=== PATIENT | male | born 1955 | race Caucasian/White ===

== ENCOUNTER → 2017-10-08 12:03 | Outpatient (CLI) | payer OTHER, SELFPAY ==
[2017-10-08 13:38] LABS: Absolute Lymphocyte Count 1.85 X10^3/ul (0.83-4.51); Basophil# 0.04 X10^3/uL; Basophil% 0.7 % (0-1); Eosinophil# 0.15 X10^3/uL; Eosinophils% 2.6 % (0-5); Hematocrit 42.8 % (40-54); Hemoglobin 14.3 g/dl (13.0-16.5); Lymphocyte # 1.85 X10^3/ul (4.0); Lymphocyte % 31.8 % (19-41); Mean Corp Hgb Conc 33.4 g/gl (32-36); Mean Corpuscular Hgb 32.8 pg (27.0-32.0); Mean Corpuscular Volume 98.2 fL (80-94); Mean Platelet Vol. 10.2 fl (6.2-12.0); Monocyte# 0.68 X10^3/uL; Monocyte% 11.7 % (0-10); Neutrophil # 3.04 X10^3/uL (2.7-7.7); Neutrophil % 52.3 % (47-70); Platelet Count 212 K/mm3 (150-450); RBC Distribution Width CV 12.7 % (11.6-14.6); RBC Distribution Width SD 45.2 fl (35.1-43.9); Red Blood Count 4.36 M/mm3 (4.6-6.2); White Blood Count 5.8 K/mm3 (4.4-11.0)
[2017-10-08 13:48] LABS: ALB/GLOB Ratio 1.2 RATIO (0.9-2.4); AST(SGOT) 18 U/L (15-37); Alanine Aminotransfer ALT/SGPT 35 U/L (16-61); Albumin, Serum 3.9 g/dL (3.2-5.0); Alkaline Phosphatase 65 U/L (45-117); Anion Gap 6 (5-15); BUN 16 mg/dL (7-18); BUN/Creat Ratio 21.7 RATIO (10-20); Calcium,Total 8.7 mg/dL (8.5-10.1); Chloride 102 mmol/L (98-107); Creatinine, Serum 0.74 mg/dL (0.70-1.30); EST Glomerular Filtration Rate 114 mL/min (>60); Est Glom Filt Rate - Afr Amer 138 mL/min (>60); Globulin 3.2 g/dL (2.2-4.2); Glucose 119 mg/dL (74-106); POSITIVE COUNT NO; POSITIVE DIFFERENTIAL NO; POSITIVE MORPHOLOGY NO; Potassium 4.4 mmol/L (3.5-5.1); Protein, Total 7.1 g/dL (6.4-8.2); Sodium Level 137 mmol/L (136-145); Thyroid Stim Hormone (TSH) 2.76 uIU/mL (0.358-3.74)
== END ==
PROVIDERS: Family Provider Family Medicine Geriatric Medicine; PCP Family Medicine Geriatric Medicine; Visit Provider Family Medicine Geriatric Medicine
DX: I10 Essential (primary) hypertension (principal); M10.9 Gout, unspecified; F52.8 Other sexual dysfunction not due to a substance or known physiological condition
CPT/HCPCS: 36415; 80053; 84403; 84443; 84550; 85025

== ENCOUNTER → 2017-11-17 11:03 | Outpatient (CLI) | payer OTHER, SELFPAY ==
--- NOTE | 2017-11-17 11:10 | RAD_ITS ---
STUDY: X-RAY - RIGHT ANKLE REASON FOR EXAM: Male, 62 years old. Pain TECHNIQUE: Two view(s) of the ankle were obtained. COMPARISON: None. FINDINGS: Bones: There are no acute osseous abnormalities. There is minimal spurring off the distal fibula and tibia. There is a small spur off the inferior calcaneus. There is minimal spurring off the talus and tarsal bones. Joints: There is moderate narrowing of the ankle joint. There is mild narrowing of the tarsal joints. Soft tissues: There is mild diffuse soft tissue swelling. RAD/Ankle 2 Views IMPRESSION: There are moderate degenerative changes in the right ankle. There are mild degenerative changes in the tarsal joints. Electronically Signed: Hyun Abreu MD at 9:04 EDT Tel Direct: [phone], Service support ,
== END ==
PROVIDERS: Family Provider Family Medicine Geriatric Medicine; PCP Family Medicine Geriatric Medicine; Visit Provider Family Medicine Geriatric Medicine
DX: M25.571 Pain in right ankle and joints of right foot (principal)
CPT/HCPCS: 73600

== ENCOUNTER → 2018-04-05 14:27 | Outpatient (CLI) | payer OTHER, SELFPAY | PROVIDERS: Family Provider Family Medicine Geriatric Medicine; PCP Family Medicine Geriatric Medicine; Visit Provider Family Medicine Geriatric Medicine | DX: M48.061 Spinal stenosis, lumbar region without neurogenic claudication (principal); M25.551 Pain in right hip; M25.552 Pain in left hip; M25.561 Pain in right knee; M25.562 Pain in left knee | CPT/HCPCS: 72100; 73521; 73564 ==

== ENCOUNTER → 2018-10-18 16:59 | Outpatient (CLI) | payer OTHER, SELFPAY ==
--- NOTE | 2018-09-27 15:56 | CT_ITS ---
STUDY: CT ORBITS WITHOUT CONTRAST REASON FOR EXAM: Male, 63 years old. MRI screening examination for metallic object in the left orbit. RADIATION DOSAGE (If Supplied By Facility): CTDIvol = ( 29.38 ) mGy, DLP = ( 283.00 ) mGycm TECHNIQUE: The patient was scanned in a multi detector CT scanner. Transaxial imaging was performed without the administration of intravenous contrast material. Sagittal and coronal images were reconstructed. Individualized dose optimization techniques were used for this CT. COMPARISON: Comparison is made with prior study dated September 01, 2017. FINDINGS: Normal globes. Normal intraconal spaces. Normal optic nerve sheath complex. Normal bilateral extraocular muscles. Normal lacrimal glands. A metallic BB is seen in the left eyelid. Normal bilateral medial and inferior orbital azevedo. Normal bilateral maxillary bones. Normal bilateral frontozygomatic arches. Normal bilateral zygomatic temporal arches. Normal frontal sinus. Normal ethmoidal sinuses. Normal maxillary sinuses. Normal sphenoid sinuses. Metallic BB in the left eyelid. CT/Orb Sella Post Fossa Ear w/o IMPRESSION: Metallic BB in the left eyelid. Electronically Signed: Sav Chao MD at 8:12 EST , Service support ,
--- NOTE | 2018-10-18 17:07 | MRI_ITS ---
STUDY: MRI RIGHT ANKLE WITHOUT CONTRAST REASON FOR EXAM: Right ankle pain for a year, no specific injury, tibiotalar arthrosis. TECHNIQUE: Standardized fat and water weighted pulse sequences were obtained in all 3 orthogonal planes. COMPARISON: Radiographs 11/17/2017. FINDINGS: There is mild edema in the medial and lateral subcutis adipose space. There is a small volume of fluid in the proximal posterior tibialis tendon sheath and a very small partial tear of the proximal posterior tibialis tendon (T2 axial image 8). Normal flexor digitorum longus tendon. Normal flexor hallucis longus tendon. There is a small volume of fluid in the perimalleolar peroneal tendon sheath (inversion recovery sagittal images 6, 7), a longitudinal split of the perimalleolar peroneus brevis tendon (inversion recovery axial images 11-17), and mild tendinosis of the peroneus longus tendon (inversion recovery axial image 11). Normal tibialis anterior tendon. Normal extensor hallucis longus tendon. Normal extensor digitorum longus tendons. Normal Achilles tendon and teno-osseous insertion. There is a small posterior calcaneal enthesophyte. Normal plantar fascia. There is a small plantar calcaneal enthesophyte. Normal intrinsic muscles of the rearfoot. Normal distal tibiofibular syndesmotic ligamentous complex. There is a chronic tear of the anterior talofibular ligament (T2 axial image 16). Normal calcaneofibular and posterior talofibular ligaments. There are small cysts in the sinus tarsi (inversion recovery sagittal images 12, 13). Normal deltoid ligamentous complexes. There is cystic change of the medial malleolus and medial talus at the deltoid ligament attachments. Normal plantar calcaneonavicular (spring) ligament. There is advanced tibiotalar arthrosis with marginal anterior osteophytes, chondral loss and subchondral cystic change/bone edema of the distal tibia and talar dome (inversion recovery sagittal images 9-17). There is a small tibiotalar joint effusion (inversion recovery sagittal image 13) and a suspected intra-articular body at the anterior aspect of the tibiotalar joint (T1 sagittal image 17). There are small marginal posterior osteophytes and subchondral cystic change of the posterior aspect of the posterior subtalar articulation (inversion recovery sagittal images 12, 13) without substantial chondral thinning. Normal talonavicular articulation. Normal calcaneocuboid articulation. Normal navicular-cuneiform articulations. MRI/Lower Ext Joint Only (Routine) IMPRESSION: Advanced tibiotalar arthrosis with small joint effusion and suspected intra-articular body. Longitudinal split of the peroneus longus tendon, mild tendinosis of the peroneus brevis tendon and mild peroneal tenosynovitis. Very small partial tear of the posterior tibialis tendon and mild posterior tibialis tenosynovitis. Chronic tear of the anterior talofibular ligament. Electronically Signed: Juan Diego Alcaraz MD at 10:25 EST Tel , Service support ,
== END ==
PROVIDERS: Family Provider Family Medicine Geriatric Medicine; PCP Family Medicine Geriatric Medicine; Referring Provider Podiatrist; Visit Provider Podiatrist
DX: Z01.818 Encounter for other preprocedural examination (principal); M19.071 Primary osteoarthritis, right ankle and foot; M76.71 Peroneal tendinitis, right leg
CPT/HCPCS: 70480; 73721

== ENCOUNTER → 2018-11-23 | Outpatient (CLI) | payer OTHER, SELFPAY ==
[2017-12-23 10:38] VITALS: BMI 36.8
[2018-11-23 16:09] LABS: Absolute Lymphocyte Count 1.37 X10^3/ul (0.83-4.51); Absolute Neutrophil Count 3.6 X10^3/uL (2.0-7.7); Basophil# 0.07 X10^3/uL; Basophil% 1.1 % (0-1); Eosinophil# 0.31 X10^3/uL; Hematocrit 43.9 % (40-54); Hemoglobin 14.6 g/dl (13.0-16.5); Lymphocyte # 1.37 X10^3/ul (4.0); Lymphocyte % 22.3 % (19-41); Mean Corp Hgb Conc 33.3 g/gl (32-36); Mean Corpuscular Hgb 31.1 pg (27.0-32.0); Mean Corpuscular Volume 93.4 fL (80-94); Mean Platelet Vol. 10.8 fl (6.2-12.0); Monocyte# 0.82 X10^3/uL; Monocyte% 13.4 % (0-10); Neutrophil # 3.55 X10^3/uL (2.7-7.7); Neutrophil % 57.9 % (47-70); Platelet Count 225 K/mm3 (150-450); RBC Distribution Width SD 43.4 fl (35.1-43.9); White Blood Count 6.1 K/mm3 (4.4-11.0)
[2018-11-23 16:10] LABS: POSITIVE COUNT NO; POSITIVE DIFFERENTIAL NO; POSITIVE MORPHOLOGY NO
[2018-11-23 16:30] LABS: ALB/GLOB Ratio 1.3 RATIO (0.9-2.4); AST(SGOT) 29 U/L (15-37); Alanine Aminotransfer ALT/SGPT 38 U/L (16-61); Albumin, Serum 4.1 g/dL (3.2-5.0); Alkaline Phosphatase 78 U/L (45-117); Anion Gap 10 (5-15); BUN 14 mg/dL (7-18); BUN/Creat Ratio 12.6 RATIO (10-20); Chloride 104 mmol/L (98-107); Creatinine, Serum 1.11 mg/dL (0.70-1.30); EST Glomerular Filtration Rate 71 mL/min (>60); Est Glom Filt Rate - Afr Amer 86 mL/min (>60); Globulin 3.1 g/dL (2.2-4.2); Glucose 123 mg/dL (74-106); Potassium 4.4 mmol/L (3.5-5.1); Protein, Total 7.2 g/dL (6.4-8.2); Sodium Level 138 mmol/L (136-145); Thyroid Stim Hormone (TSH) 2.35 uIU/mL (0.358-3.74)
== END | disposition home or self-care (01) ==
PROVIDERS: Family Provider Family Medicine Geriatric Medicine; PCP Family Medicine Geriatric Medicine; Visit Provider Family Medicine Geriatric Medicine
DX: R53.83 Other fatigue (principal)
CPT/HCPCS: 36415; 80053; 84443; 85025

== ENCOUNTER → 2019-01-11 | Outpatient (CLI) | payer OTHER, SELFPAY ==
[2017-12-23 10:38] VITALS: BMI 36.8
[2019-01-11 17:25] LABS: Absolute Lymphocyte Count 1.48 X10^3/ul (0.83-4.51); Absolute Neutrophil Count 4.7 X10^3/uL (2.0-7.7); Basophil# 0.06 X10^3/uL; Basophil% 0.8 % (0-1); Eosinophil# 0.42 X10^3/uL; Eosinophils% 5.7 % (0-5); Hematocrit 43.6 % (40-54); Hemoglobin 14.5 g/dl (13.0-16.5); Lymphocyte # 1.48 X10^3/ul (4.0); Lymphocyte % 20.2 % (19-41); Mean Corp Hgb Conc 33.3 g/gl (32-36); Mean Corpuscular Hgb 30.1 pg (27.0-32.0); Mean Corpuscular Volume 90.6 fL (80-94); Mean Platelet Vol. 10.8 fl (6.2-12.0); Monocyte% 9.5 % (0-10); Neutrophil # 4.65 X10^3/uL (2.7-7.7); Neutrophil % 63.5 % (47-70); Platelet Count 210 K/mm3 (150-450); RBC Distribution Width CV 13.6 % (11.6-14.6); RBC Distribution Width SD 44.9 fl (35.1-43.9); Red Blood Count 4.81 M/mm3 (4.6-6.2); White Blood Count 7.3 K/mm3 (4.4-11.0)
[2019-01-11 17:33] LABS: POSITIVE COUNT NO; POSITIVE DIFFERENTIAL NO; POSITIVE MORPHOLOGY NO
[2019-01-11 18:02] LABS: ALB/GLOB Ratio 1.2 RATIO (0.9-2.4); AST(SGOT) 25 U/L (15-37); Alanine Aminotransfer ALT/SGPT 31 U/L (16-61); Albumin, Serum 3.9 g/dL (3.2-5.0); Alkaline Phosphatase 99 U/L (45-117); Anion Gap 8 (5-15); BUN 12 mg/dL (7-18); Calcium,Total 8.8 mg/dL (8.5-10.1); Chloride 105 mmol/L (98-107); EST Glomerular Filtration Rate 80 mL/min (>60); Est Glom Filt Rate - Afr Amer 97 mL/min (>60); Globulin 3.2 g/dL (2.2-4.2); Glucose 110 mg/dL (74-106); Potassium 3.8 mmol/L (3.5-5.1); Protein, Total 7.1 g/dL (6.4-8.2); Sodium Level 139 mmol/L (136-145); Thyroid Stim Hormone (TSH) 2.44 uIU/mL (0.358-3.74); Uric Acid 6.6 mg/dL (3.5-7.2)
[2019-01-11 20:38] LABS: Vitamin D,25 Hydroxy 23.4 ng/mL (29.95-100.01)
== END | disposition home or self-care (01) ==
LOC: POLAB3 13:45
PROVIDERS: Family Provider Family Medicine Geriatric Medicine; PCP Family Medicine Geriatric Medicine; Visit Provider Family Medicine Geriatric Medicine
DX: E55.9 Vitamin D deficiency, unspecified (principal); F52.8 Other sexual dysfunction not due to a substance or known physiological condition; I10 Essential (primary) hypertension; M10.9 Gout, unspecified
CPT/HCPCS: 36415; 80053; 82306; 84403; 84443; 84550; 85025

== ENCOUNTER → 2019-07-12 15:28 | Outpatient (CLI) | payer OTHER, SELFPAY ==
[2017-12-23 10:38] VITALS: BMI 36.8
[2019-07-12 18:08] LABS: Absolute Lymphocyte Count 1.74 X10^3/uL (0.83-4.51); Absolute Neutrophil Count 3.6 X10^3/uL (2.0-7.7); Basophil# 0.05 X10^3/uL; Basophil% 0.8 % (0-1); Eosinophil# 0.33 X10^3/uL; Eosinophils% 5.1 % (0-5); Hematocrit 42.6 % (40-54); Hemoglobin 14.4 g/dL (13.0-16.5); Lymphocyte # 1.74 X10^3/ul (4.0); Lymphocyte % 26.7 % (19-41); Mean Corp Hgb Conc 33.8 g/dL (32-36); Mean Corpuscular Hgb 31.8 pg (27.0-32.0); Mean Platelet Vol. 10.2 fl (6.2-12.0); Monocyte# 0.74 X10^3/uL; Monocyte% 11.4 % (0-10); NRBC Flagged by Analyzer 0 % (0-5); Neutrophil # 3.62 X10^3/uL (2.7-7.7); Neutrophil % 55.5 % (47-70); Platelet Count 226 K/mm3 (150-450); RBC Distribution Width SD 44.9 fl (35.1-43.9); Red Blood Count 4.53 M/mm3 (4.6-6.2); White Blood Count 6.5 K/mm3 (4.4-11.0)
[2019-07-12 18:16] LABS: Vitamin D,25 Hydroxy 18.4 ng/mL (29.95-100.01)
[2019-07-12 18:21] LABS: ALB/GLOB Ratio 1.2 RATIO (0.9-2.4); AST(SGOT) 21 U/L (15-37); Alanine Aminotransfer ALT/SGPT 31 U/L (16-61); Albumin, Serum 4.1 g/dL (3.2-5.0); Alkaline Phosphatase 118 U/L (45-117); Anion Gap 8 (5-15); BUN 11 mg/dL (7-18); BUN/Creat Ratio 12.9 RATIO (10-20); Calcium,Total 8.8 mg/dL (8.5-10.1); Chloride 103 mmol/L (98-107); Creatinine, Serum 0.85 mg/dL (0.70-1.30); EST Glomerular Filtration Rate 96 mL/min (>60); Est Glom Filt Rate - Afr Amer 116 mL/min (>60); Globulin 3.5 g/dL (2.2-4.2); Glucose 120 mg/dL (74-106); Protein, Total 7.6 g/dL (6.4-8.2); Sodium Level 136 mmol/L (136-145); Uric Acid 4.9 mg/dL (3.5-7.2)
== END ==
PROVIDERS: Family Provider Family Medicine Geriatric Medicine; PCP Family Medicine Geriatric Medicine; Visit Provider Family Medicine Geriatric Medicine
DX: E55.9 Vitamin D deficiency, unspecified (principal); F52.8 Other sexual dysfunction not due to a substance or known physiological condition; I10 Essential (primary) hypertension; M10.9 Gout, unspecified
CPT/HCPCS: 36415; 80053; 82306; 84403; 84443; 84550; 85025

== ENCOUNTER → 2019-08-01 14:45 | Outpatient (CLI) | payer OTHER, SELFPAY ==
--- NOTE | 2019-08-01 14:51 | CT_ITS ---
STUDY: CT BILATERAL ANKLE WITHOUT CONTRAST REASON FOR EXAM: Male, 63 years old. Osteoarthritis of the right ankle. RADIATION DOSAGE (If Supplied By Facility): CTDIvol = ( 12.28 ) mGy, DLP = ( 614.11 ) mGycm TECHNIQUE: Thin section transaxial imaging of the ankle was obtained, with sagittal and coronal reconstructed images. Individualized dose optimization techniques were used for this CT. COMPARISON: None. FINDINGS: Marked degree of joint space narrowing of the right tibiotalar joint with the subchondral cysts in the distal tibia as well as within the talus. Is also evidence of there are degenerative changes of the distal right tibial fibular joint. I also suspect an old avulsion fracture of the right lateral malleolus. Degenerative spurring of the right medial malleolus. Mild osteoarthritis of the left tibiotalar joint. Evidence of an old avulsion 9-year-old fracture of the left medial malleolus soft tissue swelling. There is a 1.9 cm cyst in the anterior lateral aspect of the right calcaneus. Small bilateral plantar spurs as well as a small spur at the insertion of the Achilles tendon. CT/Extremity Lower without Contra IMPRESSION: Degenerative changes of both ankle joints worse on the right side. Electronically Signed: Sav Chao, at 9:40 EST , Service support ,
== END ==
PROVIDERS: Family Provider Family Medicine Geriatric Medicine; PCP Family Medicine Geriatric Medicine; Referring Provider Podiatrist; Visit Provider Podiatrist
DX: M19.071 Primary osteoarthritis, right ankle and foot (principal)
CPT/HCPCS: 73700

== ENCOUNTER → 2021-01-16 14:38 | Outpatient (CLI) | payer MEDICARE, SELFPAY ==
[2017-12-23 10:38] VITALS: BMI 36.8
[2021-01-16 16:04] LABS: Absolute Lymphocyte Count 2.01 X10^3/uL (0.83-4.51); Absolute Neutrophil Count 3.3 X10^3/uL (2.0-7.7); Basophil# 0.04 X10^3/uL; Basophil% 0.6 % (0-1); Eosinophil# 0.25 X10^3/uL; Hematocrit 42.8 % (40-54); Lymphocyte # 2.01 X10^3/ul (0.83-4.51); Lymphocyte % 31.8 % (19-41); Mean Corp Hgb Conc 32.7 g/dL (32-36); Mean Corpuscular Hgb 30.6 pg (27.0-32.0); Mean Corpuscular Volume 93.4 fL (80-94); Mean Platelet Vol. 10.2 fl (6.2-12.0); Monocyte# 0.72 X10^3/uL; Monocyte% 11.4 % (0-10); NRBC Flagged by Analyzer 0 % (0-5); Neutrophil # 3.27 X10^3/uL (2.7-7.7); Neutrophil % 51.7 % (47-70); Platelet Count 237 K/mm3 (150-450); RBC Distribution Width CV 13.7 % (11.6-14.6); RBC Distribution Width SD 46.4 fl (35.1-43.9); Red Blood Count 4.58 M/mm3 (4.6-6.2); White Blood Count 6.3 K/mm3 (4.4-11.0)
[2021-01-16 16:44] LABS: ALB/GLOB Ratio 1.1 RATIO (0.9-2.4); AST(SGOT) 34 U/L (15-37); Alanine Aminotransfer ALT/SGPT 37 U/L (16-61); Alkaline Phosphatase 122 U/L (45-117); Anion Gap 8 (5-15); BUN 13 mg/dL (7-18); BUN/Creat Ratio 14.9 RATIO (10-20); Calcium,Total 8.7 mg/dL (8.5-10.1); Chloride 105 mmol/L (98-107); Creatinine, Serum 0.88 mg/dL (0.70-1.30); EST Glomerular Filtration Rate 93 mL/min (>60); Est Glom Filt Rate - Afr Amer 112 mL/min (>60); Globulin 3.5 g/dL (2.2-4.2); Glucose 120 mg/dL (74-106); PSA,Total - Annual Screen 4.57 ng/mL (0.00-4.00); Potassium 4.1 mmol/L (3.5-5.1); Protein, Total 7.5 g/dL (6.4-8.2); Sodium Level 139 mmol/L (136-145); Thyroid Stim Hormone (TSH) 1.79 uIU/mL (0.358-3.74)
== END ==
PROVIDERS: PCP Family Medicine Geriatric Medicine; Visit Provider Family Medicine Geriatric Medicine
DX: E55.9 Vitamin D deficiency, unspecified (principal); F52.8 Other sexual dysfunction not due to a substance or known physiological condition; I10 Essential (primary) hypertension; Z12.5 Encounter for screening for malignant neoplasm of prostate
CPT/HCPCS: 36415; 80053; 82306; 84153; 84403; 84443; 85025; G0103

== ENCOUNTER → 2021-07-17 09:59 | Outpatient (CLI) | payer MEDICARE, SELFPAY ==
[2021-07-17 16:26] LABS: Absolute Lymphocyte Count 2.27 X10^3/uL (0.83-4.51); Basophil# 0.06 X10^3/uL; Eosinophil# 0.31 X10^3/uL; Eosinophils% 4.9 % (0-5); Hematocrit 44.1 % (40-54); Hemoglobin 14.6 g/dL (13.0-16.5); Lymphocyte # 2.27 X10^3/ul (0.83-4.51); Lymphocyte % 36.1 % (19-41); Mean Corp Hgb Conc 33.1 g/dL (32-36); Mean Corpuscular Hgb 31.2 pg (27.0-32.0); Mean Corpuscular Volume 94.2 fL (80-94); Mean Platelet Vol. 9.5 fl (6.2-12.0); Monocyte# 0.66 X10^3/uL; Monocyte% 10.5 % (0-10); NRBC Flagged by Analyzer 0 % (0-5); Neutrophil # 2.97 X10^3/uL (2.7-7.7); Neutrophil % 47.2 % (47-70); Platelet Count 259 K/mm3 (150-450); RBC Distribution Width CV 13.1 % (11.6-14.6); RBC Distribution Width SD 44.7 fl (35.1-43.9); Red Blood Count 4.68 M/mm3 (4.6-6.2); White Blood Count 6.3 K/mm3 (4.4-11.0)
[2021-07-17 16:42] LABS: Vitamin D,25 Hydroxy 29.6 ng/mL
[2021-07-17 16:50] LABS: AST(SGOT) 23 U/L (15-37); Alanine Aminotransfer ALT/SGPT 39 U/L (16-61); Alkaline Phosphatase 94 U/L (45-117); Anion Gap 8 (5-15); BUN 12 mg/dL (7-18); BUN/Creat Ratio 12.9 RATIO (10-20); Calcium,Total 8.8 mg/dL (8.5-10.1); Chloride 102 mmol/L (98-107); Creatinine, Serum 0.93 mg/dL (0.70-1.30); EST Glomerular Filtration Rate 87 mL/min (>60); Est Glom Filt Rate - Afr Amer 105 mL/min (>60); Globulin 3.9 g/dL (2.2-4.2); Glucose 117 mg/dL (74-106); Potassium 4.3 mmol/L (3.5-5.1); Protein, Total 7.9 g/dL (6.4-8.2); Sodium Level 137 mmol/L (136-145); Thyroid Stim Hormone (TSH) 1.84 uIU/mL (0.358-3.74); Uric Acid 6.8 mg/dL (3.5-7.2)
== END ==
PROVIDERS: PCP Family Medicine Geriatric Medicine; Visit Provider Family Medicine Geriatric Medicine
DX: E11.65 Type 2 diabetes mellitus with hyperglycemia (principal); E55.9 Vitamin D deficiency, unspecified; F52.8 Other sexual dysfunction not due to a substance or known physiological condition; I10 Essential (primary) hypertension; M10.9 Gout, unspecified
CPT/HCPCS: 36415; 80053; 82306; 84403; 84443; 84550; 85025

== ENCOUNTER → 2022-01-22 | Outpatient (CLI) | payer MEDICARE, SELFPAY ==
[2022-01-22 17:17] LABS: Absolute Lymphocyte Count 2.06 X10^3/uL (0.83-4.51); Absolute Neutrophil Count 2.9 X10^3/uL (2.0-7.7); Basophil# 0.05 X10^3/uL; Basophil% 0.9 % (0-1); Eosinophil# 0.22 X10^3/uL; Eosinophils% 3.8 % (0-5); Hematocrit 43.4 % (40-54); Hemoglobin 14.3 g/dL (13.0-16.5); Lymphocyte # 2.06 X10^3/ul (0.83-4.51); Lymphocyte % 35.3 % (19-41); Mean Corp Hgb Conc 32.9 g/dL (32-36); Mean Corpuscular Hgb 31.4 pg (27.0-32.0); Mean Corpuscular Volume 95.4 fL (80-94); Mean Platelet Vol. 9.7 fl (6.2-12.0); Monocyte% 10.3 % (0-10); NRBC Flagged by Analyzer 0 % (0-5); Neutrophil # 2.88 X10^3/uL (2.7-7.7); Neutrophil % 49.4 % (47-70); Platelet Count 244 K/mm3 (150-450); RBC Distribution Width CV 13.4 % (11.6-14.6); RBC Distribution Width SD 47.4 fl (35.1-43.9); Red Blood Count 4.55 M/mm3 (4.6-6.2); White Blood Count 5.8 K/mm3 (4.4-11.0)
[2022-01-22 17:34] LABS: ALB/GLOB Ratio 1.2 RATIO (0.9-2.4); AST(SGOT) 32 U/L (15-37); Alanine Aminotransfer ALT/SGPT 49 U/L (16-61); Albumin, Serum 4.2 g/dL (3.2-5.0); Alkaline Phosphatase 79 U/L (45-117); Anion Gap 6 (5-15); BUN 11 mg/dL (7-18); BUN/Creat Ratio 11.4 RATIO (10-20); Calcium,Total 8.9 mg/dL (8.5-10.1); Chloride 101 mmol/L (98-107); Creatinine, Serum 0.96 mg/dL (0.70-1.30); EST Glomerular Filtration Rate 83 mL/min (>60); Est Glom Filt Rate - Afr Amer 100 mL/min (>60); Globulin 3.5 g/dL (2.2-4.2); Glucose 126 mg/dL (74-106); Protein, Total 7.7 g/dL (6.4-8.2); Sodium Level 134 mmol/L (136-145); Thyroid Stim Hormone (TSH) 2.37 uIU/mL (0.358-3.74); Uric Acid 5.9 mg/dL (3.5-7.2)
[2022-01-22 20:00] LABS: Vitamin D,25 Hydroxy 53.9 ng/mL
== END | disposition home or self-care (01) ==
LOC: POLAB3 15:09
PROVIDERS: PCP Family Medicine Geriatric Medicine; Visit Provider Family Medicine Geriatric Medicine
DX: E55.9 Vitamin D deficiency, unspecified (principal); F52.8 Other sexual dysfunction not due to a substance or known physiological condition; I10 Essential (primary) hypertension; M10.9 Gout, unspecified
CPT/HCPCS: 36415; 80053; 82306; 84403; 84443; 84550; 85025

== ENCOUNTER → 2022-07-23 | Outpatient (CLI) | payer MEDICARE, SELFPAY ==
[2022-07-23 17:23] LABS: Absolute Lymphocyte Count 2.18 X10^3/uL (0.83-4.51); Absolute Neutrophil Count 3.5 X10^3/uL (2.0-7.7); Basophil# 0.05 X10^3/uL; Basophil% 0.7 % (0-1); Eosinophils% 4.5 % (0-5); Hemoglobin 14.6 g/dL (13.0-16.5); Lymphocyte # 2.18 X10^3/ul (0.83-4.51); Lymphocyte % 32.3 % (19-41); Mean Corp Hgb Conc 32.4 g/dL (32-36); Mean Corpuscular Hgb 31.1 pg (27.0-32.0); Mean Corpuscular Volume 95.9 fL (80-94); Mean Platelet Vol. 10.1 fl (6.2-12.0); Monocyte# 0.65 X10^3/uL; Monocyte% 9.6 % (0-10); NRBC Flagged by Analyzer 0 % (0-5); Neutrophil # 3.53 X10^3/uL (2.7-7.7); Neutrophil % 52.5 % (47-70); Platelet Count 239 K/mm3 (150-450); RBC Distribution Width CV 13.2 % (11.6-14.6); Red Blood Count 4.69 M/mm3 (4.6-6.2); White Blood Count 6.7 K/mm3 (4.4-11.0)
[2022-07-23 18:05] LABS: Vitamin D,25 Hydroxy 52.3 ng/mL
[2022-07-23 18:15] LABS: ALB/GLOB Ratio 1.1 RATIO (0.9-2.4); AST(SGOT) 24 U/L (15-37); Alanine Aminotransfer ALT/SGPT 48 U/L (16-61); Alkaline Phosphatase 77 U/L (45-117); Anion Gap 8 (5-15); BUN 15 mg/dL (7-18); BUN/Creat Ratio 17.3 RATIO (10-20); Calcium,Total 9.2 mg/dL (8.5-10.1); Chloride 102 mmol/L (98-107); Creatinine, Serum 0.87 mg/dL (0.70-1.30); EST Glomerular Filtration Rate 93 mL/min (>60); Est Glom Filt Rate - Afr Amer 113 mL/min (>60); Globulin 3.6 g/dL (2.2-4.2); Glucose 115 mg/dL (74-106); Protein, Total 7.6 g/dL (6.4-8.2); Sodium Level 134 mmol/L (136-145); Thyroid Stim Hormone (TSH) 1.81 uIU/mL (0.358-3.74); Uric Acid 5.7 mg/dL (3.5-7.2)
== END | disposition home or self-care (01) ==
LOC: POLAB3 15:33
PROVIDERS: PCP Family Medicine Geriatric Medicine; Visit Provider Family Medicine Geriatric Medicine
DX: I10 Essential (primary) hypertension (principal); E11.65 Type 2 diabetes mellitus with hyperglycemia; E55.9 Vitamin D deficiency, unspecified; M10.9 Gout, unspecified
CPT/HCPCS: 36415; 80053; 82306; 84443; 84550; 85025

== ENCOUNTER → 2023-01-09 | Outpatient (CLI) | payer MEDICARE, SELFPAY | END | disposition home or self-care (01) | LOC: PSN 12:36 | PROVIDERS: PCP Family Medicine Geriatric Medicine; Referring Provider Family Medicine Geriatric Medicine; Visit Provider Family Medicine Geriatric Medicine | DX: R68.83 Chills (without fever) (principal) | CPT/HCPCS: 87804; 87807; C9803 ==

== ENCOUNTER → 2023-01-29 | Outpatient (CLI) | payer MEDICARE, SELFPAY ==
[2023-01-29 17:40] LABS: Absolute Lymphocyte Count 2.35 X10^3/uL (0.83-4.51); Absolute Neutrophil Count 2.9 X10^3/uL (2.0-7.7); Basophil# 0.06 X10^3/uL; Eosinophil# 0.25 X10^3/uL; Hematocrit 46.3 % (40-54); Lymphocyte # 2.35 X10^3/ul (0.83-4.51); Mean Corp Hgb Conc 32.4 g/dL (32-36); Mean Corpuscular Hgb 31.6 pg (27.0-32.0); Mean Corpuscular Volume 97.7 fL (80-94); Mean Platelet Vol. 9.9 fl (6.2-12.0); Monocyte# 0.57 X10^3/uL; Monocyte% 9.2 % (0-10); NRBC Flagged by Analyzer 0 % (0-5); Neutrophil # 2.94 X10^3/uL (2.7-7.7); Neutrophil % 47.5 % (47-70); Platelet Count 253 K/mm3 (150-450); RBC Distribution Width SD 46.8 fl (35.1-43.9); Red Blood Count 4.74 M/mm3 (4.6-6.2); White Blood Count 6.2 K/mm3 (4.4-11.0)
[2023-01-29 18:36] LABS: ALB/GLOB Ratio 1.2 RATIO (0.9-2.4); AST(SGOT) 30 U/L (15-37); Alanine Aminotransfer ALT/SGPT 49 U/L (16-61); Albumin, Serum 4.2 g/dL (3.2-5.0); Alkaline Phosphatase 76 U/L (45-117); Anion Gap 7 (5-15); BUN 13 mg/dL (7-18); BUN/Creat Ratio 14.9 RATIO (10-20); Calcium,Total 9.3 mg/dL (8.5-10.1); Chloride 103 mmol/L (98-107); Creatinine, Serum 0.87 mg/dL (0.70-1.30); EST Glomerular Filtration Rate 93 mL/min (>60); Est Glom Filt Rate - Afr Amer 112 mL/min (>60); Globulin 3.6 g/dL (2.2-4.2); Glucose 116 mg/dL (74-106); PSA,Total - Annual Screen 4.22 ng/mL (0.00-4.00); Potassium 4.1 mmol/L (3.5-5.1); Protein, Total 7.8 g/dL (6.4-8.2); Sodium Level 135 mmol/L (136-145)
== END | disposition home or self-care (01) ==
LOC: LAB 16:43
PROVIDERS: PCP Family Medicine Geriatric Medicine; Referring Provider Family Medicine Geriatric Medicine; Visit Provider Family Medicine Geriatric Medicine
DX: E11.65 Type 2 diabetes mellitus with hyperglycemia (principal); I10 Essential (primary) hypertension; E55.9 Vitamin D deficiency, unspecified; Z12.5 Encounter for screening for malignant neoplasm of prostate
CPT/HCPCS: 36415; 80053; 82306; 84153; 84443; 85025; G0103

== ENCOUNTER → 2023-06-25 | Outpatient (CLI) | payer MEDICARE, SELFPAY ==
[2023-06-25 18:03] LABS: Absolute Lymphocyte Count 1.99 X10^3/uL (0.83-4.51); Absolute Neutrophil Count 2.8 X10^3/uL (2.0-7.7); Basophil# 0.05 X10^3/uL; Basophil% 0.9 % (0-1); Eosinophils% 5.2 % (0-5); Hematocrit 46.1 % (40-54); Hemoglobin 15.2 g/dL (13.0-16.5); Lymphocyte # 1.99 X10^3/ul (0.83-4.51); Lymphocyte % 34.3 % (19-41); Mean Corpuscular Hgb 31.8 pg (27.0-32.0); Mean Corpuscular Volume 96.4 fL (80-94); Mean Platelet Vol. 10.2 fl (6.2-12.0); Monocyte# 0.61 X10^3/uL; Monocyte% 10.5 % (0-10); NRBC Flagged by Analyzer 0 % (0-5); Neutrophil # 2.82 X10^3/uL (2.7-7.7); Neutrophil % 48.6 % (47-70); Platelet Count 236 K/mm3 (150-450); RBC Distribution Width CV 13.4 % (11.6-14.6); RBC Distribution Width SD 48.4 fl (35.1-43.9); Red Blood Count 4.78 M/mm3 (4.6-6.2); White Blood Count 5.8 K/mm3 (4.4-11.0)
[2023-06-25 18:12] LABS: Prothrombin Time (Protime)PT. 12.9 SECONDS (11.7-14.9)
[2023-06-25 18:13] LABS: Partial Thromboplast Time 27.8 Seconds (24.1-36.2)
[2023-06-25 18:16] LABS: Anion Gap 4 (5-15); BUN 14 mg/dL (7-18); BUN/Creat Ratio 15.8 RATIO (10-20); Calcium,Total 9.4 mg/dL (8.5-10.1); Chloride 103 mmol/L (98-107); Creatinine, Serum 0.89 mg/dL (0.70-1.30); EST Glomerular Filtration Rate 91 mL/min (>60); Est Glom Filt Rate - Afr Amer 110 mL/min (>60); Glucose 128 mg/dL (74-106); Potassium 4.3 mmol/L (3.5-5.1); Sodium Level 135 mmol/L (136-145)
== END | disposition home or self-care (01) ==
LOC: POLAB3 13:53
PROVIDERS: PCP Family Medicine Geriatric Medicine; Visit Provider Family Medicine Geriatric Medicine
DX: Z01.818 Encounter for other preprocedural examination (principal); I10 Essential (primary) hypertension
CPT/HCPCS: 36415; 80048; 85025; 85610; 85730

== ENCOUNTER → 2023-06-30 | Outpatient (CLI) | payer MEDICARE, SELFPAY | END | disposition home or self-care (01) | PROVIDERS: PCP Family Medicine Geriatric Medicine; Referring Provider Family Medicine Geriatric Medicine; Visit Provider Family Medicine Geriatric Medicine | DX: Z01.818 Encounter for other preprocedural examination (principal) | CPT/HCPCS: 93005 ==

== ENCOUNTER → 2023-07-30 | Outpatient (CLI) | payer MEDICARE, SELFPAY ==
[2023-07-30 17:43] LABS: Absolute Lymphocyte Count 2.33 X10^3/uL (0.83-4.51); Absolute Neutrophil Count 4.6 X10^3/uL (2.0-7.7); Basophil# 0.06 X10^3/uL; Basophil% 0.8 % (0-1); Eosinophil# 0.29 X10^3/uL; Eosinophils% 3.6 % (0-5); Hematocrit 41.7 % (40-54); Hemoglobin 13.5 g/dL (13.0-16.5); Lymphocyte # 2.33 X10^3/ul (0.83-4.51); Lymphocyte % 29.2 % (19-41); Mean Corp Hgb Conc 32.4 g/dL (32-36); Mean Corpuscular Volume 95.9 fL (80-94); Mean Platelet Vol. 9.2 fl (6.2-12.0); Monocyte# 0.65 X10^3/uL; Monocyte% 8.1 % (0-10); NRBC Flagged by Analyzer 0 % (0-5); Neutrophil % 57.7 % (47-70); Platelet Count 321 K/mm3 (150-450); RBC Distribution Width CV 13.1 % (11.6-14.6); RBC Distribution Width SD 46.3 fl (35.1-43.9); Red Blood Count 4.35 M/mm3 (4.6-6.2)
[2023-07-30 17:57] LABS: Vitamin D,25 Hydroxy 52.4 ng/mL
[2023-07-30 18:02] LABS: AST(SGOT) 32 U/L (15-37); Alanine Aminotransfer ALT/SGPT 41 U/L (16-61); Albumin, Serum 3.9 g/dL (3.2-5.0); Alkaline Phosphatase 82 U/L (45-117); Anion Gap 9 (5-15); BUN 15 mg/dL (7-18); BUN/Creat Ratio 16.6 RATIO (10-20); Chloride 103 mmol/L (98-107); EST Glomerular Filtration Rate 89 mL/min (>60); Est Glom Filt Rate - Afr Amer 108 mL/min (>60); Globulin 4.1 g/dL (2.2-4.2); Glucose 117 mg/dL (74-106); Potassium 4.7 mmol/L (3.5-5.1); Sodium Level 136 mmol/L (136-145); Thyroid Stim Hormone (TSH) 1.98 uIU/mL (0.358-3.74); Uric Acid 5.9 mg/dL (3.5-7.2)
== END | disposition home or self-care (01) ==
LOC: POLAB3 13:57
PROVIDERS: PCP Family Medicine Geriatric Medicine; Visit Provider Family Medicine Geriatric Medicine
DX: E11.65 Type 2 diabetes mellitus with hyperglycemia (principal); I10 Essential (primary) hypertension; M10.9 Gout, unspecified; E55.9 Vitamin D deficiency, unspecified
CPT/HCPCS: 36415; 80053; 82306; 84443; 84550; 85025

== ENCOUNTER → 2023-10-29 | Outpatient (CLI) | payer MEDICARE, SELFPAY ==
[2023-10-29 15:44] LABS: Absolute Lymphocyte Count 2.15 X10^3/uL (0.83-4.51); Absolute Neutrophil Count 2.8 X10^3/uL (2.0-7.7); Basophil# 0.05 X10^3/uL; Basophil% 0.8 % (0-1); Eosinophil# 0.26 X10^3/uL; Eosinophils% 4.4 % (0-5); Hematocrit 46.8 % (40-54); Lymphocyte # 2.15 X10^3/ul (0.83-4.51); Lymphocyte % 36.4 % (19-41); Mean Corp Hgb Conc 32.1 g/dL (32-36); Mean Corpuscular Hgb 30.7 pg (27.0-32.0); Mean Corpuscular Volume 95.9 fL (80-94); Mean Platelet Vol. 9.7 fl (6.2-12.0); Monocyte# 0.65 X10^3/uL; NRBC Flagged by Analyzer 0 % (0-5); Neutrophil # 2.77 X10^3/uL (2.7-7.7); Neutrophil % 46.9 % (47-70); Platelet Count 245 K/mm3 (150-450); RBC Distribution Width CV 13.6 % (11.6-14.6); RBC Distribution Width SD 48.5 fl (35.1-43.9); Red Blood Count 4.88 M/mm3 (4.6-6.2); White Blood Count 5.9 K/mm3 (4.4-11.0)
[2023-10-29 15:59] LABS: Vitamin D,25 Hydroxy 43.7 ng/mL
[2023-10-29 16:34] LABS: ALB/GLOB Ratio 1.1 RATIO (0.9-2.4); AST(SGOT) 37 U/L (15-37); Alanine Aminotransfer ALT/SGPT 44 U/L (16-61); Alkaline Phosphatase 86 U/L (45-117); Anion Gap 7 (5-15); BUN 13 mg/dL (7-18); BUN/Creat Ratio 13.9 RATIO (10-20); Calcium,Total 8.7 mg/dL (8.5-10.1); Chloride 101 mmol/L (98-107); Creatinine, Serum 0.94 mg/dL (0.70-1.30); EST Glomerular Filtration Rate 85 mL/min (>60); Est Glom Filt Rate - Afr Amer 103 mL/min (>60); Globulin 3.7 g/dL (2.2-4.2); Glucose 131 mg/dL (74-106); Potassium 4.2 mmol/L (3.5-5.1); Protein, Total 7.7 g/dL (6.4-8.2); Sodium Level 135 mmol/L (136-145); Thyroid Stim Hormone (TSH) 1.85 uIU/mL (0.358-3.74); Uric Acid 5.8 mg/dL (3.5-7.2)
== END | disposition home or self-care (01) ==
LOC: POLAB3 14:05
PROVIDERS: PCP Family Medicine Geriatric Medicine; Visit Provider Family Medicine Geriatric Medicine
DX: E55.9 Vitamin D deficiency, unspecified (principal); E11.65 Type 2 diabetes mellitus with hyperglycemia; I10 Essential (primary) hypertension; M10.9 Gout, unspecified
CPT/HCPCS: 36415; 80053; 82306; 84443; 84550; 85025

== ENCOUNTER → 2023-11-05 | Outpatient (CLI) | payer MEDICARE, SELFPAY ==
[2023-11-05 15:37] LABS: M R Staph aureus DNA By PCR Negative (Negative); Probe Check PASS; Specimen Processing Control PASS; Staph aureus DNA By PCR NEGATIVE (Negative)
== END | disposition home or self-care (01) ==
LOC: LABSPEC 14:08
PROVIDERS: PCP Family Medicine Geriatric Medicine; Visit Provider Family Medicine Geriatric Medicine
DX: L03.012 Cellulitis of left finger (principal); S61.203A Unspecified open wound of left middle finger without damage to nail, initial encounter
CPT/HCPCS: 87070; 87077; 87186; 87205; 87640

== ENCOUNTER → 2023-12-04 | Outpatient (CLI) | payer MEDICARE, SELFPAY ==
--- NOTE | 2023-12-04 12:38 | MRI_ITS ---
HISTORY: Facial paresthesia, left facial numbness and tingling x 3 months. TECHNIQUE: Multiplanar and multisequence MR images of the brain were obtained without contrast. 283 images. COMPARISON: None. FINDINGS: BRAIN PARENCHYMA: Mild periventricular white matter changes. No abnormal focus of restricted diffusion. No acute intracranial hemorrhage identified. CSF SPACES: Mild-moderate volume loss. No significant midline shift or other mass effect.No extra-axial fluid collection. VASCULAR SYSTEM: Major intracranial flow voids are maintained. PARANASAL SINUSES AND MASTOID AIR CELLS: Very mild because of thickening of the ethmoid air cells. ORBITS: Symmetric contents. MRI/Brain without Contrast IMPRESSION: No evidence for acute infarct. Chronic involutional and white matter changes. Electronically Signed: Agatha Tomas MD at 15:16 EDT ,
== END | disposition home or self-care (01) ==
LOC: MRI 12:33
PROVIDERS: PCP Family Medicine Geriatric Medicine; Referring Provider Family Medicine Geriatric Medicine; Visit Provider Family Medicine Geriatric Medicine
DX: R20.2 Paresthesia of skin (principal)
CPT/HCPCS: 70551

== ENCOUNTER → 2024-02-01 | Outpatient (CLI) | payer MEDICARE, SELFPAY ==
[2024-02-01 16:15] LABS: Absolute Lymphocyte Count 2.01 X10^3/uL (0.83-4.51); Absolute Neutrophil Count 3.3 X10^3/uL (2.0-7.7); Basophil# 0.05 X10^3/uL; Basophil% 0.8 % (0-1); Eosinophil# 0.24 X10^3/uL; Eosinophils% 3.9 % (0-5); Hematocrit 45.5 % (40-54); Hemoglobin 14.6 g/dL (13.0-16.5); Lymphocyte # 2.01 X10^3/ul (0.83-4.51); Lymphocyte % 32.6 % (19-41); Mean Corp Hgb Conc 32.1 g/dL (32-36); Mean Corpuscular Hgb 31.1 pg (27.0-32.0); Mean Corpuscular Volume 96.8 fL (80-94); Mean Platelet Vol. 10.2 fl (6.2-12.0); Monocyte# 0.59 X10^3/uL; Monocyte% 9.6 % (0-10); NRBC Flagged by Analyzer 0 % (0-5); Neutrophil # 3.26 X10^3/uL (2.7-7.7); Neutrophil % 52.9 % (47-70); Platelet Count 223 K/mm3 (150-450); RBC Distribution Width CV 13.6 % (11.6-14.6); RBC Distribution Width SD 48.8 fl (35.1-43.9); White Blood Count 6.2 K/mm3 (4.4-11.0)
[2024-02-01 22:04] LABS: ALB/GLOB Ratio 1.1 RATIO (0.9-2.4); AST(SGOT) 31 U/L (15-37); Alanine Aminotransfer ALT/SGPT 43 U/L (16-61); Albumin, Serum 4.1 g/dL (3.2-5.0); Alkaline Phosphatase 74 U/L (45-117); Anion Gap 4 (5-15); BUN 14 mg/dL (7-18); BUN/Creat Ratio 13.5 RATIO (10-20); Calcium,Total 9.3 mg/dL (8.5-10.1); Chloride 103 mmol/L (98-107); Cholesterol 212 mg/dL (200); Creatinine, Serum 1.04 mg/dL (0.70-1.30); EST Glomerular Filtration Rate 75 mL/min (>60); Est Glom Filt Rate - Afr Amer 91 mL/min (>60); Globulin 3.6 g/dL (2.2-4.2); Glucose 119 mg/dL (74-106); High Density Lipoprotein 38 mg/dL; PSA,Total - Annual Screen 5.68 ng/mL (0.00-4.00); Potassium 4.7 mmol/L (3.5-5.1); Protein, Total 7.7 g/dL (6.4-8.2); Sodium Level 135 mmol/L (136-145); Thyroid Stim Hormone (TSH) 1.81 uIU/mL (0.358-3.74); Triglycerides 198 mg/dL; Uric Acid 6.1 mg/dL (3.5-7.2); Very Low Density Lipoprotein 40 mg/dL (5-40)
[2024-02-01 23:23] LABS: Hemoglobin A1c 6.2 % (3.8-5.6)
== END | disposition home or self-care (01) ==
PROVIDERS: PCP Family Medicine Geriatric Medicine; Referring Provider Family Medicine Geriatric Medicine; Visit Provider Family Medicine Geriatric Medicine
DX: E11.65 Type 2 diabetes mellitus with hyperglycemia (principal); I10 Essential (primary) hypertension; M10.9 Gout, unspecified; E55.9 Vitamin D deficiency, unspecified; Z12.5 Encounter for screening for malignant neoplasm of prostate; E78.5 Hyperlipidemia, unspecified
CPT/HCPCS: 36415; 80053; 80061; 82043; 82306; 82570; 83036; 84153; 84403; 84443; 84550; 85025; G0103

== ENCOUNTER → 2024-08-01 | Outpatient (CLI) | payer MEDICARE, SELFPAY ==
[2024-08-01 14:26] LABS: Absolute Lymphocyte Count 2.46 X10^3/uL (0.83-4.51); Absolute Neutrophil Count 3.7 X10^3/uL (2.0-7.7); Basophil# 0.06 X10^3/uL; Basophil% 0.8 % (0-1); Eosinophil# 0.41 X10^3/uL; Eosinophils% 5.6 % (0-5); Hematocrit 46.3 % (40-54); Hemoglobin 15.1 g/dL (13.0-16.5); Lymphocyte # 2.46 X10^3/ul (0.83-4.51); Lymphocyte % 33.6 % (19-41); Mean Corp Hgb Conc 32.6 g/dL (32-36); Mean Corpuscular Hgb 31.5 pg (27.0-32.0); Mean Corpuscular Volume 96.7 fL (80-94); Mean Platelet Vol. 9.7 fl (6.2-12.0); Monocyte# 0.65 X10^3/uL; Monocyte% 8.9 % (0-10); NRBC Flagged by Analyzer 0 % (0-5); Neutrophil # 3.71 X10^3/uL (2.7-7.7); Neutrophil % 50.6 % (47-70); Platelet Count 232 K/mm3 (150-450); RBC Distribution Width CV 13.2 % (11.6-14.6); Red Blood Count 4.79 M/mm3 (4.6-6.2); White Blood Count 7.3 K/mm3 (4.4-11.0)
[2024-08-01 15:05] LABS: AST(SGOT) 27 U/L (15-37); Alanine Aminotransfer ALT/SGPT 34 U/L (16-61); Albumin, Serum 3.9 g/dL (3.2-5.0); Alkaline Phosphatase 79 U/L (45-117); Anion Gap 6 (5-15); BUN 13 mg/dL (7-18); BUN/Creat Ratio 13.7 RATIO (10-20); Chloride 102 mmol/L (98-107); Creatinine, Serum 0.95 mg/dL (0.70-1.30); EST Glomerular Filtration Rate 84 mL/min (>60); Est Glom Filt Rate - Afr Amer 101 mL/min (>60); Glucose 129 mg/dL (74-106); Potassium 3.9 mmol/L (3.5-5.1); Protein, Total 7.9 g/dL (6.4-8.2); Sodium Level 136 mmol/L (136-145); Uric Acid 5.6 mg/dL (3.5-7.2)
[2024-08-01 18:40] LABS: Vitamin D,25 Hydroxy 41.4 ng/mL
== END | disposition home or self-care (01) ==
LOC: POLAB3 14:03
PROVIDERS: PCP Family Medicine Geriatric Medicine; Visit Provider Family Medicine Geriatric Medicine
DX: E11.65 Type 2 diabetes mellitus with hyperglycemia (principal); I10 Essential (primary) hypertension; E55.9 Vitamin D deficiency, unspecified; M10.9 Gout, unspecified
CPT/HCPCS: 36415; 80053; 82306; 84443; 84550; 85025

== ENCOUNTER → 2025-02-01 | Outpatient (CLI) | payer MEDICARE, SELFPAY ==
[2025-02-01 16:21] LABS: Absolute Lymphocyte Count 2.18 X10^3/uL (0.83-4.51); Absolute Neutrophil Count 3.1 X10^3/uL (2.0-7.7); Basophil# 0.06 X10^3/uL; Basophil% 0.9 % (0-1); Eosinophil# 0.49 X10^3/uL; Eosinophils% 7.7 % (0-5); Hematocrit 45.5 % (40-54); Hemoglobin 15.1 g/dL (13.0-16.5); Lymphocyte # 2.18 X10^3/ul (0.83-4.51); Lymphocyte % 34.3 % (19-41); Mean Corp Hgb Conc 33.2 g/dL (32-36); Mean Corpuscular Hgb 31.7 pg (27.0-32.0); Mean Corpuscular Volume 95.6 fL (80-94); Mean Platelet Vol. 9.7 fl (6.2-12.0); Monocyte# 0.52 X10^3/uL; Monocyte% 8.2 % (0-10); NRBC Flagged by Analyzer 0 % (0-5); Neutrophil # 3.09 X10^3/uL (2.7-7.7); Neutrophil % 48.7 % (47-70); Platelet Count 240 K/mm3 (150-450); RBC Distribution Width CV 13.1 % (11.6-14.6); RBC Distribution Width SD 47.1 fl (35.1-43.9); Red Blood Count 4.76 M/mm3 (4.6-6.2); White Blood Count 6.4 K/mm3 (4.4-11.0)
[2025-02-01 18:00] LABS: ALB/GLOB Ratio 1.5 RATIO (0.9-2.4); AST(SGOT) 43 U/L (<=37); Alanine Aminotransfer ALT/SGPT 29 U/L (<=46); Albumin, Serum 4.5 g/dL (3.4-4.8); Alkaline Phosphatase 78 U/L (40-129); Anion Gap 11 (5-15); BUN 10 mg/dL (4-19); BUN/Creat Ratio 11.6 RATIO (10-20); Calcium,Total 9.3 mg/dL (7.6-11.0); Chloride 100 mmol/L (98-108); EST Glomerular Filtration Rate 93 (>60); Glucose 98 mg/dL (70-99); PSA,Total - Annual Screen 4.32 ng/mL (0.02-4.00); Potassium 4.9 mmol/L (3.3-5.1); Protein, Total 7.5 g/dL (5.9-8.4); Sodium Level 137 mmol/L (133-145); Total Bilirubin 0.32 mg/dL (0.00-1.30); Vitamin D,25 Hydroxy 50.9 ng/mL (30-100)
== END | disposition home or self-care (01) ==
LOC: LAB 15:29
PROVIDERS: PCP Family Medicine Geriatric Medicine; Referring Provider Family Medicine Geriatric Medicine; Visit Provider Family Medicine Geriatric Medicine
DX: E11.65 Type 2 diabetes mellitus with hyperglycemia (principal); I10 Essential (primary) hypertension; M10.9 Gout, unspecified; E55.9 Vitamin D deficiency, unspecified; Z12.5 Encounter for screening for malignant neoplasm of prostate
CPT/HCPCS: 36415; 80053; 82306; 84153; 84443; 84550; 85025; G0103

== ENCOUNTER → 2025-03-22 | Outpatient (CLI) | payer MEDICARE, SELFPAY ==
--- NOTE | 2025-03-22 10:41 | RAD_ITS ---
PROCEDURE: HIP, UNI W/ PELVIS 2-3 VIEWS 03/22/2025 REASON FOR EXAM: PAIN IN LEFT HIP TECHNIQUE: HIP, UNI W/ PELVIS 2-3 VIEWS COMPARISON: Bilateral hip and pelvis study 04/05/2018. RAD/HIP, UNI W/ Pelvis 2-3 Views IMPRESSION: Prominent degenerative changes of the visualized lower lumbar spine is seen. Progressive enthesophytes of the bilateral pelvis proximal femora. Multiple prostate seeds are in place. Minimal sacroiliac joint degenerative changes are noted Overall mild bilateral left and minimal right hip joint degenerative changes ar e seen, [id number]. At least mild superolateral left hip joint space narrowing is noted. No evidence of femoral head osteonecrosis. No fracture or dislocation is seen. Reading Location: [place] [id number]
--- NOTE | 2025-03-22 10:41 | RAD_ITS ---
PROCEDURE: L/S SPINE MIN 4 VIEWS 03/22/2025 REASON FOR EXAM: PAIN IN LEFT HIP. TECHNIQUE: L/S SPINE MIN 4 VIEWS COMPARISON: None. FINDINGS: Moderate chronic changes of Baastrup's disease. Mild degenerative dextroscoliosis apex at L3. Grade 1 anterolisthesis of L4 on L5, probably secondary to facet joint arthropathy. Mildly exaggerated lumbar lordosis. There are diffuse spondylotic changes. Findings are demonstrated to by diffuse disc space narrowing, osteophyte formation and degenerative endplate sclerosis. There is diffuse facet joint arthropathy with secondary bilateral neural foramina narrowing. No fracture or dislocation is seen. No aggressive lytic or blastic bony lesion is noted. Calcified atheromatous plaques of the aorta. RAD/L/S Spine Min 4 Views IMPRESSION: Diffuse spondylosis. Moderate chronic changes of Baastrup's disease. [facility]
== END | disposition home or self-care (01) ==
LOC: RAD 10:39
PROVIDERS: PCP Family Medicine Geriatric Medicine; Referring Provider Family Medicine Geriatric Medicine; Visit Provider Family Medicine Geriatric Medicine
DX: M25.552 Pain in left hip (principal)
CPT/HCPCS: 72110; 73502

== ENCOUNTER → 2025-08-03 | Outpatient (CLI) | payer MEDICARE, SELFPAY ==
[2025-08-03 14:16] LABS: Hematocrit 47.3 % (40-54); Hemoglobin 16.0 g/dL (13.0-16.5); Immature Granulocytes Count 0.060 X10^3/uL (0.0-0.0); Mean Corp Hgb Conc 33.8 g/dL (32-36); Mean Corpuscular Volume 96.9 fL (80-94); Mean Platelet Vol. 9.3 fl (6.2-12.0); NRBC Flagged by Analyzer 0 % (0-5); Platelet Count 224 K/mm3 (150-450); RBC Distribution Width CV 12.9 % (11.6-14.6); RBC Distribution Width SD 46.3 fl (35.1-43.9); Red Blood Count 4.88 M/mm3 (4.6-6.2); White Blood Count 7.9 K/mm3 (4.4-11.0)
[2025-08-03 15:04] LABS: Uric Acid 5.7 mg/dL (3.5-7.2); Vitamin D,25 Hydroxy 58.1 ng/mL (30-100)
[2025-08-03 15:05] LABS: AST(SGOT) 30 U/L (<=37); Alanine Aminotransfer ALT/SGPT 29 U/L (<=46); Albumin, Serum 4.7 g/dL (3.4-4.8); Alkaline Phosphatase 67 U/L (40-129); Anion Gap 11 (5-15); BUN 11 mg/dL (4-19); BUN/Creat Ratio 11.4 RATIO (10-20); Calcium,Total 9.4 mg/dL (7.6-11.0); Carbon Dioxide 26.3 mmol/L (21.0-32.0); Chloride 99 mmol/L (98-108); Globulin 2.9 g/dL (2.2-4.2); Glucose 90 mg/dL (70-99); Potassium 4.3 mmol/L (3.3-5.1)
--- OUTSIDE RECORDS SUMMARY | 2025-08-03 19:15 | XMS RPT_ITS | CCD ---
Author Organization [facility] Care Team Providers Care Sand Sifter Name Role Phone [place] Unavailable Unavailable YIFAN, ALEXX-CHI Unavailable Unavailable AMADOR OTERO Unavailable Unavailable YIFAN, ALEXX-CHI Unavailable Unavailable Yifan, Alexx-Chi Primary Care Provider Yifan HARDIN, Alexx-Obdulio Primary Care Provider [phone] Yifan HARDIN, [place] Primary Care Provider Yifan HARDIN, Alexx-Obdulio Primary Care Provider Skinny Dc MD Unavailable Dr. Alexx Dhaliwal Chi Primary Care Provider Dr. Alexx Dhaliwal Chi Referring Provider Dr. Zia Coe Attending Provider Yifan, Alexx Chi Primary Care Provider YIFAN, ALEXX CHI Primary Care Unavailable BURRELL, JACOBO Referring Unavailable YIFAN, ALEXX CHI Primary Care Unavailable BURRELL, JACOBO Referring Unavailable YIFAN, ALEXX CHI Primary Care Unavailable BURRELL, JACOBO Referring Unavailable YIFAN, ALEXX CHI Primary Care Unavailable BURRELL, JACOBO Referring Unavailable YIFAN, ALEXX CHI Primary Care Unavailable BURRELL, JACOBO Referring Unavailable YIFAN, ALEXX CHI Primary Care Unavailable BURRELL, JACOBO Referring Unavailable YIFAN, ALEXX CHI Primary Care Unavailable BURRELL, JACOBO Referring Unavailable YIFAN, ALEXX CHI Primary Care Unavailable BURRELL, JACOBO Referring Unavailable YIFAN, ALEXX CHI Primary Care Unavailable BURRELL, JACOBO Referring Unavailable YIFAN, ALEXX CHI Primary Care Unavailable BURRELL, JACOBO Referring Unavailable YIFAN, ALEXX CHI Primary Care Unavailable BURRELL, JACOBO Referring Unavailable YIFAN, ALEXX CHI Primary Care Unavailable BURRELL, JACOBO Referring Unavailable YIFAN, ALEXX CHI Primary Care Unavailable BURRELL, JACOBO Referring Unavailable YIFAN, ALEXX CHI Primary Care Unavailable BURRELL, JACOBO Referring Unavailable YIFAN, ALEXX CHI Primary Care Unavailable BURRELL, JACOBO Referring Unavailable YIFAN, ALEXX CHI Primary Care Unavailable BURRELL, JACOBO Referring Unavailable YIFAN, ALEXX CHI Primary Care Unavailable BURRELL, JACOBO Referring Unavailable YIFAN, ALEXX CHI Primary Care Unavailable BURRELL, JACOBO Referring Unavailable YIFAN, ALEXX CHI Primary Care Unavailable BURRELL, JACOBO Referring Unavailable YIFAN, ALEXX CHI Primary Care Unavailable BURRELL, JACOBO Referring Unavailable YIFAN, ALEXX CHI Primary Care Unavailable BURRELL, JACOBO Referring Unavailable YIFAN, ALEXX CHI Primary Care Unavailable BURRELL, JACOBO Referring Unavailable YIFAN, ALEXX CHI Primary Care Unavailable GENEVIEVE STEARNS Attending Unavailable BURRELL, JACOBO Referring Unavailable YIFAN, ALEXX CHI Primary Care Unavailable BURRELL, JACOBO Referring Unavailable YIFAN, ALEXX CHI Primary Care Unavailable BURRELL, JACOBO Referring Unavailable YIFAN, ALEXX CHI Primary Care Unavailable BURRELL, JACOBO Referring Unavailable YIFAN, ALEXX CHI Primary Care Unavailable BURRELL, JACOBO Referring Unavailable YIFAN, ALEXX CHI Primary Care Unavailable BURRELL, JACOBO Referring Unavailable YIFAN, ALEXX CHI Primary Care Unavailable SKINNY DC Referring Unavailable YIFAN, ALEXX CHI Primary Care Unavailable Rodri HARDIN, Skinny Carpio Unavailable Yifan HARDIN, Dr. Alexx Mak Primary Care Provider [phone] Yifan HARDIN, Dr. Alexx Mak Attending Provider [phone] Dr. Alexx Dhaliwal MD, Chi Referring Provider Yifan, Alexx Chi Primary Care Unavailable Yifan, Alexx Chi Attending Unavailable Yifan, Alexx Chi Referring Unavailable Yifan, Alexx Chi Primary Care Unavailable Yifan, Alexx Chi Attending Unavailable Yifan, Alexx Chi Primary Care Unavailable Yifan, Alexx Chi Attending Unavailable Yifan, Alexx Chi Referring Unavailable ANURAG DCIN Attending Unavailable YIFAN, ALEXX-CHI Primary Care Unavailable Medications Current Medications Medication Drug Class(es) Dates Sig (Normalized) Sig (Original) ALPRAZolam 0.5 mg disintegrating oral tablet (1 source) Benzodiazepine Start: 06-03-2021 ALPRAZolam (NIRAVAM) dissolvable tablet 0.5 mg amLODIPine 5 mg oral tablet (8 sources) Dihydropyridine Calcium Channel Bernadette Start: 09-16-2022 amLODIPine (Norvasc) 5 MG tablet 09/16/2022 Active Start: 04-13-2020 take 1 tablet by samantha th once daily amLODIPine (NORVASC) 5 MG tablet take 1 tablet by mouth once daily 0 04/13/2020 Active calcium chloride 0.0014 meq/ml / potassium chloride 0.004 meq/ml / sodium chloride 0.103 meq/ml / sodium lactate 0.028 meq/ml injectable solution (1 source) Start: 06-03-2021 lactated ringers infusion celecoxib 200 mg oral capsule (10 sources) Nonsteroidal Anti-inflammatory Drug Start: 10-19-2017 take 1 capsule by mouth once daily Celecoxib (Celebrex) 200 mg capsule Active 200 mg PO daily October 19, 2017 1:00am Cholecalciferol (3 sources) Vitamin D Cholecalciferol (VITAMIN D3 PO) Take by mouth 0 Suspended Cholecalciferol (VITAMIN D3 PO) Take by mouth 0 Active 1 ml diphenhydrAMINE hydrochloride 50 mg/ml cartridge (1 source) Histamine-1 Receptor Antagonist Start: 06-03-2021 End: 06-03-2021 diphenhydrAMINE (BENADRYL) injection 12.5 mg DULoxetine 60 mg delayed release oral capsule (8 sources) Serotonin and Norepinephrine Reuptake Inhibitor Start: 09-16-2022 DULoxetine (Cymbalta ) [address] capsule 09/16/2022 Active take 1 capsule by mouth once madeleine ly DULoxetine (CYMBALTA) 60 MG extended release capsule Take 60 mg by mouth daily 0 Active 1 ml hydrALAZINE hydrochloride 20 mg/ml injection (1 source) Arteriolar Vasodilator Start: 06-03-2021 hydrALAZINE (APRESOLINE) injection 5 mg 1 ml HYDROmorphone hydrochloride 1 mg/ml cartridge (4 sources) Opioid Agonist Start: 06-03-2021 HYDROmorphone (DILAUDID) injection 1 mg Start: 06-03-2021 HYDROmorphone (DILAUDID) injection 0.25 mg Start: 06-03-2021 HYDROmorphone (DILAUDID) injection 0.5 mg ibuprofen 800 mg oral tablet (1 source) Nonsteroidal Anti-inflammatory Drug Start: 06-03-2021 End: 06-13-2021 take 1 tablet by mouth three times daily as needed for pain ibuprofen (ADVIL;MOTRIN) 800 MG tablet Take 1 tablet by mouth 3 times daily as needed for Pain 30 tablet 0 06/03/2021 06/13/2021 Active labetalol hydrochloride 5 mg/ml injectable solution (1 source) beta-Adrenergic Bernadette Start: 06-03-2021 labetalol (NORMODYNE;TRANDATE ) injection 5 mg 10 ml lidocaine hydrochloride 10 mg/ml injection (1 source) Antiarrhythmic, Amide Local Anesthetic Start: 06-03-2021 End: 06-03-2021 lidocaine PF 1 % injection 1 mL lisinopril 2.5 mg oral tablet (20 sources) Angiotensin Converting Enzyme Inhibitor Start: 11-04-2022 lisinopril 2.5 MG tablet 11/04/2022 Active Start: 01-16-2021 take 1 tablet by samantha th once daily lisinopril (PRINIVIL;ZESTRIL) 2.5 MG tablet take 1 tablet by mouth once daily 0 01/16/2021 Active Start: 03-05-2015 End: 10-19-2017 take 1 tablet by mouth once daily Lisinopril 20 MG tablet Discontinued 20 mg PO DAILY March 05, 2015 12:00am October 19, 2017 11:57am take 1 tablet by samantha th once daily lisinopril (ZESTRIL, PRINIVIL) 10 mg tablet Indications: Benign neoplasm of colon Take 10 mg by mouth once daily. 0 Active Comment on above: Take 10 mg by mouth once daily. 1 ml meperidine hydrochloride 25 mg/ml cartridge (1 source) Opioid Agonist Start: meperidine (DEMEROL) injection 12.5 mg metFORMIN hydrochloride 500 mg oral tablet (8 sources) Biguanide metFORMIN (Glucophage) 500 MG tablet Take 500 mg by mouth. Active Multivitamin,Tx-Iron-M inerals (Therems-M) 1 TABLET tablet (10 sources) Start: take 1 tablet by mouth once daily at mealtime Multivitamin,Tx-Iro n-Minerals (Therems-M) 1 TABLET tablet Active 1 TABLET PO DAILY WITH MEALS 0 March 19, 2015 11:25am Start: 03-19-2015 take 1 tablet by samantha th once daily at mealtime Multivitamin,Dj-Tvpw-Hmatfige (Therems-M ) 1 TABLET tablet Active 1 {tbl} PO DAILY WITH MEALS 0 0 March 19, 2015 12:00am Start: 03-19-2015 take 1 tablet by samantha th once daily at mealtime Multivitamin,Ka-Uutg-Xunoddsq (Therems-M ) 1 TABLET tablet Active 1 {tbl} PO DAILY WITH MEALS 0 March 19, 2015 12:00am Start: 03-19-2015 take 1 tablet by samantha th once daily at mealtime Multivitamin,Ju-Xyxf-Snsmqiau (Therems-M ) 1 TABLET tablet Active 1 TABLET PO DAILY WITH MEALS 0 March 19, 2015 12:00am Start: 03-19-2015 take 1 tablet by samantha th once daily at mealtime Multivitamin,Fl-Erbb-Fmnepzoc (Therems-M ) 1 TABLET tablet Active 1 TABLET PO DAILY WITH MEALS 0 March 18, 2015 11:00pm Nutritional Supplements (8 sources) Start: 10-19-2017 Nutritional Howard pplements Active PACKET PO October 19, 2017 11:58am Start: 10-19-2017 Nutritional Howard pplements Active PACKET PO October 19, 2017 1:00am Start: 10-19-2017 Nutritional Howard pplements Active PACKET PO October 19, 2017 12:00am Nutritional Supplements pack et (2 sources) Start: 10-19-2017 Nutritional Howard pplements packet Active NMA PO 0 October 19, 2017 1:00am Start: 10-19-2017 Nutritional Howard pplements packet Active NMA PO October 19, 2017 1:00am 2 ml ondansetron 2 mg/ml injection (1 source) Serotonin-3 Receptor Antagonist Start: 06-03-2021 End: 06-03-2021 ondansetron (ZOFRAN) injection 4 mg 24 hr oxybutynin chloride 15 mg extended release oral tablet (11 sources) Cholinergic Muscarinic Antagonist Start: 03-16-2024 take 1 tablet by mouth once daily in the morning oxybutynin XL (Ditropan-XL) 15 MG 24 hr tablet Indications: Urgency of urination Take 1 tablet (15 mg) by mouth every morning. 90 tablet 3 03/16/2024 Active Start: 04-13-2023 take 1 tablet by samantha th every twenty-four hours in the morning oxybutynin XL (Ditropan-XL) 10 MG 24 hr tablet TAKE 1 TABLET BY MOUTH IN THE MORNING 80 tablet 3 04/13/2023 Active Start: 12-02-2022 End: 12-03-2023 take 1 tablet by mouth once daily in the morning oxybutynin XL (Ditropan-XL) 15 MG 24 hr tablet Indications: Urgency of urination Take 1 tablet (15 mg) by mouth every morning. 90 tablet 3 12/02/2022 12/03/2023 Active Start: 08-05-2021 End: 08-06-2022 take 1 tablet by mouth once daily oxybutynin (DITROPAN -XL) 5 MG extended release tablet Indications: Urgency of urination Take 1 tablet by mouth daily 90 tablet 3 08/05/2021 08/06/2022 Active oxyCODONE (1 source) Opioid Agonist Start: 06-03-2021 End: 06-03-2021 oxyCODONE (ROXICODONE) immediate release tablet 5 mg Ozempic, 0.25 or 0.5 MG/DOSE, 2 MG/3ML solution pen-injector (4 sources) inject 0.5 mg by subcutaneous injection every week Ozempic, 0.25 or 0.5 MG/DOSE, 2 MG/3ML solution pen-injector INJECT 0.5 MILLIGRAMS SUBCUTANEOUSLY EVERY WEEK Active phenazopyridine hydrochloride 200 mg delayed release oral tablet (1 source) Start: 06-03-2021 End: 06-13-2021 take 1 tablet by mouth three times daily as needed for pain phenazopyridine (PYRIDIUM) 200 MG tablet Take 1 tablet by mouth 3 times daily as needed for Pain 30 tablet 0 06/03/2021 06/13/2021 Active 1 ml promethazine hydrochloride 25 mg/ml injection (11 sources) Phenothiazine Start: 06-03-2021 End: 06-03-2021 promethazine (PHENERGAN) injection 6.25 mg Start: 03-15-2015 End: 03-19-2015 take 1 tablet by mouth every four hours as needed for nausea Promethazine 25 MG tablet Discontinued 25 mg PO EVERY 4 HOURS NEEDED as needed for Nausea 10 0 March 15, 2015 12:00am March 19, 2015 11:26am sildenafil (2 sources) Phosphodiesterase 5 Inhibitor Si ldenafil Citrate (VIAGRA PO) Take by mouth 0 Active Sildenafil Citra te (VIAGRA PO) Take by mouth 0 Suspended 50 ml sodium chloride 9 mg/m l injection (4 sources) Start: 06-03-2021 End: 06-03-2021 0.9 % sodium chloride bolus Start: 06-03-2021 0.9 % sodium c hloride infusion Start: 06-03-2021 sodium chlorid e flush 0.9 % injection 5-40 mL tamsulosin hydrochloride 0.4 mg oral capsule (8 sources) alpha-Adrenergic Bernadette Start: 11-15-2024 take 1 capsule by mouth once daily at mealtime tamsulosin (Flomax) 0.4 MG 24 hr capsule Indications: BPH with urinary obstruction TAKE 1 CAPSULE BY MOUTH DAILY WITH FOOD 100 capsule 2 11/15/2024 Active Start: 02-04-2024 take 1 capsule by mo uth once daily at mealtime tamsulosin (Flomax) 0.4 MG 24 hr capsule Indications: BPH with urinary obstruction TAKE 1 CAPSULE BY MOUTH DAILY WITH FOOD 100 capsule 2 02/04/2024 Active Start: 03-30-2023 take 1 capsule by mo uth once daily at mealtime tamsulosin (Flomax) 0.4 MG 24 hr capsule TAKE 1 CAPSULE BY MOUTH DAILY WITH FOOD 100 capsule 2 03/30/2023 Active Start: 07-08-2021 take 1 capsule by mo uth once daily at mealtime tamsulosin (FLOMAX) 0.4 MG capsule Indications: Benign prostatic hyperplasia with urinary hesitancy TAKE 1 CAPSULE BY MOUTH DAILY TAKE WITH FOOD 90 capsule 3 07/08/2021 Active Start: 09-25-2020 take 1 capsule by mo uth once daily at mealtime tamsulosin (FLOMAX) 0.4 MG capsule Indications: Benign prostatic hyperplasia with urinary hesitancy Take 1 capsule by mouth daily Take with food. 90 capsule 3 09/25/2020 Suspended Start: 06-07-2020 take 1 capsule by mo uth once daily at mealtime tamsulosin (FLOMAX) 0.4 MG capsule Indications: Benign prostatic hyperplasia with urinary hesitancy Take 1 capsule by mouth daily Take with food. 30 capsule 5 06/07/2020 Active valsartan 320 mg oral tablet (10 sources) Angiotensin 2 Receptor Bernadette Start: 10-19-2017 take 1 tablet by mouth once daily Valsartan 320 mg tablet Active 320 mg PO daily October 19, 2017 1:00am Completed/Discontinued Medications Medication Drug Class(es) Dates Sig (Normalized) Sig (Original) acetaminophen 500 mg oral tablet (4 sources) Start: 06-03-2021 End: 06-03-2021 acetaminophen (TYLENOL) tablet 1,000 mg Acetaminophen (T YLENOL PO) Take 650 mg by mouth as needed 0 Active take 1 tablet by samantha th every six hours as needed for pain acetaminophen (TYLENOL) 500 MG tablet Ta ke 500 mg by mouth every 6 hours as needed for Pain 0 Active acetaminophen 325 mg / oxyCODONE hydrochloride 5 mg oral tablet (20 sources) Opioid Agonist Start: 03-15-2015 End: 10-19-2017 Oxycodone-Acetaminophen 1 TABLET tablet Discontinued 1 - 2 {tbl} PO EVERY 4 HOURS NEEDED as needed for Pain 30 March 19, 2015 11:26am October 19, 2017 11:57am Start: 03-15-2015 End: 10-19-2017 take 1 tablet by mouth every four hours as needed Oxycodone-Acetaminophen Discontinued 1 - 2 TABLET PO EVERY 4 HOURS NEEDED March 19, 2015 11:26am October 19, 2017 11:57am aspirin 325 mg delayed release oral tablet (20 sources) Platelet Aggregation Inhibitor, Nonsteroidal Anti-inflammatory Drug Start: 03-15-2015 End: 03-21-2015 take 1 tablet by mouth twice daily Aspirin 325 MG tablet Discontinued 325 mg PO TWICE A DAY 13 March 19, 2015 11:26am March 21, 2015 1:45pm aspirin 81 MG ch ewable tablet Chew 81 mg daily. Active take 1 tablet by mouth once vu y aspirin, enteric coated (ASPIRIN, ENTERIC COATED) 81 mg EC tablet Take 81 mg by mouth once daily. 0 Active Comment on above: Take 81 mg by mouth once daily. docusate sodium 100 mg oral capsule (10 sources) Start: End: take 1 capsule by mouth twice daily as needed for constipation Docusate Sodium 100 MG capsule Discontinued 100 mg PO TWICE DAILY NEEDED as needed for Constipation March 15, 2015 12:00am October 19, 2017 11:56am famotidine 20 mg oral tablet (1 source) Histamine-2 Receptor Antagonist Start: End: famotidine (PEPCID) tablet 20 mg gabapentin 300 mg oral capsule (1 source) Anti-epileptic Agent Start: End: gabapentin (NEURONTIN) capsule 300 mg omeprazole 20 mg delayed release oral tablet (20 sources) Proton Pump Inhibitor take 1 tablet by mouth once daily Omeprazole Magnesium (PRILOSEC OTC) 20 mg tablet Indications: Benign neoplasm of colon Take 20 mg by mouth once daily. 0 Active Comment on above: Take 20 mg by mouth once daily. venlafaxine 75 mg oral tablet (20 sources) Serotonin and Norepinephrine Reuptake Inhibitor Start: End: 018 take 1 tablet by mouth once daily Venlafaxine 75 MG tablet Discontinued 75 mg PO DAILY March 05, 2015 12:00am October 19, 2017 11:57am VENLAFAXINE HCL (EFFEXOR ORAL) Indications: Benign neoplasm of colon Take 1 tablet by mouth. 0 Active Comment on above: Take 1 tablet by samantha th. Problems Active Problems Problem Classification Problem Date Documented Date Episodic/Chronic Alcohol-related disorders (10 sources) Alcohol abuse; Translations: [Alcohol abuse, uncomplicated] 03-16-2015 Chronic Diabetes mellitus with complications (1 source) Type 2 diabetes mellitus with hyperglycemia; Translations: [Type 2 diabetes mellitus with hyperglycemia] Onset: 02-06-2025 Chronic Diverticulosis and diverticulitis (20 sources) Diverticulitis of large intestine without perforation or abscess without bleeding; Translations: [Diverticulitis of colon (without mention of hemorrhage)] Onset: 10-22-2006 07-13-2021 Chronic Essential hypertension (10 sources) Hypertensive disorder; Translations: [Essential (primary) hypertension] 03-16-2015 Chronic Genitourinary symptoms and ill-defined conditions (2 sources) Hesitancy of micturition; Translations: [Hesitancy of micturition] Onset: 05-30-2022 Episodic Hyperplasia of prostate (20 sources) Benign prostatic hypertrophy with outflow obstruction; Translations: [Benign prostatic hyperplasia with lower urinary tract symptoms] Onset: 06-07-2020 06-07-2020 Chronic Mood disorders (10 sources) Depressive disorder; Translations: [Depression] 03-16-2015 Chronic Other bone disease and musculoskeletal deformities (20 sources) Segmental and somatic dysfunction; Translations: [Segmental and somatic dysfunction of cervical region] 10-20-2017 Episodic Other connective tissue disease (20 sources) History of right shoulder arthroplasty; Translations: [Presence of right artificial shoulder joint] Onset: 08-19-2023 09-21-2023 Chronic Other connective tissue disease (1 source) Presence of right artificial shoulder joint; Translations: [S/P shoulder hemiarthroplasty, right] Onset: 08-19-2023 Chronic Other connective tissue disease (20 sources) Finding of shoulder joint; Translations: [Other symptoms and signs involving the musculoskeletal system] Onset: 08-19-2023 09-21-2023 Episodic Other diseases of kidney and ureters (3 sources) Other obstructive and reflux uropathy; Translations: [Nephropathy, obstructive] Onset: 05-30-2022 Episodic Other non-traumatic joint disorders (20 sources) Decreased range of shoulder movement; Translations: [Stiffness of right shoulder, not elsewhere classified] Onset: 08-19-2023 09-21-2023 Episodic Other non-traumatic joint disorders (1 source) Pain in left hip; Translations: [Pain in left hip] Onset: 03-27-2025 Episodic Other nutritional; endocrine; and metabolic disorders (10 sources) Obesity; Translations: [Obesity, unspecified] 03-16-2015 Chronic Other screening for suspected conditions (not mental disorders or infectious disease) (16 sources) Raised prostate specific antigen; Translations: [Elevated prostate specific antigen [PSA]] Onset: 06-07-2020 06-07-2020 Episodic Spondylosis; intervertebral disc disorders; other back problems (20 sources) Degeneration of cervical intervertebral disc; Translations: [Other cervical disc degeneration, unspecified cervical region] 10-20-2017 Chronic Unclassified (1 source) PT Eval Onset: 08-19-2023 Past or Other Problems Problem Classification Problem Date Documented Date Episodic/Chronic Other and unspecified benign neoplasm (20 sources) Benign neoplasm of colon; Translations: [Benign neoplasm of colon, unspecified] Onset: 10-30-2006 07-13-2021 Episodic Other connective tissue disease (1 source) Other symptoms and signs involving the musculoskeletal system; Translations: [Impaired strength of shoulder muscles] Onset: 08-19-2023 Episodic Other non-traumatic joint disorders (1 source) Stiffness of right shoulder, not elsewhere classified; Translations: [Decreased range of motion of right shoulder] Onset: 08-19-2023 Episodic Results Test Name Value Interpretation Reference Range Facility 29on 05-10-2025 29 Addended by: SKINNY DC on: 05/10/2025 03:49 PM Modules accepted: Orders [facility] Office Visiton 09-24-2025 Follow-up visit [id number] Gloria Falcon 1955 M Date Provider Department Center 05/10/2025 SKINNY ONEILL [facility]RO None Family History Problem Relation Age of Onset Lung cancer Father Heart disease Father Alzheimer's disease Mother Family Status - Relation Status Age at Father Mother Level of Service:[address] [place] OFFICE/OUTPATIENT ESTABLISHED MOD MDM 30 MIN Reason for Visit and Comments: Other [0] - PSA follow up Normal [facility] Progress Noteon 05-10-2025 Progress Note Skinny Dc MD 05/10/2025 at 3:39 PM Office follow up PATIENT NAME: Gloria Falcon DATE OF : 1955 TODAY'S DATE: 05/10/2025 CHIEF COMPLAINT: Chief Complaint Patient presents with Other PSA follow up Subjective: Mr. Falcon is a 69 y.o. male who presents to the office for follow up of Elevated PSA PSA 04/13/25 PSA 4.22 04/12/24 PSA 3.07 ( [facility] - < 2.6 ) 11/27/22 PSA 2.66 01/16/2021 PSA 4.57 (PCP) PSA 4 - 06/07/2020 PSA 4.75 - 01/16/2020 Review of Systems No Distress Respiratory WNL Past Medical History: Medical History[1] Past Surgical History: Surgical History[2] Allergies: Patient has no known allergies. Social History: Social History Socioeconomic History Marital status: Spouse name: Not on file Number of children: Not on file Years of education: Not on file Highest education level: Not on file Occupational History Not on file Tobacco Use Smoking status: Never Smokeless tobacco: Never Substance and Sexual Activity Alcohol use: Yes Alcohol/week: 20.0 standard drinks of alcohol Types: 20 Cans of beer per week Drug use: Yes Frequency: 7.0 times per week Comment: Delta 9 10 mg gummies once before bedtime Sexual activity: Yes Partners: Female control/protection: None Other Topics Concern Not on file Social History Narrative Not on file Social Drivers of Health Financial Resource Strain: Not on file Food Insecurity: Not on file Transportation Needs: Not on file Physical Activity: Not on file Stress: Not on file Social Connections: Not on file Intimate Partner Violence: Not on file Housing Stability: Not on file Family History: Family History[3] Medications Prior to Admission medications Medication Sig Start Date End Date Taking? Authorizing Provider amLODIPine (Norvasc) 5 MG tablet 09/16/22 Historical Provider, aspirin 81 MG chewable tablet Chew 81 mg daily. Historical Provider, DULoxetine (Cymbalta) [address] capsule 09/16/22 Historical Provider, lisinopril 2.5 MG tablet 11/04/22 Historical Provider, metFORMIN (Glucophage) 500 MG tablet Take 500 mg by mouth. Historical Provider, oxybutynin XL (Ditropan-XL) 10 MG 24 hr tablet TAKE 1 TABLET BY MOUTH IN THE MORNING 04/13/23 KAILA Chun CNP oxybutynin XL (Ditropan-XL) 15 MG 24 hr tablet Take 1 tablet (15 mg) by mouth every morning. 03/16/24 Skinny Dc MD Ozempic, 0.25 or 0.5 MG/DOSE, 2 MG/3ML solution pen-injector INJECT 0.5 MILLIGRAMS SUBCUTANEOUSLY EVERY WEEK Historical Provider, tamsulosin (Flomax) 0.4 MG 24 hr capsule TAKE 1 CAPSULE BY MOUTH DAILY WITH FOOD 11/15/24 KAILA Aguirre CNP Vitals: BP (!) 144/68 Pulse 86 Ht 5' 8 (1.727 m) Wt 253 lb (115 kg) BMI 38.47 kg/m? Physical Exam General: No distress Abdomen: Back: : Prostate normal Labs: WBC No results found for: WBC BMP No results found for: NA, K, CL, CO2, BUN, CREATININE, GLUCOSE, CALCIUM PSA Lab Results Component Value Date PSA 3.060 02/22/2022 UA Lab Results Component Value Date UROBILINOGEN 0.2 03/21/2021 BILIRUBINUR neg 03/21/2021 Review: follow up of Elevated PSA PSA 04/13/25 PSA 4.22 04/12/24 PSA 3.07 ( [facility] - < 2.6 ) 11/27/22 PSA 2.66 01/16/2021 PSA 4.57 (PCP) PSA 4 - 06/07/2020 PSA 4.75 - 01/16/2020 Impression/Plan Gloria was seen today for other. Diagnoses and all orders for this visit: Elevated PSA (Primary) - PSA, Monitoring ([facility]); Future - PSA, Monitoring ([facility]) Benign prostatic hyperplasia with urinary hesitancy BPH with urinary obstruction No follow-ups on file. Elevated PSA His PSA vascillates Plan PSA prior to follow up in 2 months - if PSA higher will need MRI pelvis Skinny Dc MD 05/10/25 3:39 PM [1] Past Medical History: Diagnosis Date Arthritis BPH with urinary obstruction 06/03/2021 Diabetes mellitus (HCC) Elevated PSA Not sure Fibromyalgia Hyperlipidemia Hypertension [2] Past Surgical History: Procedure Laterality Date ANKLE SURGERY COLON SURGERY November 2006 Partial CYSTOSCOPY 06/03/2021 Cysto. UroLift. Rodri HAND SURGERY right JOINT REPLACEMENT 2014, 2019 KNEE SURGERY Left KNEE SURGERY right PROSTATE SURGERY [3] Family History Problem Relation Name Age of Onset Lung cancer Father Heart disease Father Alzheimer's disease Mother Normal [facility] Progress Note We want to inform you that your patient's blood pressure was noted to be elevated in our office today. We thank you for trusting us with your patient's health. Last BP: BP Readings from Last 1 Encounters: 05/10/25 1454 (!) 144/68 05/10/25 1450 (!) 148/73 Normal [facility] HIP, UNI W/ Pelvis 2-3 Views on 03-22-2025 HIP, UNI W/ Pelvis 2-3 Views [facility] Imaging Services [address] [place] [id number] HIP, UNI W/ Pelvis 2-3 Views MR#: [id number] Acct: [id number] Name: GLORIA FALCON Rep #: [id number] : 1955 M 69 From: Tyler Dangelo PCP: Dr. Alexx Dhaliwal MD Status: REG CLI Study: HIP, UNI W/ Pelvis 2-3 Views Date of Exam: 02/08 Exam# [id number] Ordering Dr: Alexx Dhaliwal MD PROCEDURE: HIP, UNI W/ PELVIS 2-3 VIEWS 03/22/2025 REASON FOR EXAM: PAIN IN LEFT HIP TECHNIQUE: HIP, UNI W/ PELVIS 2-3 VIEWS COMPARISON: Bilateral hip and pelvis study 04/05/2018. RAD/HIP, UNI W/ Pelvis 2-3 Views IMPRESSION: Prominent degenerative changes of the visualized lower lumbar spine is seen. Progressive enthesophytes of the bilateral pelvis proximal femora. Multiple prostate seeds are in place. Minimal sacroiliac joint degenerative changes are noted Overall mild bilateral left and minimal right hip joint degenerative changes are seen, [id number] ght. At least mild superolateral left hip joint space narrowing is noted. No evidence of femoral head osteonecrosis. No fracture or dislocation is seen. Reading Location: [place] [address] CC: Dr. Alexx Dhaliwal MD Pump House Technician: Signed Normal [facility] L/S Spine Min 4 Viewson L/S Spine Min 4 Views [facility] Imaging Services [address] [place], [place] [address] L/S Spine Min 4 Views MR#: [id number] Acct: [id number] Name: GLORIA FALCON Rep #: [id number] : 1955 M 69 From: Juan mcfarlane MD PCP: Dr. Alexx Dhaliwal MD Status: REG CLI Study: L/S Spine Min 4 Views Date of Exam: 03/22/25 Exam# [id number] Ordering Dr: Alexx Dhaliwal MD PROCEDURE: L/S SPINE MIN 4 VIEWS 03/22/2025 REASON FOR EXAM: PAIN IN LEFT HIP. TECHNIQUE: L/S SPINE MIN 4 VIEWS COMPARISON: None. FINDINGS: Moderate chronic changes of Baastrup's disease. Mild degenerative dextroscoliosis apex at L3. Grade 1 anterolisthesis of L4 on L5, probably secondary to facet joint arthropathy. Mildly exaggerated lumbar lordosis. There are diffuse spondylotic changes. Findings are demonstrated to by diffuse disc space narrowing, osteophyte formation and degenerative endplate sclerosis. There is diffuse facet joint arthropathy with secondary bilateral neural foramina narrowing. No fracture or dislocation is seen. No aggressive lytic or blastic bony lesion is noted. Calcified atheromatous plaques of the aorta. RAD/L/S Spine Min 4 Views IMPRESSION: Diffuse spondylosis. Moderate chronic changes of Baastrup's disease. [facility] CC: Dr. Alexx Dhaliwal MD Pump House Technician: Signed Normal [facility] Absolute lymphocyte countOrd ered By: Alexx Dhaliwal on 02-01-2025 Lymphocytes Auto (Unsp spec) [#/Vol] 2.18 10*3/uL 0.83-4.51 [facility] Absolute neutrophil countOrd ered By: Alexx Dhaliwal on 02-01-2025 Neutrophils (Bld) [#/Vol] 3.1 10*3/uL 2.0-7.7 [facility] Anion gap in Serum or Plasma Ordered By: Alexx Dhaliwal on 02-01-2025 Anion gap [Moles/Vol] 11 mmol/L 5-15 [facility] Automated lymphocyte count a s percentage of total leukocytesOrdered By: Alexx Dhaliwal on 02-01-2025 Lymphocytes/100 WBC Auto (Unsp spec) 34.3 % 19-41 [facility] BUN/creatinine ratioOrdered By: Alexx Dhaliwal on 02-01-2025 Urea nitrogen/Creatinine [Mass ratio] 11.6 mg/mg 10-20 [facility] Basophil percentageOrdered B y: Alexx Dhaliwal on 02-01-2025 Basophils/100 WBC (Bld) 0.9 % 0-1 [facility] Bilirubin, totalOrdered By: Alexx Dhalwial on 02-01-2025 Bilirubin [Mass/Vol] 0.32 mg/dL Normal 0.00-1.30 [facility] Comment on above: Performed By: #### L 500.4050, L501.9520, L501.9910, L506.1001, L100.0100, L501.1400 #### [facility] [address] [place], [address] CBC W/Diff, Automatedon 01-15 Absolute Lymph 2.18 X10 3/uL Normal 0.83-4.51 [facility] Comment on above: Performed By: #### L 500.4050, L501.9520, L501.9910, L506.1001, L100.0100, L501.1400 #### [facility] [address] [place], [address] Absolute Neut 3.1 X10 3/uL Normal 2.0-7.7 [facility] Comment on above: Performed By: #### L 500.4050, L501.9520, L501.9910, L506.1001, L100.0100, L501.1400 #### [facility] [address] [place], [address] Basophils/100 WBC (Bld) 0.9 % Normal 0-1 [facility] Comment on above: Performed By: #### L 500.4050, L501.9520, L501.9910, L506.1001, L100.0100, L501.1400 #### [facility] [address] [place], [address] Eosinophils/100 WBC (Bld) 7.7 % High 0-5 [facility] Comment on above: Performed By: #### L 500.4050, L501.9520, L501.9910, L506.1001, L100.0100, L501.1400 #### [facility] [address] [place], [address] Erythrocyte distribution width (RBC) [Ratio] 13.1 % Normal 11.6-14.6 [facility] Comment on above: Performed By: #### L 500.4050, L501.9520, L501.9910, L506.1001, L100.0100, L501.1400 #### [facility] [address] [place], [address] Hematocrit (Bld) [Volume fraction] 45.5 % Normal 40-54 [facility] Comment on above: Performed By: #### L 500.4050, L501.9520, L501.9910, L506.1001, L100.0100, L501.1400 #### [facility] [address] [place], [address] Hemoglobin (Bld) [Mass/Vol] 15.1 g/dL Normal 13.0-16.5 [facility] Comment on above: Performed By: #### L 500.4050, L501.9520, L501.9910, L506.1001, L100.0100, L501.1400 #### [facility] [address], [address] IG% 0.200 Normal 0.0-0.9 [facility] Comment on above: Result Comment: IG% - Immature Granulocytes (promyelocytes, myelocytes and metamyelocytes) > 1% indicates that a LEFT SHIFT is Present. Performed By: #### L 500.4050, L501.9520, L501.9910, L506.1001, L100.0100, L501.1400 #### [facility] [address] [place], [address] Lymphocytes/100 WBC (Bld) 34.3 % Normal 19-41 [facility] Comment on above: Performed By: #### L 500.4050, L501.9520, L501.9910, L506.1001, L100.0100, L501.1400 #### [facility] [address] [place], [address] MCH (RBC) [Entitic mass] 31.7 pg Normal 27.0-32.0 [facility] Comment on above: Performed By: #### L 500.4050, L501.9520, L501.9910, L506.1001, L100.0100, L501.1400 #### [facility] [address] [place], [address] MCHC (RBC) [Mass/Vol] 33.2 g/dL Normal 32-36 [facility] Comment on above: Performed By: #### L 500.4050, L501.9520, L501.9910, L506.1001, L100.0100, L501.1400 #### [facility] [address] [place], [address] MCV (RBC) [Entitic vol] 95.6 fL High 80-94 [facility] Comment on above: Performed By: #### L 500.4050, L501.9520, L501.9910, L506.1001, L100.0100, L501.1400 #### [facility] [address] [place], [address] Monocytes/100 WBC (Bld) 8.2 % Normal 0-10 [facility] Comment on above: Performed By: #### L 500.4050, L501.9520, L501.9910, L506.1001, L100.0100, L501.1400 #### [facility] [address] [place], [address] Neutrophils/100 WBC (Bld) 48.7 % Normal 47-70 [facility] Comment on above: Performed By: #### L 500.4050, L501.9520, L501.9910, L506.1001, L100.0100, L501.1400 #### [facility] [address] [place], [address] Nucleated RBC (Bld) [#/Vol] 0 10*3/uL Normal 0-5 [facility] Comment on above: Performed By: #### L 500.4050, L501.9520, L501.9910, L506.1001, L100.0100, L501.1400 #### [facility] [address] [place], [address] Platelet mean volume (Bld) [Entitic vol] 9.7 fL Normal 6.2-12.0 [facility] Comment on above: Performed By: #### L 500.4050, L501.9520, L501.9910, L506.1001, L100.0100, L501.1400 #### [facility] [address] [place], [address] Platelets (Bld) [#/Vol] 240 10*3/uL Normal 150-450 [facility] Comment on above: Performed By: #### L 500.4050, L501.9520, L501.9910, L506.1001, L100.0100, L501.1400 #### [facility] [address] [place], [address] RBC (Bld) [#/Vol] 4.76 10*6/uL Normal 4.6-6.2 [facility] Comment on above: Performed By: #### L 500.4050, L501.9520, L501.9910, L506.1001, L100.0100, L501.1400 #### [facility] [address] [place], [address] RDW SD 47.1 fl High 35.1-43.9 [facility] Comment on above: Performed By: #### L 500.4050, L501.9520, L501.9910, L506.1001, L100.0100, L501.1400 #### [facility] [address] [place], [address] WBC (Bld) [#/Vol] 6.4 10*3/uL Normal 4.4-11.0 [facility] Comment on above: Performed By: #### L 500.4050, L501.9520, L501.9910, L506.1001, L100.0100, L501.1400 #### [facility] [address] [place], [address] Carbon dioxide, total [Moles /volume] in Central venous bloodOrdered By: Alexx Dhaliwal on 02-01-2025 CO2 [Moles/Vol] 25.0 mmol/L Normal 21.0-32.0 [facility] Comment on above: Performed By: #### L 500.4050, L501.9520, L501.9910, L506.1001, L100.0100, L501.1400 #### [facility] [address] [place], [address] Chloride assayOrdered By: Ronald Dhaliwal on 02-01-2025 Chloride [Moles/Vol] 100 mmol/L Normal 98-108 [facility] Comment on above: Performed By: #### L 500.4050, L501.9520, L501.9910, L506.1001, L100.0100, L501.1400 #### [facility] [address] [place], [address] Comprehensive Metabolic Prof ilon 02-01-2025 ALK PHOS 78 U/L Normal 40-129 [facility] Comment on above: Performed By: #### L 500.4050, L501.9520, L501.9910, L506.1001, L100.0100, L501.1400 #### [facility] [address] [place], [address] BUN/CRE 11.6 RATIO Normal 10-20 [facility] Comment on above: Performed By: #### L 500.4050, L501.9520, L501.9910, L506.1001, L100.0100, L501.1400 #### [facility] [address] [place], [address] GAP 11 Normal 5-15 [facility] Comment on above: Performed By: #### L 500.4050, L501.9520, L501.9910, L506.1001, L100.0100, L501.1400 #### [facility] [address] [place], [address] Potassium [Moles/Vol] 4.9 mmol/L Normal 3.3-5.1 [facility] Comment on above: Result Comment: Hemo lysis present, Results??could be affected. ?? Performed By: #### L 500.4050, L501.9520, L501.9910, L506.1001, L100.0100, L501.1400 #### [facility] [address] [place], [place], [id number] T PROT 7.5 g/dL Normal 5.9-8.4 [facility] Comment on above: Performed By: #### L 500.4050, L501.9520, L501.9910, L506.1001, L100.0100, L501.1400 #### [facility] [address] [place], [place], [phone] Comprehensive Metabolic Prof ilOrdered By: Alexx Dhaliwal on 02-01-2025 AST [Catalytic activity/Vol] 43 U/L High <=37 [facility] Comment on above: Hemolysis present, R esults could be affected. Result Comment: Hemo lysis present, Results??could be affected. ?? Performed By: #### L 500.4050, L501.9520, L501.9910, L506.1001, L100.0100, L501.1400 #### [facility] [address] [place], [place], [id number] Eosinophil percentageOrdered By: Alexx Yifan on 02-01-2025 Eosinophils/100 WBC (Bld) 7.7 % High 0-5 [facility] Erythrocyte distribution wid th ratioOrdered By: Alexx Yifan on 02-01-2025 Erythrocyte distribution width (RBC) [Ratio] 13.1 % 11.6-14.6 [facility] Erythrocyte distribution wid th standard deviationOrdered By: Alexx Yifan on 02-01-2025 Erythrocyte distribution width (RBC) [Ratio] 47.1 fl High 35.1-43.9 [facility] Glomerular filtration rate ( GFR) estimation/1.73 sq m using serum, plasma, or whole bOrdered By: Alexx Dhaliwal on 02-01-2025 GFR/1.73 sq M.predicted among non-blacks MDRD (S/P/Bld) [Vol rate/Area] 93 mL/min/{1.73_m2} Normal >60 [facility] Comment on above: mL/min/1.73m2 CKD-EP I Creatinine Equation (2020) Result Comment: mL/m in/1.73m2 CKD-EPI Creatinine Equation (2020) Performed By: #### L 500.4050, L501.9520, L501.9910, L506.1001, L100.0100, L501.1400 #### [facility] [address] [place], [address] Hematocrit Auto (Bld) [Volum e fraction]Ordered By: Alexx Dhaliwal on 02-01-2025 Hematocrit (Bld) [Volume fraction] 45.5 % 40-54 [facility] Hemoglobin measurementOrdere d By: Alexx Dhaliwal 02-01-2025 Hemoglobin (Bld) [Mass/Vol] 15.1 g/dL 13.0-16.5 [facility] Immature granulocytes/100 WB C Auto (Bld)Ordered By: Alexx Dhaliwal 02-01-2025 Immature granulocytes/100 WBC (Bld) 0.200 % 0.0-0.9 [facility] Comment on above: IG% - Immature Granu locytes (promyelocytes, myelocytes and metamyelocytes) > 1% indicates that a LEFT SHIFT is Present. MCV (mean corpuscular volume ) determinationOrdered By: Alexx Dhaliwal 02-01-2025 MCV (RBC) [Entitic vol] 95.6 fL High 80-94 [facility] Mean corpuscular hemoglobin (MCH) determinationOrdered By: Alexx Dhaliwal 02-01-2025 MCH (RBC) [Entitic mass] 31.7 pg 27.0-32.0 [facility] Mean corpuscular hemoglobin concentration (MCHC) determinationOrdered By: Alexx Yifan 02-01-2025 MCHC (RBC) [Mass/Vol] 33.2 g/dL 32-36 [facility] Mean platelet volume determi nationOrdered By: Alexx Dhaliwal 02-01-2025 Platelet mean volume (Bld) [Entitic vol] 9.7 fL 6.2-12.0 [facility] Monocyte percentageOrdered B y: Alexx Dhaliwal on 02-01-2025 Monocytes/100 WBC (Bld) 8.2 % 0-10 [facility] Neutrophil percentageOrdered By: Alexx Dhaliwal on 02-01-2025 Neutrophils/100 WBC (Bld) 48.7 % 47-70 [facility] Nucleated red blood cell per centageOrdered By: Alexx Dhaliwal on 02-01-2025 Nucleated RBC/100 WBC (Bld) [Ratio] 0 % 0-5 [facility] PSA,Total - Annual Screenon 02-01-2025 PSA,TOT SCREEN 4.32 ng/mL High 0.02-4.00 [facility] Comment on above: Result Comment: This test was performed using the Saqina tPSA method. Measured values of a patient??sample can vary depending on the testing procedure used. PSA values determined on patient samples by different testing procedures cannot be used interchangeably. If there is a change in PSA assays while monitoring therapy, sequential testing should be performed to confirm baseline values. Performed By: #### L 100.0100, L500.4050, L501.1400, L501.9520, L506.1000 #### [facility] [address] [place], [address] Platelet countOrdered By: Ronald Dhaliwal on 02-01-2025 Platelets (Bld) [#/Vol] 240 10*3/uL 150-450 [facility] Potassium measurement (mass/ volume)Ordered By: Alexx Dhaliwal on 02-01-2025 Potassium (Unsp spec) [Mass/Vol] 4.9 mmol/L 3.3-5.1 [facility] Comment on above: Hemolysis present, R esults could be affected. RBC Auto (Bld) [#/Vol]Ordere d By: Alexx Dhaliwal on 02-01-2025 RBC (Bld) [#/Vol] 4.76 10*6/uL 4.6-6.2 [facility] Serum creatinine measurement (mass/volume)Ordered By: Alexx Dhaliwal on 02-01-2025 Creatinine [Mass/Vol] 0.90 mg/dL Normal 0.70-1.20 [facility] Comment on above: Performed By: #### L 500.4050, L501.9520, L501.9910, L506.1001, L100.0100, L501.1400 #### [facility] [address] [place], [place], [phone] (275) Serum globulin measurementOr dered By: Alexx Dhaliwal on 02-01-2025 Globulin (S) [Mass/Vol] 3.0 g/dL Normal 2.2-4.2 [facility] Comment on above: Performed By: #### L 500.4050, L501.9520, L501.9910, L506.1001, L100.0100, L501.1400 #### [facility] [address] [facility] [place], [address] Serum glucose measurement (m ass/volume)Ordered By: Alexx Dhaliwal on 02-01-2025 Glucose [Mass/Vol] 98 mg/dL Normal 70-99 [facility] Comment on above: Performed By: #### L 500.4050, L501.9520, L501.9910, L506.1001, L100.0100, L501.1400 #### [facility] [address] [place], [place], [id number] Serum or plasma alanine ingram otransferase (ALT) measurementOrdered By: Alexx Dhaliwal on 02-01-2025 ALT [Catalytic activity/Vol] 29 U/L Normal <=46 [facility] Comment on above: Hemolysis present, R esults could be affected. Result Comment: Hemo lysis present, Results??could be affected. ?? Performed By: #### L 500.4050, L501.9520, L501.9910, L506.1001, L100.0100, L501.1400 #### [facility] [address] [facility] [address] [place], [place], [phone] Serum or plasma albumin otis urement (mass/volume)Ordered By: Alexx Dhaliwal on 02-01-2025 Albumin [Mass/Vol] 4.5 g/dL Normal 3.4-4.8 [facility] Comment on above: Performed By: #### L 500.4050, L501.9520, L501.9910, L506.1001, L100.0100, L501.1400 #### [facility] [address] [place], [address] Serum or plasma albumin/glob ulin mass ratioOrdered By: Alexx Dhaliwal on 02-01-2025 Albumin/Globulin [Mass ratio] 1.5 {ratio} Normal 0.9-2.4 [facility] Comment on above: Performed By: #### L 500.4050, L501.9520, L501.9910, L506.1001, L100.0100, L501.1400 #### [facility] [address], [address] Serum or plasma alkaline jamal sphatase measurementOrdered By: Alexx Dhaliwal on 02-01-2025 ALP [Catalytic activity/Vol] 78 U/L 40-129 [facility] Serum or plasma calcium otis urement (mass/volume)Ordered By: Alexx Dhaliwal on 02-01-2025 Calcium [Mass/Vol] 9.3 mg/dL Normal 7.6-11.0 [facility] Comment on above: Performed By: #### L 500.4050, L501.9520, L501.9910, L506.1001, L100.0100, L501.1400 #### [facility] [address] [place], [address] Serum or plasma urea nitroge n measurement (mass/volume)Ordered By: Alexx Dhaliwal on 02-01-2025 Urea nitrogen [Mass/Vol] 10 mg/dL Normal 4-19 [facility] Comment on above: Performed By: #### L 500.4050, L501.9520, L501.9910, L506.1001, L100.0100, L501.1400 #### [facility] [address] [place], [address] Serum or plasma uric acid me asurement (mass/volume)Ordered By: Alexx Dhaliwal on 02-01-2025 Urate [Mass/Vol] 6.0 mg/dL 3.5-7.2 [facility] Comment on above: The drugs N-Acetylcy steine and Metamizole may falsely depress this assay. Sodium levelOrdered By: Alexx Dhaliwal on 02-01-2025 Sodium [Moles/Vol] 137 mmol/L Normal 133-145 [facility] Comment on above: Performed By: #### L 500.4050, L501.9520, L501.9910, L506.1001, L100.0100, L501.1400 #### [facility] [address] [place], [place], [id number] TSH DL <= 0.005 mIU/L QnOrde red By: Alexx Dhaliwal on 02-01-2025 TSH Qn 1.730 uIU/mL 0.300-4.200 [facility] Thyroid Stim Hormone (TSH)on 02-01-2025 TSH 1.730 uIU/mL Normal 0.300-4.200 [facility] Comment on above: Performed By: #### L 500.4050, L501.9520, L501.9910, L506.1001, L100.0100, L501.1400 #### [facility] [address] [place], [place], [phone] Total proteinOrdered By: Alexx Dhaliwal on 02-01-2025 Protein [Mass/Vol] 7.5 g/dL 5.9-8.4 [facility] Uric Acidon 02-01-2025 URIC 6.0 mg/dL Normal 3.5-7.2 [facility] Comment on above: Result Comment: The drugs N-Acetylcysteine and Metamizole may falsely depress this assay. Performed By: #### L 500.4050, L501.9520, L501.9910, L506.1001, L100.0100, L501.1400 #### [facility] [address] [place], [address] Vitamin D,25 Hydroxyon 02-01 Vitamin D 25-OH 50.9 ng/mL Normal 30-100 [facility] Comment on above: Result Comment: Ivette min D Status Deficiency: <20 ng/mL (50nmol/L) Insufficiency: 20-30 ng/mL (50-75 nmol/L) Sufficiency: 30-100 ng/mL (75-250 nmol/L) Toxicity: >100 ng/mL (>250 nmol/L) Performed By: #### L 100.0100, L500.4050, L501.1400, L501.9520, L506.1000 #### [facility] [address] [place], [address] White blood cell (WBC) count Ordered By: Alexx Dhaliwal on 02-01-2025 WBC (Bld) [#/Vol] 6.4 10*3/uL 4.4-11.0 [facility] CBC W/Diff, Automatedon 12- Absolute Lymph 2.46 X10 3/uL Normal 0.83-4.51 [facility] Comment on above: Performed By: #### L 100.0100, L500.4050, L501.1400, L501.9520, L506.1000 #### [facility] [address] [place], [address] Absolute Neut 3.7 X10 3/uL Normal 2.0-7.7 [facility] Comment on above: Performed By: #### L 100.0100, L500.4050, L501.1400, L501.9520, L506.1000 #### [facility] [address] [place], [address] Basophils/100 WBC (Bld) 0.8 % Normal 0-1 [facility] Comment on above: Performed By: #### L 100.0100, L500.4050, L501.1400, L501.9520, L506.1000 #### [facility] [address] [place], [address] Eosinophils/100 WBC (Bld) 5.6 % High 0-5 [facility] Comment on above: Performed By: #### L 100.0100, L500.4050, L501.1400, L501.9520, L506.1000 #### [facility] [address] [place], [address] Erythrocyte distribution width (RBC) [Ratio] 13.2 % Normal 11.6-14.6 [facility] Comment on above: Performed By: #### L 100.0100, L500.4050, L501.1400, L501.9520, L506.1000 #### [facility] [address] [place], [address] Hematocrit (Bld) [Volume fraction] 46.3 % Normal 40-54 [facility] Comment on above: Performed By: #### L 100.0100, L500.4050, L501.1400, L501.9520, L506.1000 #### [facility] [address] [place], [address] Hemoglobin (Bld) [Mass/Vol] 15.1 g/dL Normal 13.0-16.5 [facility] Comment on above: Performed By: #### L 100.0100, L500.4050, L501.1400, L501.9520, L506.1000 #### [facility] [address] [place], [address] IG% 0.500 Normal 0.0-0.9 [facility] Comment on above: Result Comment: IG% - Immature Granulocytes (promyelocytes, myelocytes and metamyelocytes) > 1% indicates that a LEFT SHIFT is Present. Performed By: #### L 100.0100, L500.4050, L501.1400, L501.9520, L506.1000 #### [facility] [address] [place], [address] Lymphocytes/100 WBC (Bld) 33.6 % Normal 19-41 [facility] Comment on above: Performed By: #### L 100.0100, L500.4050, L501.1400, L501.9520, L506.1000 #### [facility] [address] [place], [address] MCH (RBC) [Entitic mass] 31.5 pg Normal 27.0-32.0 [facility] Comment on above: Performed By: #### L 100.0100, L500.4050, L501.1400, L501.9520, L506.1000 #### [facility] [address] [place], [address] MCHC (RBC) [Mass/Vol] 32.6 g/dL Normal 32-36 [facility] Comment on above: Performed By: #### L 100.0100, L500.4050, L501.1400, L501.9520, L506.1000 #### [facility] [address] [place], [address] MCV (RBC) [Entitic vol] 96.7 fL High 80-94 [facility] Comment on above: Performed By: #### L 100.0100, L500.4050, L501.1400, L501.9520, L506.1000 #### [facility] [address] [place], [address] Monocytes/100 WBC (Bld) 8.9 % Normal 0-10 [facility] Comment on above: Performed By: #### L 100.0100, L500.4050, L501.1400, L501.9520, L506.1000 #### [facility] [address] [place], [address] Neutrophils/100 WBC (Bld) 50.6 % Normal 47-70 [facility] Comment on above: Performed By: #### L 100.0100, L500.4050, L501.1400, L501.9520, L506.1000 #### [facility] [address] [place], [address] Nucleated RBC (Bld) [#/Vol] 0 10*3/uL Normal 0-5 [facility] Comment on above: Performed By: #### L 100.0100, L500.4050, L501.1400, L501.9520, L506.1000 #### [facility] [address] [place], [address] Platelet mean volume (Bld) [Entitic vol] 9.7 fL Normal 6.2-12.0 [facility] Comment on above: Performed By: #### L 100.0100, L500.4050, L501.1400, L501.9520, L506.1000 #### [facility] [address] [place], [address] Platelets (Bld) [#/Vol] 232 10*3/uL Normal 150-450 [facility] Comment on above: Performed By: #### L 100.0100, L500.4050, L501.1400, L501.9520, L506.1000 #### [facility] [address] [place], [address] RBC (Bld) [#/Vol] 4.79 10*6/uL Normal 4.6-6.2 [facility] Comment on above: Performed By: #### L 100.0100, L500.4050, L501.1400, L501.9520, L506.1000 #### [facility] [address] [place], [address] RDW SD 47.0 fl High 35.1-43.9 [facility] Comment on above: Performed By: #### L 100.0100, L500.4050, L501.1400, L501.9520, L506.1000 #### [facility] [address] [place], [address] WBC (Bld) [#/Vol] 7.3 10*3/uL Normal 4.4-11.0 [facility] Comment on above: Performed By: #### L 100.0100, L500.4050, L501.1400, L501.9520, L506.1000 #### [facility] [address] [place], [address] Comprehensive Metabolic Prof ilon 08-01-2024 Albumin [Mass/Vol] 3.9 g/dL Normal 3.2-5.0 [facility] Comment on above: Performed By: #### L 100.0100, L500.4050, L501.1400, L501.9520, L506.1000 #### [facility] [address] [place], [address] Albumin/Globulin [Mass ratio] 1.0 {ratio} Normal 0.9-2.4 [facility] Comment on above: Performed By: #### L 100.0100, L500.4050, L501.1400, L501.9520, L506.1000 #### [facility] [address] [place], [address] ALK P 79 U/L Normal 45-117 [facility] Comment on above: Performed By: #### L 100.0100, L500.4050, L501.1400, L501.9520, L506.1000 #### [facility] [address] [place], [address] ALT [Catalytic activity/Vol] 34 U/L Normal 16-61 [facility] Comment on above: Performed By: #### L 100.0100, L500.4050, L501.1400, L501.9520, L506.1000 #### [facility] [address] [place], [address] AST [Catalytic activity/Vol] 27 U/L Normal 15-37 [facility] Comment on above: Result Comment: Slig ht Hemolysis, Result may be falsely increased. Performed By: #### L 100.0100, L500.4050, L501.1400, L501.9520, L506.1000 #### [facility] [address] [place], [address] Bilirubin [Mass/Vol] 0.50 mg/dL Normal 0.20-1.00 [facility] Comment on above: Result Comment: For patients on eltrombopag therapy, use of Dimension Leon TBIL is not recommended. Performed By: #### L 100.0100, L500.4050, L501.1400, L501.9520, L506.1000 #### [facility] [address] [place], [address] BUN/CRE 13.7 RATIO Normal 10-20 [facility] Comment on above: Performed By: #### L 100.0100, L500.4050, L501.1400, L501.9520, L506.1000 #### [facility] [address] [place], [address] CA,Total 9.0 mg/dL Normal 8.5-10.1 [facility] Comment on above: Performed By: #### L 100.0100, L500.4050, L501.1400, L501.9520, L506.1000 #### [facility] [address] [place], [address] Chloride [Moles/Vol] 102 mmol/L Normal 98-107 [facility] Comment on above: Performed By: #### L 100.0100, L500.4050, L501.1400, L501.9520, L506.1000 #### [facility] [address] [place], [address] CO2 [Moles/Vol] 28.0 mmol/L Normal 21.0-32.0 [facility] Comment on above: Performed By: #### L 100.0100, L500.4050, L501.1400, L501.9520, L506.1000 #### [facility] [address] [place], [address] Creatinine [Mass/Vol] 0.95 mg/dL Normal 0.70-1.30 [facility] Comment on above: Result Comment: The validity of the calculated GFR GFRAA in patients over 70 years has not been determined. Clinical correlation is essential. Performed By: #### L 100.0100, L500.4050, L501.1400, L501.9520, L506.1000 #### [facility] [address] [place], [address] EST GFR - AA 101 mL/min Normal >60 [facility] Comment on above: Result Comment: Afri can Maldivian GFR Calc Performed By: #### L 100.0100, L500.4050, L501.1400, L501.9520, L506.1000 #### [facility] [address] [place], [address] GAP 6 Normal 5-15 [facility] Comment on above: Performed By: #### L 100.0100, L500.4050, L501.1400, L501.9520, L506.1000 #### [facility] [address] [place], [address] GFR/1.73 sq M.predicted among non-blacks MDRD (S/P/Bld) [Vol rate/Area] 84 mL/min/{1.73_m2} Normal >60 [facility] Comment on above: Result Comment: Non- GFR Calc Performed By: #### L 100.0100, L500.4050, L501.1400, L501.9520, L506.1000 #### [facility] [address] [place], [address] Globulin (S) [Mass/Vol] 4.0 g/dL Normal 2.2-4.2 [facility] Comment on above: Performed By: #### L 100.0100, L500.4050, L501.1400, L501.9520, L506.1000 #### [facility] [address] [place], [address] Glucose [Mass/Vol] 129 mg/dL High 74-106 [facility] Comment on above: Result Comment: Fast ing Glucose result greater than or equal to 126 mg/dL suggests DIABETES MELLITUS per A.D.A. criteria. Performed By: #### L 100.0100, L500.4050, L501.1400, L501.9520, L506.1000 #### [facility] [address] [place], [address] Potassium [Moles/Vol] 3.9 mmol/L Normal 3.5-5.1 [facility] Comment on above: Result Comment: Slig ht Hemolysis, Result may be falsely increased. Performed By: #### L 100.0100, L500.4050, L501.1400, L501.9520, L506.1000 #### [facility] [address] [place], [address] Sodium [Moles/Vol] 136 mmol/L Normal 136-145 [facility] Comment on above: Performed By: #### L 100.0100, L500.4050, L501.1400, L501.9520, L506.1000 #### [facility] [address] [place], [address] T PROT 7.9 g/dL Normal 6.4-8.2 [facility] Comment on above: Performed By: #### L 100.0100, L500.4050, L501.1400, L501.9520, L506.1000 #### [facility] [address] [place], [address] Urea nitrogen [Mass/Vol] 13 mg/dL Normal 7-18 [facility] Comment on above: Performed By: #### L 100.0100, L500.4050, L501.1400, L501.9520, L506.1000 #### [facility] [address] [place], [address] Thyroid Stim Hormone (TSH)on 08-01-2024 TSH 2.100 uIU/mL Normal 0.358-3.740 [facility] Comment on above: Performed By: #### L 100.0100, L500.4050, L501.1400, L501.9520, L506.1000 #### [facility] [address] [place], [address] Uric Acidon 08-01-2024 URIC 5.6 mg/dL Normal 3.5-7.2 [facility] Comment on above: Result Comment: The drugs N-Acetylcysteine and Metamizole may falsely depress this assay. Performed By: #### L 100.0100, L500.4050, L501.1400, L501.9520, L506.1000 #### [facility] [address] [place], [address] Vitamin D,25 Hydroxyon 08-01 Vitamin D 25-OH 41.4 ng/mL Normal [facility] Comment on above: Result Comment: Ivette min D 25(OH) Status Range Deficiency <20 ng/mL (50nmol/L) Insufficiency 20 - 30 ng/mL (50 - 75 nmol/L) Sufficiency 30 - 100 ng/mL (75 - 250 nmol/L) Toxicity >100 ng/mL (>250 nmol/L) Performed By: #### L 100.0100, L500.4050, L501.1400, L501.9520, L506.1000 #### [facility] [address] [place], [address] PSA/PROSTATE SPECIFIC ANTIGE N SCREENINGon 04-12-2024 Prostate specific Ag [Mass/Vol] 3.07 ng/mL High <2.60 [facility] Comment on above: Order Comment: Arturo garza Type: BLOOD SPECIMENOrdering Facility: External Submitter Address: , , Result Comment: This is a new methodology for this marker. Tumor markers obtained from different assay methods cannot be used interchangeably. Expect results of this assay to run lower than the previous assay. It is recommended to re-baseline patients when changing to a new methodology. Performed By: #### P SAS1 ####[facility] LABORATORYCLIA [id number] [place] [id number] [facility] CNPNon 12-07-2023 CNPN Telephone ([facility] [[email or web address] GLORIA FALCON ([id number]) 1955 [facility] Date Time Provider Department 12/07/23 KATIANA WINSLOW [facility] During your visit today, we recorded the following information about you: Yahaira Haro MA 12/07/2023 8:34 AM Signed Pt states that he is feeling better and his surgeon told him he no longer needs therapy. Pt cancelled all future appointments. Allergies As of Date: 12/07/2023 (No Known Allergies) Date Reviewed: 01/30/2015 Reviewed by: Mita Mclaughlin (Rn), RN - Fully Assessed Reason for Visit: Patient Update [1234] Cmt: Pt states that he is feeling much better and his surgeon told him he no longer needs therapy. Pt cancelled all future appointments. Prescriptions as of 12/07/2023 - aspirin, enteric coated (ASPIRIN, ENTERIC COATED) 81 mg EC tablet Take 81 mg by mouth once daily. - lisinopril (ZESTRIL, PRINIVIL) 10 mg tablet Take 10 mg by mouth once daily. - Omeprazole Magnesium (PRILOSEC OTC) 20 mg tablet Take 20 mg by mouth once daily. - VENLAFAXINE HCL (EFFEXOR ORAL) Take 1 tablet by mouth. Problem List As Of Date 12/07/2023 Noted Resolved DIVERTICULITIS COLON - NO HEMORRHAGE [K57.32] 10/22/2006 POLYP COLON [D12.6] 10/30/2006 Impaired strength of shoulder muscles [R29.898] 08/19/2023 S/P shoulder hemiarthroplasty, right [Z96.611] 08/19/2023 Decreased range of motion of right shoulder [M2*08/19/2023 Encounter Status:Closed by YAHAIRA HARO on 12/07/23 [facility] CNTHERAPYon 12-02-2023 CNTHERAPY OT/PT/Speech Visit ([facility]) GLORAI FALCON ([id number]) 1955 [facility] Date Time Provider Department 12/02/23 3:00 PM KATIANA WINSLOW [facility] [[email or web address]] Date Time Provider Department Center 12/02/2023 3:00 [id number] Reason for Visit: Physical Therapy [503] PT Discharge [752] Primary Visit Diagnosis:Decreased range of motion of right shoulder [M25.611] Other Visit Diagnoses:Impaired strength of shoulder muscles [R29.898] S/P shoulder hemiarthroplasty, right [Z96.611] Allergies As of Date: 12/02/2023 (No Known Allergies) Date Reviewed: 01/30/2015 Reviewed by: Mita Mclaughlin (Rn), RN - Fully Assessed Prescriptions as of 12/07/2023 - aspirin, enteric coated (ASPIRIN, ENTERIC COATED) 81 mg EC tablet Take 81 mg by mouth once daily. - lisinopril (ZESTRIL, PRINIVIL) 10 mg tablet Take 10 mg by mouth once daily. - Omeprazole Magnesium (PRILOSEC OTC) 20 mg tablet Take 20 mg by mouth once daily. - VENLAFAXINE HCL (EFFEXOR ORAL) Take 1 tablet by mouth. [facility] CNTHERAPYon 11-30-2023 CNTHERAPY OT/PT/Speech Visit ([facility]) GLORIA FALCON ([id number]) 1955 [facility] Date Time Provider Department 11/30/23 3:00 PM KATIANA WINSLOW [facility] [[email or web address]] Date Time Provider Department Center 11/30/2023 3:00 [facility] [id number] Reason for Visit: Physical Therapy [503] Primary Visit Diagnosis:Decreased range of motion of right shoulder [M25.611] Other Visit Diagnoses:Impaired strength of shoulder muscles [R29.898] S/P shoulder hemiarthroplasty, right [Z96.611] Allergies As of Date: 11/30/2023 (No Known Allergies) Date Reviewed: 01/30/2015 Reviewed by: Mita Mclaughlin (Rn), RN - Fully Assessed Prescriptions as of 11/30/2023 - aspirin, enteric coated (ASPIRIN, ENTERIC COATED) 81 mg EC tablet Take 81 mg by mouth once daily. - lisinopril (ZESTRIL, PRINIVIL) 10 mg tablet Take 10 mg by mouth once daily. - Omeprazole Magnesium (PRILOSEC OTC) 20 mg tablet Take 20 mg by mouth once daily. - VENLAFAXINE HCL (EFFEXOR ORAL) Take 1 tablet by mouth. [facility] CNTHERAPYon 11-25-2023 CNTHERAPY OT/PT/Speech Visit ([facility]) GLORIA FALCON ([id number]) 1955 [facility] Date Time Provider Department 11/25/23 3:00 PM KATIANA WINSLOW [facility] [[email or web address]] Date Time Provider Department Center 11/25/2023 3:00 PM [id number][facility] Reason for Visit: Physical Therapy [503] Primary Visit Diagnosis:Decreased range of motion of right shoulder [M25.611] Other Visit Diagnoses:Impaired strength of shoulder muscles [R29.898] S/P shoulder hemiarthroplasty, right [Z96.611] Allergies As of Date: 11/25/2023 (No Known Allergies) Date Reviewed: 01/30/2015 Reviewed by: Mita Mclaughlin (Rn), RN - Fully Assessed Prescriptions as of 11/25/2023 - aspirin, enteric coated (ASPIRIN, ENTERIC COATED) 81 mg EC tablet Take 81 mg by mouth once daily. - lisinopril (ZESTRIL, PRINIVIL) 10 mg tablet Take 10 mg by mouth once daily. - Omeprazole Magnesium (PRILOSEC OTC) 20 mg tablet Take 20 mg by mouth once daily. - VENLAFAXINE HCL (EFFEXOR ORAL) Take 1 tablet by mouth. [facility] CNTHERAPYon 11-18-2023 CNTHERAPY OT[facility] GLORIA FALCON ([id number]) 1955 [facility] Date Time Provider Department 11/18/23 3:00 PM ERICKA MURRAY [facility] [[email or web address]] Date Time Provider Department Center 11/18/2023 3:00 PM [id number], MICHEL*[facility] M Reason for Visit: Physical Therapy [503] Primary Visit Diagnosis:Decreased range of motion of right shoulder [M25.611] Other Visit Diagnoses:Impaired strength of shoulder muscles [R29.898] S/P shoulder hemiarthroplasty, right [Z96.611] Allergies As of Date: 11/18/2023 (No Known Allergies) Date Reviewed: 01/30/2015 Reviewed by: Mita Mclaughlin (Rn), RN - Fully Assessed Prescriptions as of 11/18/2023 - aspirin, enteric coated (ASPIRIN, ENTERIC COATED) 81 mg EC tablet Take 81 mg by mouth once daily. - lisinopril (ZESTRIL, PRINIVIL) 10 mg tablet Take 10 mg by mouth once daily. - Omeprazole Magnesium (PRILOSEC OTC) 20 mg tablet Take 20 mg by mouth once daily. - VENLAFAXINE HCL (EFFEXOR ORAL) Take 1 tablet by mouth. Normal [facility] [id number] 11-16-2023 [id number] O ID: [id number] Author: ERIKCA MURRAY PT, DPT Service: ? Author Type: Physical Therapist Type: [id number] Filed: 11/16/2023 16:02 Note Text: [facility] Physical Therapy Plan of Care Certification Patient Name: Gloria Falcon : 1955 [facility] #: [id number] Date: 11/16/2023 To: Jacobo Burrell From Therapist: Ericka Murray PT, ADDY RE: Patient Certification/ Recertification Your review, approval and electronic signature are required in order to comply with Payor: [employer] MEDICARE / Plan: [employer] MEDICARE HMO / Product Type: HMO / regulations. The identified Physical Therapy PLAN OF CARE for the patient is as follows: M25.611 Decreased range of motion of right shoulder (primary encounter diagnosis) R29.898 Impaired strength of shoulder muscles Z96.611 S/P shoulder hemiarthroplasty, right PLAN OF CARE UPDATE: Assessment: Gloria Falcon demonstrates significant improvement in pulling, pushing, and carrying , moderate improvement in reaching overhead, use hand with arm at shoulder level, and driving, minimal improvement in reaching behind back, and no improvement in throwing. He has progressed toward goals. Patient continues to present with impairments in ADL's, range of motion, and strength that interfere with reaching behind back, reaching overhead, use hand with arm at shoulder level, driving, throwing, pulling, pushing, carrying . Current prognosis is Good due to: good overall health status, acuteness of condition, positive past response to therapy, Prognosis may be limited due to clinical presentation . The patient demonstrates minimal improvement in his range of motion and strength since last progress report. He has clunking with supine and sidelying shoulder abduction. We have avoided these motions. He will benefit from continued skilled therapy services to meet the updated goals for this plan of care as noted below. Addressed 11/16/2023 Goals for Episode of Care: created on 08/19/23 through 11/11/23 [place] in home exercise program. - Met Patient will decrease pain to 0/10 with functional activities to allow patient to improve ADLs. - Met Patient will increase active ROM of right shoulder flexion and abduction to 150 degrees, external rotation to 50 degrees, and internal rotation to L1 to allow pt to to improve performance of ADLs. - Progressing Patient will demonstrate increase in right shoulder strength to 4/5 during manual muscle testing in order to improve function for prior functional Tasks. - Progressing Planned Interventions, Frequency, and Duration: 2x/week, 6 weeks Total Number of Visits Planned: 12 Patient to be seen for Therapeutic exercise (27656), Manual therapy (30215), Neuromuscular re-education (12755), Therapeutic activities (83050), Self-halfway management (49519) PLAN FOR NEXT VISIT: * Discontinue rope and juliana scaption next session. Continue with Phase III includes: external and internal rotation, standing forward punch, rows, scapular mobilization, PRE's for periscapular strengthening. For further details regarding this patient refer to the Physical Therapy electronically documented visit dated 11/16/2023. Provider Attestation I have reviewed the treatment plan for Gloria Falcon, [facility]# [id number] for the period of 11/16/23 -- 12/28/23, established on 11/16/2023. Signature certifies the need for therapy services. [facility] CNTHERAPYon 11-16-2023 CNTHERAPY OT/PT/Speech Visit ([facility] [[email or web address] GLORIA FALCON ([id number]) 1955 M T Date Time Provider Department 11/16/23 3:00 PM ERICKA MURRAY [facility] [[email or web address]] Date Time Provider Department Center 11/16/2023 3:00 PM [id number], MICHEL*[facility] M Reason for Visit: PT Progress Note [1596] PT Discharge [752] Primary Visit Diagnosis:Decreased range of motion of right shoulder [M25.611] Other Visit Diagnoses:Impaired strength of shoulder muscles [R29.898] S/P shoulder hemiarthroplasty, right [Z96.611] Allergies As of Date: 11/16/2023 (No Known Allergies) Date Reviewed: 01/30/2015 Reviewed by: Mita Mclaughlin (Rn), RN - Fully Assessed Prescriptions as of 04/05/2024 - aspirin, enteric coated (ASPIRIN, ENTERIC COATED) 81 mg EC tablet Take 81 mg by mouth once daily. - lisinopril (ZESTRIL, PRINIVIL) 10 mg tablet Take 10 mg by mouth once daily. - Omeprazole Magnesium (PRILOSEC OTC) 20 mg tablet Take 20 mg by mouth once daily. - VENLAFAXINE HCL (EFFEXOR ORAL) Take 1 tablet by mouth. Letter Text Letter Text Letter Text Normal [facility] CNTHERAPYon 11-11-2023 CNTHERAPY OT/PT/Speech Visit ([facility] [[email or web address] GLORIA FALCON ([id number]) 1955 [facility] Date Time Provider Department 11/11/23 2:45 PM GENEVIEVE STEARNS [facility] [[email or web address]] Date Time Provider Department Center 11/11/2023 2:45 PM [id number], AMBER M [facility] Reason for Visit: Physical Therapy [503] Primary Visit Diagnosis:Decreased range of motion of right shoulder [M25.611] Other Visit Diagnoses:Impaired strength of shoulder muscles [R29.898] S/P shoulder hemiarthroplasty, right [Z96.611] Allergies As of Date: 11/11/2023 (No Known Allergies) Date Reviewed: 01/30/2015 Reviewed by: Mita Mclaughlin (Rn), RN - Fully Assessed Prescriptions as of 11/11/2023 - aspirin, enteric coated (ASPIRIN, ENTERIC COATED) 81 mg EC tablet Take 81 mg by mouth once daily. - lisinopril (ZESTRIL, PRINIVIL) 10 mg tablet Take 10 mg by mouth once daily. - Omeprazole Magnesium (PRILOSEC OTC) 20 mg tablet Take 20 mg by mouth once daily. - VENLAFAXINE HCL (EFFEXOR ORAL) Take 1 tablet by mouth. [facility] CNTHERAPYon 11-09-2023 CNTHERAPY OT/PT/Speech Visit [facility] GLORIA FALCON ([id number]) 1955 [facility] Date Time Provider Department 11/09/23 3:00 PM ERICKA MURRAY [facility] [[email or web address]] Date Time Provider Department Center 11/09/2023 3:00 PM [id number], MICHEL*[facility] Reason for Visit: Physical Therapy [503] Primary Visit Diagnosis:Decreased range of motion of right shoulder [M25.611] Other Visit Diagnoses:Impaired strength of shoulder muscles [R29.898] S/P shoulder hemiarthroplasty, right [Z96.611] Allergies As of Date: 11/09/2023 (No Known Allergies) Date Reviewed: 01/30/2015 Reviewed by: Mita Mclaughlin (Rn), RN - Fully Assessed Prescriptions as of 11/09/2023 - aspirin, enteric coated (ASPIRIN, ENTERIC COATED) 81 mg EC tablet Take 81 mg by mouth once daily. - lisinopril (ZESTRIL, PRINIVIL) 10 mg tablet Take 10 mg by mouth once daily. - Omeprazole Magnesium (PRILOSEC OTC) 20 mg tablet Take 20 mg by mouth once daily. - VENLAFAXINE HCL (EFFEXOR ORAL) Take 1 tablet by mouth. [facility] Bacteria identified Cx Nom ( Wound)Ordered By: Alexx Dhaliwal on 11-05-2023 Wound Culture Enterococcus faecalis [facility] [facility] Wound Culture Negative [facility] Wound Culture Pseudomonas aeruginosa [facility] Gram stain for investigation of transfusion reactionOrdered By: Alexx Dhaliwal on 11-05-2023 Microscopic observation Gram stain Nom (Unsp spec) [facility] No Panel InformationOrdered By: Alexx Dhaliwal on 11-05-2023 Methicillin-Resist S.aureus DNA PCR Negative Negative [facility] Staphylococcus aureus DNA de tection by probe and target amplification methodOrdered By: Alexx Dhaliwal on 11-05-2023 S. aureus DNA MERY+probe Ql (Unsp spec) Negative Negative [facility] CNTHERAPYon 11-04-2023 CNTHERAPY OT/PT/Speech Visit ([email or web address] GLORIA FALCON ([id number]) 1955 [facility] Date Time Provider Department 11/04/23 3:00 PM KATIANA WINSLOW [facility] [[email or web address]] Date Time Provider Department Center 11/04/2023 3:00 [id number] Reason for Visit: Physical Therapy [503] Primary Visit Diagnosis:Decreased range of motion of right shoulder [M25.611] Other Visit Diagnoses:Impaired strength of shoulder muscles [R29.898] S/P shoulder hemiarthroplasty, right [Z96.611] Allergies As of Date: 11/04/2023 (No Known Allergies) Date Reviewed: 01/30/2015 Reviewed by: Mita Mclaughlin (Rn), RN - Fully Assessed Prescriptions as of 11/04/2023 - aspirin, enteric coated (ASPIRIN, ENTERIC COATED) 81 mg EC tablet Take 81 mg by mouth once daily. - lisinopril (ZESTRIL, PRINIVIL) 10 mg tablet Take 10 mg by mouth once daily. - Omeprazole Magnesium (PRILOSEC OTC) 20 mg tablet Take 20 mg by mouth once daily. - VENLAFAXINE HCL (EFFEXOR ORAL) Take 1 tablet by mouth. [facility] CNTHERAPYon 11-02-2023 CNTHERAPY OT/PT/Speech Visit ([facility] [[email or web address] GLORIA FALCON ([id number]) 1955 [facility] Date Time Provider Department 11/02/23 3:00 PM KATIANA WINSLOW [facility] [[email or web address]] Date Time Provider Department Center 11/02/2023 3:00 PM [id number] Reason for Visit: Physical Therapy [503] Primary Visit Diagnosis:Decreased range of motion of right shoulder [M25.611] Other Visit Diagnoses:Impaired strength of shoulder muscles [R29.898] S/P shoulder hemiarthroplasty, right [Z96.611] Allergies As of Date: 11/02/2023 (No Known Allergies) Date Reviewed: 01/30/2015 Reviewed by: Mita Mclaughlin (Rn), RN - Fully Assessed Prescriptions as of 11/02/2023 - aspirin, enteric coated (ASPIRIN, ENTERIC COATED) 81 mg EC tablet Take 81 mg by mouth once daily. - lisinopril (ZESTRIL, PRINIVIL) 10 mg tablet Take 10 mg by mouth once daily. - Omeprazole Magnesium (PRILOSEC OTC) 20 mg tablet Take 20 mg by mouth once daily. - VENLAFAXINE HCL (EFFEXOR ORAL) Take 1 tablet by mouth. Normal [facility] Absolute lymphocyte countOrd ered By: Alexx Dhaliwal on 10-29-2023 Lymphocytes Auto (Unsp spec) [#/Vol] 2.15 10*3/uL 0.83-4.51 [facility] Automated lymphocyte count a s percentage of total leukocytesOrdered By: Alexx Dhaliwal on 10-29-2023 Lymphocytes/100 WBC Auto (Unsp spec) 36.4 % 19-41 [facility] Basophil percentageOrdered B y: Alexx Dhaliwal on 10-29-2023 Basophils/100 WBC (Bld) 0.8 % 0-1 [facility] Bilirubin [Mass/Vol] 0.50 mg/dL 0.20-1.00 [facility] Comment on above: For patients on eltr ombopag therapy, use of Dimension Leon TBIL is not recommended. Chloride [Moles/Vol] 101 mmol/L 98-107 [facility] Eosinophils/100 WBC (Bld) 4.4 % 0-5 [facility] Glucose [Mass/Vol] 131 mg/dL 74-106 [facility] Comment on above: Fasting Glucose resu lt greater than or equal to 126 mg/dL suggests DIABETES MELLITUS per A.D.A. criteria. Hemoglobin (Bld) [Mass/Vol] 15.0 g/dL 13.0-16.5 [facility] Monocytes/100 WBC (Bld) 11.0 % 0-10 [facility] Neutrophils (Bld) [#/Vol] 2.8 10*3/uL 2.0-7.7 [facility] Neutrophils/100 WBC (Bld) 46.9 % 47-70 [facility] Potassium [Moles/Vol] 4.2 mmol/L 3.5-5.1 [facility] Protein [Mass/Vol] 7.7 g/dL 6.4-8.2 [facility] Sodium [Moles/Vol] 135 mmol/L 136-145 [facility] WBC (Bld) [#/Vol] 5.9 10*3/uL 4.4-11.0 [facility] Determination of erythrocyte mean corpuscular volume (MCV)Ordered By: Alexx Dhaliwal on 10-29-2023 MCV (RBC) [Entitic vol] 95.9 fL 80-94 [facility] Erythrocyte distribution wid th ratioOrdered By: Alexx Dhaliwal on 10-29-2023 Erythrocyte distribution width (RBC) [Ratio] 13.6 % 11.6-14.6 [facility] Erythrocyte distribution wid th standard deviationOrdered By: Alexx Dhaliwal on 10-29-2023 Erythrocyte distribution width (RBC) [Entitic vol] 48.5 fL 35.1-43.9 [facility] Hematocrit Auto (Bld) [Volum e fraction]Ordered By: Alexx Dhaliwal 10-29-2023 Hematocrit (Bld) [Volume fraction] 46.8 % 40-54 [facility] Immature granulocytes/100 WB C Auto (Bld)Ordered By: Alexx Dhaliwal on 10-29-2023 Immature granulocytes/100 WBC (Bld) 0.500 % 0.0-0.9 [facility] Comment on above: IG% - Immature Granu locytes (promyelocytes, myelocytes and metamyelocytes) > 1% indicates that a LEFT SHIFT is Present. Laboratory - Chemistry and C hemistry - challengeOrdered By: Alexx Dhaliwal on 10-29-2023 Albumin/Globulin [Mass ratio] 1.1 {ratio} 0.9-2.4 [facility] ALP [Catalytic activity/Vol] 86 U/L 45-117 [facility] ALT [Catalytic activity/Vol] 44 U/L 16-61 [facility] CO2 [Moles/Vol] 27.0 mmol/L 21.0-32.0 [facility] Globulin (S) [Mass/Vol] 3.7 g/dL 2.2-4.2 [facility] Urea nitrogen/Creatinine [Mass ratio] 13.9 mg/mg 10-20 [facility] Laboratory - Hematology and Cell countsOrdered By: Alexx Dhaliwal on 10-29-2023 MCH (RBC) [Entitic mass] 30.7 pg 27.0-32.0 [facility] MCHC (RBC) [Mass/Vol] 32.1 g/dL 32-36 [facility] Nucleated RBC/100 WBC (Bld) [Ratio] 0 % 0-5 [facility] Platelet mean volume (Bld) [Entitic vol] 9.7 fL 6.2-12.0 [facility] Platelets (Bld) [#/Vol] 245 10*3/uL 150-450 [facility] No Panel InformationOrdered By: Alexx Dhaliwal on 10-29-2023 Estimated GFR (MDRD) Amer 103 mL/min >60 [facility] Comment on above: GFR Calc Estimated GFR (MDRD) Non-Af Amer 85 mL/min >60 [facility] Comment on above: Non- GFR Calc Vitamin D 25-Hydroxy 43.7 ng/mL [facility] Comment on above: Vitamin D 25(OH) Sta tus Range Deficiency <20 ng/mL (50nmol/L) Insufficiency 20 - 30 ng/mL (50 - 75 nmol/L) Sufficiency 30 - 100 ng/mL (75 - 250 nmol/L) Toxicity >100 ng/mL (>250 nmol/L) RBC Auto (Bld) [#/Vol]Ordere d By: Alexx Dhaliwal on 10-29-2023 RBC (Bld) [#/Vol] 4.88 10*6/uL 4.6-6.2 ost er [facility] Serum or plasma calcium otis urement (mass/volume)Ordered By: Alexx Dhaliwal on 10-29-2023 Calcium [Mass/Vol] 8.7 mg/dL 8.5-10.1 oste r [facility] Serum or plasma creatinine m easurement (mass/volume)Ordered By: Alexx Dhaliwal on 10-29-2023 Creatinine [Mass/Vol] 0.94 mg/dL 0.70-1.30 [facility] Comment on above: The validity of the calculated GFR & GFRAA in patients over 70 years has not been determined. Clinical correlation is essential. Serum or plasma thyroid stim ulating hormone (TSH) measurement (units/volume)Ordered By: Alexx Yifan on 10-29-2023 TSH Qn 1.85 uIU/mL 0.358-3.74 [facility] Serum or plasma urea nitroge n measurement (mass/volume)Ordered By: Alexx Yifan on 10-29-2023 Urea nitrogen [Mass/Vol] 13 mg/dL 7-18 [facility] Serum or plasma uric acid me asurement (mass/volume)Ordered By: Alexx Yifan on 10-29-2023 Urate [Mass/Vol] 5.8 mg/dL 3.5-7.2 [facility] Comment on above: The drugs N-Acetylcy steine and Metamizole may falsely depress this assay. Thin prep Papanicolaou smear with manual screeningOrdered By: Alexx Yifan on 10-29-2023 Thin prep Papanicolaou smear with manual screening 4.0 g/dL 3.2-5.0 [facility] Thin prep Papanicolaou smear with manual screening 37 U/L 15-37 [facility] Thin prep Papanicolaou smear with manual screening 7 5-15 [facility] CNTHERAPYon 10-28-2023 CNTHERAPY OT/PT/Speech Visit ([facility]) GLORIA FALCON ([id number]) 1955 M T Date Time Provider Department 10/28/23 3:00 PM KATIANA WINSLOW [facility] Date Time Provider Department Center 10/28/2023 3:00 PM [id number], SHEILA[facility] Reason for Visit: Physical Therapy [503] Primary Visit Diagnosis:Decreased range of motion of right shoulder [M25.611] Other Visit Diagnoses:Impaired strength of shoulder muscles [R29.898] S/P shoulder hemiarthroplasty, 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 - lisinopril (ZESTRIL, PRINIVIL) 10 mg tablet Take 10 mg by mouth once daily. - Omeprazole Magnesium (PRILOSEC OTC) 20 mg tablet Take 20 mg by mouth once daily. - VENLAFAXINE HCL (EFFEXOR ORAL) Take 1 tablet by mouth. [facility] CNTHERAPYon 10-26-2023 CNTHERAPY OT/PT/Speech Visit ([facility]) GLORIA FALCON ([id number]) 1955 M T Date Time Provider Department 10/26/23 3:00 PM ERICKA MURRAY [facility] [[email or web address]] Date Time Provider Department Center 10/26/2023 3:00 PM [id number], MICHEL[facility] Reason for Visit: Physical Therapy [503] Primary Visit Diagnosis:Decreased range of motion of right shoulder [M25.611] Other Visit Diagnoses:Impaired strength of shoulder muscles [R29.898] S/P shoulder hemiarthroplasty, right [Z96.611] Allergies As of Date: 10/26/2023 (No Known Allergies) Date Reviewed: 01/30/2015 Reviewed by: Mita Mclaughlin (Rn), RN - Fully Assessed Prescriptions as of 11/02/2023 - aspirin, enteric coated (ASPIRIN, ENTERIC COATED) 81 mg EC tablet Take 81 mg by mouth once daily. - lisinopril (ZESTRIL, PRINIVIL) 10 mg tablet Take 10 mg by mouth once daily. - Omeprazole Magnesium (PRILOSEC OTC) 20 mg tablet Take 20 mg by mouth once daily. - VENLAFAXINE HCL (EFFEXOR ORAL) Take 1 tablet by mouth. Payroll Services Analyst: Therapy (PT/OT/Speech/Resp) ID: [id number] 10/26/2023 3:33 PM Author: ERICKA MURRAY Signed by ERICKA MURRAY PT, DPT on 10/26/2023 at 3:33 PM Document text: Program_ID:[id number] Access Code: [email or web address] URL: [email or web address] Date: 10-26-2023 Prepared By: Ericka Murray Program Notes Exercises - Standing Shoulder Row with Anchored Resistance - 1 x daily - 1 x weekly - 2 sets - 10 reps - Shoulder extension with resistance - Neutral - 1 x daily - 1 x weekly - 2 sets - 10 reps - Standing High Row with Resistance - 1 x daily - 1 x weekly - 2 sets - 10 reps - Shoulder External Rotation with Anchored Resistance - 1 x daily - 1 x weekly - 2 sets - 10 reps - Shoulder Internal Rotation with Resistance - 1 x daily - 1 x weekly - 2 sets - 10 reps -------- [facility] THERAPY NTon 10-26-2023 THERAPY NT HNO ID: [id number] Author: ERICKA MURRAY, PT, DPT Service: ? Author Type: Physical Therapist Type: Therapy (PT/OT/Speech/Resp) Filed: 10/26/2023 15:33 Note Text: Program_ID:[id number] Access Code: [email or web address] URL: [email or web address] Date: 10-26-2023 Prepared By: Ericka Murray Program Notes Exercises - Standing Shoulder Row with Anchored Resistance - 1 x daily - 1 x weekly - 2 sets - 10 reps - Shoulder extension with resistance - Neutral - 1 x daily - 1 x weekly - 2 sets - 10 reps - Standing High Row with Resistance - 1 x daily - 1 x weekly - 2 sets - 10 reps - Shoulder External Rotation with Anchored Resistance - 1 x daily - 1 x weekly - 2 sets - 10 reps - Shoulder Internal Rotation with Resistance - 1 x daily - 1 x weekly - 2 sets - 10 reps [facility] CNTHERAPYon 10-21-2023 CNTHERAPY OT/PT/Speech Visit ([facility] [[email or web address] FALCON ([id number]) 1955 [facility] Date Time Provider Department 10/21/23 3:00 PM KATIANA WINSLOW [facility] [[email or web address]] Date Time Provider Department Center 10/21/2023 3:00 PM [id number][facility] Reason for Visit: Physical Therapy [503] Primary Visit Diagnosis:Decreased range of motion of right shoulder [M25.611] Other Visit Diagnoses:Impaired strength of shoulder muscles [R29.898] S/P shoulder hemiarthroplasty, right [Z96.611] Allergies As of Date: 10/21/2023 (No Known Allergies) Date Reviewed: 01/30/2015 Reviewed by: Mita Mclaughlin (Rn), RN - Fully Assessed Prescriptions as of 10/21/2023 - aspirin, enteric coated (ASPIRIN, ENTERIC COATED) 81 mg EC tablet Take 81 mg by mouth once daily. - lisinopril (ZESTRIL, PRINIVIL) 10 mg tablet Take 10 mg by mouth once daily. - Omeprazole Magnesium (PRILOSEC OTC) 20 mg tablet Take 20 mg by mouth once daily. - VENLAFAXINE HCL (EFFEXOR ORAL) Take 1 tablet by mouth. [facility] CNTHERAPYon 10-19-2023 CNTHERAPY OT/PT/Speech Visit ([facility]) GLORIA FALCON ([id number]) 1955 M T Date Time Provider Department 10/19/23 3:00 PM ERICKA MURRAY [facility] [[email or web address]] Date Time Provider Department Center 10/19/2023 3:00 PM [id number], MICHEL*[facility] M Reason for Visit: PT Progress Note [8706] Primary Visit Diagnosis:Decreased range of motion of right shoulder [M25.611] Other Visit Diagnoses:Impaired strength of shoulder muscles [R29.898] S/P shoulder hemiarthroplasty, right [Z96.611] Allergies As of Date: 10/19/2023 (No Known Allergies) Date Reviewed: 01/30/2015 Reviewed by: Mita Mclaughlin (Rn), RN - Fully Assessed Prescriptions as of 11/16/2023 - aspirin, enteric coated (ASPIRIN, ENTERIC COATED) 81 mg EC tablet Take 81 mg by mouth once daily. - lisinopril (ZESTRIL, PRINIVIL) 10 mg tablet Take 10 mg by mouth once daily. - Omeprazole Magnesium (PRILOSEC OTC) 20 mg tablet Take 20 mg by mouth once daily. - VENLAFAXINE HCL (EFFEXOR ORAL) Take 1 tablet by mouth. [facility] CNTHERAPYon 10-14-2023 CNTHERAPY OT/PT/Speech Visit [facility] GLORIA FALCON ([id number]) 1955 [facility] Date Time Provider Department 10/14/23 5:15 PM KATIANA WINSLOW [facility] [[email or web address]] Date Time Provider Department Center 10/14/2023 5:15 PM [id number], SHEILA*[facility] Reason for Visit: Physical Therapy [503] Primary Visit Diagnosis:Decreased range of motion of right shoulder [M25.611] Other Visit Diagnoses:Impaired strength of shoulder muscles [R29.898] S/P shoulder hemiarthroplasty, right [Z96.611] Allergies As of Date: 10/14/2023 (No Known Allergies) Date Reviewed: 01/30/2015 Reviewed by: Mita Mclaughlin (Rn), RN - Fully Assessed Prescriptions as of 10/14/2023 - aspirin, enteric coated (ASPIRIN, ENTERIC COATED) 81 mg EC tablet Take 81 mg by mouth once daily. - lisinopril (ZESTRIL, PRINIVIL) 10 mg tablet Take 10 mg by mouth once daily. - Omeprazole Magnesium (PRILOSEC OTC) 20 mg tablet Take 20 mg by mouth once daily. - VENLAFAXINE HCL (EFFEXOR ORAL) Take 1 tablet by mouth. Payroll Services Analyst: Addendum Therapy (PT/OT/Speech/Resp) ID: [id number] 10/14/2023 5:49 PM Author: KATIANA WINSLOW Signed by KATIANA WINSLOW WEB MANAGER on 10/14/2023 at 5:49 PM * * * This document replaces document [id number] * * * Document text: Program_ID:[id number] Access Code: [email or web address] URL: [email or web address]/ Date: 10-14-2023 Prepared By: Ericka Murray Program Notes Exercises - Sidelying Shoulder External Rotation - 1 x daily - 7 x weekly - 3 sets - 10 reps - Shoulder External Rotation and Scapular Retraction - 1 x daily - 7 x weekly - 3 sets - 10 reps -------- Normal [facility] THERAPY NTon 10-14-2023 THERAPY NT HNO ID: [id number] Author: KATIANA WINSLOW PTA Service: ? Author Type: Correctional Classification Counselor Type: Therapy (PT/OT/Speech/Resp) Filed: 10/14/2023 17:44 Note Text: Program_ID:[id number] Access Code: [email or web address] URL: [email or web address] Date: 10-14-2023 Prepared By: Ericka Murray Program Notes Exercises - Sidelying Shoulder External Rotation - 1 x daily - 7 x weekly - 3 sets - 10 reps - Shoulder External Rotation and Scapular Retraction - 1 x daily - 7 x weekly - 3 sets - 10 reps [facility] CNTHERAPYon 10-07-2023 CNTHERAPY OT/PT/Speech Visit [facility] GLORIA FALCON ([id number]) 1955 [facility] Date Time Provider Department 10/07/23 3:00 PM KATIANA WINSLOW [facility] [[email or web address]] Date Time Provider Department Center 10/07/2023 3:00 PM [id number], SHEILA*[facility] Reason for Visit: Physical Therapy [503] Primary Visit Diagnosis:Decreased range of motion of right shoulder [M25.611] Other Visit Diagnoses:Impaired strength of shoulder muscles [R29.898] S/P shoulder hemiarthroplasty, right [Z96.611] Allergies As of Date: 10/07/2023 (No Known Allergies) Date Reviewed: 01/30/2015 Reviewed by: Mita Mclaughlin (Rn), RN - Fully Assessed Prescriptions as of 10/07/2023 - aspirin, enteric coated (ASPIRIN, ENTERIC COATED) 81 mg EC tablet Take 81 mg by mouth once daily. - lisinopril (ZESTRIL, PRINIVIL) 10 mg tablet Take 10 mg by mouth once daily. - Omeprazole Magnesium (PRILOSEC OTC) 20 mg tablet Take 20 mg by mouth once daily. - VENLAFAXINE HCL (EFFEXOR ORAL) Take 1 tablet by mouth. Payroll Services Analyst: Therapy (PT/OT/Speech/Resp) ID: [id number] 10/07/2023 3:32 PM Author: KATIANA WINSLOW Signed by KATIANA WINSLOW PTA on 10/07/2023 at 3:32 PM Document text: Program_ID:[id number] Access Code: [email or web address] URL: [email or web address] Date: 10-07-2023 Prepared By: Ericka Murray Program Notes Exercises - Supine Shoulder Flexion Extension Full Range AROM - 2 x daily - 7 x weekly - 3 sets - 10 reps - Standing Shoulder Posterior Capsule Stretch - 2 x daily - 7 x weekly - 1 sets - 5 reps -------- [facility] THERAPY NTon 10-07-2023 THERAPY NT HNO ID: [id number] Author: KATIANA WINSLOW PTA Service: ? Author Type: Correctional Classification Counselor Type: Therapy (PT/OT/Speech/Resp) Filed: 10/07/2023 15:32 Note Text: Program_ID:[id number] Access Code: [email or web address] URL: [email or web address] Date: 10-07-2023 Prepared By: Ericka Murray Program Notes Exercises - Supine Shoulder Flexion Extension Full Range AROM - 2 x daily - 7 x weekly - 3 sets - 10 reps - Standing Shoulder Posterior Capsule Stretch - 2 x daily - 7 x weekly - 1 sets - 5 reps Normal [facility] CNTHERAPYon 10-05-2023 CNTHERAPY OT/PT/Speech Visit ([facility]) GLORIA FALCON ([id number]) 1955 [facility] Date Time Provider Department 10/05/23 3:00 PM KATIANA WINSLOW [facility] [[email or web address]] Date Time Provider Department Center 10/05/2023 3:00 PM [id number], SHEILA*[facility] [[email or web address] M Reason for Visit: Physical Therapy [503] Primary Visit Diagnosis:Decreased range of motion of right shoulder [M25.611] Other Visit Diagnoses:Impaired strength of shoulder muscles [R29.898] S/P shoulder hemiarthroplasty, right [Z96.611] Allergies As of Date: 10/05/2023 (No Known Allergies) Date Reviewed: 01/30/2015 Reviewed by: Mita Mclaughlin (Rn), RN - Fully Assessed Prescriptions as of 10/05/2023 - aspirin, enteric coated (ASPIRIN, ENTERIC COATED) 81 mg EC tablet Take 81 mg by mouth once daily. - lisinopril (ZESTRIL, PRINIVIL) 10 mg tablet Take 10 mg by mouth once daily. - Omeprazole Magnesium (PRILOSEC OTC) 20 mg tablet Take 20 mg by mouth once daily. - VENLAFAXINE HCL (EFFEXOR ORAL) Take 1 tablet by mouth. [facility] CNTHERAPYon 09-30-2023 CNTHERAPY OT/PT/Speech Visit ([email or web address] GLORIA FALCON ([id number]) 1955 [facility] Date Time Provider Department 09/30/23 3:00 PM ERICKA MURRAY [facility] [[email or web address]] Date Time Provider Department Center 09/30/2023 3:00 PM [id number], MICHEL*[facility] M Reason for Visit: Physical Therapy [503] Primary Visit Diagnosis:Decreased range of motion of right shoulder [M25.611] Other Visit Diagnoses:Impaired strength of shoulder muscles [R29.898] S/P shoulder hemiarthroplasty, right [Z96.611] Allergies As of Date: 09/30/2023 (No Known Allergies) Date Reviewed: 01/30/2015 Reviewed by: Mita Mclaughlin (Rn), RN - Fully Assessed Prescriptions as of 09/30/2023 - aspirin, enteric coated (ASPIRIN, ENTERIC COATED) 81 mg EC tablet Take 81 mg by mouth once daily. - lisinopril (ZESTRIL, PRINIVIL) 10 mg tablet Take 10 mg by mouth once daily. - Omeprazole Magnesium (PRILOSEC OTC) 20 mg tablet Take 20 mg by mouth once daily. - VENLAFAXINE HCL (EFFEXOR ORAL) Take 1 tablet by mouth. [facility] CNTHERAPYon 09-28-2023 CNTHERAPY OT/PT/Speech Visit ([email or web address] GLORIA FALCON ([id number]) 1955 [facility] Date Time Provider Department 09/28/23 3:00 PM ERICKA MURRAY [email or web address]] Date Time Provider Department Center 09/28/2023 3:00 PM [id number], MICHEL*[facility] M Reason for Visit: Physical Therapy [503] Primary Visit Diagnosis:Decreased range of motion of right shoulder [M25.611] Other Visit Diagnoses:Impaired strength of shoulder muscles [R29.898] S/P shoulder hemiarthroplasty, right [Z96.611] Allergies As of Date: 09/28/2023 (No Known Allergies) Date Reviewed: 01/30/2015 Reviewed by: Mita Mclaughlin (Rn), RN - Fully Assessed Prescriptions as of 09/28/2023 - aspirin, enteric coated (ASPIRIN, ENTERIC COATED) 81 mg EC tablet Take 81 mg by mouth once daily. - lisinopril (ZESTRIL, PRINIVIL) 10 mg tablet Take 10 mg by mouth once daily. - Omeprazole Magnesium (PRILOSEC OTC) 20 mg tablet Take 20 mg by mouth once daily. - VENLAFAXINE HCL (EFFEXOR ORAL) Take 1 tablet by mouth. [facility] CNTHERAPYon 09-23-2023 CNTHERAPY OT/PT/Speech Visit ([facility]) GLORIA FALCON ([id number]) 1955 [facility] Date Time Provider Department 09/23/23 3:00 PM KATIANA WINSLOW [facility] [[email or web address]] Date Time Provider Department Center 09/23/2023 3:00 PM [id number] for Visit: Physical Therapy [503] Primary Visit Diagnosis:Decreased range of motion of right shoulder [M25.611] Other Visit Diagnoses:Impaired strength of shoulder muscles [R29.898] S/P shoulder hemiarthroplasty, right [Z96.611] Allergies As of Date: 09/23/2023 (No Known Allergies) Date Reviewed: 01/30/2015 Reviewed by: Mita Mclaughlin (Rn), RN - Fully Assessed Prescriptions as of 09/23/2023 - aspirin, enteric coated (ASPIRIN, ENTERIC COATED) 81 mg EC tablet Take 81 mg by mouth once daily. - lisinopril (ZESTRIL, PRINIVIL) 10 mg tablet Take 10 mg by mouth once daily. - Omeprazole Magnesium (PRILOSEC OTC) 20 mg tablet Take 20 mg by mouth once daily. - VENLAFAXINE HCL (EFFEXOR ORAL) Take 1 tablet by mouth. [facility] CNTHERAPYon 09-21-2023 CNTHERAPY OT/PT/Speech Visit (RMMTUS) EZEKIELGLORIA ([id number]) 1955 [facility] Date Time Provider Department 09/21/23 3:00 PM ERICKA MURRAY [facility] [[email or web address]] Date Time Provider Department Center 09/21/2023 3:00 PM [id number], MICHEL*[facility] M Reason for Visit: Physical Therapy [503] Primary Visit Diagnosis:Decreased range of motion of right shoulder [M25.611] Other Visit Diagnoses:Impaired strength of shoulder muscles [R29.898] S/P shoulder hemiarthroplasty, right [Z96.611] Allergies As of Date: 09/21/2023 (No Known Allergies) Date Reviewed: 01/30/2015 Reviewed by: Mita Mclaughlin (Rn), RN - Fully Assessed Prescriptions as of 09/21/2023 - aspirin, enteric coated (ASPIRIN, ENTERIC COATED) 81 mg EC tablet Take 81 mg by mouth once daily. - lisinopril (ZESTRIL, PRINIVIL) 10 mg tablet Take 10 mg by mouth once daily. - Omeprazole Magnesium (PRILOSEC OTC) 20 mg tablet Take 20 mg by mouth once daily. - VENLAFAXINE HCL (EFFEXOR ORAL) Take 1 tablet by mouth. [facility] CNTHERAPYon 09-16-2023 CNTHERAPY OT/PT/Speech Visit (MTUS) GLORIA FALCON ([id number]) 1955 [facility] Date Time Provider Department 09/16/23 3:00 PM ERICKA MURRAY [facility] [[email or web address]] Date Time Provider Department Center 09/16/2023 3:00 PM [id number], MICHEL*[facility] Reason for Visit: PT Progress Note [8220] Primary Visit Diagnosis:Decreased range of motion of right shoulder [M25.611] Other Visit Diagnoses:Impaired strength of shoulder muscles [R29.898] S/P shoulder hemiarthroplasty, right [Z96.611] Allergies As of Date: 09/16/2023 (No Known Allergies) Date Reviewed: 01/30/2015 Reviewed by: Mita Mclaughlin (Rn), RN - Fully Assessed Prescriptions as of 09/16/2023 - aspirin, enteric coated (ASPIRIN, ENTERIC COATED) 81 mg EC tablet Take 81 mg by mouth once daily. - lisinopril (ZESTRIL, PRINIVIL) 10 mg tablet Take 10 mg by mouth once daily. - Omeprazole Magnesium (PRILOSEC OTC) 20 mg tablet Take 20 mg by mouth once daily. - VENLAFAXINE HCL (EFFEXOR ORAL) Take 1 tablet by mouth. [facility] CNTHERAPYon 09-14-2023 CNTHERAPY OT/PT/Speech Visit ([facility] [[email or web address] GLORIA FALCON ([id number]) 1955 M T Date Time Provider Department 09/14/23 3:00 PM KATIANA WINSLOW [facility] [[email or web address]] Date Time Provider Department Center 09/14/2023 3:00 PM [id number], SHEILA*[facility] Reason for Visit: Physical Therapy [503] Primary Visit Diagnosis:Decreased range of motion of right shoulder [M25.611] Other Visit Diagnoses:Impaired strength of shoulder muscles [R29.898] S/P shoulder hemiarthroplasty, right [Z96.611] Allergies As of Date: 09/14/2023 (No Known Allergies) Date Reviewed: 01/30/2015 Reviewed by: Mita Mclaughlin (Rn), RN - Fully Assessed Prescriptions as of 09/14/2023 - aspirin, enteric coated (ASPIRIN, ENTERIC COATED) 81 mg EC tablet Take 81 mg by mouth once daily. - lisinopril (ZESTRIL, PRINIVIL) 10 mg tablet Take 10 mg by mouth once daily. - Omeprazole Magnesium (PRILOSEC OTC) 20 mg tablet Take 20 mg by mouth once daily. - VENLAFAXINE HCL (EFFEXOR ORAL) Take 1 tablet by mouth. [facility] CNTHERAPYon 09-09-2023 CNTHERAPY OT/PT/Speech Visit (RMVAUS) GLORIA FALCON ([id number]) 1955 [facility] Date Time Provider Department 09/09/23 3:00 PM GINA ARGUELLO [facility] [[email or web address]] Date Time Provider Department Center 09/09/2023 3:00 PM [id number] Reason for Visit: Physical Therapy [503] Primary Visit Diagnosis:Decreased range of motion of right shoulder [M25.611] Other Visit Diagnoses:Impaired strength of shoulder muscles [R29.898] S/P shoulder hemiarthroplasty, right [Z96.611] Allergies As of Date: 09/09/2023 (No Known Allergies) Date Reviewed: 01/30/2015 Reviewed by: Mita Mclaughlin (Rn), RN - Fully Assessed Prescriptions as of 09/09/2023 - aspirin, enteric coated (ASPIRIN, ENTERIC COATED) 81 mg EC tablet Take 81 mg by mouth once daily. - lisinopril (ZESTRIL, PRINIVIL) 10 mg tablet Take 10 mg by mouth once daily. - Omeprazole Magnesium (PRILOSEC OTC) 20 mg tablet Take 20 mg by mouth once daily. - VENLAFAXINE HCL (EFFEXOR ORAL) Take 1 tablet by mouth. [facility] CNTHERAPYon 2023 CNTHERAPY OT/PT/Speech Visit (RMMTUS) GLORIA FALCON ([id number]) 1955 M [facility] Date Time Provider Department 09/07/23 3:00 PM KATIANA WINSLOW [facility] Date Time Provider Department Center 2023 3:00 PM [id number], SHEILA*[facility] [facility] M Reason for Visit: Physical Therapy [503] Primary Visit Diagnosis:Decreased range of motion of right shoulder [M25.611] Other Visit Diagnoses:Impaired strength of shoulder muscles [R29.898] S/P shoulder hemiarthroplasty, right [Z96.611] Allergies As of Date: 2023 (No Known Allergies) Date Reviewed: 01/30/2015 Reviewed by: Mita Mclaughlin (Rn), RN - Fully Assessed Prescriptions as of 2023 - aspirin, enteric coated (ASPIRIN, ENTERIC COATED) 81 mg EC tablet Take 81 mg by mouth once daily. - lisinopril (ZESTRIL, PRINIVIL) 10 mg tablet Take 10 mg by mouth once daily. - Omeprazole Magnesium (PRILOSEC OTC) 20 mg tablet Take 20 mg by mouth once daily. - VENLAFAXINE HCL (EFFEXOR ORAL) Take 1 tablet by mouth. [facility] CNTHERAPYon 09-02-2023 CNTHERAPY OT/PT/Speech Visit (RMMTUS) GLORIA FALCON ([id number]) 1955 M T Date Time Provider Department 09/02/23 3:00 PM KATIANA WINSLOW [facility] [[email or web address]] Date Time Provider Department Center 09/02/2023 3:00 PM [id number][facility] Reason for Visit: Physical Therapy [503] Primary Visit Diagnosis:Decreased range of motion of right shoulder [M25.611] Other Visit Diagnoses:Impaired strength of shoulder muscles [R29.898] S/P shoulder hemiarthroplasty, right [Z96.611] Allergies As of Date: 09/02/2023 (No Known Allergies) Date Reviewed: 01/30/2015 Reviewed by: Mita Mclaughlin (Rn), RN - Fully Assessed Prescriptions as of 09/02/2023 - aspirin, enteric coated (ASPIRIN, ENTERIC COATED) 81 mg EC tablet Take 81 mg by mouth once daily. - lisinopril (ZESTRIL, PRINIVIL) 10 mg tablet Take 10 mg by mouth once daily. - Omeprazole Magnesium (PRILOSEC OTC) 20 mg tablet Take 20 mg by mouth once daily. - VENLAFAXINE HCL (EFFEXOR ORAL) Take 1 tablet by mouth. Payroll Services Analyst: Therapy (PT/OT/Speech/Resp) ID: [id number] 09/02/2023 3:53 PM Author: KATIANA WINSLOW Signed by KATIANA WINSLOW WEB MANAGER on 09/02/2023 at 3:56 PM Document text: Program_ID:[id number] Access Code: [email or web address] URL: [email or web address] Online/ Date: 09-02-2023 Prepared By: Ericka Murray Program Notes Exercises - Standing Shoulder Extension with Dowel - 1 x daily - 7 x weekly - 3 sets - 10 reps - Isometric Shoulder Flexion at Wall - 1 x daily - 7 x weekly - 3 sets - 10 reps - Isometric Shoulder Abduction at Wall - 1 x daily - 7 x weekly - 3 sets - 10 reps -------- [facility] THERAPY NTon 09-02-2023 THERAPY NT HNO ID: [id number] Author: KATIANA WINSLOW PTA Service: ? Author Type: Correctional Classification Counselor Type: Therapy (PT/OT/Speech/Resp) Filed: 09/02/2023 15:56 Note Text: Program_ID:[id number] Access Code: [email or web address] URL: [email or web address] Online/ Date: 09-02-2023 Prepared By: Ericka Murray Program Notes Exercises - Standing Shoulder Extension with Dowel - 1 x daily - 7 x weekly - 3 sets - 10 reps - Isometric Shoulder Flexion at Wall - 1 x daily - 7 x weekly - 3 sets - 10 reps - Isometric Shoulder Abduction at Wall - 1 x daily - 7 x weekly - 3 sets - 10 reps [facility] CNTHERAPYon 08-31-2023 CNTHERAPY OT/PT/Speech Visit (RMMTUS) GLORIA FALCON ([id number]) 1955 [facility] Date Time Provider Department 08/31/23 3:00 PM KATIANA WINSLOW [facility] [[email or web address] Date Time Provider Department Center 08/31/2023 3:00 PM [id number], SHEILA*[facility] Reason for Visit: Physical Therapy [503] Primary Visit Diagnosis:Decreased range of motion of right shoulder [M25.611] Other Visit Diagnoses:Impaired strength of shoulder muscles [R29.898] S/P shoulder hemiarthroplasty, right [Z96.611] Allergies As of Date: 08/31/2023 (No Known Allergies) Date Reviewed: 01/30/2015 Reviewed by: Mita Mclaughlin (Rn), RN - Fully Assessed Prescriptions as of 08/31/2023 - aspirin, enteric coated (ASPIRIN, ENTERIC COATED) 81 mg EC tablet Take 81 mg by mouth once daily. - lisinopril (ZESTRIL, PRINIVIL) 10 mg tablet Take 10 mg by mouth once daily. - Omeprazole Magnesium (PRILOSEC OTC) 20 mg tablet Take 20 mg by mouth once daily. - VENLAFAXINE HCL (EFFEXOR ORAL) Take 1 tablet by mouth. Payroll Services Analyst: Therapy (PT/OT/Speech/Resp) ID: [id number] 08/31/2023 4:01 PM Author: KATIANA WINSLOW Signed by KATIANA WINSLOW WEB MANAGER on 08/31/2023 at 4:01 PM Document text: Program_ID:[id number] Access Code: [email or web address] URL: [email or web address] Online/ Date: 08-31-2023 Prepared By: Ericka Murray Program Notes Exercises - Supine Shoulder Press AAROM in Abduction with Dowel - 1 x daily - 7 x weekly - 3 sets - 10 reps - Supine Shoulder Flexion AAROM with Dowel - 2 x daily - 7 x weekly - 3 sets - 10 reps - Standing Bilateral Shoulder Internal Rotation AAROM with Dowel - 2 x daily - 7 x weekly - 3 sets - 10 reps - Supine shoulder external rotation in 30 degrees of abduction with dowel - 2 x daily - 7 x weekly - 3 sets - 10 reps - Shoulder Scaption AAROM with Dowel - 2 x daily - 7 x weekly - 3 sets - 10 reps - Seated Upper Trapezius Stretch - 2 x daily - 7 x weekly - 1 sets - 5 reps - Standing Elbow Flexion Extension AROM - 2 x daily - 7 x weekly - 3 sets - 10 reps -------- [facility] THERAPY NTon 08-31-2023 THERAPY NT HNO ID: [id number] Author: KATIANA WINSLOW PTA Service: ? Author Type: Correctional Classification Counselor Type: Therapy (PT/OT/Speech/Resp) Filed: 08/31/2023 16:01 Note Text: Program_ID:[id number] Access Code: [email or web address] URL: [email or web address] Online/ Date: 08-31-2023 Prepared By: Ericka Murray Program Notes Exercises - Supine Shoulder Press AAROM in Abduction with Dowel - 1 x daily - 7 x weekly - 3 sets - 10 reps - Supine Shoulder Flexion AAROM with Dowel - 2 x daily - 7 x weekly - 3 sets - 10 reps - Standing Bilateral Shoulder Internal Rotation AAROM with Dowel - 2 x daily - 7 x weekly - 3 sets - 10 reps - Supine shoulder external rotation in 30 degrees of abduction with dowel - 2 x daily - 7 x weekly - 3 sets - 10 reps - Shoulder Scaption AAROM with Dowel - 2 x daily - 7 x weekly - 3 sets - 10 reps - Seated Upper Trapezius Stretch - 2 x daily - 7 x weekly - 1 sets - 5 reps - Standing Elbow Flexion Extension AROM - 2 x daily - 7 x weekly - 3 sets - 10 reps [facility] CNTHERAPYon 08-26-2023 CNTHERAPY OT/PT/Speech Visit (RMMTUS) GLORIA FALCON ([id number]) 1955 M [facility] Date Time Provider Department 08/26/23 3:00 PM KATIANA WINSLOW [facility] [[email or web address]] Date Time Provider Department Center 08/26/2023 3:00 PM [id number], [facility] M Reason for Visit: Physical Therapy [503] Primary Visit Diagnosis:Decreased range of motion of right shoulder [M25.611] Other Visit Diagnoses:Impaired strength of shoulder muscles [R29.898] S/P shoulder hemiarthroplasty, right [Z96.611] Allergies As of Date: 08/26/2023 (No Known Allergies) Date Reviewed: 01/30/2015 Reviewed by: Mita Mclaughlin (Rn), RN - Fully Assessed Prescriptions as of 08/26/2023 - aspirin, enteric coated (ASPIRIN, ENTERIC COATED) 81 mg EC tablet Take 81 mg by mouth once daily. - lisinopril (ZESTRIL, PRINIVIL) 10 mg tablet Take 10 mg by mouth once daily. - Omeprazole Magnesium (PRILOSEC OTC) 20 mg tablet Take 20 mg by mouth once daily. - VENLAFAXINE HCL (EFFEXOR ORAL) Take 1 tablet by mouth. [facility] CNTHERAPYon 08-24-2023 CNTHERAPY OT/PT/Speech Visit (RMVAUS) GLORIA FALCON ([id number]) 1955 M [facility] Date Time Provider Department 08/24/23 3:00 PM KATIANA WINSLOW [facility] [[email or web address]] Date Time Provider Department Center 08/24/2023 3:00 PM [id number], SHEILA*[facility] Reason for Visit: Physical Therapy [503] Primary Visit Diagnosis:Decreased range of motion of right shoulder [M25.611] Other Visit Diagnoses:Impaired strength of shoulder muscles [R29.898] S/P shoulder hemiarthroplasty, right [Z96.611] Allergies As of Date: 08/24/2023 (No Known Allergies) Date Reviewed: 01/30/2015 Reviewed by: Mita Mclaughlin (Rn), RN - Fully Assessed Prescriptions as of 08/24/2023 - aspirin, enteric coated (ASPIRIN, ENTERIC COATED) 81 mg EC tablet Take 81 mg by mouth once daily. - lisinopril (ZESTRIL, PRINIVIL) 10 mg tablet Take 10 mg by mouth once daily. - Omeprazole Magnesium (PRILOSEC OTC) 20 mg tablet Take 20 mg by mouth once daily. - VENLAFAXINE HCL (EFFEXOR ORAL) Take 1 tablet by mouth. Payroll Services Analyst: Therapy (PT/OT/Speech/Resp) ID: [id number] 08/24/2023 3:45 PM Author: KATIANA WINSLOW Signed by KATIANA WINSLOW WEB MANAGER on 08/24/2023 at 3:45 PM Document text: Program_ID:[id number] Access Code: [email or web address] URL: [email or web address] Online/ Date: 08-24-2023 Prepared By: Ericka Murray Program Notes Exercises - Elbow Flexion PROM - 2 x daily - 7 x weekly - 2 sets - 10 reps - Wrist Flexion AROM - 2 x daily - 7 x weekly - 3 sets - 10 reps - Wrist Extension AROM - 2 x daily - 7 x weekly - 3 sets - 10 reps - Seated Forearm Pronation and Supination AROM - 2 x daily - 7 x weekly - 3 sets - 10 reps - Wrist AROM Radial Ulnar Deviation - 2 x daily - 7 x weekly - 3 sets - 10 reps -------- [facility] THERAPY NTon 08-24-2023 THERAPY NT HNO ID: [id number] Author: KATIANA WINSLOW PTA Service: ? Author Type: Correctional Classification Counselor Type: Therapy (PT/OT/Speech/Resp) Filed: 08/24/2023 15:45 Note Text: Program_ID:[id number] Access Code: [email or web address] URL: [email or web address] Online/ Date: 08-24-2023 Prepared By: Ericka Murray Program Notes Exercises - Elbow Flexion PROM - 2 x daily - 7 x weekly - 2 sets - 10 reps - Wrist Flexion AROM - 2 x daily - 7 x weekly - 3 sets - 10 reps - Wrist Extension AROM - 2 x daily - 7 x weekly - 3 sets - 10 reps - Seated Forearm Pronation and Supination AROM - 2 x daily - 7 x weekly - 3 sets - 10 reps - Wrist AROM Radial Ulnar Deviation - 2 x daily - 7 x weekly - 3 sets - 10 reps [facility] CNTHERAPYon 08-19-2023 CNTHERAPY OT/PT/Speech Visit (RMMTUS) GLORIA FALCON ([id number]) 1955 [facility] Date Time Provider Department 08/19/23 3:45 PM [facility] Date Time Provider Department Center 08/19/2023 3:45 PM [id number], MICHEL*[facility] Reason for Visit: PT Eval [327] Primary Visit Diagnosis:Decreased range of motion of right shoulder [M25.611] Other Visit Diagnoses:S/P shoulder hemiarthroplasty, right [Z96.611] Impaired strength of shoulder muscles [R29.898] Allergies As of Date: 08/19/2023 (No Known Allergies) Date Reviewed: 01/30/2015 Reviewed by: Mita Mclaughlin (Rn), RN - Fully Assessed Prescriptions as of 09/14/2023 - aspirin, enteric coated (ASPIRIN, ENTERIC COATED) 81 mg EC tablet Take 81 mg by mouth once daily. - lisinopril (ZESTRIL, PRINIVIL) 10 mg tablet Take 10 mg by mouth once daily. - Omeprazole Magnesium (PRILOSEC OTC) 20 mg tablet Take 20 mg by mouth once daily. - VENLAFAXINE HCL (EFFEXOR ORAL) Take 1 tablet by mouth. Payroll Services Analyst: Therapy (PT/OT/Speech/Resp) ID: [id number] 08/19/2023 4:23 PM Author: ERICKA MURRAY Signed by ERICKA MURRAY PT, DPT on 08/19/2023 at 4:23 PM Document text: Program_ID:[id number] Access Code: [email or web address] URL: [email or web address] Online/ Date: 08-19-2023 Prepared By: Ericka Murray Program Notes Exercises - Elbow Flexion PROM - 2 x daily - 7 x weekly - 2 sets - 10 reps - Circular Shoulder Pendulum with Table Support - 2 x daily - 7 x weekly - 2 sets - 10 reps -------- Letter Text Letter Text Letter Text [facility] THERAPY NTon 08-19-2023 THERAPY NT HNO ID: [id number] Author: Ericka Murray, PT, DPT Service: ? Author Type: Physical Therapist Type: Therapy (PT/OT/Speech/Resp) Filed: 08/19/2023 4:23 PM Note Text: Program_ID:[id number] Access Code: [email or web address] URL: [email or web address] Online/ Date: 08-19-2023 Prepared By: Ericka Murray Program Notes Exercises - Elbow Flexion PROM - 2 x daily - 7 x weekly - 2 sets - 10 reps - Circular Shoulder Pendulum with Table Support - 2 x daily - 7 x weekly - 2 sets - 10 reps [facility] Absolute lymphocyte countOrd ered By: Alexx Yifan on 07-30-2023 Lymphocytes Auto (Unsp spec) [#/Vol] 2.33 10*3/uL 0.83-4.51 [facility] Basophil percentageOrdered B y: Alexx Dhaliwal on 07-30-2023 Basophils/100 WBC (Bld) 0.8 % 0-1 [facility] Bilirubin [Mass/Vol] 0.50 mg/dL 0.20-1.00 [facility] Comment on above: For patients on eltr ombopag therapy, use of Dimension Leon TBIL is not recommended. Chloride [Moles/Vol] 103 mmol/L 98-107 [facility] Eosinophils/100 WBC (Bld) 3.6 % 0-5 [facility] Glucose [Mass/Vol] 117 mg/dL 74-106 [facility] Comment on above: Fasting Glucose resu lt from 100 to 125 mg/dL suggests IMPAIRED HOMEOSTASIS per A.D.A. criteria. Neutrophils (Bld) [#/Vol] 4.6 10*3/uL 2.0-7.7 [facility] Neutrophils/100 WBC (Bld) 57.7 % 47-70 [facility] Potassium [Moles/Vol] 4.7 mmol/L 3.5-5.1 [facility] Comment on above: Slight Hemolysis, Re sult may be falsely increased. Protein [Mass/Vol] 8.0 g/dL 6.4-8.2 [facility] Sodium [Moles/Vol] 136 mmol/L 136-145 [facility] WBC (Bld) [#/Vol] 8.0 10*3/uL 4.4-11.0 [facility] Blood erythrocytes count (nu mber/volume)Ordered By: Alexx Dhaliwal on 07-30-2023 RBC (Bld) [#/Vol] 4.35 10*6/uL 4.6-6.2 [facility] Blood hemoglobin measurement (mass/volume)Ordered By: Alexx Dhaliwal on 07-30-2023 Hemoglobin (Bld) [Mass/Vol] 13.5 g/dL 13.0-16.5 [facility] Blood lymphocytes/100 leukoc ytesOrdered By: Alexx Dhaliwal on 07-30-2023 Lymphocytes/100 WBC (Bld) 29.2 % 19-41 [facility] Blood monocytes/100 leukocyt esOrdered By: Alexx Dhaliwal on 07-30-2023 Monocytes/100 WBC (Bld) 8.1 % 0-10 [facility] Blood platelet mean volumeOr dered By: Alexx Dhaliwal on 07-30-2023 Platelet mean volume (Bld) [Entitic vol] 9.2 fL 6.2-12.0 [facility] Determination of erythrocyte mean corpuscular volume (MCV)Ordered By: Alexx Dhaliwal on 07-30-2023 MCV (RBC) [Entitic vol] 95.9 fL 80-94 [facility] Hematocrit Auto (Bld) [Volum e fraction]Ordered By: Alexx Yifan on 07-30-2023 Hematocrit (Bld) [Volume fraction] 41.7 % 40-54 [facility] Laboratory - Chemistry and C hemistry - challengeOrdered By: Alexx Dhaliwal on 07-30-2023 ALP [Catalytic activity/Vol] 82 U/L 45-117 [facility] ALT [Catalytic activity/Vol] 41 U/L 16-61 [facility] CO2 [Moles/Vol] 24.0 mmol/L 21.0-32.0 [facility] Globulin (S) [Mass/Vol] 4.1 g/dL 2.2-4.2 [facility] Urea nitrogen/Creatinine [Mass ratio] 16.6 mg/mg 10-20 [facility] Laboratory - Hematology and Cell countsOrdered By: Alexx Dhaliwal on 07-30-2023 Erythrocyte distribution width (RBC) [Entitic vol] 46.3 fL 35.1-43.9 [facility] Erythrocyte distribution width (RBC) [Ratio] 13.1 % 11.6-14.6 [facility] Immature granulocytes/100 WBC (Bld) 0.600 % 0.0-0.9 [facility] Comment on above: IG% - Immature Granu locytes (promyelocytes, myelocytes and metamyelocytes) > 1% indicates that a LEFT SHIFT is Present. MCH (RBC) [Entitic mass] 31.0 pg 27.0-32.0 [facility] Nucleated RBC/100 WBC (Bld) [Ratio] 0 % 0-5 [facility] MCHC Auto (RBC) [Mass/Vol]Or dered By: Alexx Dhaliwal on 07-30-2023 MCHC (RBC) [Mass/Vol] 32.4 g/dL 32-36 [facility] No Panel InformationOrdered By: Alexx Dhaliwal on 07-30-2023 Estimated GFR (MDRD) Amer 108 mL/min >60 [facility] Comment on above: GFR Calc Estimated GFR (MDRD) Non-Af Amer 89 mL/min >60 [facility] Comment on above: Non- GFR Calc Thyroid Stimulating Hormone (TSH) 1.98 uIU/mL 0.358-3.74 [facility] Vitamin D 25-Hydroxy 52.4 ng/mL [facility] Comment on above: Vitamin D 25(OH) Sta tus Range Deficiency <20 ng/mL (50nmol/L) Insufficiency 20 - 30 ng/mL (50 - 75 nmol/L) Sufficiency 30 - 100 ng/mL (75 - 250 nmol/L) Toxicity >100 ng/mL (>250 nmol/L) Platelets bldOrdered By: Alexx Dhaliwal on 07-30-2023 Platelets (Bld) [#/Vol] 321 10*3/uL 150-450 [facility] Serum or plasma albumin otis urement (mass/volume)Ordered By: Alexx Dhaliwal on 07-30-2023 Albumin [Mass/Vol] 3.9 g/dL 3.2-5.0 [facility] Serum or plasma albumin/glob ulin mass ratioOrdered By: Alexx Dhaliwal on 07-30-2023 Albumin/Globulin [Mass ratio] 1.0 {ratio} 0.9-2.4 [facility] Serum or plasma calcium otis urement (mass/volume)Ordered By: Alexx Dhaliwal on 07-30-2023 Calcium [Mass/Vol] 9.0 mg/dL 8.5-10.1 [facility] Serum or plasma creatinine m easurement (mass/volume)Ordered By: Alexx Dhaliwal on 07-30-2023 Creatinine [Mass/Vol] 0.90 mg/dL 0.70-1.30 [facility] Comment on above: The validity of the calculated GFR & GFRAA in patients over 70 years has not been determined. Clinical correlation is essential. Serum or plasma urea nitroge n measurement (mass/volume)Ordered By: Alexx Dhaliwal 07-30-2023 Urea nitrogen [Mass/Vol] 15 mg/dL 7-18 [facility] Serum or plasma uric acid me asurement (mass/volume)Ordered By: Alexx Dhaliwal 07-30-2023 Urate [Mass/Vol] 5.9 mg/dL 3.5-7.2 [facility] Comment on above: The drugs N-Acetylcy steine and Metamizole may falsely depress this assay. Thin prep Papanicolaou smear with manual screeningOrdered By: Alexx Dhaliwal on 07-30-2023 Thin prep Papanicolaou smear with manual screening 32 U/L 15-37 [facility] Comment on above: Slight Hemolysis, Re sult may be falsely increased. Thin prep Papanicolaou smear with manual screening 9 5-15 [facility] Absolute lymphocyte countOrd ered By: Alexx Dhaliwal on 06-25-2023 Lymphocytes Auto (Unsp spec) [#/Vol] 1.99 10*3/uL 0.83-4.51 [facility] Basophil percentageOrdered B y: Alexx Dhaliwal on 06-25-2023 Basophils/100 WBC (Bld) 0.9 % 0-1 [facility] Chloride [Moles/Vol] 103 mmol/L 98-107 [facility] Eosinophils/100 WBC (Bld) 5.2 % 0-5 [facility] Glucose [Mass/Vol] 128 mg/dL 74-106 [facility] Comment on above: Fasting Glucose resu lt greater than or equal to 126 mg/dL suggests DIABETES MELLITUS per A.D.A. criteria. Neutrophils (Bld) [#/Vol] 2.8 10*3/uL 2.0-7.7 [facility] Neutrophils/100 WBC (Bld) 48.6 % 47-70 [facility] Potassium [Moles/Vol] 4.3 mmol/L 3.5-5.1 [facility] Sodium [Moles/Vol] 135 mmol/L 136-145 [facility] WBC (Bld) [#/Vol] 5.8 10*3/uL 4.4-11.0 [facility] Blood erythrocytes count (nu mber/volume)Ordered By: Alexx Dhaliwal on 06-25-2023 RBC (Bld) [#/Vol] 4.78 10*6/uL 4.6-6.2 [facility] Blood hemoglobin measurement (mass/volume)Ordered By: Alexx Dhaliwal on 06-25-2023 Hemoglobin (Bld) [Mass/Vol] 15.2 g/dL 13.0-16.5 [facility] Blood lymphocytes/100 leukoc ytesOrdered By: Alexx Dhaliwal on 06-25-2023 Lymphocytes/100 WBC (Bld) 34.3 % 19-41 [facility] Blood monocytes/100 leukocyt esOrdered By: Alexx Dhaliwal on 06-25-2023 Monocytes/100 WBC (Bld) 10.5 % 0-10 [facility] Blood platelet mean volumeOr dered By: Alexx Dhaliwal on 06-25-2023 Platelet mean volume (Bld) [Entitic vol] 10.2 fL 6.2-12.0 [facility] Determination of erythrocyte mean corpuscular volume (MCV)Ordered By: Alexx Dhaliwal on 06-25-2023 MCV (RBC) [Entitic vol] 96.4 fL 80-94 [facility] Hematocrit Auto (Bld) [Volum e fraction]Ordered By: Alexx Dhaliwal on 06-25-2023 Hematocrit (Bld) [Volume fraction] 46.1 % 40-54 [facility] INR in Blood by Coagulation assayOrdered By: Alexx Dhaliwal on 06-25-2023 INR Coag (Bld) [Relative time] 1.0 {INR} [facility] Laboratory - Chemistry and C hemistry - challengeOrdered By: Alexx Dhaliwal on 06-25-2023 CO2 [Moles/Vol] 28.0 mmol/L 21.0-32.0 [facility] Urea nitrogen/Creatinine [Mass ratio] 15.8 mg/mg 10-20 [facility] Laboratory - CoagulationOrde red By: Alexx Dhaliwal on 06-25-2023 aPTT Coag (Bld) [Time] 27.8 s 24.1-36.2 [facility] Coag (PPP) [Time] 12.9 s 11.7-14.9 [facility] Laboratory - Hematology and Cell countsOrdered By: Alexx Dhaliwal on 06-25-2023 Erythrocyte distribution width (RBC) [Entitic vol] 48.4 fL 35.1-43.9 [facility] Erythrocyte distribution width (RBC) [Ratio] 13.4 % 11.6-14.6 [facility] Immature granulocytes/100 WBC (Bld) 0.500 % 0.0-0.9 [facility] Comment on above: IG% - Immature Granu locytes (promyelocytes, myelocytes and metamyelocytes) > 1% indicates that a LEFT SHIFT is Present. MCH (RBC) [Entitic mass] 31.8 pg 27.0-32.0 [facility] Nucleated RBC/100 WBC (Bld) [Ratio] 0 % 0-5 [facility] MCHC Auto (RBC) [Mass/Vol]Or dered By: Alexx Dhaliwal on 06-25-2023 MCHC (RBC) [Mass/Vol] 33.0 g/dL 32-36 [facility] No Panel InformationOrdered By: Alexx Dhaliwal on 06-25-2023 Estimated GFR (MDRD) Amer 110 mL/min >60 [facility] Comment on above: GFR Calc Estimated GFR (MDRD) Non-Af Amer 91 mL/min >60 [facility] Comment on above: Non- GFR Calc Platelets bldOrdered By: Alexx Dhailwal on 06-25-2023 Platelets (Bld) [#/Vol] 236 10*3/uL 150-450 [facility] Serum or plasma calcium otis urement (mass/volume)Ordered By: Alexx Dhaliwal on 06-25-2023 Calcium [Mass/Vol] 9.4 mg/dL 8.5-10.1 [facility] Serum or plasma creatinine m easurement (mass/volume)Ordered By: Alexx Dhaliwal on 06-25-2023 Creatinine [Mass/Vol] 0.89 mg/dL 0.70-1.30 [facility] Comment on above: The validity of the calculated GFR & GFRAA in patients over 70 years has not been determined. Clinical correlation is essential. Serum or plasma urea nitroge n measurement (mass/volume)Ordered By: Alexx Dhaliwal on 06-25-2023 Urea nitrogen [Mass/Vol] 14 mg/dL 7-18 [facility] Thin prep Papanicolaou smear with manual screeningOrdered By: Alexx Dhaliwal on 06-25-2023 Thin prep Papanicolaou smear with manual screening 4 5- [facility] Absolute lymphocyte countOrd ered By: Dr. Dhaliwal on 01-29-2023 Lymphocytes Auto (Unsp spec) [#/Vol] 2.35 10*3/uL 0.83-4.51 [facility] Basophil percentageOrdered B y: Dr. Dhaliwal on 01-29-2023 Basophils/100 WBC (Bld) 1.0 % 0-1 [facility] Bilirubin [Mass/Vol] 0.50 mg/dL 0.20-1.00 [facility] Comment on above: For patients on eltr ombopag therapy, use of Dimension Leon TBIL is not recommended. Chloride [Moles/Vol] 103 mmol/L 98-107 [facility] Eosinophils/100 WBC (Bld) 4.0 % 0-5 [facility] Glucose [Mass/Vol] 116 mg/dL 74-106 [facility] Comment on above: Fasting Glucose resu lt from 100 to 125 mg/dL suggests IMPAIRED HOMEOSTASIS per A.D.A. criteria. Neutrophils (Bld) [#/Vol] 2.9 10*3/uL 2.0-7.7 [facility] Neutrophils/100 WBC (Bld) 47.5 % 47-70 [facility] Potassium [Moles/Vol] 4.1 mmol/L 3.5-5.1 [facility] Protein [Mass/Vol] 7.8 g/dL 6.4-8.2 [facility] Sodium [Moles/Vol] 135 mmol/L 136-145 [facility] WBC (Bld) [#/Vol] 6.2 10*3/uL 4.4-11.0 [facility] Blood erythrocytes count (nu mber/volume)Ordered By: Dr. Dhaliwal on 01-29-2023 RBC (Bld) [#/Vol] 4.74 10*6/uL 4.6-6.2 [facility] Blood hemoglobin measurement (mass/volume)Ordered By: Dr. Dhaliwal on 01-29-2023 Hemoglobin (Bld) [Mass/Vol] 15.0 g/dL 13.0-16.5 [facility] Blood lymphocytes/100 leukoc ytesOrdered By: Dr. Dhaliwal on 01-29-2023 Lymphocytes/100 WBC (Bld) 38.0 % 19-41 [facility] Blood monocytes/100 leukocyt esOrdered By: Dr. Dhaliwal on 01-29-2023 Monocytes/100 WBC (Bld) 9.2 % 0-10 [facility] Blood platelet mean volumeOr dered By: Dr. Dhaliwal on 01-29-2023 Platelet mean volume (Bld) [Entitic vol] 9.9 fL 6.2-12.0 [facility] Determination of erythrocyte mean corpuscular volume (MCV)Ordered By: Dr. Dhaliwal on 01-29-2023 MCV (RBC) [Entitic vol] 97.7 fL 80-94 [facility] Hematocrit Auto (Bld) [Volum e fraction]Ordered By: Dr. Dhaliwal on 01-29-2023 Hematocrit (Bld) [Volume fraction] 46.3 % 40-54 [facility] Laboratory - Chemistry and C hemistry - challengeOrdered By: Dr. Dhaliwal on 01-29-2023 ALP [Catalytic activity/Vol] 76 U/L 45-117 [facility] ALT [Catalytic activity/Vol] 49 U/L 16-61 [facility] CO2 [Moles/Vol] 25.0 mmol/L 21.0-32.0 [facility] Globulin (S) [Mass/Vol] 3.6 g/dL 2.2-4.2 [facility] Urea nitrogen/Creatinine [Mass ratio] 14.9 mg/mg 10-20 [facility] Laboratory - Hematology and Cell countsOrdered By: Dr. Dhaliwal on 01-29-2023 Erythrocyte distribution width (RBC) [Entitic vol] 46.8 fL 35.1-43.9 [facility] Erythrocyte distribution width (RBC) [Ratio] 13.0 % 11.6-14.6 [facility] Immature granulocytes/100 WBC (Bld) 0.300 % 0.0-0.9 [facility] Comment on above: IG% - Immature Granu locytes (promyelocytes, myelocytes and metamyelocytes) > 1% indicates that a LEFT SHIFT is Present. MCH (RBC) [Entitic mass] 31.6 pg 27.0-32.0 [facility] Nucleated RBC/100 WBC (Bld) [Ratio] 0 % 0-5 [facility] MCHC Auto (RBC) [Mass/Vol]Or dered By: Dr. Dhaliwal on 01-29-2023 MCHC (RBC) [Mass/Vol] 32.4 g/dL 32-36 [facility] No Panel InformationOrdered By: Dr. Dhaliwal on 01-29-2023 Estimated GFR (MDRD) Amer 112 mL/min >60 [facility] Comment on above: GFR Calc Estimated GFR (MDRD) Non-Af Amer 93 mL/min >60 [facility] Comment on above: Non- GFR Calc Prostate Specific Antigen Screen 4.22 ng/mL 0.00-4.00 [facility] Comment on above: This test was perfor med using the TPSA assay method for theBlueRonin chemistry system. Values obtained with differentassay methods cannot be used interchangably.When changing PSA assays in the course of monitoring apatient, additional sequential testing should be carriedout to confirm baseline values. Thyroid Stimulating Hormone (TSH) 1.70 uIU/mL 0.358-3.74 [facility] Vitamin D 25-Hydroxy 56.0 ng/mL [facility] Comment on above: Vitamin D 25(OH) Sta tus Range Deficiency <20 ng/mL (50nmol/L) Insufficiency 20 - 30 ng/mL (50 - 75 nmol/L) Sufficiency 30 - 100 ng/mL (75 - 250 nmol/L) Toxicity >100 ng/mL (>250 nmol/L) Platelets bldOrdered By: Dr. Dhaliwal on 01-29-2023 Platelets (Bld) [#/Vol] 253 10*3/uL 150-450 [facility] Serum or plasma albumin otis urement (mass/volume)Ordered By: Dr. Dhaliwal on 01-29-2023 Albumin [Mass/Vol] 4.2 g/dL 3.2-5.0 [facility] Serum or plasma albumin/glob ulin mass ratioOrdered By: Dr. Dhaliwal on 01-29-2023 Albumin/Globulin [Mass ratio] 1.2 {ratio} 0.9-2.4 [facility] Serum or plasma calcium otis urement (mass/volume)Ordered By: Dr. Dhaliwal on 01-29-2023 Calcium [Mass/Vol] 9.3 mg/dL 8.5-10.1 [facility] Serum or plasma creatinine m easurement (mass/volume)Ordered By: Dr. Dhaliwal on 01-29-2023 Creatinine [Mass/Vol] 0.87 mg/dL 0.70-1.30 [facility] Comment on above: The validity of the calculated GFR & GFRAA in patients over 70 years has not been determined. Clinical correlation is essential. Serum or plasma urea nitroge n measurement (mass/volume)Ordered By: Dr. Dhaliwal on 01-29-2023 Urea nitrogen [Mass/Vol] 13 mg/dL 7-18 [facility] Thin prep Papanicolaou smear with manual screeningOrdered By: Dr. Dhaliwal on 01-29-2023 Thin prep Papanicolaou smear with manual screening 30 U/L 15-37 [facility] Thin prep Papanicolaou smear with manual screening 7 5-15 [facility] No Panel InformationOrdered By: Dr. Dhaliwal on 01-09-2023 Influenza Types A,B Direct FA (GARY) [facility] RSV Ag EIAOrdered By: Dr. Liliane walsh on 01-09-2023 RSV Ag Immune stain Ql (Tiss) [facility] Absolute lymphocyte counton 07-23-2022 Lymphocytes Auto (Unsp spec) [#/Vol] 2.18 10*3/uL 0.83-4.51 [facility] Work Phone: Basophil percentageon 2021 Basophils/100 WBC (Bld) 0.7 % 0-1 [facility] Work Phone: [phone] Bilirubin [Mass/Vol] 0.30 mg/dL 0.20-1.00 [facility] Work Phone: [phone] Comment on above: For patients on eltr ombopag therapy, use of Dimension Leon TBIL is not recommended. Chloride [Moles/Vol] 102 mmol/L 98-107 [facility] Work Phone: [phone] Eosinophils/100 WBC (Bld) 4.5 % 0-5 [facility] Work Phone: Glucose [Mass/Vol] 115 mg/dL 74-106 [facility] Work Phone: [phone] Comment on above: Fasting Glucose resu lt from 100 to 125 mg/dL suggests IMPAIRED HOMEOSTASIS per A.D.A. criteria. Neutrophils (Bld) [#/Vol] 3.5 10*3/uL 2.0-7.7 [facility] Work Phone: [phone] Neutrophils/100 WBC (Bld) 52.5 % 47-70 [facility] Work Phone: [phone] Potassium [Moles/Vol] 4.0 mmol/L 3.5-5.1 [facility] Work Phone: [phone] Protein [Mass/Vol] 7.6 g/dL 6.4-8.2 [facility] Work Phone: [phone] Sodium [Moles/Vol] 134 mmol/L 136-145 [facility] Work Phone: WBC (Bld) [#/Vol] 6.7 10*3/uL 4.4-11.0 [facility] Work Phone: Blood erythrocytes count (nu mber/volume)on 07-23-2022 RBC (Bld) [#/Vol] 4.69 10*6/uL 4.6-6.[facility]: Blood hemoglobin measurement (mass/volume)on 07-23-2022 Hemoglobin (Bld) [Mass/Vol] 14.6 g/dL 13.0-16.5 [facility] Work Phone: Blood lymphocytes/100 leukoc yteson 07-23-2022 Lymphocytes/100 WBC (Bld) 32.3 % 19-41 [facility] Work Phone: Blood monocytes/100 leukocyt eson 07-23-2022 Monocytes/100 WBC (Bld) 9.6 % 0-10 [facility] Work Phone: Blood platelet mean volumeon 07-23-2022 Platelet mean volume (Bld) [Entitic vol] 10.1 fL 6.2-12.0 [facility] Work Phone: Determination of erythrocyte mean corpuscular volume (MCV)on 07-23-2022 MCV (RBC) [Entitic vol] 95.9 fL 80-94 [facility] Work Phone: Hematocrit Auto (Bld) [Volum e fraction]on 07-23-2022 Hematocrit (Bld) [Volume fraction] 45.0 % 40-54 [facility] Work Phone: Laboratory - Chemistry and C hemistry - challengeon 07-23-2022 ALP [Catalytic activity/Vol] 77 U/L 45-117 [facility] Work Phone: ALT [Catalytic activity/Vol] 48 U/L 16-61 [facility] Work Phone: CO2 [Moles/Vol] 24.0 mmol/L 21.0-32.0 [facility] Work Phone: Globulin (S) [Mass/Vol] 3.6 g/dL 2.2-4.2 [facility] Work Phone: Urea nitrogen/Creatinine [Mass ratio] 17.3 mg/mg 10-20 [facility] Work Phone: Laboratory - Hematology and Cell countson 07-23-2022 Erythrocyte distribution width (RBC) [Entitic vol] 47.0 fL 35.1-43.9 [facility] Work Phone: Erythrocyte distribution width (RBC) [Ratio] 13.2 % 11.6-14.6 [facility] Work Phone: Immature granulocytes/100 WBC (Bld) 0.400 % 0.0-0.9 [facility] Work Phone: Comment on above: IG% - Immature Granu locytes (promyelocytes, myelocytes and metamyelocytes) > 1% indicates that a LEFT SHIFT is Present. MCH (RBC) [Entitic mass] 31.1 pg 27.0-32.0 [facility] Work Phone: Nucleated RBC/100 WBC (Bld) [Ratio] 0 % 0-5 [facility] Work Phone: MCHC Auto (RBC) [Mass/Vol]on 07-23-2022 MCHC (RBC) [Mass/Vol] 32.4 g/dL 32-36 [facility] Work Phone: No Panel Informationon 07-23 Estimated GFR (MDRD) Amer 113 mL/min >60 [facility] Work Phone: Comment on above: GFR Calc Estimated GFR (MDRD) Non-Af Amer 93 mL/min >60 [facility] Work Phone: Comment on above: Non- GFR Calc Thyroid Stimulating Hormone (TSH) 1.81 uIU/mL 0.358-3.74 [facility] Work Phone: Vitamin D 25-Hydroxy 52.3 ng/mL [facility] Work Phone: Comment on above: Vitamin D 25(OH) Sta tus Range Deficiency <20 ng/mL (50nmol/L) Insufficiency 20 - 30 ng/mL (50 - 75 nmol/L) Sufficiency 30 - 100 ng/mL (75 - 250 nmol/L) Toxicity >100 ng/mL (>250 nmol/L) Platelets bldon 07-23-2022 Platelets (Bld) [#/Vol] 239 10*3/uL 150-450 [facility] Work Phone: Serum or plasma albumin tois urement (mass/volume)on 07-23-2022 Albumin [Mass/Vol] 4.0 g/dL 3.2-5.0 [facility] Work Phone: Serum or plasma albumin/glob ulin mass ratioon 07-23-2022 Albumin/Globulin [Mass ratio] 1.1 {ratio} 0.9-2.4 [facility] Work Phone: Serum or plasma calcium otis urement (mass/volume)on 07-23-2022 Calcium [Mass/Vol] 9.2 mg/dL 8.5-10.1 [facility] Work Phone: Serum or plasma creatinine m easurement (mass/volume)on 07-23-2022 Creatinine [Mass/Vol] 0.87 mg/dL 0.70-1.30 [facility] Work Phone: Comment on above: The validity of the calculated GFR & GFRAA in patients over 70 years has not been determined. Clinical correlation is essential. Serum or plasma urea nitroge n measurement (mass/volume)on 07-23-2022 Urea nitrogen [Mass/Vol] 15 mg/dL 7-18 [facility] Work Phone: Serum or plasma uric acid me asurement (mass/volume)on 07-23-2022 Urate [Mass/Vol] 5.7 mg/dL 3.5-7.2 [facility] Work Phone: Comment on above: The drugs N-Acetylcy steine and Metamizole may falsely depress this assay. Thin prep Papanicolaou smear with manual screeningon 07-23-2022 Thin prep Papanicolaou smear with manual screening 24 U/L 15-37 [facility] Work Phone: Thin prep Papanicolaou smear with manual screening 8 5-15 [facility] Work Phone: Prostatic Specific Ag- Diagn osticon 02-23-2022 Prostatic Specific Ag 3.060 ng/mL Normal < 4.000 [facility] Comment on above: Result Comment: Test ing performed on the [email or web address] 5600 using an immunometric methodology. Results obtained by different methods should not be used interchangeably. Performed By: #### P SA3 #### [address] [id number] Absolute lymphocyte counton 01-22-2022 Lymphocytes Auto (Unsp spec) [#/Vol] 2.06 10*3/uL 0.83-4.51 [facility] Work Phone: Basophil percentageon 2021 Basophils/100 WBC (Bld) 0.9 % 0-1 [facility] Work Phone: Bilirubin [Mass/Vol] 0.50 mg/dL 0.20-1.00 [facility] Work Phone: Comment on above: For patients on eltr ombopag therapy, use of Dimension Leon TBIL is not recommended. Chloride [Moles/Vol] 101 mmol/L 98-107 [facility] Work Phone: Eosinophils/100 WBC (Bld) 3.8 % 0-5 [facility] Work Phone: Glucose [Mass/Vol] 126 mg/dL 74-106 [facility] Work Phone: Comment on above: Fasting Glucose resu lt greater than or equal to 126 mg/dL suggests DIABETES MELLITUS per A.D.A. criteria. Neutrophils (Bld) [#/Vol] 2.9 10*3/uL 2.0-7.7 [facility] Work Phone: Neutrophils/100 WBC (Bld) 49.4 % 47-70 [facility] Work Phone: Potassium [Moles/Vol] 4.0 mmol/L 3.5-5.1 [facility] Work Phone: Protein [Mass/Vol] 7.7 g/dL 6.4-8.2 [facility] Work Phone: Sodium [Moles/Vol] 134 mmol/L 136-145 [facility] Work Phone: Testosterone [Mass/Vol] 405.59 ng/dL [facility] Work Phone: Comment on above: CENTRAL 90% REFERENC E RANGES MALE AGE <50 197.44 - 669.58 ng/dL MALE AGE > or = 50 187.72 - 684.19 ng/dL FEMALE AGE <50 8.38 - 35.01 ng/dL FEMALE AGE > or = 50 <7.00 - 35.92 ng/dL Effective as of 03/12/21 WBC (Bld) [#/Vol] 5.8 10*3/uL 4.4-11.0 [facility] Work Phone: Blood erythrocytes count (nu mber/volume)on 01-22-2022 RBC (Bld) [#/Vol] 4.55 10*6/uL 4.6-6.2 [facility] Work Phone: Blood hemoglobin measurement (mass/volume)on 01-22-2022 Hemoglobin (Bld) [Mass/Vol] 14.3 g/dL 13.0-16.5 [facility] Work Phone: Blood lymphocytes/100 leukoc yteson 01-22-2022 Lymphocytes/100 WBC (Bld) 35.3 % 19-41 [facility] Work Phone: Blood monocytes/100 leukocyt eson 01-22-2022 Monocytes/100 WBC (Bld) 10.3 % 0-10 [facility] Work Phone: Blood platelet mean volumeon 01-22-2022 Platelet mean volume (Bld) [Entitic vol] 9.7 fL 6.2-12.0 [facility] Work Phone: Determination of erythrocyte mean corpuscular volume (MCV)on 01-22-2022 MCV (RBC) [Entitic vol] 95.4 fL 80-94 [facility] Work Phone: Hematocrit Auto (Bld) [Volum e fraction]on 01-22-2022 Hematocrit (Bld) [Volume fraction] 43.4 % 40-54 [facility] Work Phone: Laboratory - Chemistry and C hemistry - challengeon 01-22-2022 ALP [Catalytic activity/Vol] 79 U/L 45-117 [facility] Work Phone: ALT [Catalytic activity/Vol] 49 U/L 16-61 [facility] Work Phone: CO2 [Moles/Vol] 27.0 mmol/L 21.0-32.0 [facility] Work Phone: Globulin (S) [Mass/Vol] 3.5 g/dL 2.2-4.2 [facility] Work Phone: Urea nitrogen/Creatinine [Mass ratio] 11.4 mg/mg 10-20 [facility] Work Phone: Laboratory - Hematology and Cell countson 01-22-2022 Erythrocyte distribution width (RBC) [Entitic vol] 47.4 fL 35.1-43.9 [facility] Work Phone: Erythrocyte distribution width (RBC) [Ratio] 13.4 % 11.6-14.6 [facility] Work Phone: Immature granulocytes/100 WBC (Bld) 0.300 % 0.0-0.9 [facility] Work Phone: Comment on above: IG% - Immature Granu locytes (promyelocytes, myelocytes and metamyelocytes) > 1% indicates that a LEFT SHIFT is Present. MCH (RBC) [Entitic mass] 31.4 pg 27.0-32.0 [facility] Work Phone: Nucleated RBC/100 WBC (Bld) [Ratio] 0 % 0-5 [facility] Work Phone: MCHC Auto (RBC) [Mass/Vol]on 01-22-2022 MCHC (RBC) [Mass/Vol] 32.9 g/dL 32-36 [facility] Work Phone: No Panel Informationon 01-22 Estimated GFR (MDRD) Amer 100 mL/min >60 [facility] Work Phone: Comment on above: GFR Calc Estimated GFR (MDRD) Non-Af Amer 83 mL/min >60 [facility] Work Phone: Comment on above: Non- GFR Calc Thyroid Stimulating Hormone (TSH) 2.37 uIU/mL 0.358-3.74 [facility] Work Phone: Vitamin D 25-Hydroxy 53.9 ng/mL [facility] Work Phone: Comment on above: Vitamin D 25(OH) Sta tus Range Deficiency <20 ng/mL (50nmol/L) Insufficiency 20 - 30 ng/mL (50 - 75 nmol/L) Sufficiency 30 - 100 ng/mL (75 - 250 nmol/L) Toxicity >100 ng/mL (>250 nmol/L) Platelets bldon 01-22-2022 Platelets (Bld) [#/Vol] 244 10*3/uL 150-450 [facility] Work Phone: Serum or plasma albumin otis urement (mass/volume)on 01-22-2022 Albumin [Mass/Vol] 4.2 g/dL 3.2-5.0 [facility] Work Phone: Serum or plasma albumin/glob ulin mass ratioon 01-22-2022 Albumin/Globulin [Mass ratio] 1.2 {ratio} 0.9-2.4 [facility] Work Phone: Serum or plasma calcium otis urement (mass/volume)on 01-22-2022 Calcium [Mass/Vol] 8.9 mg/dL 8.5-10.1 [facility] Work Phone: Serum or plasma creatinine m easurement (mass/volume)on 01-22-2022 Creatinine [Mass/Vol] 0.96 mg/dL 0.70-1.30 [facility] Work Phone: Comment on above: The validity of the calculated GFR & GFRAA in patients over 70 years has not been determined. Clinical correlation is essential. Serum or plasma urea nitroge n measurement (mass/volume)on 01-22-2022 Urea nitrogen [Mass/Vol] 11 mg/dL 03-03 [facility] Work Phone: Serum or plasma uric acid me asurement (mass/volume)on 01-22-2022 Urate [Mass/Vol] 5.9 mg/dL 3.5-7.2 [facility] Work Phone: Comment on above: The drugs N-Acetylcy steine and Metamizole may falsely depress this assay. Thin prep Papanicolaou smear with manual screeningon 01-22-2022 Thin prep Papanicolaou smear with manual screening 32 U/L 15-37 [facility] Work Phone: Thin prep Papanicolaou smear with manual screening 6 5-15 [facility] Work Phone: Glucose,Bedsideon 06-03-2021 Glucose [Mass/Vol] 123 mg/dL High 70-100 [facility] Comment on above: Result Comment: Test performed by glucose meter. Results may be 10%-15% lower than serum/plasma values. (CLIA ID [id number]) Performed By: #### B GLU #### [employer] [address] [place] [address] Glucose [Mass/Vol] 107 mg/dL High 70-100 [facility] Comment on above: Result Comment: Test performed by glucose meter. Results may be 10%-15% lower than serum/plasma values. (CLIA ID [id number]) Performed By: #### B GLU #### [employer] [address] [place] [address] OPERATIVE REPORTOrdered By: migdalia De La Garza on 06-03-2021 [employer] Work Phone: Op Noteon 06-03-2021 Op Note OPERATIVE NOTE PRE OP DIAGNOSIS: BPH with obstruction POST OP DIAGNOSIS:Same OPERATION: Cystoscopy, UroLift SURGEON:Skinny Dc MD RETAIL AGENT: ANESTHESIA: General BLOOD LOSS: <5cc MEDICATIONS: Ancef 2 gm IVPB COMPLICATIONS: None SPECIMEN: None. Brief history and indications for procedure: Patient with history of benign prostatic hypertrophy with urinary symptoms. He desires treatment, desires UroLift.Discussed procedure. Discussed Risks, expectations and potential options. Risks include, but are not limited to Bleeding, infection, failure of treatment,need for additional procedures, TX, stroke, embolus, DVT and . Patient understands. Informed consent obtained. Details of procedure. Patient brought to the operating room suite, general anesthesia was induced. Patient placed in a dorsal lithotomy position in the standard fashion. Prepped and draped in a sterile fashion. Standard timeout performed. Then the UroLift scope placed. Bladder inspected in it's entirety. There were no masses or lesions noted. Lateral lobes were obstructing. The UroLift device was then placed, initial implant placed in the left lobe just Distal to the bladder neck. Then did same on the right lateral lobe. Then moved distally, implant placed approximately 1 cm proximal to the Veru. This initially done on the left, then on the right. Then two additional implants placed- mid prostatic urethra, a bit dorsal to the other implants. One on right, one on left. Total of 6 implants. Anterior prostatic urethral channel open. Hemostasis obtained. Cystoscope removed. 16 Turkmen Lopez placed. This will be removed in recovery room. Patient awakened after tolerating procedure well. Normal [employer] POCT GlucoseOrdered By: Memo Dc on 06-03-2021 Glucose [Mass/Vol] 123 mg/dL High 70 - 100 mg/dL [employer] Work Phone: Comment on above: Test performed by gl ucose meter. Results may be 10%-15% lower than serum/plasma values. (CLIA ID [id number]) Interpretation and review of laboratory results Abnormal [employer] Work Phone: Test Performed by [employer], [address] [place] [address] [facility] Work Phone: [employer] Work Phone: Glucose [Mass/Vol] 107 mg/dL High 70 - 100 mg/dL [facility] Work Phone: Comment on above: Test performed by Elance ucose meter. Results may be 10%-15% lower than serum/plasma values. (CLIA ID [id number]) Interpretation and review of laboratory results Abnormal [employer] Work Phone: Test Performed by [employer], [address] [place] [address] [facility] Work Phone: [employer] Work Phone: POCT GLUCOSEon 09-30-2019 Glucose [Mass/Vol] 109 mg/dL High 65-99 [facility] Comment on above: Performed By: #### C BCD #### [facility] [address] [place] [address] Glucose [Mass/Vol] 119 mg/dL High 65-99 [facility] Comment on above: Performed By: #### C BCD #### [facility] [address] [place] [address] POCT GLUCOSEon 09-29-2019 Glucose [Mass/Vol] 129 mg/dL High 65-99 [facility] Comment on above: Performed By: #### P CGL #### [facility] [address] [place] [address] ANKLE RT 2 VIEWon 09-28-2019 ANKLE RT 2 VIEW *FINAL Date of Service: 09/28/2019 10:34 Adm #: [id number] Reading Dr:AMRCELLA GARCIA Signoff Dr: MARCELLA GARCIA PROCEDURE: ANKLE RT 2 VIEW - IXR [id number] REASON FOR EXAM: total ankle replacement right RESULT: Examination: ANKLE RT 2 VIEW Indication: 64-year-old man who presents for right ankle replacement. Comparison: None available. Technique: C-arm fluoroscopy was utilized during operative case. Total fluoroscopy time: 3 minutes 15 seconds , images: 3 david images, DAP: 8.34 mGy. Findings: 3 david images intraoperative images were acquired without a radiologist present. The C-arm images obtained show total right tibiotalar arthroplasty, which appears well seated in anatomic alignment on these views.. IMPRESSION: Intraoperative images were obtained without a radiologist present. Please refer to the official operative note for details of the procedure. [id number] This report has been produced using speech recognition. Original Interpreting Physician: MARCELLA GARCIA MD Original Transcribed by/Date: PSCB Sep 28 2019 10:54A Original Electronically Signed by/Date: MARCELLA GARCIA MD Sep 28 2019 10:54A Addendum Interpreting Physician: Addendum Transcribed by/Date: NO ADDENDUM Addendum Electronically Signed by/Date: Normal [facility] POCT GLUCOSEon 09-28-2019 Glucose [Mass/Vol] 141 mg/dL High 65-99 [facility] Comment on above: Performed By: #### P CGL #### [facility] [address] [place] [address] Glucose [Mass/Vol] 138 mg/dL High 65-99 [facility] Comment on above: Performed By: #### P CGL #### [facility] [address] [place] [address] CBC with Diffon 09-21-2019 AB IMMATURE NEUT 0.03 K/UL Normal 0.0-0.1 [facility] Comment on above: Performed By: #### C BCD #### [facility] [address] [place] [address] ABS BASO 0.07 K/UL Normal 0.00-0.22 [facility] Comment on above: Performed By: #### C BCD #### [facility] [address] [place] [address] ABS EOS 0.39 K/UL Normal 0-0.45 [facility] Comment on above: Performed By: #### C BCD #### [facility] [place] [address] [address] [place] [address] ABS NEUTROPHILS 4.96 K/UL Normal 1.8-7.7 [facility] Comment on above: Performed By: #### C BCD #### [facility] [place] [address] [place] [address] ABS.NEUT.CALCULATED 4.96 K/UL Normal [facility] Comment on above: Result Comment: Perf ormed at [place] [address] [place] [address] Performed By: #### C BCD #### [place] [address] [place] [address] Basophils/100 WBC (Bld) 0.80 % Normal 0-1 L [facility] Comment on above: Performed By: #### C BCD #### [place] [address] [place] [address] DIFF TYPE AUTO DIFF Normal [facility] Comment on above: Performed By: #### C BCD #### [place] [address] [place] [address] Eosinophils/100 WBC (Bld) 4.70 % High 0-3 [facility] Comment on above: Performed By: #### C BCD #### [place] [address] [place] [address] Erythrocyte distribution width (RBC) [Ratio] 12.8 % Normal 11.7-15.0 [facility] Comment on above: Performed By: #### C BCD #### [place] [address] [place] [address] Hematocrit (Bld) [Volume fraction] 47.8 % Normal 41-50 [facility] Comment on above: Performed By: #### C BCD #### [facility] [place] [address] [place] [address] Hemoglobin (Bld) [Mass/Vol] 15.4 g/dL Normal 13.5-16.5 [facility] Comment on above: Performed By: #### C BCD #### [place] [address] [place] [address] Lymphocytes (Bld) [#/Vol] 1.92 10*3/uL Normal 1.2-3.2 [facility] Comment on above: Performed By: #### C BCD #### [facility] [place] [address] [place] [address] Lymphocytes/100 WBC (Bld) 23.10 % Normal 20-40 [facility] Comment on above: Performed By: #### C BCD #### [facility] [place] [address] [place] [address] MCH (RBC) [Entitic mass] 30.7 pg Normal 26-34 [facility] Comment on above: Performed By: #### C BCD #### [facility] [place] [address] [place] [address] MCHC (RBC) [Mass/Vol] 32.2 % Normal 31-37 [facility] Comment on above: Performed By: #### C BCD #### [place] [address] [place] [address] MCV (RBC) [Entitic vol] 95.4 fL Normal 80-100 L [facility] Comment on above: Performed By: #### C BCD #### [place] [address] [place] [address] MEAN PLT VOL 10.4 CU Normal 7.0-12.6 [facility] Comment on above: Performed By: #### C BCD #### [place] [address] [place] [address] Monocytes (Bld) [#/Vol] 0.93 10*3/uL High 0-0.8 [facility] Comment on above: Performed By: #### C BCD #### [place] [address] [place] [address] Monocytes/100 WBC (Bld) 11.20 % High 0-8 L [facility] Comment on above: Performed By: #### C BCD #### [place] [address] [place] [address] Neutrophils/100 WBC (Bld) 0.40 % Normal 0.0-1.0 [facility] Comment on above: Performed By: #### C BCD #### [address] [place] [address] Neutrophils/100 WBC (Bld) 59.80 % Normal 50-70 [facility] Comment on above: Performed By: #### C BCD #### [facility] [place] [address] [place] [address] NRBC'S 0 /100 WBC Normal 0 [facility] Comment on above: Performed By: #### C BCD #### [facility] [place] [address] [place] [address] Platelets (Bld) [#/Vol] 252 10*3/uL Normal 150-450 [facility] Comment on above: Performed By: #### C BCD #### [place] [address] [place] [address] RBC (Bld) [#/Vol] 5.01 M/UL Normal 4.5-5.[address] [facility] Comment on above: Performed By: #### C BCD #### [place] [address] [place] [address] RDW-SD 45.1 FL Normal 37.0-54.0 [facility] Comment on above: Performed By: #### C BCD #### [place] [address] [place] [address] WBC (Bld) [#/Vol] 8.3 10*3/uL Normal 4.5-11.0 [facility] Comment on above: Performed By: #### C BCD #### [facility] [place] [address] [place] [address] COMPREHENSIVE METABOLIC PANE Sammy 09-21-2019 Albumin [Mass/Vol] 4.5 g/dL Normal 3.5-5.0 [facility] Comment on above: Performed By: #### C FUNCTIONAL ARCHITECT #### [facility] [place] [address] [place] [address] Albumin/Globulin [Mass ratio] 1.4 {ratio} Low 1.5-3.0 [facility] Comment on above: Performed By: #### C FUNCTIONAL ARCHITECT #### [facility] [place] [address] [place] [address] ALP [Catalytic activity/Vol] 123 U/L Normal 35-125 [facility] Comment on above: Performed By: #### C FUNCTIONAL ARCHITECT #### [facility] [address] [place] [address] ALT [Catalytic activity/Vol] 19 U/L Normal 5-40 [facility] Comment on above: Performed By: #### C FUNCTIONAL ARCHITECT #### [facility] [address] [place] [address] Anion gap [Moles/Vol] 11 mmol/L Normal 0-19 [facility] Comment on above: Performed By: #### C FUNCTIONAL ARCHITECT #### [facility] [address] [place] [address] AST [Catalytic activity/Vol] 21 U/L Normal 5-40 [facility] Comment on above: Performed By: #### C FUNCTIONAL ARCHITECT #### [facility] [place] [address] [place] [address] Bilirubin [Mass/Vol] 0.3 mg/dL Normal 0.1-1.2 [facility] Comment on above: Performed By: #### C FUNCTIONAL ARCHITECT #### [facility] [address] [place] [address] Calcium [Mass/Vol] 9.6 mg/dL Normal 8.5-10.4 [facility] Comment on above: Performed By: #### C FUNCTIONAL ARCHITECT #### [facility] [address] [place] [address] Chloride [Moles/Vol] 98 mmol/L Normal 97-107 [facility] Comment on above: Performed By: #### C FUNCTIONAL ARCHITECT #### [facility] [address] [place] [address] CO2 [Moles/Vol] 26 mmol/L Normal 24-31 [facility] Comment on above: Performed By: #### C FUNCTIONAL ARCHITECT #### [facility] [address] [place] [address] Creatinine [Mass/Vol] 0.8 mg/dL Normal 0.4-1.6 [facility] Comment on above: Performed By: #### C FUNCTIONAL ARCHITECT #### [facility] [address] [place] [address] GFR/1.73 sq M.predicted MDRD (S/P/Bld) [Vol rate/Area] 103 mL/min/1.73 m2 Normal [facility] Comment on above: Result Comment: GFR ml/min/1.73m2 Stage ----- 90 1 60-89 2 30-59 3 15-29 4 <15 5 For -Americans, multiply EGFR result by 1.210 Calculation not validated for patients under 18 years of age. Performed at [address] [address] Performed By: #### C FUNCTIONAL ARCHITECT #### [address] [address] Globulin (S) [Mass/Vol] 3.2 g/dL Normal 1.9-3.7 [facility] Comment on above: Performed By: #### C FUNCTIONAL ARCHITECT #### [address] [address] Glucose [Mass/Vol] 170 mg/dL High 65-99 [facility] Comment on above: Performed By: #### C FUNCTIONAL ARCHITECT #### [address] [address] Potassium [Moles/Vol] 4.7 mmol/L Normal 3.4-5.1 [facility] Comment on above: Performed By: #### C FUNCTIONAL ARCHITECT #### [address] [address] Protein [Mass/Vol] 7.7 g/dL Normal 5.9-7.9 [facility] Comment on above: Performed By: #### C FUNCTIONAL ARCHITECT #### [address] [address] Sodium [Moles/Vol] 135 mmol/L Normal 133-145 [facility] Comment on above: Performed By: #### C FUNCTIONAL ARCHITECT #### [address] [address] Urea nitrogen [Mass/Vol] 12 mg/dL Normal 8-25 [facility] Comment on above: Performed By: #### C FUNCTIONAL ARCHITECT #### [address] [address] Urea nitrogen/Creatinine [Mass ratio] 15.0 RATIO Normal 8-21 [facility] Comment on above: Performed By: #### C FUNCTIONAL ARCHITECT #### [place] [address] [place] [address] HEMOGLOBIN A1con 09-21-2019 HbA1c (Bld) [Mass fraction] 7.3 % High 4.0-6.0 [facility] Comment on above: Result Comment: Hemo globin A1C levels are related to mean blood glucose during the preceding 2-3 months. The relationship table below may be used as a general guide. Each 1% increase in HGB A1C is a reflection of an increase in mean glucose of approximately 30 mg/dl. Reference: Diabetes Care, volume 29, supplement 1 2005 HGB A1C ................. Approx. Mean Glucose 6% ............................... 120 mg/dl 7% ............................... 150 mg/dl 8% ............................... 180 mg/dl 9% ............................... 210 mg/dl 10% ............................... 240 mg/dl Performed at [address] [address] Performed By: #### G LYC #### [address] [place] [address] PT AND PTTon 09-21-2019 aPTT Coag (Bld) [Time] 26.6 s Normal 22.0-32.5 [facility] Comment on above: Result Comment: Perf ormed at [address] [place] [address] Performed By: #### P PB #### [address] [address] INR Coag (PPP) [Relative time] 0.9 {INR} Normal 0.86-1.16 [facility] Comment on above: Result Comment: INR Theraputic Range: 2.0-3.5 Performed By: #### P PB #### [address], [place] [address] PT Coag (PPP) [Time] 10.2 s Normal 9.3-12.7 [facility] Comment on above: Performed By: #### P PB #### [address] [address] ANTICOAGULANT ASPIRIN [facility] Comment on above: Performed By: #### P PB #### [address] [address] TYPE AND SCREENon 09-21-2019 TYPE AND SCREEN BLOOD COMPONENT TYPE - RED CELL GROUP Performed at [address] [place] [address] UNITS ORDERED - 0 Performed at [address] [address] SPECIMEN EXPIRATION - 10/01/2019 Performed at [address] [address] ABO/RH(D) - A POSITIVE Performed at [address] [address] ANTIBODY SCREEN - NEGATIVE Performed at [address] [address] ARM BAND NUMBER - [id number] Performed at [address] [address] SURGERY DATE - 09/28/19 TP Performed at [address] [address] TEST ORDERED - TYPE AND SCREEN Performed at [address] [place] [address] PT TRANSFUSION HISTORY - BLOOD BANK RECORD SEARCH COMPLETED NO TRANSFUSIONS IN LAST 3 MOS NO PREVIOUS RECORD Performed at [address] [address] [facility] Comment on above: Performed By: #### T YSC #### Main Laboratory [address] [address] UA-REFLEX TO CULTUREon 09-21 BACT Negative [facility] Comment on above: Performed By: #### U ACUL #### [facility] [address] [place] [facility] [address] MICROSCOPIC AUTOMATIC MICROSCOPIC URINES [facility] Comment on above: Performed By: #### U ACUL #### [facility] [address] [place] [address] RBC 2 /HPF Normal 0-3 [facility] Comment on above: Performed By: #### U ACUL #### [facility] [address] [place] [address] URINE HYALINE CAST 3 /LPF [facility] Comment on above: Performed By: #### U ACUL #### [facility] [address] [place] [address] URINE SQUAMOUS EPI NONE SEEN [facility] Comment on above: Performed By: #### U ACUL #### [facility] [place] [address] [address] [place] [address] WBC 1 /HPF Normal [address] [place] [address] Comment on above: Performed By: #### U ACUL #### [facility] [place] [address] [address] [place] [address] Bacteria identified Cx Nom (U) [facility] Comment on above: Result Comment: CULT URE NOT INDICATED Performed at [address] [place] [address] Performed By: #### U ACUL #### [facility] [address] [place] [address] BILI Negative [facility] Comment on above: Performed By: #### U ACUL #### [facility] [address] [place] [address] BLOOD Negative Normal [facility] Comment on above: Performed By: #### U ACUL #### [facility] [address] [place] [address] Clarity (U) CLEAR [facility] Comment on above: Performed By: #### U ACUL #### [facility] [address] [place] [address] Color (U) YELLOW [facility] Comment on above: Performed By: #### U ACUL #### [facility] [address] [place] [address] GLUC Negative Normal NEG [facility] Comment on above: Performed By: #### U ACUL #### [facility] [address] [place] [address] KET Negative Normal NEG [facility] Comment on above: Performed By: #### U ACUL #### [facility] [address] [place] [address] LEUK Negative Normal NEG [facility] Comment on above: Performed By: #### U ACUL #### [facility] [address] [place] [address] NIT Negative Normal [facility] Comment on above: Performed By: #### U ACUL #### [facility] [address] [place] [address] pH (U) 6.5 [pH] Normal 4.6-8.0 [facility] Comment on above: Performed By: #### U ACUL #### [facility] [address] [place] [address] PROT 50 mg/dL Abnormal NEG [facility] Comment on above: Performed By: #### U ACUL #### [facility] [address] [place] [address] SP GRAV,URINE 1.023 Normal 1.005-1.030 [facility] Comment on above: Performed By: #### U ACUL #### [facility] [address] [place] [address] URO 2.0 MG/DL High 0-1.0 [facility] Comment on above: Performed By: #### U ACUL #### [facility] [address] [place] [address] [facility] [place] Outpatient Patient Summaryon 09-18-2017 Outpatient Patient Summary Normal [facility] [place] [facility] Note on 05-09-2017 [facility] Note Normal [facility] [place] Patient Summary Documentson 05-09-2017 Patient Summary Documents Normal [facility] Vital Signs Date Time Vital Sign Value Performing Clinician Jamal carnes 05-10-2025 14:54-0400 Diastolic blood pressure 68 mm[Hg] Skinny Dc MD Work Phone: [facility] 05-10-2025 14:54-0400 Systolic blood pressure 144 mm[Hg] Skinny Dc MD Work Phone: [facility] 05-10-2025 14:50-0400 Body height 172.7 cm Skinny Dc MD Work Phone: [facility] 05-10-2025 14:50-0400 Body mass index (BMI) [Ratio] 38.47 kg/m2 Skinny Dc MD Work Phone: [facility] 05-10-2025 14:50-0400 Body weight 114.76 kg Skinny Dc MD Work Phone: [facility] 05-10-2025 14:50-0400 Heart rate 86 /min Skinny Dc MD Work Phone: [facility] 05-02-2024 13:49-0400 Body height 172.7 cm kSinny Dc MD Work Phone: [facility] 05-02-2024 13:49-0400 Body mass index (BMI) [Ratio] 38.47 kg/m2 Skinny Dc MD Work Phone: [facility] 05-02-2024 13:49-0400 Body weight 114.76 kg Skinny Dc MD Work Phone: [facility] 04-24-2023 10:29-0400 Body height 172.7 cm Skinny Dc MD Work Phone: [facility] 04-24-2023 10:29-0400 Body mass index (BMI) [Ratio] 41.05 kg/m2 Skinny Dc MD Work Phone: [facility] 04-24-2023 10:29-0400 Body weight 122.47 kg Skinny Dc MD Work Phone: [facility] 04-24-2023 10:29-0400 Diastolic blood pressure 59 mm[Hg] Skinny Dc MD Work Phone: [facility] 04-24-2023 10:29-0400 Heart rate 83 /min Skinny Dc MD Work Phone: [facility] 04-24-2023 10:29-0400 Systolic blood pressure 135 mm[Hg] Skinny Dc MD Work Phone: [facility] 06-03-2021 15:30-0400 Body temperature 98.2 [degF] Skinny Dc MD Work Phone: [facility] [employer] Work Phone: 06-03-2021 15:30-0400 Diastolic blood pressure 92 mm[Hg] Skinny Dc MD Work Phone: [facility] [employer] Work Phone: 06-03-2021 15:30-0400 Heart rate 71 /min Skinny Dc MD Work Phone: [facility] Work Phone: 06-03-2021 15:30-0400 Respiratory rate 17 /min Skinny Dc MD [facility] Work Phone: 06-03-2021 15:30-0400 SaO2% (BldA) [Mass fraction] 97 % Skinny Dc MD [facility] Work Phone: 06-03-2021 15:30-0400 Systolic blood pressure 153 mm[Hg] Skinny Dc MD Work Phone: [facility] [employer] Work Phone: 06-03-2021 11:19-0400 Body height 172.7 cm Skinny Dc MD [facility] Work Phone: 06-03-2021 11:19-0400 Body mass index (BMI) [Ratio] 39.53 kg/m2 Skinny Dc MD [facility] Work Phone: 06-03-2021 11:19-0400 Body weight 117.94 kg Skinny Dc MD Work Phone: [facility] Work Phone: Encounters Encounter Date Encounter Type Care Provider Facility Start: 05-10-2025 End: 05-10-2025 Office outpatient visit 25 minutes Skinny Dc MD Work Phone: [facility] Comment on above: Elevated PSA (Primar y Dx); Benign prostatic hyperplasia with urinary hesitancy; BPH with urinary obstruction Start: 05-10-2025 End: 05-10-2025 ambulatory SKINNY DC [facility] Start: 03-22-2025 End: 03-22-2025 ambulatory Dr. Alexx Dhaliwal MD Work Phone: -Radiology [facility] Start: 03-22-2025 End: 03-22-[address] Alexx Dhaliwal MD -Radiology [facility] Work Phone: Start: 03-22-2025 End: 03-22-2025 ambulatory [facility] Facility:[facility] Start: 02-01-2025 End: 02-01-[address] Alexx Dhaliwal MD Work Phone: [facility] Work Phone: Start: 02-01-2025 End: 02-01-[address] Alexx Dhaliwal MD -Laboratory Work Phone: Start: 02-01-2025 End: 02-01-2025 ambulatory [facility] Facility:[facility] Start: 08-01-2024 End: 08-01-2024 ambulatory [facility] Facility:[facility] Start: 05-02-2024 End: 05-02-2024 Office outpatient visit 25 minutes Skinny Dc MD Work Phone: [facility] Comment on above: Elevated PSA (Primar y Dx); BPH with urinary obstruction; Benign prostatic hyperplasia with urinary hesitancy Start: 04-12-2024 End: 04-12-2024 ambulatory SKINNY DC Facility:[id number] Start: 12-07-2023 Telephone encounter Katiana moya [facility] [place] Comment on above: Patient Update (Pt s tates that he is feeling much better and his surgeon told him he no longer needs therapy. Pt cancelled all future appointments. ) Start: 12-04-2023 End: 12-04-2023 ambulatory [facility] Work Phone: Start: 12-04-2023 End: 12-04-2023 Patient encounter procedure [facility] Work Phone: Start: 12-02-2023 End: 12-02-2023 ambulatory Katiana Villalta [facility] [place] Comment on above: Decreased range of m otion of right shoulder (Primary Dx); Impaired strength of shoulder muscles; S/P shoulder hemiarthroplasty, right Start: 11-30-2023 End: 11-30-2023 ambulatory Katiana Villalta [facility] [place] Comment on above: Decreased range of m otion of right shoulder (Primary Dx); Impaired strength of shoulder muscles; S/P shoulder hemiarthroplasty, right Start: 11-25-2023 End: 11-25-2023 ambulatory Katiana Villalta Génesis [facility] [place] Comment on above: Decreased range of m otion of right shoulder (Primary Dx); Impaired strength of shoulder muscles; S/P shoulder hemiarthroplasty, right Start: 11-18-2023 End: 11-18-2023 ambulatory Ericka Murray PT, DPT Work Phone: [facility] [place] Comment on above: Decreased range of m otion of right shoulder (Primary Dx); Impaired strength of shoulder muscles; S/P shoulder hemiarthroplasty, right Start: 11-16-2023 End: 11-17-2023 ambulatory Ericka Murray PT, DPT Work Phone: [facility] [place] Comment on above: Decreased range of m otion of right shoulder (Primary Dx); Impaired strength of shoulder muscles; S/P shoulder hemiarthroplasty, right Start: 11-11-2023 End: 11-11-2023 ambulatory GENEVIEVE STEARNS [facility]:[id number] Start: 11-09-2023 End: 11-09-2023 ambulatory Ericka Murray PT, DPT Work Phone: [facility] [place] Comment on above: Decreased range of m otion of right shoulder (Primary Dx); Impaired strength of shoulder muscles; S/P shoulder hemiarthroplasty, right Start: 11-05-2023 End: 11-05-2023 ambulatory [facility] Work Phone: Start: 11-05-2023 End: 11-05-2023 Patient encounter procedure [facility]-Laboratory, Specimen Work Phone: Start: 11-04-2023 End: 11-04-2023 ambulatory Katiana [facility] [place] Comment on above: Decreased range of m otion of right shoulder (Primary Dx); Impaired strength of shoulder muscles; S/P shoulder hemiarthroplasty, right Start: 11-02-2023 End: 11-02-2023 ambulatory Katiana [facility] [place] Comment on above: Decreased range of m otion of right shoulder (Primary Dx); Impaired strength of shoulder muscles; S/P shoulder hemiarthroplasty, right Start: 10-29-2023 End: 10-29-2023 ambulatory [facility] Work Phone: Start: 10-29-2023 End: 10-29-2023 Patient encounter procedure [facility]-Laboratory, Phy Office 3rd Flr Start: 10-28-2023 End: 10-28-2023 ambulatory Katiana Mcgheeone MICHA [facility] [place] Comment on above: Decreased range of m otion of right shoulder (Primary Dx); Impaired strength of shoulder muscles; S/P shoulder hemiarthroplasty, right Start: 10-26-2023 End: 10-26-2023 ambulatory Ericka Murray PT, DPT Work Phone: [facility] [place] Comment on above: Decreased range of m otion of right shoulder (Primary Dx); Impaired strength of shoulder muscles; S/P shoulder hemiarthroplasty, right Start: 10-21-2023 End: 10-21-2023 ambulatory Katiana M Génesis [facility] [place] Comment on above: Decreased range of m otion of right shoulder (Primary Dx); Impaired strength of shoulder muscles; S/P shoulder hemiarthroplasty, right Start: 10-19-2023 End: 10-19-2023 ambulatory Ericka Murray [facility], DPT [facility] [place] Comment on above: Decreased range of m otion of right shoulder (Primary Dx); Impaired strength of shoulder muscles; S/P shoulder hemiarthroplasty, right Start: 10-14-2023 End: 10-14-2023 ambulatory Katiana Villalta [employer] [facility] [place] Comment on above: Decreased range of m otion of right shoulder (Primary Dx); Impaired strength of shoulder muscles; S/P shoulder hemiarthroplasty, right Start: 10-07-2023 End: 10-07-2023 ambulatory Katiana Villalta Génesis [employer] [facility] [place] Comment on above: Decreased range of m otion of right shoulder (Primary Dx); Impaired strength of shoulder muscles; S/P shoulder hemiarthroplasty, right Start: 10-05-2023 End: 10-05-2023 ambulatory Katiana Villalta Génesis [employer] [facility] [place] Comment on above: Decreased range of m otion of right shoulder (Primary Dx); Impaired strength of shoulder muscles; S/P shoulder hemiarthroplasty, right Start: 09-30-2023 End: 09-30-2023 ambulatory Ericka Murray PT, DPT Work Phone: [facility] [place] Comment on above: Decreased range of m otion of right shoulder (Primary Dx); Impaired strength of shoulder muscles; S/P shoulder hemiarthroplasty, right Start: 09-28-2023 End: 09-28-2023 ambulatory Ericka Murray PT, DPT Work Phone: [facility] [place] Comment on above: Decreased range of m otion of right shoulder (Primary Dx); Impaired strength of shoulder muscles; S/P shoulder hemiarthroplasty, right Start: 09-23-2023 End: 09-23-2023 ambulatory Katiana Villalta Génesis [employer] [facility] [place] Comment on above: Decreased range of m otion of right shoulder (Primary Dx); Impaired strength of shoulder muscles; S/P shoulder hemiarthroplasty, right Start: 09-21-2023 End: 09-21-2023 ambulatory Ericka Murray PT, DPT Work Phone: [facility] [place] Comment on above: Decreased range of m otion of right shoulder (Primary Dx); Impaired strength of shoulder muscles; S/P shoulder hemiarthroplasty, right Start: 09-16-2023 End: 09-16-2023 ambulatory JACOBO BURRELL Facility:[id number] Start: 09-14-2023 End: 09-14-2023 ambulatory JACOBO BURRELL Facility:[id number] Start: 09-09-2023 End: 09-09-2023 ambulatory JACOBO BURRELL Facility:[id number] Start: 2023 End: 2023 ambulatory JACOBO BURRELL Facility:[id number] Start: 09-02-2023 End: 09-02-2023 ambulatory JACOBO BURRELL Facility:[id number] Start: 08-31-2023 End: 08-31-2023 ambulatory JACOBO BURRELL Facility:[id number] Start: 08-26-2023 End: 08-26-2023 ambulatory JACOBO BURRELL Facility:[id number] Start: 08-25-2023 End: 08-25-2023 ambulatory JACOBO BURRELL Facility:[id number] Start: 08-19-2023 End: 08-19-2023 ambulatory ALEXX DHALIWAL Facility:[id number] Start: 07-30-2023 End: 07-30-[address] Alexx Dhaliwal Work Phone: [facility] Work Phone: Start: 07-30-2023 End: 07-30-[address] Alexx Dhaliwal Work Phone: [facility]-Laboratory, Phy Office 3rd Flr Start: 06-30-2023 End: 06-30-2023 Non-patient / Non-visit Dr. Alexx Dhaliwal Work Phone: [facility] Work Phone: Start: 06-30-2023 End: 06-30-[address] [facility]wal [facility] Work Phone: Start: 06-25-2023 End: 06-25-[address] Alex[facility]hal[facility]wal [facility] Start: 04-24-2023 End: 04-24-2023 Office outpatient visit 25 minutes Skinny Dc MD Work Phone: [facility] Urology Comment on above: BPH with urinary obs truction (Primary Dx); Elevated PSA Start: 01-29-2023 End: 01-29-2023 ambulatory [facility] Work Phone: Start: 01-29-2023 End: 01-29-2023 Patient encounter procedure [facility]-Laboratory Start: 01-09-2023 End: 01-09-2023 ambulatory [facility] Work Phone: Start: 01-09-2023 End: 01-09-2023 [facility] Start: 07-23-2022 End: 07-23-2022 ambulatory [facility] Work Phone: Start: 07-23-2022 End: 07-23-2022 [facility] Start: 02-22-2022 End: 02-22-2022 Subsequent hospital visit by physician Skinny Dc MD Work Phone: [facility] Start: 01-22-2022 End: 01-22-2022 [facility] Start: 06-03-2021 End: 06-03-2021 Subsequent hospital visit by physician Skinny Dc MD Work Phone: [facility] General Surgery Comment on above: BPH with urinary obs truction (Primary Dx); Benign prostatic hyperplasia with urinary hesitancy Start: 06-07-2020 End: 06-07-2020 Subsequent hospital visit by physician Jacobo Ruiz Work Phone: [facility] [address] [facility] Comment on above: Elevated PSA Start: 09-18-2017 End: 09-18-2017 Ambulatory AMADOR OTERO Facility:A Start: 05-08-2017 End: 05-09-2017 Emergency department patient visit [place] Facility:B Procedures Date Procedure Procedure Detail Performing Clinician Start: 03-22-2025 Plain x-ray of pelvi s and lower extremity Dr. Alexx Dhaliwal MD Work Phone: Start: 03-22-2025 X-ray of lumbosacral spine Dr. Alexx Dhaliwal MD Work Phone: Start: 02-01-2025 Prostate specific antigen measurement Dr. Alexx Dhaliwal MD Work Phone: Comment on above: This test was perfor med using the [employer] tPSA method. Measured values of a patient sample can vary depending on the testing procedure used. PSA values determined on patient samples by different testing procedures cannot be used interchangeably. If there is a change in PSA assays while monitoring therapy, sequential testing should be performed to confirm baseline values. Start: 02-01-2025 Vitamin D, 25-hydrox y measurement Dr. Alexx Dhaliwal MD Work Phone: Comment on above: Vitamin D StatusDefi ciency: <20 ng/mL (50nmol/L)Insufficiency: 20-30 ng/mL (50-75 nmol/L)Sufficiency: 30-100 ng/mL (75-250 nmol/L)Toxicity: >100 ng/mL (>250 nmol/L) Start: 12-04-2023 MRI of brain without contrast Start: 11-05-2023 Investigation of transfusion reaction Start: 11-05-2023 Microbial culture, routine Start: 06-03-2021 OPERATIVE REPORT 3m Sca nning Start: 06-03-2021 Gluc bld gluc mntr d ev cleared fda spec home use Skinny Dc MD Work Phone: Start: 06-03-2021 Gluc bld gluc mntr d ev cleared fda spec home use Skinny Dc MD Work Phone: Start: 01-31-2015 Colonoscopy Ericka chandler PT, DPT Work Phone: Start: 05-26-2006 Lipid 1996 panel - S kye or Plasma Ericka Murray PT, DPT Work Phone: History of operative procedure on knee History of arthroplasty of right knee Comment on above: 03/13/15, Dr Mukherjee, WC H Influenza Types A,B Direct FA (GARY) Respiratory syncytia l virus antigen assay Plan of Treatment Date Care Activity Detail Author Start: 11-10-2033 Urine microalbumin profile DTaP,Tdap,Td Vaccine (2 - Td or Tdap) [facility] Start: 2030 RSV Immunization for Adults (1 - 1-dose 75+ series) RSV Immunization for Adults (1 - 1-dose 75+ series) [facility] Start: 11-28-2027 Prostate specific antigen measurement Prostate Cancer Screening Discussion [facility] Start: 01-27-2026 Screening for malign ant neoplasm of colon [facility] Start: 01-15-2026 End: 05-10-2026 PSA, Monitoring ([facility]) PSA, Monitoring ([facility]) Lab Routine Elevated PSA Expected: 01/15/2026 (Approximate), Expires: 05/10/2026 [facility] Work Phone: Comment on above: Expected: 01/15/2026 (Approximate), Expires: 05/10/2026 Start: 09-17-2025 End: 05-10-2026 PSA, Monitoring (Quest) PSA, Monitoring ([facility]) Lab Routine Elevated PSA Expected: 09/17/2025 (Approximate), Expires: 05/10/2026 [facility] Comment on above: Expected: 09/17/2025 (Approximate), Expires: 05/10/2026 Start: 07-11-2025 End: 07-11-2025 Patient encounter procedure 07/11/2025 2:40 PM EST Office Visit [facility] - [place] [address] [place] [address] Skinny Dc MD [address] [place] [address] [facility] [place] Start: 06-09-2025 End: 05-10-2026 PSA, Monitoring ([facility]) PSA, Monitoring ([facility]) Lab Routine Elevated PSA Expected: 06/09/2025 (Approximate), Expires: 05/10/2026 [facility] Comment on above: Expected: 06/09/2025 (Approximate), Expires: 05/10/2026 Start: 05-03-2025 End: 05-03-2025 Patient encounter procedure 05/03/2025 2:50 PM EDT Office Visit [facility] [place] [address] [place] [id number] Skinny Dc MD [address] [address] [facility] Start: 04-17-2025 COVID-19 Vaccine ( season) COVID-19 Vaccine () [facility] Start: 04-17-2025 Influenza vaccination Influenza Vacc ine (#1) [facility] Start: 03-31-2025 End: 05-01-2025 PSA, Monitoring ([facility]) PSA, Monitoring ([facility]) Lab Routine BPH with urinary obstruction Expected: 03/31/2025 (Approximate), Expires: 05/01/2025 [facility] Work Phone: Comment on above: Expected: 03/31/2025 (Approximate), Expires: 05/01/2025 Start: 08-17-2024 Medicare Advantage Annual Wellness Visit Medicare Advantage Annual Wellness Visit [facility] Start: 04-25-2024 End: 04-25-2024 Patient encounter procedure 04/25/2024 1:30 PM EDT Office Visit [facility] [address] [place] [address] Skinny Dc MD [address] [facility] [address] [place] [id number] [facility] Start: 04-17-2024 COVID-19 Vaccine () COVID-19 Vaccine () [facility] Start: 04-17-2024 Influenza vaccination Influenza Vacc ine (#1) [facility] Start: 03-24-2024 End: 04-24-2024 PSA screening PSA Screening Lab Routine BPH with urinary obstruction Expected: 03/24/2024 (Approximate), Expires: 04/24/2024 [facility] Work Phone: Comment on above: Expected: 03/24/2024 (Approximate), Expires: 04/24/2024 Start: 09-29-2023 Diabetes Screening Diabetes Screenin g [facility] Start: 08-17-2023 Advance Directive Discussion Advance Directive Discussion [facility] Start: 08-17-2023 Behavioral Health Screening Behavioral Health Screening [facility] Start: 08-17-2023 Depression Assessment Depression Ass essment [facility] Start: 08-17-2023 Medicare Advantage Annual Wellness Visit Medicare Advantage Annual Wellness Visit [facility] Start: 04-17-2023 Influenza vaccination Influenza Vacc ine (#1) [facility] Start: 01-28-2023 Screening for malign ant neoplasm of colon Colorectal Cancer Screening [facility] Start: 04-17-2022 Influenza vaccination Flu vaccine (# 1) [facility] Start: 03-19-2022 COVID-19 Vaccine (5 - Booster for Pfizer series) COVID-19 Vaccine (5 - Booster for Pfizer series) [facility] Start: 03-04-2022 End: 03-04-2022 Patient encounter procedure 03/04/2022 Office Visit Urology Skinny Dc MD [address] [facility] [address] [place] [address] [facility] [place] Start: 01-16-2022 Pneumococcal 65+ yea rs Vaccine (2 - PCV) Pneumococcal 65+ years Vaccine (2 - PCV) [facility] Start: 01-16-2022 Pneumococcal Vaccine : 50+ Years (2 of 2 - PCV) Pneumococcal Vaccine: 50+ Years (2 of 2 - PCV) [facility] Start: 01-16-2022 Pneumococcal Vaccine : 65+ (2 of 2 - PCV) Pneumococcal Vaccine: 65+ (2 of 2 - PCV) [facility] Start: 01-16-2022 Pneumococcal Vaccine : 65+ Years (2 - PCV) Pneumococcal Vaccine: 65+ Years (2 - PCV) [facility] Start: 01-16-2022 Pneumococcal Vaccine : 65+ Years (2 of 2 - PCV) Pneumococcal Vaccine: 65+ Years (2 of 2 - PCV) [facility] Start: 07-24-2021 End: 07-24-2021 Patient encounter procedure 07/24/2021 Office Visit Urology Skinny Dc MD [address] [place] [id number] [facility] [place] Start: 06-15-2021 COVID-19 Vaccine (3 - Pfizer booster) COVID-19 Vaccine (3 - Pfizer booster) [facility] Work Phone: Start: 06-07-2021 Prostate specific antigen measurement Prostate Specific Antigen (PSA) Screening or Monitoring [facility] Start: 05-16-2021 COVID-19 Vaccine (3 - Booster for Pfizer series) COVID-19 Vaccine (3 - Booster for Pfizer series) [facility] Start: 04-17-2021 Influenza vaccination Flu vaccine (# 1) [facility] Work Phone: Start: 03-21-2021 Annual Wellness Visi t (AWV) Annual Wellness Visit (AWV) [facility] Work Phone: Start: 07-26-2020 End: 07-26-2020 Office Visit 07/26/2020 Office Visit Urology Jacobo Ruiz, [facility] - [facility] [address] [place] [address] [phone] [facility] [place] Start: 04-17-2020 Influenza vaccination Flu vaccine (# 1) [facility] [place] Start: 11-12-2019 Shingles Vaccine (3 of 3) Shingles Vaccine (3 of 3) [facility] Start: 11-12-2019 Shingrix Vaccine (3 of 3) Shingrix Vaccine (3 of 3) [facility] Start: 11-12-2019 Zoster Vaccines (3 of 3) Zoster Vacc bubba (3 of 3) [facility] Start: 01-31-2018 Screening for malign ant neoplasm of colon [facility] Start: 2015 RSV Immunization age d 60 or older (1 - 1-dose 60+ series) RSV Immunization aged 60 or older (1 - 1-dose 60+ series) [facility] Start: 05-26-2011 Lipid panel Lipid Screening [facility] Start: 2005 Screening for malign ant neoplasm of colon Colon cancer screen colonoscopy [place], [place] Start: 2005 Shingles Vaccine (1 of 2) Shingles Vaccine (1 of 2) [place], [place] Start: 2000 Screening for malign ant neoplasm of colon [facility] Start: 1995 Diabetes screen Diabetes screen [place], [place] Start: 1995 Lipid panel [facility] Start: 1990 Diabetes screen Diabetes screen [facility] Start: 1974 DTaP/Tdap/Td vaccine (1 - Tdap) DTaP/Tdap/Td vaccine (1 - Tdap) [facility] Start: 1974 DTaP/Tdap/Td Vaccine s (1 - Tdap) DTaP/Tdap/Td Vaccines (1 - Tdap) [facility] Start: 1974 Urine microalbumin profile DTaP,Tdap,Td Vaccine (1 - Tdap) [facility] Start: 1973 Diabetes mellitus screening Diabetes Screening [facility] Start: 1973 Hepatitis C screening [facility] Start: 1970 HIV screening HIV screen [place], [place] Start: 1967 Depression Monitoring Depression Mon itoring [facility] Start: 1967 Depression Screen Depression Screen [facility] Start: 1967 Depression Screening Depression Scre ening [facility] Start: 1955 Annual Wellness Visi t (AWV) Annual Wellness Visit (AWV) [facility] Start: 1955 Creatinine measurement Creatinine mo nitoring [facility] Work Phone: Start: 1955 Hepatitis C screening Hepatitis C sc reen [place], [place] Start: [address] [facility] Start: 1955 Potassium monitoring Potassium monit oring [facility] Work Phone: Start: 1955 Screening for malign ant neoplasm of colon [facility] Blood glucose - POCT [facility] Work Phone: Comment on above: As Needed until disc ontinued starting 06/03/2021 End: 06-03-2021 Creatinine [Mass/volume] in Serum or Plasma Creatinine, serum Lab STAT One Time for 1 Occurrences starting 06/03/2021 until 06/03/2021 [facility] Work Phone: Comment on above: One Time for 1 Occur rences starting 06/03/2021 until 06/03/2021 End: 06-03-2021 Intermittent pulse oximetry Pulse Oximetry Spot Check Respiratory Care Routine One Time for 1 Occurrences starting 06/03/2021 until 06/03/2021 [facility] Work Phone: Comment on above: One Time for 1 Occur rences starting 06/03/2021 until 06/03/2021 Nasal Cannula Oxygen Nasal Cannu la Oxygen Respiratory Care Routine As Needed until discontinued starting 06/03/2021 [facility] Work Phone: Comment on above: As Needed until disc ontinued starting 06/03/2021 Nonrebreather mask oxygen Nonrebreather mask oxygen Respiratory Care Routine As Needed until discontinued starting 06/03/2021 [facility] Work Phone: Comment on above: As Needed until disc ontinued starting 06/03/2021 Oxygen therapy [[facility] Data Set] [facility] Work Phone: Comment on above: As Needed until disc ontinued starting 06/03/2021 Daily until disconti nued starting 06/03/2021 End: 06-03-2021 Potassium w/ Reflex to Magnesium Potassium w/ Reflex to Magnesium Lab Routine One Time for 1 Occurrences starting 06/03/2021 until 06/03/2021 [facility] Work Phone: Comment on above: One Time for 1 Occur rences starting 06/03/2021 until 06/03/2021 End: 06-03-2021 , urine POCT , urine POCT Point of Care Testing Routine One Time for 1 Occurrences starting 06/03/2021 until 06/03/2021 [facility] Work Phone: Comment on above: One Time for 1 Occur rences starting 06/03/2021 until 06/03/2021 End: 06-03-2021 Protime-INR Protime-INR Lab STAT One Time for 1 Occurrences starting 06/03/2021 until 06/03/2021 [facility] Work Phone: Comment on above: One Time for 1 Occur rences starting 06/03/2021 until 06/03/2021 End: 02-22-2022 PSA, Prostatic Specific Antigen PSA, Prostatic Specific Antigen Lab Routine Once for 1 Occurrences starting 02/22/2022 until 02/22/2022 [facility] Work Phone: Comment on above: Once for 1 Occurrenc es starting 02/22/2022 until 02/22/2022 PSA, Prostatic Speci fic Antigen PSA, Prostatic Specific Antigen Lab Routine 02/22/2022 4:26 PM EDT [facility] Work Phone: End: 06-07-2020 PSA, Total and Free PSA, Total and Free Lab Routine Elevated PSA 1 Occurrences starting 06/07/2020 until 06/07/2020 [facility] Comment on above: 1 Occurrences starti ng 06/07/2020 until 06/07/2020 PSA, Total and Free PSA, Total a nd Free Lab Routine Elevated PSA 06/07/2020 1:06 PM EDT [facility] Spirometry panel Incentive tara metry Respiratory Care Routine Q1H PRN until discontinued starting 06/03/2021 [facility] Work Phone: Comment on above: Q1H PRN until discon tinued starting 06/03/2021 [facility] Immunizations Immunization Date Immunization Notes Care Provider Fa cility 07-17-2021 influenza virus vacc ine, unspecified formulation Skinny Dc MD Work Phone: [facility] [employer] 12-14-2020 Pfizer SARS-CoV-2 Vaccination Skinny Dc MD Work Phone: [facility] [employer] 11-16-2020 Pfizer SARS-CoV-2 Vaccination Skinny Dc MD Work Phone: [facility] [employer] Payers Date Payer Category Payer Self-pay [id number] 2022 Medicare [id number] 2022 Medicare O [facility] MEDICAR E ADVANTAGE [id number] 2020 Medicare [id number] 2019 Unknown [id number] 2017 Unknown [id number] 2016 Unknown [id number] Unknown [id number] Unknown [facility] ADV [id number] Unknown [id number] Unknown [id number] Unknown [id number] Social History Date Type Detail Facility Start: 12-28-2017 End: 06-07-2020 Tobacco smoking status NHIS Never smoker [facility] Start: 06-07-2020 End: 06-03-2021 Tobacco use and exposure [place] [employer] [place] Start: 06-07-2020 End: 05-07-2025 Alcohol intake Current drinker of alcohol (finding) [place], [place] Start: 1955 Sex Assigned At Not on file [place], [place] Exposure to SARS-CoV -2 (event) Not sure [place], [place] Start: 12-28-2017 End: 12-28-2017 Tobacco smoking status NHIS Unknown if ever smoked [facility] Start: 03-16-2015 Heavy [facility] Start: 03-16-2015 None [facility] Start: 03-16-2015 Spouse/ Signif icant Other [facility] Start: 1955 Sex Assigned At Male W [facility] Start: 12-02-2022 End: 05-07-2025 History of Social function [facility] Start: 12-02-2022 End: 05-07-2025 Tobacco use panel [facility] National Score (1-10 0), lower number is lower risk 48 [facility] Start: 07-26-2023 Gender identity Identifies as male gender (finding) [facility] Start: 07-26-2023 Sexual orientation Heterosexual (fin ding) [facility] Start: 03-17-2022 Sex Male (finding) [facility] Goals Date Patient Goal Desired Activity /State Clinical Notes 06-03-2021 to 05-10-2025 Skinny Dc MD - 05/10/2025 2:50 PM Dahlia Adame RN - 05/10/2025 2:50 PM EDTAddendum Note - Skinny Dc MD - 05/10/2025 2:50 PM EDTSkinny Dc MD - 05/02/2024 1:30 PM EDT Note Date & Type Note Facility 05-10-2025 History of Presen t illness Narrative Images from the original note were not included. Skinny Dc MD 05/10/2025 at 3:39 PM Office follow up PATIENT NAME: Gloria Falcon DATE OF : 1955 TODAY'S DATE: 05/10/2025 CHIEF COMPLAINT: Chief Complaint Patient presents with Other PSA follow up Subjective: Mr. Falcon is a 69 y.o. male who presents to the office for follow up of Elevated PSA PSA 04/13/25 PSA 4.22 04/12/24 PSA 3.07 ( [facility] - < 2.6 ) 11/27/22 PSA 2.66 01/16/2021 PSA 4.57 (PCP) PSA 4 - 06/07/2020 PSA 4.75 - 01/16/2020 Review of Systems No Distress Respiratory WNL Past Medical History: Medical History[1] Past Surgical History: Surgical History[2] Allergies: Patient has no known allergies. Social History: Social History Socioeconomic History Marital status: Spouse name: Not on file Number of children: Not on file Years of education: Not on file Highest education level: Not on file Occupational History Not on file Tobacco Use Smoking status: Never Smokeless tobacco: Never Substance and Sexual Activity Alcohol use: Yes Alcohol/week: 20.0 standard drinks of alcohol Types: 20 Cans of beer per week Drug use: Yes Frequency: 7.0 times per week Comment: Delta 9 10 mg gummies once before bedtime Sexual activity: Yes Partners: Female control/protection: None Other Topics Concern Not on file Social History Narrative Not on file Social Drivers of Health Financial Resource Strain: Not on file Food Insecurity: Not on file Transportation Needs: Not on file Physical Activity: Not on file Stress: Not on file Social Connections: Not on file Intimate Partner Violence: Not on file Housing Stability: Not on file Family History: Family History[3] Medications Prior to Admission medications Medication Sig Start Date End Date Taking? Authorizing Provider amLODIPine (Norvasc) 5 MG tablet 09/16/22 Historical Provider, aspirin 81 MG chewable tablet Chew 81 mg daily. Historical Provider, DULoxetine (Cymbalta) [address] capsule 09/16/22 Historical Provider, lisinopril 2.5 MG tablet 11/04/22 Historical Provider, metFORMIN (Glucophage) 500 MG tablet Take 500 mg by mouth. Historical Provider, oxybutynin XL (Ditropan-XL) 10 MG 24 hr tablet TAKE 1 TABLET BY MOUTH IN THE MORNING 04/13/23 KAILA Chun CNP oxybutynin XL (Ditropan-XL) 15 MG 24 hr tablet Take 1 tablet (15 mg) by mouth every morning. 03/16/24 Skinny Dc MD Ozempic, 0.25 or 0.5 MG/DOSE, 2 MG/3ML solution pen-injector INJECT 0.5 MILLIGRAMS SUBCUTANEOUSLY EVERY WEEK Historical Provider, tamsulosin (Flomax) 0.4 MG 24 hr capsule TAKE 1 CAPSULE BY MOUTH DAILY WITH FOOD 11/15/24 Jacobo Ruiz APRN - INSTRUMENT AND CONTROL TECHNICIAN Vitals: BP (!) 144/68 Pulse 86 Ht 5' 8 (1.727 m) Wt 253 lb (115 kg) BMI 38.47 kg/m Physical Exam General: No distress Abdomen: Back: : Prostate normal Labs: WBC No results found for: WBC BMP No results found for: NA, K, CL, CO2, BUN, CREATININE, GLUCOSE, CALCIUM PSA Lab Results Component Value Date PSA 3.060 02/22/2022 UA Lab Results Component Value Date UROBILINOGEN 0.2 03/21/2021 BILIRUBINUR neg 03/21/2021 Review: follow up of Elevated PSA PSA 04/13/25 PSA 4.22 04/12/24 PSA 3.07 ( [facility] - < 2.6 ) 11/27/22 PSA 2.66 01/16/2021 PSA 4.57 (PCP) PSA 4 - 06/07/2020 PSA 4.75 - 01/16/2020 Impression/Plan Gloria was seen today for other. Diagnoses and all orders for this visit: Elevated PSA (Primary) - PSA, Monitoring ([facility]); Future - PSA, Monitoring ([facility]) Benign prostatic hyperplasia with urinary hesitancy BPH with urinary obstruction No follow-ups on file. Elevated PSA His PSA vascillates Plan PSA prior to follow up in 2 months - if PSA higher will need MRI pelvis Skinny Dc MD 05/10/25 3:39 PM [1] Past Medical History: Diagnosis Date Arthritis BPH with urinary obstruction 06/03/2021 Diabetes mellitus (HCC) Elevated PSA Not sure Fibromyalgia Hyperlipidemia Hypertension [2] Past Surgical History: Procedure Laterality Date ANKLE SURGERY COLON SURGERY November 2006 Partial CYSTOSCOPY 06/03/2021 Cysto. UroLift. Rodri HAND SURGERY right JOINT REPLACEMENT 2019 KNEE SURGERY Left KNEE SURGERY right PROSTATE SURGERY [3] Family History Problem Relation Name Age of Onset Lung cancer Father Heart disease Father Alzheimer's disease Mother We want to inform you that your patient's blood pressure was noted to be elevated in our office today. We thank you for trusting us with your patient's health. Last BP: BP Readings from Last 1 Encounters: 05/10/25 1454 (!) 144/68 05/10/25 1450 (!) 148/73 documented in this encounter [facility] 05-10-2025 Miscellaneous Notes Addended by: SKINNY DC on: 05/10/2025 03:49 PM Modules accepted: Orders documented in this encounter [facility] 05-10-2025 Note Addended by: SKINNY DC on: 05/10/2025 03:49 PM Modules accepted: Orders [facility] 05-10-2025 Note Addended by: SKINNY DC on: 05/10/2025 03:49 PM Modules accepted: Orders [facility] 05-10-2025 Note Addended by: SKINNY DC on: 05/10/2025 03:49 PM Modules accepted: Orders [facility] 03-23-2025 Radiology Diagnostic study note [facility] Imaging Services [address] [place] [address] (570) L/S Spine Min 4 Views MR#: [id number] Acct: [id number] Name: GLORIA FALCON Rep #: [id number] : 1955 M 69 From: Francisca Dc MD PCP: Dr. Alexx Dhaliwal MD Status: REG C YECENIA Study:L/S Spine Min 4 Views Date of Exam: 03/22/25 Exam# [id number] Ordering Dr: Alexx Dhaliwal MD PROCEDURE: L/S SPINE MIN 4 VIEWS 03/22/2025 REASON FOR EXAM: PAIN IN LEFT HIP. TECHNIQUE: L/S SPINE MIN 4 VIEWS COMPARISON: None. FINDINGS: Moderate chronic changes of Baastrup's disease. Mild degenerative dextroscoliosis apex at L3. Grade 1 anterolisthesis of L4 on L5, probably secondary to facet joint arthropathy. Mildly exaggerated lumbar lordosis. There are diffuse spondylotic changes. Findings are demonstrated to by diffuse disc space narrowing, osteophyte formation and degenerative endplate sclerosis. There is diffuse facet joint arthropathy with secondary bilateral neural foramina narrowing. No fracture or dislocation is seen. No aggressive lytic or blastic bony lesion is noted. Calcified atheromatous plaques of the aorta. RAD/L/S Spine Min 4 Views IMPRESSION: Diffuse spondylosis. Moderate chronic changes of Baastrup's disease. Reading Location: [place] [address] CC: Dr. Alexx Dhaliwal MD ~ Pump House Technician: Signed [facility] 03-22-2025 Radiology Diagnostic study note [facility] Imaging Services [address] [place], [place] [id number] HIP, UNI W/ Pelvis 2-3 Views MR#: [id number] Acct: [id number] Name: GLORIA FALCON Rep #: [id number] : 1955 M 69 From: Brent Fine MD PCP: Dr. Alexx Dhaliwal MD Status: REG C YECENIA Study:HIP, UNI W/ Pelvis 2-3 Views Date of Ex am: 03/22/25 Exam# [id number] Ordering Dr: Alexx Dhaliwal MD PROCEDURE: HIP, UNI W/ PELVIS 2-3 VIEWS 03/22/2025 REASON FOR EXAM: PAIN IN LEFT HIP TECHNIQUE: HIP, UNI W/ PELVIS 2-3 VIEWS COMPARISON: Bilateral hip and pelvis study 04/05/2018. RAD/HIP, UNI W/ Pelvis 2-3 Views IMPRESSION: Prominent degenerative changes of the visualized lower lumbar spine is seen. Progressive enthesophytes of the bilateral pelvis proximal femora. Multiple prostate seeds are in place. Minimal sacroiliac joint degenerative changes are noted Overall mild bilateral left and minimal right hip joint degenerative changes areseen, [id number]. At least mild superolateral left hip joint space narrowing is noted. No evidence of femoral head osteonecrosis. No fracture or dislocation is seen. Reading Location: [facility] CC: Dr. Alexx Dhaliwal MD ~ Pump House Technician: Signed [facility] 05-02-2024 History of Presen t illness Narrative Images from the original note were not included. Skinny Dc MD 05/02/2024 at 1:55 PM Office follow up PATIENT NAME: Gloria Falcon DATE OF : 1955 TODAY'S DATE: 05/02/2024 CHIEF COMPLAINT: Chief Complaint Patient presents with Benign Prostatic Hypertrophy 1 year follow up. Reports minimal improvement in symptoms but does feel he may be emptying better. Elevated PSA 1 year follow up Subjective: Mr. Falcon is a 68 y.o. male who presents to the office for follow up of BPH. History of UroLift-06/03/21 Cysto, UroLift PSA 04/12/24 PSA 3.07 ( [facility] - < 2.6 ) 11/27/22 PSA 2.66 01/16/2021 PSA 4.57 (PCP) PSA 4 - 06/07/2020 PSA 4.75 - 01/16/2020 Review of Systems No Distress Respiratory WNL Past Medical History: Past Medical History: Diagnosis Date Arthritis BPH with urinary obstruction 06/03/2021 Diabetes mellitus (HCC) Fibromyalgia Hyperlipidemia Hypertension Past Surgical History: Past Surgical History: Procedure Laterality Date ANKLE SURGERY COLON SURGERY Partial CYSTOSCOPY 06/03/2021 Cysto. UroLift. Rodri HAND SURGERY right KNEE SURGERY Left KNEE SURGERY right Allergies: Patient has no known allergies. Social History: Social History Socioeconomic History Marital status: Spouse name: Not on file Number of children: Not on file Years of education: Not on file Highest education level: Not on file Occupational History Not on file Tobacco Use Smoking status: Never Smokeless tobacco: Never Substance and Sexual Activity Alcohol use: Yes Drug use: Never Sexual activity: Not on file Other Topics Concern Not on file Social History Narrative Not on file Social Determinants of Health Financial Resource Strain: Not on file Food Insecurity: Not on file Transportation Needs: Not on file Physical Activity: Not on file Stress: Not on file Social Connections: Not on file Intimate Partner Violence: Not on file Housing Stability: Not on file Family History: Family History Problem Relation Name Age of Onset Lung cancer Father Heart disease Father Alzheimer's disease Mother Medications Prior to Admission medications Medication Sig Start Date End Date Taking? Authorizing Provider amLODIPine (Norvasc) 5 MG tablet 09/16/22 Historical Provider, aspirin 81 MG chewable tablet Chew 81 mg daily. Historical Provider, DULoxetine (Cymbalta) [address] capsule 09/16/22 Historical Provider, lisinopril 2.5 MG tablet 11/04/22 Historical Provider, metFORMIN (Glucophage) 500 MG tablet Take 500 mg by mouth. Historical Provider, oxybutynin XL (Ditropan-XL) 10 MG 24 hr tablet TAKE 1 TABLET BY MOUTH IN THE MORNING Patient not taking: Reported on 04/24/2023 04/13/23 KAILA Chun CNP oxybutynin XL (Ditropan-XL) 15 MG 24 hr tablet Take 1 tablet (15 mg) by mouth every morning. 03/16/24 Skinny Dc MD tamsulosin (Flomax) 0.4 MG 24 hr capsule TAKE 1 CAPSULE BY MOUTH DAILY WITH FOOD 02/04/24 KAILA Aguirre CNP Vitals: Ht 5' 8 (1.727 m) Wt 253 lb (115 kg) BMI 38.47 kg/m Physical Exam General: No distress Abdomen: Back: : Labs: WBC No results found for: WBC BMP No results found for: NA, K, CL, CO2, BUN, CREATININE, GLUCOSE, CALCIUM PSA Lab Results Component Value Date PSA 3.060 02/22/2022 UA Lab Results Component Value Date UROBILINOGEN 0.2 03/21/2021 BILIRUBINUR neg 03/21/2021 04/24/23 office cysto Prostate- indentations from Urolift noted mainly on left. Does have Lateral lobes approximating each other. 06/03/21 Cysto, UroLift [facility]. Rodri 05/08/21 TRUS Vol 42.3cc 05/08/21 office cysto. Mod to significant enlargement. Significant degree of obstruction to bladder outlet -lateral lobes ( no significant median lobe) 03/21/21 IPSS 11. QOL 1 03/21/21 Visit with Jacobo Ruiz Tamsulosin daily. Voids q 3-4 hrs. Nocturia x2. Urgency: Denies He feels that he completely empty bladder with voiding. No further has urinary hesitancy or intermittency. AUA Symptom score: 11 PSA 04/12/24 PSA 3.07 ( [facility] - < 2.6 ) 11/27/22 PSA 2.66 01/16/2021 PSA 4.57 (PCP) PSA - 06/07/2020 PSA 4.75 - 01/16/2020 01/16/20 PSA 4.75 01/16/20 testosterone 415 01/16/20 Hct 43.8 Bladder scan 05/02/24 PVR 55cc PVR 128cc 09/04/20 PVR 83cc 07/24/21 54cc Review: Follow up of BPH. History of UroLift-06/03/21 Cysto, UroLift PSA 04/12/24 PSA 3.07 ( [facility] - < 2.6 ) 11/27/22 PSA 2.66 01/16/2021 PSA 4.57 (PCP) PSA 4 - 06/07/2020 PSA 4.75 - 01/16/2020 Impression/Plan Gloria was seen today for benign prostatic hypertrophy and elevated psa. Diagnoses and all orders for this visit: Elevated PSA (Primary) BPH with urinary obstruction - PSA, Monitoring ([facility]); Future - Bladder scan - PSA, Monitoring ([facility]) Benign prostatic hyperplasia with urinary hesitancy No follow-ups on file. PSA prior to follow up in one year Skinny Dc MD 05/02/24 1:55 PM documented in this encounter [facility] 12-07-2023 Note HNO ID: [id number] Author: ERICKA MURRAY, PT, DPT Service: ? Author Type: Physical Therapist Type: Progress Notes Filed: 12/07/2023 14:40 Note Text: 12/07/2023 [facility] REHABILITATION AND SPORTS THERAPY PHYSICAL THERAPY DISCONTINUANCE OF CARE Plan of Care Period: Start of Care Date: 08/19/23 Last Visit Date: 12/02/2023 Therapy Program: The following is a summary of the interventions provided for this episode of care; Therapeutic exercise and Manual therapy Assessment: The following is the goal status: Addressed 11/16/2023 Goals for Episode of Care: created on 08/19/23 through 11/11/23 [place] in home exercise program. - Met Patient will decrease pain to 0/10 with functional activities to allow patient to improve ADLs. - Met Patient will increase active ROM of right shoulder flexion and abduction to 150 degrees, external rotation to 50 degrees, and internal rotation to L1 to allow pt to to improve performance of ADLs. - Progressing Patient will demonstrate increase in right shoulder strength to 4/5 during manual muscle testing in order to improve function for prior functional Tasks. - Progressing Based on the most recent progress report, patient was progressing as expected toward functional goals based on home exercise program compliance, pain levels, documented subjective information on progress, documented objective information regarding ADL's, range of motion, and strength, and appointment compliance. Reason for Discontinuation of Care: Patient was released from the doctor and reports he did not need to return to physical therapy. Ericka Murray PT, DPT [facility] 12-07-2023 Miscellaneous Notes Pt states that he is feeling better and his surgeon told him he no longer needs therapy. Pt cancelled all future appointments. documented in this encounter [facility] 12-02-2023 Note HNO ID: [id number] Author: KATINAA WINSLOW PTA Service: ? Author Type: Correctional Classification Counselor Type: Progress Notes Filed: 12/02/2023 16:21 Note Text: Episode Visit Count: 29 Therapist That Will Accept/Oversee The Plan Of Care: Ericka Murray PT, DPT Start of Care Date: 08/19/23 Onset Date: 07/17/23 Plan of Care Certification Date: 11/16/23 Next Certification Due Date: 12/28/23 Patient Identified by Name and Date of : Yes REHABILITATION AND SPORTS THERAPY PHYSICAL THERAPY TREATMENT NOTE ASSESSMENT: Gloria Falcon tolerated the session with fatigue and no discomfort. He demonstrated improved control with eccentric lowering for shoulder flexion and tolerated progression to pink band with ER and he is demonstrating improved range with ER. He is reporting gradual gains with improved tolerance with adl's.The patient will continue to benefit from ongoing skilled physical therapy to progress toward set goals. PLAN FOR NEXT VISIT: Continue with Phase III includes: external and internal rotation, standing forward punch, rows, scapular mobilization, PRE's for periscapular strengthening. SUBJECTIVE: I'm getting better. I'm really good Pain: Pain Pain Level: 0 Post Treatment Pain Post Treatment Pain Level: 0 Post Treatment Pain Location: Shoulder - Right OBJECTIVE MEASURES WITH LEVEL OF FUNCTION: No objective measure taken this date. TREATMENT: Therapeutic Exercise: 2: Supine wand chest press and overhead flexion 2 x 15 each 2# 3: Seated shoulder abduction 2 x 10 0# 4: Seated shoulder flexion with wand 2# 2 x 10 5: Standing wall rhythmic stabs at 90 degrees up/down x 20, clockwise x 10, counterclockwise x 10, side/side x 20 6: Shoulder ER with pink band 2 x 15 with towel roll (Increased resistanc) 7: Shoulder IR with pink band 3 x 10 8: Mid row, blue band 3 x 10 9: High row, blue band, 2 x 15 10: Shoulder extension, blue band 3 x 10 11: Wheel on wall flexion 2 x 10 with 5 seconds 12: Bent over horizontal abduction 0# 2 x 10 13: Bent over row 3# 2 x 15, right 14: Bicep curl 4# 2 x15 15: Supine SA punch 3# 2 x 10 16: Supine shoulder flexion 0# 2 x 10, eccentric control Skilled Intervention: Skilled judgment was used in selection of appropriate interventions. Correct performance of therapeutic exercises was facilitated with verbal and visual cuing. Manual Therapy: 1: PROM to right shoulder flexion and ER with gradual progression to full for elevation. Skilled Intervention: Manual skills to improve joint mobility, ROM, and decrease pain. Utilized anatomy knowledge of the therapist, and assessment of patient's response to intervention. Billing Therapeutic Exercise Treatment Minutes: 35 Manual TherapyTreatment Minutes: 10 Skilled Treatment Time Minutes (timed and untimed codes): 45 Total Session Time (minutes): 55 Session Start Time : 1500 Session Stop Time : 1555 Cold pack applied to R shoulder with patient in sitting for 10 minutes at the end of the session. Cold pack time not included in billed treatment time. Katiana Winslow [facility] 12-02-2023 History of Presen t illness Narrative Episode Visit Count: 29 Therapist That Will Accept/Oversee The Plan Of Care: Ericka Murray, PT, DPT Start of Care Date: 08/19/23 Onset Date: 07/17/23 Plan of Care Certification Date: 11/16/23 Next Certification Due Date: 12/28/23 Patient Identified by Name and Date of : Yes REHABILITATION AND SPORTS THERAPY PHYSICAL THERAPY TREATMENT NOTE ASSESSMENT: Gloria Falcon tolerated the session with fatigue and no discomfort. He demonstrated improved control with eccentric lowering for shoulder flexion and tolerated progression to pink band with ER and he is demonstrating improved range with ER. He is reporting gradual gains with improved tolerance with adl's.The patient will continue to benefit from ongoing skilled physical therapy to progress toward set goals. PLAN FOR NEXT VISIT: Continue with Phase III includes: external and internal rotation, standing forward punch, rows, scapular mobilization, PRE's for periscapular strengthening. SUBJECTIVE: I'm getting better. I'm really good Pain: Pain Pain Level: 0 Post Treatment Pain Post Treatment Pain Level: 0 Post Treatment Pain Location: Shoulder - Right OBJECTIVE MEASURES WITH LEVEL OF FUNCTION: No objective measure taken this date. TREATMENT: Therapeutic Exercise: 2: Supine wand chest press and overhead flexion 2 x 15 each 2# 3: Seated shoulder abduction 2 x 10 0# 4: Seated shoulder flexion with wand 2# 2 x 10 5: Standing wall rhythmic stabs at 90 degrees up/down x 20, clockwise x 10, counterclockwise x 10, side/side x 20 6: Shoulder ER with pink band 2 x 15 with towel roll (Increased resistanc) 7: Shoulder IR with pink band 3 x 10 8: Mid row, blue band 3 x 10 9: High row, blue band, 2 x 15 10: Shoulder extension, blue band 3 x 10 11: Wheel on wall flexion 2 x 10 with 5 seconds 12: Bent over horizontal abduction 0# 2 x 10 13: Bent over row 3# 2 x 15, right 14: Bicep curl 4# 2 x15 15: Supine SA punch 3# 2 x 10 16: Supine shoulder flexion 0# 2 x 10, eccentric control Skilled Intervention: Skilled judgment was used in selection of appropriate interventions. Correct performance of therapeutic exercises was facilitated with verbal and visual cuing. Manual Therapy: 1: PROM to right shoulder flexion and ER with gradual progression to full for elevation. Skilled Intervention: Manual skills to improve joint mobility, ROM, and decrease pain. Utilized anatomy knowledge of the therapist, and assessment of patient's response to intervention. Billing Therapeutic Exercise Treatment Minutes: 35 Manual TherapyTreatment Minutes: 10 Skilled Treatment Time Minutes (timed and untimed codes): 45 Total Session Time (minutes): 55 Session Start Time : 1500 Session Stop Time : 1555 Cold pack applied to R shoulder with patient in sitting for 10 minutes at the end of the session. Cold pack time not included in billed treatment time. Katiana Winslow PTA documented in this encounter [facility] 11-30-2023 Note HNO ID: [id number] Author: KATIANA WINSLOW PTA Service: ? Author Type: Correctional Classification Counselor Type: Progress Notes Filed: 11/30/2023 16:33 Note Text: Episode Visit Count: 28 Therapist That Will Accept/Oversee The Plan Of Care: Ericka Murray PT, DPT Start of Care Date: 08/19/23 Onset Date: 07/17/23 Plan of Care Certification Date: 11/16/23 Next Certification Due Date: 12/28/23 Patient Identified by Name and Date of : Yes REHABILITATION AND SPORTS THERAPY PHYSICAL THERAPY TREATMENT NOTE ASSESSMENT: Gloria Falcon tolerated the session with fatigue and no pain. He demonstrated difficulty with attempt to increase reps for wand flexion in sitting and he demonstrated improvements in tolerance with increased reps for eccentric lowering shoulder flexion and bent over horizontal shoulder abduction. The patient will continue to benefit from ongoing skilled physical therapy to progress toward set goals. PLAN FOR NEXT VISIT: Continue with Phase III includes: external and internal rotation, standing forward punch, rows, scapular mobilization, PRE's for periscapular strengthening. SUBJECTIVE: Pt notes I do a lot with my arm and it doesn't hurt, but there is no strength. Pain: Pain Pain Level: 0 Post Treatment Pain Post Treatment Pain Level: 0 Post Treatment Pain Location: Shoulder - Right OBJECTIVE MEASURES WITH LEVEL OF FUNCTION: No objective measure taken this date. TREATMENT: Therapeutic Exercise: 2: Supine wand chest press and overhead flexion 2 x 15 each 2# 3: Seated shoulder abduction 2 x 10 0# 4: Seated shoulder flexion with wand 2# 2 x 10 5: Standing wall rhythmic stabs at 90 degrees up/down x 20, clockwise x 10, counterclockwise x 10, side/side x 20 6: Shoulder ER with orange band 2 x 15 with towel 7: Shoulder IR with pink band 3 x 10 8: Mid row, blue band 3 x 10 9: High row, blue band, 2 x 15 10: Shoulder extension, blue band 3 x 10 11: Wheel on wall flexion 2 x 10 with 5 seconds 12: Bent over horizontal abduction 0# 2 x 10 (Increased reps) 13: Bent over row 3# 2 x 15, right 14: Bicep curl 4# 2 x15 15: Supine SA punch 3# 2 x 10 16: Supine shoulder flexion 0# 2 x 10, eccentric control (Increased reps) Skilled Intervention: Skilled judgment was used in selection of appropriate interventions. Correct performance of therapeutic exercises was facilitated with verbal, visual, and tactile cuing. Manual Therapy: 1: PROM to right shoulder flexion and ER with gradual progression to full for elevation. Skilled Intervention: Manual skills to improve joint mobility, ROM, and decrease pain. Utilized anatomy knowledge of the therapist, and assessment of patient's response to intervention. Billing Therapeutic Exercise Treatment Minutes: 40 Manual TherapyTreatment Minutes: 10 Skilled Treatment Time Minutes (timed and untimed codes): 50 Total Session Time (minutes): 65 Session Start Time : 1500 Session Stop Time : 1605 Cold pack applied to R shoulder with patient in sitting for 10 minutes at the end of the session. Cold pack time not included in billed treatment time. Katiana Winslow [facility] 11-30-2023 History of Presen t illness Narrative Episode Visit Count: 28 Therapist That Will Accept/Oversee The Plan Of Care: Ericka Murray, PT, DPT Start of Care Date: 08/19/23 Onset Date: 07/17/23 Plan of Care Certification Date: 11/16/23 Next Certification Due Date: 12/28/23 Patient Identified by Name and Date of : Yes REHABILITATION AND SPORTS THERAPY PHYSICAL THERAPY TREATMENT NOTE ASSESSMENT: Gloria Falcon tolerated the session with fatigue and no pain. He demonstrated difficulty with attempt to increase reps for wand flexion in sitting and he demonstrated improvements in tolerance with increased reps for eccentric lowering shoulder flexion and bent over horizontal shoulder abduction. The patient will continue to benefit from ongoing skilled physical therapy to progress toward set goals. PLAN FOR NEXT VISIT: Continue with Phase III includes: external and internal rotation, standing forward punch, rows, scapular mobilization, PRE's for periscapular strengthening. SUBJECTIVE: Pt notes I do a lot with my arm and it doesn't hurt, but there is no strength. Pain: Pain Pain Level: 0 Post Treatment Pain Post Treatment Pain Level: 0 Post Treatment Pain Location: Shoulder - Right OBJECTIVE MEASURES WITH LEVEL OF FUNCTION: No objective measure taken this date. TREATMENT: Therapeutic Exercise: 2: Supine wand chest press and overhead flexion 2 x 15 each 2# 3: Seated shoulder abduction 2 x 10 0# 4: Seated shoulder flexion with wand 2# 2 x 10 5: Standing wall rhythmic stabs at 90 degrees up/down x 20, clockwise x 10, counterclockwise x 10, side/side x 20 6: Shoulder ER with orange band 2 x 15 with towel 7: Shoulder IR with pink band 3 x 10 8: Mid row, blue band 3 x 10 9: High row, blue band, 2 x 15 10: Shoulder extension, blue band 3 x 10 11: Wheel on wall flexion 2 x 10 with 5 seconds 12: Bent over horizontal abduction 0# 2 x 10 (Increased reps) 13: Bent over row 3# 2 x 15, right 14: Bicep curl 4# 2 x15 15: Supine SA punch 3# 2 x 10 16: Supine shoulder flexion 0# 2 x 10, eccentric control (Increased reps) Skilled Intervention: Skilled judgment was used in selection of appropriate interventions. Correct performance of therapeutic exercises was facilitated with verbal, visual, and tactile cuing. Manual Therapy: 1: PROM to right shoulder flexion and ER with gradual progression to full for elevation. Skilled Intervention: Manual skills to improve joint mobility, ROM, and decrease pain. Utilized anatomy knowledge of the therapist, and assessment of patient's response to intervention. Billing Therapeutic Exercise Treatment Minutes: 40 Manual TherapyTreatment Minutes: 10 Skilled Treatment Time Minutes (timed and untimed codes): 50 Total Session Time (minutes): 65 Session Start Time : 1500 Session Stop Time : 1605 Cold pack applied to R shoulder with patient in sitting for 10 minutes at the end of the session. Cold pack time not included in billed treatment time. Katiana Winslow PTA documented in this encounter [facility] 11-25-2023 Note HNO ID: [id number] Author: KATIANA WINSLOW PTA Service: ? Author Type: Correctional Classification Counselor Type: Progress Notes Filed: 11/25/2023 16:04 Note Text: Episode Visit Count: 27 Therapist That Will Accept/Oversee The Plan Of Care: Ericka Murray PT, DPT Start of Care Date: 08/19/23 Onset Date: 07/17/23 Plan of Care Certification Date: 11/16/23 Next Certification Due Date: 12/28/23 Patient Identified by Name and Date of : Yes REHABILITATION AND SPORTS THERAPY PHYSICAL THERAPY TREATMENT NOTE ASSESSMENT: Gloria Falcon tolerated the session with no increased pain and remained painfree. He demonstrated improvements in progression of resistance for hi/mid rows, and extension as well as increased reps for seated abduction,bent over rows, and standing biceps. The patient will continue to benefit from ongoing skilled physical therapy to progress toward set goals. PLAN FOR NEXT VISIT: Attempt to progress reps for bent over horiz abduction and supine eccentric lowering for flexion. Continue with Phase III includes: external and internal rotation, standing forward punch, rows, scapular mobilization, PRE's for periscapular strengthening. SUBJECTIVE: Pt reports that he continues to do well and he denies pain in the R shoulder noting I can use the throttle on my mower. Pain: Pain Pain Level: 0 OBJECTIVE MEASURES WITH LEVEL OF FUNCTION: No objective measure taken this date. TREATMENT: Therapeutic Exercise: 2: Supine wand chest press and overhead flexion 2 x 15 each 2# 3: Seated shoulder abduction 2 x 10 0# (Increased reps) 4: Seated shoulder flexion with wand 2# 2 x 10 5: Standing wall rhythmic stabs at 90 degrees up/down x 20, clockwise x 10, counterclockwise x 10, side/side x 20 6: Shoulder ER with orange band 2 x 15 with towel 7: Shoulder IR with pink band 3 x 10 8: Mid row, blue band 3 x 10 (increased resistance) 9: High row, blue band, 2 x 15 (Increased resistance) 10: Shoulder extension, blue band 3 x 10 (increased resistance) 11: Wheel on wall flexion 2 x 10 with 5 seconds 12: Bent over horizontal abduction 0# x 10 13: Bent over row 3# 2 x 15, right (increased reps) 14: Bicep curl 4# 2 x15 (Increased reps) 15: Supine SA punch 3# 2 x 10 16: Supine shoulder flexion 0# x 10, eccentric control Skilled Intervention: Skilled judgment was used in selection of appropriate interventions. Correct performance of therapeutic exercises was facilitated with verbal and visual cuing. Manual Therapy: 1: PROM to right shoulder flexion and ER with gradual progression to full for elevation. Skilled Intervention: Manual skills to improve joint mobility, ROM, and decrease pain. Utilized anatomy knowledge of the therapist, and assessment of patient's response to intervention. Billing Therapeutic Exercise Treatment Minutes: 35 Manual TherapyTreatment Minutes: 10 Skilled Treatment Time Minutes (timed and untimed codes): 45 Total Session Time (minutes): 55 Session Start Time : 1500 Session Stop Time : 1555 Cold pack applied to R shoulder with patient in sitting for 10 minutes at the end of the session. Cold pack time not included in billed treatment time. Katiana Winslow [facility] 11-25-2023 History of Presen t illness Narrative Episode Visit Count: 27 Therapist That Will Accept/Oversee The Plan Of Care: Ericka Murray PT, DPT Start of Care Date: 08/19/23 Onset Date: 07/17/23 Plan of Care Certification Date: 11/16/23 Next Certification Due Date: 12/28/23 Patient Identified by Name and Date of : Yes REHABILITATION AND SPORTS THERAPY PHYSICAL THERAPY TREATMENT NOTE ASSESSMENT: Gloria Falcon tolerated the session with no increased pain and remained painfree. He demonstrated improvements in progression of resistance for hi/mid rows, and extension as well as increased reps for seated abduction,bent over rows, and standing biceps. The patient will continue to benefit from ongoing skilled physical therapy to progress toward set goals. PLAN FOR NEXT VISIT: Attempt to progress reps for bent over horiz abduction and supine eccentric lowering for flexion. Continue with Phase III includes: external and internal rotation, standing forward punch, rows, scapular mobilization, PRE's for periscapular strengthening. SUBJECTIVE: Pt reports that he continues to do well and he denies pain in the R shoulder noting I can use the throttle on my mower. Pain: Pain Pain Level: 0 OBJECTIVE MEASURES WITH LEVEL OF FUNCTION: No objective measure taken this date. TREATMENT: Therapeutic Exercise: 2: Supine wand chest press and overhead flexion 2 x 15 each 2# 3: Seated shoulder abduction 2 x 10 0# (Increased reps) 4: Seated shoulder flexion with wand 2# 2 x 10 5: Standing wall rhythmic stabs at 90 degrees up/down x 20, clockwise x 10, counterclockwise x 10, side/side x 20 6: Shoulder ER with orange band 2 x 15 with towel 7: Shoulder IR with pink band 3 x 10 8: Mid row, blue band 3 x 10 (increased resistance) 9: High row, blue band, 2 x 15 (Increased resistance) 10: Shoulder extension, blue band 3 x 10 (increased resistance) 11: Wheel on wall flexion 2 x 10 with 5 seconds 12: Bent over horizontal abduction 0# x 10 13: Bent over row 3# 2 x 15, right (increased reps) 14: Bicep curl 4# 2 x15 (Increased reps) 15: Supine SA punch 3# 2 x 10 16: Supine shoulder flexion 0# x 10, eccentric control Skilled Intervention: Skilled judgment was used in selection of appropriate interventions. Correct performance of therapeutic exercises was facilitated with verbal and visual cuing. Manual Therapy: 1: PROM to right shoulder flexion and ER with gradual progression to full for elevation. Skilled Intervention: Manual skills to improve joint mobility, ROM, and decrease pain. Utilized anatomy knowledge of the therapist, and assessment of patient's response to intervention. Billing Therapeutic Exercise Treatment Minutes: 35 Manual TherapyTreatment Minutes: 10 Skilled Treatment Time Minutes (timed and untimed codes): 45 Total Session Time (minutes): 55 Session Start Time : 1500 Session Stop Time : 1555 Cold pack applied to R shoulder with patient in sitting for 10 minutes at the end of the session. Cold pack time not included in billed treatment time. Katiana Winslow PTA documented in this encounter [facility] 11-18-2023 Note HNO ID: [id number] Author: ERICKA MURRAY, PT, DPT Service: ? Author Type: Physical Therapist Type: Progress Notes Filed: 11/18/2023 15:58 Note Text: Episode Visit Count: 26 Therapist That Will Accept/Oversee The Plan Of Care: Ericka Murray PT, DPT Start of Care Date: 08/19/23 Onset Date: 07/17/23 Plan of Care Certification Date: 11/16/23 Next Certification Due Date: 12/28/23 Patient Identified by Name and Date of : Yes REHABILITATION AND SPORTS THERAPY PHYSICAL THERAPY TREATMENT NOTE ASSESSMENT: Gloria Falcon tolerated the session with expected muscle soreness. He demonstrated difficulty with shoulder abduction and external rotation. He required verbal/visual cues for external rotation strengthening to decrease compensation of right triceps. The patient will continue to benefit from ongoing skilled physical therapy to continue with post-operative protocol. PLAN FOR NEXT VISIT: Increase resistance to blue band with mid/high row and shoulder extension with 2 x 10; Continue with Phase III includes: external and internal rotation, standing forward punch, rows, scapular mobilization, PRE's for periscapular strengthening. SUBJECTIVE: The patient reports his should is doing really well. Pain: Pain Pain Level: 0 OBJECTIVE MEASURES WITH LEVEL OF FUNCTION: No objective measurements taken this session. TREATMENT: Therapeutic Exercise: 2: Supine wand chest press and overhead flexion 2 x 15 each 2# 3: Seated shoulder abduction x 10 0# 4: Seated shoulder flexion with wand 2# 2 x 10 5: Standing wall rhythmic stabs at 90 degrees up/down x 20, clockwise x 10, counterclockwise x 10, side/side x 20 6: Shoulder ER with orange band 2 x 15 with towel 7: Shoulder IR with pink band 3 x 10 8: Mid row, green band 3 x 10 9: High row, green band, 2 x 15 10: Shoulder extension, green band 3 x 10 11: Wheel on wall flexion 2 x 10 with 5 seconds 12: Bent over horizontal abduction 0# x 10 13: Bent over row 3# 2 x 10, right 14: Bicep curl 4# 2 x10 15: Supine SA punch 3# 2 x 10 16: Supine shoulder flexion 0# x 10, eccentric control Skilled Intervention: Skilled judgment was used in selection of appropriate interventions. Correct performance of therapeutic exercises was facilitated with verbal, visual, and tactile cuing. Manual Therapy: 1: PROM to right shoulder flexion and ER with gradual progression to full for elevation. Skilled Intervention: Manual skills to improve joint mobility, ROM, and decrease pain. Utilized anatomy knowledge of the therapist, and assessment of patient's response to intervention. Cold pack applied to right shoulder with patient in seated for 10 minutes at the end of the session. Cold pack time not included in billed treatment time. Billing Therapeutic Exercise Treatment Minutes: 36 Manual TherapyTreatment Minutes: 5 Skilled Treatment Time Minutes (timed and untimed codes): 43 Total Session Time (minutes): 56 Session Start Time : 1500 Session Stop Time : 1556 Ericka Murray PT, DPT [facility] 11-18-2023 History of Presen t illness Narrative Episode Visit Count: 26 Therapist That Will Accept/Oversee The Plan Of Care: Ericka Murray PT, DPT Start of Care Date: 08/19/23 Onset Date: 07/17/23 Plan of Care Certification Date: 11/16/23 Next Certification Due Date: 12/28/23 Patient Identified by Name and Date of : Yes REHABILITATION AND SPORTS THERAPY PHYSICAL THERAPY TREATMENT NOTE ASSESSMENT: Gloria Falcon tolerated the session with expected muscle soreness. He demonstrated difficulty with shoulder abduction and external rotation. He required verbal/visual cues for external rotation strengthening to decrease compensation of right triceps. The patient will continue to benefit from ongoing skilled physical therapy to continue with post-operative protocol. PLAN FOR NEXT VISIT: Increase resistance to blue band with mid/high row and shoulder extension with 2 x 10; Continue with Phase III includes: external and internal rotation, standing forward punch, rows, scapular mobilization, PRE's for periscapular strengthening. SUBJECTIVE: The patient reports his should is doing really well. Pain: Pain Pain Level: 0 OBJECTIVE MEASURES WITH LEVEL OF FUNCTION: No objective measurements taken this session. TREATMENT: Therapeutic Exercise: 2: Supine wand chest press and overhead flexion 2 x 15 each 2# 3: Seated shoulder abduction x 10 0# 4: Seated shoulder flexion with wand 2# 2 x 10 5: Standing wall rhythmic stabs at 90 degrees up/down x 20, clockwise x 10, counterclockwise x 10, side/side x 20 6: Shoulder ER with orange band 2 x 15 with towel 7: Shoulder IR with pink band 3 x 10 8: Mid row, green band 3 x 10 9: High row, green band, 2 x 15 10: Shoulder extension, green band 3 x 10 11: Wheel on wall flexion 2 x 10 with 5 seconds 12: Bent over horizontal abduction 0# x 10 13: Bent over row 3# 2 x 10, right 14: Bicep curl 4# 2 x10 15: Supine SA punch 3# 2 x 10 16: Supine shoulder flexion 0# x 10, eccentric control Skilled Intervention: Skilled judgment was used in selection of appropriate interventions. Correct performance of therapeutic exercises was facilitated with verbal, visual, and tactile cuing. Manual Therapy: 1: PROM to right shoulder flexion and ER with gradual progression to full for elevation. Skilled Intervention: Manual skills to improve joint mobility, ROM, and decrease pain. Utilized anatomy knowledge of the therapist, and assessment of patient's response to intervention. Cold pack applied to right shoulder with patient in seated for 10 minutes at the end of the session. Cold pack time not included in billed treatment time. Billing Therapeutic Exercise Treatment Minutes: 36 Manual TherapyTreatment Minutes: 5 Skilled Treatment Time Minutes (timed and untimed codes): 43 Total Session Time (minutes): 56 Session Start Time : 1500 Session Stop Time : 1556 Ericka Murray PT, DPT documented in this encounter [facility] 11-16-2023 Note HNO ID: [id number] Author: ERICKA MURRAY PT, DPT Service: ? Author Type: Physical Therapist Type: Progress Notes Filed: 11/16/2023 16:02 Note Text: Episode Visit Count: 25 Therapist That Will Accept/Oversee The Plan Of Care: Ericka Murray PT, DPT Start of Care Date: 08/19/23 Onset Date: 07/17/23 Plan of Care Certification Date: 11/16/23 Next Certification Due Date: 12/28/23 Patient Identified by Name and Date of : Yes REHABILITATION AND SPORTS THERAPY PHYSICAL THERAPY PROGRESS REPORT PLAN OF CARE UPDATE: Assessment: Gloria Falcon demonstrates significant improvement in pulling, pushing, and carrying , moderate improvement in reaching overhead, use hand with arm at shoulder level, and driving, minimal improvement in reaching behind back, and no improvement in throwing. He has progressed toward goals. Patient continues to present with impairments in ADL's, range of motion, and strength that interfere with reaching behind back, reaching overhead, use hand with arm at shoulder level, driving, throwing, pulling, pushing, carrying . Current prognosis is Good due to: good overall health status, acuteness of condition, positive past response to therapy, Prognosis may be limited due to clinical presentation . The patient demonstrates minimal improvement in his range of motion and strength since last progress report. He has clunking with supine and sidelying shoulder abduction. We have avoided these motions. He will benefit from continued skilled therapy services to meet the updated goals for this plan of care as noted below. Addressed 11/16/2023 Goals for Episode of Care: created on 08/19/23 through 11/11/23 [place] in home exercise program. - Met Patient will decrease pain to 0/10 with functional activities to allow patient to improve ADLs. - Met Patient will increase active ROM of right shoulder flexion and abduction to 150 degrees, external rotation to 50 degrees, and internal rotation to L1 to allow pt to to improve performance of ADLs. - Progressing Patient will demonstrate increase in right shoulder strength to 4/5 during manual muscle testing in order to improve function for prior functional Tasks. - Progressing Planned Interventions, Frequency, and Duration: 2x/week, 6 weeks Total Number of Visits Planned: 12 Patient to be seen for Therapeutic exercise (47652), Manual therapy (59662), Neuromuscular re-education (49402), Therapeutic activities (13121), Self-halfway management (71224) PLAN FOR NEXT VISIT: * Discontinue rope and juliana scaption next session. Continue with Phase III includes: external and internal rotation, standing forward punch, rows, scapular mobilization, PRE's for periscapular strengthening. SUBJECTIVE: The patient reports he is doing well; no pain. Functional Limitations: reaching behind back, reaching overhead, use hand with arm at shoulder level, driving, throwing, pulling, pushing, carrying Pain: Pain Pain Level: 0 Post Treatment Pain Post Treatment Pain Level: Better PROMIS Scales T-scores: mean of general population = 50. 5 points is clinically meaningfully difference Percentiles provide an indication of how the patient's score ranks in relation to the general population. Higher percentile rankings indicate better function/quality of life. 50th percentile is the average of the general population and indicates half of respondents had a worse score. OBJECTIVE MEASURES WITH LEVEL OF FUNCTION: UE AROM R Shoulder Extension: 68 Degrees R Shoulder Flex: 119 Degrees (with minimal shoulder shrug) R Shoulder ABduction: 90 Degrees R Shoulder Internal Rotation (Functional): L5 R Shoulder External Rotation: 30 Degrees R Shoulder External Rotation (Functional): C7 UE and Cervical Strength R Shoulder Extension: 4/5 R Shoulder Flexion: 3/5 R Shoulder Abduction (C5): 3/5 R Shoulder Internal Rotation: 4/5 R Shoulder External Rotation: 4-/5 TREATMENT: Therapeutic Exercise: 2: Supine wand chest press and overhead flexion 2 x 15 each 2# (Increase weight) 3: Seated shoulder abduction x 10 0# 4: Seated shoulder flexion with wand 2# 2 x 10 5: Standing wall rhythmic stabs at 90 degrees up/down x 20, clockwise x 10, counterclockwise x 10, side/side x 20 6: Shoulder ER with orange band 2 x 15 with towel 7: Shoulder IR with pink band 3 x 10 8: Mid row, green band 3 x 10 9: High row, green band, 2 x 15 10: Shoulder extension, green band 3 x 10 11: Wheel on wall flexion 2 x 10 with 5 seconds 12: Rope and juliana flexion x 3 minutes with 5 second hold (Discontinue next session) 13: Rope and juliana scaption x 2 minutes with 5 second hold (Discontinue next session) Skilled Intervention: Skilled judgment was used in selection of appropriate interventions. Correct performance of therapeutic exercises was facilitated with verbal and visual cuing. Manual Therapy: 1: PROM to right shoulder fl (more content not included)... [facility] 11-16-2023 History of Presen t illness Narrative Episode Visit Count: 25 Therapist That Will Accept/Oversee The Plan Of Care: Ericka Murray PT, DPT Start of Care Date: 08/19/23 Onset Date: 07/17/23 Plan of Care Certification Date: 11/16/23 Next Certification Due Date: 12/28/23 Patient Identified by Name and Date of : Yes REHABILITATION AND SPORTS THERAPY PHYSICAL THERAPY PROGRESS REPORT PLAN OF CARE UPDATE: Assessment: Gloria Falcon demonstrates significant improvement in pulling, pushing, and carrying , moderate improvement in reaching overhead, use hand with arm at shoulder level, and driving, minimal improvement in reaching behind back, and no improvement in throwing. He has progressed toward goals. Patient continues to present with impairments in ADL's, range of motion, and strength that interfere with reaching behind back, reaching overhead, use hand with arm at shoulder level, driving, throwing, pulling, pushing, carrying . Current prognosis is Good due to: good overall health status, acuteness of condition, positive past response to therapy, Prognosis may be limited due to clinical presentation . The patient demonstrates minimal improvement in his range of motion and strength since last progress report. He has clunking with supine and sidelying shoulder abduction. We have avoided these motions. He will benefit from continued skilled therapy services to meet the updated goals for this plan of care as noted below. Addressed 11/16/2023 Goals for Episode of Care: created on 08/19/23 through 11/11/23 [place] in home exercise program. - Met Patient will decrease pain to 0/10 with functional activities to allow patient to improve ADLs. - Met Patient will increase active ROM of right shoulder flexion and abduction to 150 degrees, external rotation to 50 degrees, and internal rotation to L1 to allow pt to to improve performance of ADLs. - Progressing Patient will demonstrate increase in right shoulder strength to 4/5 during manual muscle testing in order to improve function for prior functional Tasks. - Progressing Planned Interventions, Frequency, and Duration: 2x/week, 6 weeks Total Number of Visits Planned: 12 Patient to be seen for Therapeutic exercise (96004), Manual therapy (91661), Neuromuscular re-education (59530), Therapeutic activities (40911), Self-halfway management ([id number]) PLAN FOR NEXT VISIT: * Discontinue rope and juliana scaption next session. Continue with Phase III includes: external and internal rotation, standing forward punch, rows, scapular mobilization, PRE's for periscapular strengthening. SUBJECTIVE: The patient reports he is doing well; no pain. Functional Limitations: reaching behind back, reaching overhead, use hand with arm at shoulder level, driving, throwing, pulling, pushing, carrying Pain: Pain Pain Level: 0 Post Treatment Pain Post Treatment Pain Level: Better PROMIS Scales T-scores: mean of general population = 50. 5 points is clinically meaningfully difference Percentiles provide an indication of how the patient's score ranks in relation to the general population. Higher percentile rankings indicate better function/quality of life. 50th percentile is the average of the general population and indicates half of respondents had a worse score. OBJECTIVE MEASURES WITH LEVEL OF FUNCTION: UE AROM R Shoulder Extension: 68 Degrees R Shoulder Flex: 119 Degrees (with minimal shoulder shrug) R Shoulder ABduction: 90 Degrees R Shoulder Internal Rotation (Functional): L5 R Shoulder External Rotation: 30 Degrees R Shoulder External Rotation (Functional): C7 UE and Cervical Strength R Shoulder Extension: 4/5 R Shoulder Flexion: 3/5 R Shoulder Abduction (C5): 3/5 R Shoulder Internal Rotation: 4/5 R Shoulder External Rotation: 4-/5 TREATMENT: Therapeutic Exercise: 2: Supine wand chest press and overhead flexion 2 x 15 each 2# (Increase weight) 3: Seated shoulder abduction x 10 0# 4: Seated shoulder flexion with wand 2# 2 x 10 5: Standing wall rhythmic stabs at 90 degrees up/down x 20, clockwise x 10, counterclockwise x 10, side/side x 20 6: Shoulder ER with orange band 2 x 15 with towel 7: Shoulder IR with pink band 3 x 10 8: Mid row, green band 3 x 10 9: High row, green band, 2 x 15 10: Shoulder extension, green band 3 x 10 11: Wheel on wall flexion 2 x 10 with 5 seconds 12: Rope and juliana flexion x 3 minutes with 5 second hold (Discontinue next session) 13: Rope and juliana scaption x 2 minutes with 5 second hold (Discontinue next session) Skilled Intervention: Skilled judgment was used in selection of appropriate interventions. Correct performance of therapeutic exercises was facilitated with verbal and visual cuing. Manual Therapy: 1: PROM to right shoulder flexion and ER with gradual progression to full for elevation. 2: Assessed goals Skilled Intervention: Manual skills to improve joint mobility, ROM, and decrease pain. Utilized anatomy knowledge of the therapist, and assessment of patient's response to intervention. Cold pack applied to right shoulder with patient in seated for 10 minutes at the end of the session. Cold pack time not included in billed treatment time. Billing Therapeutic Exercise Treatment Minutes: 30 Manual TherapyTreatment Minutes: 15 Skilled Treatment Time Minutes (timed and untimed codes): 45 Total Session Time (minutes): 59 Session Start Time : 1459 Session Stop Time : 1558 Ericka Murray PT, DPT documented in this encounter [facility] 11-11-2023 Note HNO ID: [id number] Author: GENEVIEVE STEARNS PTA Service: ? Author Type: Correctional Classification Counselor Type: Progress Notes Filed: 11/11/2023 16:43 Note Text: Episode Visit Count: 24 Therapist That Will Accept/Oversee The Plan Of Care: Ericka Murray PT, DPT Start of Care Date: 08/19/23 Onset Date: 07/17/23 Plan of Care Certification Date: 09/16/23 Next Certification Due Date: 12/09/23 Patient Identified by Name and Date of : Yes REHABILITATION AND SPORTS THERAPY PHYSICAL THERAPY TREATMENT NOTE ASSESSMENT: Gloria Falcon tolerated the session with no clunking this date as we avoided abduction and horizontal abduction. He demonstrated tolerance to addition of wand shoulder flexion seated to 90. The patient will continue to benefit from ongoing skilled physical therapy to progress toward set goals. PLAN FOR NEXT VISIT: Attempt shoulder abduction in standing next session. Continue with Phase III includes: external and internal rotation, standing forward punch, rows, scapular mobilization, PRE's for periscapular strengthening. SUBJECTIVE: Patient reported that his shoulder is not causing any pain and his hip is feeling better. Pain: Pain Pain Level: 0 Pain Level 2: 2 Pain Location 2: Hip - Right Post Treatment Pain Post Treatment Pain Level: No Change OBJECTIVE MEASURES WITH LEVEL OF FUNCTION: No objective measures taken this date. TREATMENT: Therapeutic Exercise: 2: Supine wand chest press and overhead flexion 2 x 15 each 1.5# 3: Supine flexion to 90 degrees 1.5# 2 x 10 4: Supine SA punch, 2# 3 x 10 5: Supine rhythmic stabs at 90 degrees up/down, clockwise, side/side x 1 minute each 6: Shoulder ER with orange band 2 x 15 with towel 7: Shoulder IR with pink band 3 x 10 8: Mid row, green band 3 x 10 9: High row, green band, 2 x 15 10: Shoulder extension, green band 3 x 10 11: Wheel on wall flexion 2 x 10 with 5 seconds 12: Rope and juliana flexion x 3 minutes with 5 second hold 13: Rope and juliana scaption x 2 minutes with 5 second hold 14: Seated shoulder flexion with wand 1# 2 x 10 reps Skilled Intervention: Patient was educated in proper exercise technique and purpose for exercises. Skilled judgment was used in selection of appropriate interventions. Manual Therapy: 1: PROM to right shoulder flexion and ER with gradual progression to full for elevation. Skilled Intervention: Manual skills to improve joint mobility, ROM, and decrease pain. Utilized anatomy knowledge of the therapist, and assessment of patient's response to intervention. Billing Therapeutic Exercise Treatment Minutes: 38 Manual TherapyTreatment Minutes: 5 Skilled Treatment Time Minutes (timed and untimed codes): 43 Total Session Time (minutes): 53 Session Start Time : 1501 Session Stop Time : 1554 Cold pack applied to right shoulder with patient in sitting with right UE elevated on pillow for 10 minutes at the end of the session. Cold pack time not included in billed treatment time. Genevieve Stearns [facility] 11-09-2023 Note HNO ID: [id number] Author: ERICKA MURRAY PT, DPT Service: ? Author Type: Physical Therapist Type: Progress Notes Filed: 11/09/2023 16:18 Note Text: Episode Visit Count: 23 Therapist That Will Accept/Oversee The Plan Of Care: Ericka Murray PT DPLizzie Start of Care Date: 08/19/23 Onset Date: 07/17/23 Plan of Care Certification Date: 09/16/23 Next Certification Due Date: 12/09/23 Patient Identified by Name and Date of : Yes REHABILITATION AND SPORTS THERAPY PHYSICAL THERAPY TREATMENT NOTE ASSESSMENT: Gloria Falcon tolerated the session with decreased symptoms. He demonstrated difficulty with external rotation with theraband. He required verbal, visual, and tactile cue to maintain 90 degrees of right elbow flexion. He tends to over compensate with extending his elbow. The patient had a clunk with supine abduction, which is a position we will avoid. The patient will continue to benefit from ongoing skilled physical therapy to continue with post-operative protocol. PLAN FOR NEXT VISIT: * Add Seated flexion wand to 90 degree with 1#. attempt shoulder abduction in standing next session. Continue with Phase III includes: external and internal rotation, standing forward punch, rows, scapular mobilization, PRE's for periscapular strengthening. SUBJECTIVE: The patient reports his shoulder is doing great, however he is having difficulty with his right hip now. He has difficulty with car transfers and putting shoes/socks on. Pain: Pain Pain Level: 1 Pain Location: Shoulder - Right Description: Aching Frequency: Intermittent Additional Pain Information : Location 2 Pain Level 2: 6 Pain Location 2: Hip - Right Description 2: Sharp Frequency 2: With movement Post Treatment Pain Post Treatment Pain Level: Better OBJECTIVE MEASURES WITH LEVEL OF FUNCTION: No objective measurements taken this session. TREATMENT: Therapeutic Exercise: 2: Supine wand chest press and overhead flexion 2 x 15 each 1.5# 4: Supine SA punch, 2# 3 x 10 5: Supine rhythmic stabs at 90 degrees up/down, clockwise, side/side x 1 minute each (Added clockwise) 6: Shoulder ER with orange band 2 x 15 with towel 7: Shoulder IR with pink band 3 x 10 (Increased resistance) 8: Mid row, green band 3 x 10 (Increase resistance) 9: High row, green band, 2 x 15 (Increase resistance) 10: Shoulder extension, green band 3 x 10 (Increase resistance) 11: Wheel on wall flexion 2 x 10 with 5 seconds 12: Rope and juliana flexion x 3 minutes with 5 second hold 13: Rope and juliana scaption x 2 minutes with 5 second hold Skilled Intervention: Skilled judgment was used in selection of appropriate interventions. Correct performance of therapeutic exercises was facilitated with verbal and visual cuing. Manual Therapy: 1: PROM to right shoulder flexion,scaption, horizontal abduction/adduction and ER with gradual progression to full for elevation. Skilled Intervention: Manual skills to improve joint mobility, ROM, and decrease pain. Utilized anatomy knowledge of the therapist, and assessment of patient's response to intervention. Cold pack applied to right shoulder with patient in seated for 10 minutes at the end of the session. Cold pack time not included in billed treatment time. Billing Therapeutic Exercise Treatment Minutes: 38 Manual TherapyTreatment Minutes: 5 Skilled Treatment Time Minutes (timed and untimed codes): 45 Total Session Time (minutes): 58 Session Start Time : 1502 Session Stop Time : 1600 Ericka Murray PT, DPT [facility] 11-09-2023 History of Presen t illness Narrative Episode Visit Count: 23 Therapist That Will Accept/Oversee The Plan Of Care: Ericka Murray PT, ADDY Start of Care Date: 08/19/23 Onset Date: 07/17/23 Plan of Care Certification Date: 09/16/23 Next Certification Due Date: 12/09/23 Patient Identified by Name and Date of : Yes REHABILITATION AND SPORTS THERAPY PHYSICAL THERAPY TREATMENT NOTE ASSESSMENT: Gloria Falcon tolerated the session with decreased symptoms. He demonstrated difficulty with external rotation with theraband. He required verbal, visual, and tactile cue to maintain 90 degrees of right elbow flexion. He tends to over compensate with extending his elbow. The patient had a clunk with supine abduction, which is a position we will avoid. The patient will continue to benefit from ongoing skilled physical therapy to continue with post-operative protocol. PLAN FOR NEXT VISIT: * Add Seated flexion wand to 90 degree with 1#. attempt shoulder abduction in standing next session. Continue with Phase III includes: external and internal rotation, standing forward punch, rows, scapular mobilization, PRE's for periscapular strengthening. SUBJECTIVE: The patient reports his shoulder is doing great, however he is having difficulty with his right hip now. He has difficulty with car transfers and putting shoes/socks on. Pain: Pain Pain Level: 1 Pain Location: Shoulder - Right Description: Aching Frequency: Intermittent Additional Pain Information : Location 2 Pain Level 2: 6 Pain Location 2: Hip - Right Description 2: Sharp Frequency 2: With movement Post Treatment Pain Post Treatment Pain Level: Better OBJECTIVE MEASURES WITH LEVEL OF FUNCTION: No objective measurements taken this session. TREATMENT: Therapeutic Exercise: 2: Supine wand chest press and overhead flexion 2 x 15 each 1.5# 4: Supine SA punch, 2# 3 x 10 5: Supine rhythmic stabs at 90 degrees up/down, clockwise, side/side x 1 minute each (Added clockwise) 6: Shoulder ER with orange band 2 x 15 with towel 7: Shoulder IR with pink band 3 x 10 (Increased resistance) 8: Mid row, green band 3 x 10 (Increase resistance) 9: High row, green band, 2 x 15 (Increase resistance) 10: Shoulder extension, green band 3 x 10 (Increase resistance) 11: Wheel on wall flexion 2 x 10 with 5 seconds 12: Rope and juliana flexion x 3 minutes with 5 second hold 13: Rope and juliana scaption x 2 minutes with 5 second hold Skilled Intervention: Skilled judgment was used in selection of appropriate interventions. Correct performance of therapeutic exercises was facilitated with verbal and visual cuing. Manual Therapy: 1: PROM to right shoulder flexion,scaption, horizontal abduction/adduction and ER with gradual progression to full for elevation. Skilled Intervention: Manual skills to improve joint mobility, ROM, and decrease pain. Utilized anatomy knowledge of the therapist, and assessment of patient's response to intervention. Cold pack applied to right shoulder with patient in seated for 10 minutes at the end of the session. Cold pack time not included in billed treatment time. Billing Therapeutic Exercise Treatment Minutes: 38 Manual TherapyTreatment Minutes: 5 Skilled Treatment Time Minutes (timed and untimed codes): 45 Total Session Time (minutes): 58 Session Start Time : 1502 Session Stop Time : 1600 Ericka Murray PT, DPT documented in this encounter [facility] 11-04-2023 Note HNO ID: [id number] Author: KATIANA WINSLOW PTA Service: ? Author Type: Correctional Classification Counselor Type: Progress Notes Filed: 11/04/2023 16:34 Note Text: Episode Visit Count: 22 Therapist That Will Accept/Oversee The Plan Of Care: Ericka Murray PT DPLizzie Start of Care Date: 08/19/23 Onset Date: 07/17/23 Plan of Care Certification Date: 09/16/23 Next Certification Due Date: 12/09/23 Patient Identified by Name and Date of : Yes REHABILITATION AND SPORTS THERAPY PHYSICAL THERAPY TREATMENT NOTE ASSESSMENT: Gloria Falcon tolerated the session with fatigue and no discomfort. We modified today's session and discontinued sidelying ex's. He was able to tolerate initiation of rhythmic stabilization and supine shoulder flexion to 90 degrees with cues to avoid clunking and to let us know if it occurs with any of the ex's. The patient will continue to benefit from ongoing skilled physical therapy to progress toward set goals. PLAN FOR NEXT VISIT: Continue with Phase III includes: external and internal rotation, standing forward punch, rows, scapular mobilization, PRE's for periscapular strengthening.attempt shoulder abduction in standing next session SUBJECTIVE: Pt without complaint and denied pain at this time. He notes that he uses his R arm for adl's and that he struggles with pouring water from gallon jugs into his aquariums Pain: Pain Pain Level: 0 Pain Location: Shoulder - Right Post Treatment Pain Post Treatment Pain Level: No Change OBJECTIVE MEASURES WITH LEVEL OF FUNCTION: TREATMENT: Therapeutic Exercise: 2: Supine wand chest press and overhead flexion 2 x 15 each 1.5# 3: Supine flexion to 90 degrees 0# 2 x 10 4: Supine SA punch, orange band 2 x 10 5: Supine rhythmic stabs at 90 degrees up/down,side/side x 1 minute each 6: Shoulder ER with orange band 2 x 15 7: Shoulder IR with orange band 2 x 15 8: Mid row, pink band 2 x 15 9: High row, pink band, 2 x 15 10: Shoulder extension, pink band 2 x 15 11: Wheel on wall flexion 2 x 10 with 5 seconds 12: Rope and juliana flexion x 3 minutes with 5 second hold 13: Rope and juliana scaption x 2 minutes with 5 second hold Skilled Intervention: Reviewed and educated patient on additions/changes for home exercise program . Skilled judgment was used in selection of appropriate interventions. Correct performance of therapeutic exercises was facilitated with verbal, visual, and tactile cuing. Manual Therapy: 1: PROM to right shoulder flexion,scaption, horizontal abduction/adduction and ER with gradual progression to full for elevation. Skilled Intervention: Manual skills to improve joint mobility, ROM, and decrease pain. Utilized anatomy knowledge of the therapist, and assessment of patient's response to intervention. Encouraged supine flexion to 90 degrees at this time Billing Therapeutic Exercise Treatment Minutes: 40 Manual TherapyTreatment Minutes: 10 Skilled Treatment Time Minutes (timed and untimed codes): 50 Total Session Time (minutes): 60 Session Start Time : 1505 Session Stop Time : 1605 Cold pack applied to R shoulder with patient in sitting for 10 minutes at the end of the session. Cold pack time not included in billed treatment time. Katiana Winslow [facility] 11-04-2023 History of Presen t illness Narrative Episode Visit Count: 22 Therapist That Will Accept/Oversee The Plan Of Care: Ericka Murray, PT, DPT Start of Care Date: 08/19/23 Onset Date: 07/17/23 Plan of Care Certification Date: 09/16/23 Next Certification Due Date: 12/09/23 Patient Identified by Name and Date of : Yes REHABILITATION AND SPORTS THERAPY PHYSICAL THERAPY TREATMENT NOTE ASSESSMENT: Gloria Falcon tolerated the session with fatigue and no discomfort. We modified today's session and discontinued sidelying ex's. He was able to tolerate initiation of rhythmic stabilization and supine shoulder flexion to 90 degrees with cues to avoid clunking and to let us know if it occurs with any of the ex's. The patient will continue to benefit from ongoing skilled physical therapy to progress toward set goals. PLAN FOR NEXT VISIT: Continue with Phase III includes: external and internal rotation, standing forward punch, rows, scapular mobilization, PRE's for periscapular strengthening.attempt shoulder abduction in standing next session SUBJECTIVE: Pt without complaint and denied pain at this time. He notes that he uses his R arm for adl's and that he struggles with pouring water from gallon jugs into his aquariums Pain: Pain Pain Level: 0 Pain Location: Shoulder - Right Post Treatment Pain Post Treatment Pain Level: No Change OBJECTIVE MEASURES WITH LEVEL OF FUNCTION: TREATMENT: Therapeutic Exercise: 2: Supine wand chest press and overhead flexion 2 x 15 each 1.5# 3: Supine flexion to 90 degrees 0# 2 x 10 4: Supine SA punch, orange band 2 x 10 5: Supine rhythmic stabs at 90 degrees up/down,side/side x 1 minute each 6: Shoulder ER with orange band 2 x 15 7: Shoulder IR with orange band 2 x 15 8: Mid row, pink band 2 x 15 9: High row, pink band, 2 x 15 10: Shoulder extension, pink band 2 x 15 11: Wheel on wall flexion 2 x 10 with 5 seconds 12: Rope and juliana flexion x 3 minutes with 5 second hold 13: Rope and juliana scaption x 2 minutes with 5 second hold Skilled Intervention: Reviewed and educated patient on additions/changes for home exercise program . Skilled judgment was used in selection of appropriate interventions. Correct performance of therapeutic exercises was facilitated with verbal, visual, and tactile cuing. Manual Therapy: 1: PROM to right shoulder flexion,scaption, horizontal abduction/adduction and ER with gradual progression to full for elevation. Skilled Intervention: Manual skills to improve joint mobility, ROM, and decrease pain. Utilized anatomy knowledge of the therapist, and assessment of patient's response to intervention. Encouraged supine flexion to 90 degrees at this time Billing Therapeutic Exercise Treatment Minutes: 40 Manual TherapyTreatment Minutes: 10 Skilled Treatment Time Minutes (timed and untimed codes): 50 Total Session Time (minutes): 60 Session Start Time : 1505 Session Stop Time : 1605 Cold pack applied to R shoulder with patient in sitting for 10 minutes at the end of the session. Cold pack time not included in billed treatment time. Katiana Winslow PTA documented in this encounter [facility] 11-02-2023 Note HNO ID: [id number] Author: KATIANA WINSLOW PTA Service: ? Author Type: Correctional Classification Counselor Type: Progress Notes Filed: 11/02/2023 16:10 Note Text: Episode Visit Count: 21 Therapist That Will Accept/Oversee The Plan Of Care: Ericka Murray, PT, DPT Start of Care Date: 08/19/23 Onset Date: 07/17/23 Plan of Care Certification Date: 09/16/23 Next Certification Due Date: 12/09/23 Patient Identified by Name and Date of : Yes REHABILITATION AND SPORTS THERAPY PHYSICAL THERAPY TREATMENT NOTE ASSESSMENT: Gloria Falcon tolerated the session with fatigue and expected muscle soreness. He demonstrated difficulty with continued clunking with supine and sidelying flexion and sidelying abduction so we held on those activities today. He demonstrated improvements in progression of resistance for wand ex's and high/mid/low rows. The patient will continue to benefit from ongoing skilled physical therapy to progress toward set goals. PLAN FOR NEXT VISIT: Continue with Phase III includes: external and internal rotation, standing forward punch, rows, scapular mobilization, PRE's for periscapular strengthening. SUBJECTIVE: Pt notes that he is doing well. He has some mild discomfort today. He was trying to get up off of the floor earlier today and he had some discomfort pushing to get up and noted that it was difficult. Pain: Pain Pain Level: 1 Pain Location: Shoulder - Right Post Treatment Pain Post Treatment Pain Level: No Change OBJECTIVE MEASURES WITH LEVEL OF FUNCTION: TREATMENT: Therapeutic Exercise: 2: Supine wand chest press and overhead flexion 2 x 15 each 1.5# (Increased resistance) 3: Sidelying posterior capsule stretch with hand on table 5 x 10 seconds 4: Sidelying ER w/towel roll 2 x 15 (Increased reps) 5: Supine flexion 0# 2 x 10 (Did not perform this activity due to clunking) 6: Sidelying abduction 2 x 10 0# (Held on this activity today) 7: Rope and juliana flexion x 3 minutes with 5 second hold 8: Rope and juliana scaption x 2 minutes with 5 second hold 9: Mid row, pink band 2 x 15 (Increased resistance) 10: High row, pink band, 2 x 15 (Increased resistance) 11: Shoulder extension, pink band 2 x 15 (Increased resistance) 12: Shoulder IR with orange band 2 x 15 13: Shoulder ER with orange band 2 x 15 14: Wheel on wall flexion 2 x 10 with 5 seconds 15: Supine SA punch, orange band 2 x 10 Skilled Intervention: Skilled judgment was used in selection of appropriate interventions. Correct performance of therapeutic exercises was facilitated with verbal, visual, and tactile cuing. Manual Therapy: 1: PROM to right shoulder flexion,scaption, horizontal abduction/adduction and ER with gradual progression to full for elevation. Skilled Intervention: Manual skills to improve joint mobility, ROM, and decrease pain. Utilized anatomy knowledge of the therapist, and assessment of patient's response to intervention. Billing Therapeutic Exercise Treatment Minutes: 35 Manual TherapyTreatment Minutes: 10 Skilled Treatment Time Minutes (timed and untimed codes): 45 Total Session Time (minutes): 58 Session Start Time : 1502 Session Stop Time : 1600 Cold pack applied to R shoulder with patient in sitting for 10 minutes at the end of the session. Cold pack time not included in billed treatment time. Katiana Winslow [facility] 11-02-2023 History of Presen t illness Narrative Episode Visit Count: 21 Therapist That Will Accept/Oversee The Plan Of Care: Ericka Murray PT, DPT Start of Care Date: 08/19/23 Onset Date: 07/17/23 Plan of Care Certification Date: 09/16/23 Next Certification Due Date: 12/09/23 Patient Identified by Name and Date of : Yes REHABILITATION AND SPORTS THERAPY PHYSICAL THERAPY TREATMENT NOTE ASSESSMENT: Gloria Falcon tolerated the session with fatigue and expected muscle soreness. He demonstrated difficulty with continued clunking with supine and sidelying flexion and sidelying abduction so we held on those activities today. He demonstrated improvements in progression of resistance for wand ex's and high/mid/low rows. The patient will continue to benefit from ongoing skilled physical therapy to progress toward set goals. PLAN FOR NEXT VISIT: Continue with Phase III includes: external and internal rotation, standing forward punch, rows, scapular mobilization, PRE's for periscapular strengthening. SUBJECTIVE: Pt notes that he is doing well. He has some mild discomfort today. He was trying to get up off of the floor earlier today and he had some discomfort pushing to get up and noted that it was difficult. Pain: Pain Pain Level: 1 Pain Location: Shoulder - Right Post Treatment Pain Post Treatment Pain Level: No Change OBJECTIVE MEASURES WITH LEVEL OF FUNCTION: TREATMENT: Therapeutic Exercise: 2: Supine wand chest press and overhead flexion 2 x 15 each 1.5# (Increased resistance) 3: Sidelying posterior capsule stretch with hand on table 5 x 10 seconds 4: Sidelying ER w/towel roll 2 x 15 (Increased reps) 5: Supine flexion 0# 2 x 10 (Did not perform this activity due to clunking) 6: Sidelying abduction 2 x 10 0# (Held on this activity today) 7: Rope and juliana flexion x 3 minutes with 5 second hold 8: Rope and juliana scaption x 2 minutes with 5 second hold 9: Mid row, pink band 2 x 15 (Increased resistance) 10: High row, pink band, 2 x 15 (Increased resistance) 11: Shoulder extension, pink band 2 x 15 (Increased resistance) 12: Shoulder IR with orange band 2 x 15 13: Shoulder ER with orange band 2 x 15 14: Wheel on wall flexion 2 x 10 with 5 seconds 15: Supine SA punch, orange band 2 x 10 Skilled Intervention: Skilled judgment was used in selection of appropriate interventions. Correct performance of therapeutic exercises was facilitated with verbal, visual, and tactile cuing. Manual Therapy: 1: PROM to right shoulder flexion,scaption, horizontal abduction/adduction and ER with gradual progression to full for elevation. Skilled Intervention: Manual skills to improve joint mobility, ROM, and decrease pain. Utilized anatomy knowledge of the therapist, and assessment of patient's response to intervention. Billing Therapeutic Exercise Treatment Minutes: 35 Manual TherapyTreatment Minutes: 10 Skilled Treatment Time Minutes (timed and untimed codes): 45 Total Session Time (minutes): 58 Session Start Time : 1502 Session Stop Time : 1600 Cold pack applied to R shoulder with patient in sitting for 10 minutes at the end of the session. Cold pack time not included in billed treatment time. Katiana Winslow PTA documented in this encounter [facility] 10-28-2023 Note HNO ID: [id number] Author: KATIANA WINSLOW PTA Service: ? Author Type: Correctional Classification Counselor Type: Progress Notes Filed: 10/28/2023 16:05 Note Text: Episode Visit Count: 20 Therapist That Will Accept/Oversee The Plan Of Care: Ericka Murray PT, DPT Start of Care Date: 08/19/23 Onset Date: 07/17/23 Plan of Care Certification Date: 09/16/23 Next Certification Due Date: 12/09/23 Patient Identified by Name and Date of : Yes REHABILITATION AND SPORTS THERAPY PHYSICAL THERAPY TREATMENT NOTE ASSESSMENT: Gloria Falcon tolerated the session with no change in pain. He demonstrated difficulty with attempt at shoulder abduction in sidelying , exhibiting clunking so we held on that activity today. He demonstrated improvements in tolerance with progression of reps for theraband activities. The patient will continue to benefit from ongoing skilled physical therapy to progress toward set goals. PLAN FOR NEXT VISIT: Continue with Phase III includes: external and internal rotation, standing forward punch, rows, scapular mobilization, PRE's for periscapular strengthening. SUBJECTIVE: Pt notes that his R shoulder is doing really well Pain: Pain Pain Level: 0 Pain Location: Shoulder - Right Post Treatment Pain Post Treatment Pain Level: No Change OBJECTIVE MEASURES WITH LEVEL OF FUNCTION: TREATMENT: Therapeutic Exercise: 1: Pendulum x 30 for/back,side/side,cw/ccw 2: Supine wand chest press and overhead flexion 2 x 15 each 1# 3: Sidelying posterior capsule stretch with hand on table 5 x 10 seconds 4: Sidelying ER w/towel roll 2 x 10 5: Supine flexion 0# 2 x 10 6: Sidelying abduction 2 x 10 0# (Not performed today due to clunking with movement) 7: Rope and juliana flexion x 3 minutes with 5 second hold 8: Rope and juliana scaption x 2 minutes with 5 second hold 9: Mid row, orange band 2 x 15 10: High row, orange band, 2 x 15 (Increased reps) 11: Shoulder extension, orange band 2 x 15 (Increased reps) 12: Shoulder IR with orange band 2 x 15 (Increased reps) 13: Shoulder ER with orange band 2 x 15 (Increased reps) 14: Wheel on wall flexion 2 x 10 with 5 seconds 15: Supine SA punch, orange band 2 x 10 Skilled Intervention: Skilled judgment was used in selection of appropriate interventions. Correct performance of therapeutic exercises was facilitated with verbal, visual, and tactile cuing. Manual Therapy: 1: PROM to right shoulder flexion,scaption, horizontal abduction/adduction and ER with gradual progression to full for elevation. Skilled Intervention: Manual skills to improve joint mobility, ROM, and decrease pain. Utilized anatomy knowledge of the therapist, and assessment of patient's response to intervention. Billing Therapeutic Exercise Treatment Minutes: 36 Manual TherapyTreatment Minutes: 8 Skilled Treatment Time Minutes (timed and untimed codes): 44 Total Session Time (minutes): 54 Session Start Time : 1503 Session Stop Time : 1557 Cold pack applied to R shoulder with patient in sitting for 10 minutes at the end of the session. Cold pack time not included in billed treatment time. Katiana Winslow [facility] 10-28-2023 History of Presen t illness Narrative Episode Visit Count: 20 Therapist That Will Accept/Oversee The Plan Of Care: Ericka Murray PT, DPT Start of Care Date: 08/19/23 Onset Date: 07/17/23 Plan of Care Certification Date: 09/16/23 Next Certification Due Date: 12/09/23 Patient Identified by Name and Date of : Yes REHABILITATION AND SPORTS THERAPY PHYSICAL THERAPY TREATMENT NOTE ASSESSMENT: Gloria Falcon tolerated the session with no change in pain. He demonstrated difficulty with attempt at shoulder abduction in sidelying , exhibiting clunking so we held on that activity today. He demonstrated improvements in tolerance with progression of reps for theraband activities. The patient will continue to benefit from ongoing skilled physical therapy to progress toward set goals. PLAN FOR NEXT VISIT: Continue with Phase III includes: external and internal rotation, standing forward punch, rows, scapular mobilization, PRE's for periscapular strengthening. SUBJECTIVE: Pt notes that his R shoulder is doing really well Pain: Pain Pain Level: 0 Pain Location: Shoulder - Right Post Treatment Pain Post Treatment Pain Level: No Change OBJECTIVE MEASURES WITH LEVEL OF FUNCTION: TREATMENT: Therapeutic Exercise: 1: Pendulum x 30 for/back,side/side,cw/ccw 2: Supine wand chest press and overhead flexion 2 x 15 each 1# 3: Sidelying posterior capsule stretch with hand on table 5 x 10 seconds 4: Sidelying ER w/towel roll 2 x 10 5: Supine flexion 0# 2 x 10 6: Sidelying abduction 2 x 10 0# (Not performed today due to clunking with movement) 7: Rope and juliana flexion x 3 minutes with 5 second hold 8: Rope and juliana scaption x 2 minutes with 5 second hold 9: Mid row, orange band 2 x 15 10: High row, orange band, 2 x 15 (Increased reps) 11: Shoulder extension, orange band 2 x 15 (Increased reps) 12: Shoulder IR with orange band 2 x 15 (Increased reps) 13: Shoulder ER with orange band 2 x 15 (Increased reps) 14: Wheel on wall flexion 2 x 10 with 5 seconds 15: Supine SA punch, orange band 2 x 10 Skilled Intervention: Skilled judgment was used in selection of appropriate interventions. Correct performance of therapeutic exercises was facilitated with verbal, visual, and tactile cuing. Manual Therapy: 1: PROM to right shoulder flexion,scaption, horizontal abduction/adduction and ER with gradual progression to full for elevation. Skilled Intervention: Manual skills to improve joint mobility, ROM, and decrease pain. Utilized anatomy knowledge of the therapist, and assessment of patient's response to intervention. Billing Therapeutic Exercise Treatment Minutes: 36 Manual TherapyTreatment Minutes: 8 Skilled Treatment Time Minutes (timed and untimed codes): 44 Total Session Time (minutes): 54 Session Start Time : 1503 Session Stop Time : 1557 Cold pack applied to R shoulder with patient in sitting for 10 minutes at the end of the session. Cold pack time not included in billed treatment time. Katiana Winslow PTA documented in this encounter [facility] 10-26-2023 History of Presen t illness Narrative Program_ID:[id number] Access Code: [email or web address] URL: [email or web address] Date: 10-26-2023 Prepared By: Ericka Murray Program Notes Exercises - Standing Shoulder Row with Anchored Resistance - 1 x daily - 1 x weekly - 2 sets - 10 reps - Shoulder extension with resistance - Neutral - 1 x daily - 1 x weekly - 2 sets - 10 reps - Standing High Row with Resistance - 1 x daily - 1 x weekly - 2 sets - 10 reps - Shoulder External Rotation with Anchored Resistance - 1 x daily - 1 x weekly - 2 sets - 10 reps - Shoulder Internal Rotation with Resistance - 1 x daily - 1 x weekly - 2 sets - 10 reps Episode Visit Count: 19 Therapist That Will Accept/Oversee The Plan Of Care: Ericka Murray PT, DPT Start of Care Date: 08/19/23 Onset Date: 07/17/23 Plan of Care Certification Date: 09/16/23 Next Certification Due Date: 12/09/23 Patient Identified by Name and Date of : Yes REHABILITATION AND SPORTS THERAPY PHYSICAL THERAPY TREATMENT NOTE ASSESSMENT: Gloria Falcon tolerated the session with decreased symptoms. He required verbal and tactile cues for correct performance of exercises. Patient had an occasional click with passive range of motion, but no pain. Patient provided with updated home exercise program to perform banded resistance 1x a week on Thursday or Thursday. The patient will continue to benefit from ongoing skilled physical therapy to continue with post-operative protocol. PLAN FOR NEXT VISIT: Continue with Phase III includes: external and internal rotation, standing forward punch, rows, scapular mobilization, PRE's for periscapular strengthening. SUBJECTIVE: The patient reports she is doing well. No c/o Pain: Pain Pain Level: 0 Pain Location: Shoulder - Right Post Treatment Pain Post Treatment Pain Level: Better OBJECTIVE MEASURES WITH LEVEL OF FUNCTION: No objective measurements taken this session. TREATMENT: Therapeutic Exercise: 1: Pendulum x 30 for/back,side/side,cw/ccw 2: Supine wand chest press and overhead flexion 2 x 15 each 1# 3: Sidelying posterior capsule stretch with hand on table 5 x 10 seconds 4: Sidelying ER w/towel roll 2 x 10 5: Supine flexion 0# 2 x 10 6: Sidelying abduction 2 x 10 0# 7: Rope and juliana flexion x 3 minutes with 5 second hold 8: Rope and juliana scaption x 2 minutes with 5 second hold 9: Mid row, orange band 2 x 15 10: High row, orange band, 2 x 10 11: Shoulder extension, orange band 2 x 10 12: Shoulder IR with orange band 2 x 10 13: Shoulder ER with orange band 2 x 10 14: Wheel on wall flexion 2 x 10 with 5 seconds 15: Supine SA punch, orange band 2 x 10 Skilled Intervention: Skilled judgment was used in selection of appropriate interventions. Correct performance of therapeutic exercises was facilitated with verbal and visual cuing. Manual Therapy: 1: PROM to right shoulder flexion,scaption, horizontal abduction/adduction and ER with gradual progression to full for elevation. Sidelying Horizontal adduction and abduction. Skilled Intervention: Manual skills to improve joint mobility, ROM, and decrease pain. Utilized anatomy knowledge of the therapist, and assessment of patient's response to intervention. Cold pack applied to left shoulder with patient in seated for 10 minutes at the end of the session. Cold pack time not included in billed treatment time. Billing Therapeutic Exercise Treatment Minutes: 32 Manual TherapyTreatment Minutes: 8 Skilled Treatment Time Minutes (timed and untimed codes): 40 Total Session Time (minutes): 50 Session Start Time : 1505 (Late and needed to use restroom) Session Stop Time : 1555 Ericka Murray PT, DPT documented in this encounter [facility] 10-26-2023 Note HNO ID: [id number] Author: ERICKA MURRAY PT, DPT Service: ? Author Type: Physical Therapist Type: Progress Notes Filed: 11/02/2023 15:19 Note Text: Episode Visit Count: 19 Therapist That Will Accept/Oversee The Plan Of Care: Ericka Olarewaju, PT, DPT Start of Care Date: 08/19/23 Onset Date: 07/17/23 Plan of Care Certification Date: 09/16/23 Next Certification Due Date: 12/09/23 Patient Identified by Name and Date of : Yes REHABILITATION AND SPORTS THERAPY PHYSICAL THERAPY TREATMENT NOTE ASSESSMENT: Gloria Falcon tolerated the session with decreased symptoms. He required verbal and tactile cues for correct performance of exercises. Patient had an occasional click/clucking with passive range of motion sidelying abduction and horizontal adduction, but no pain. Patient provided with updated home exercise program to perform banded resistance 1x a week on Thursday or Thursday. The patient will continue to benefit from ongoing skilled physical therapy to continue with post-operative protocol. PLAN FOR NEXT VISIT: Continue with Phase III includes: external and internal rotation, standing forward punch, rows, scapular mobilization, PRE's for periscapular strengthening. SUBJECTIVE: The patient reports she is doing well. No c/o Pain: Pain Pain Level: 0 Pain Location: Shoulder - Right Post Treatment Pain Post Treatment Pain Level: Better OBJECTIVE MEASURES WITH LEVEL OF FUNCTION: No objective measurements taken this session. TREATMENT: Therapeutic Exercise: 1: Pendulum x 30 for/back,side/side,cw/ccw 2: Supine wand chest press and overhead flexion 2 x 15 each 1# 3: Sidelying posterior capsule stretch with hand on table 5 x 10 seconds 4: Sidelying ER w/towel roll 2 x 10 5: Supine flexion 0# 2 x 10 6: Sidelying abduction 2 x 10 0# 7: Rope and juliana flexion x 3 minutes with 5 second hold 8: Rope and juliana scaption x 2 minutes with 5 second hold 9: Mid row, orange band 2 x 15 10: High row, orange band, 2 x 10 11: Shoulder extension, orange band 2 x 10 12: Shoulder IR with orange band 2 x 10 13: Shoulder ER with orange band 2 x 10 14: Wheel on wall flexion 2 x 10 with 5 seconds 15: Supine SA punch, orange band 2 x 10 Skilled Intervention: Skilled judgment was used in selection of appropriate interventions. Correct performance of therapeutic exercises was facilitated with verbal and visual cuing. Manual Therapy: 1: PROM to right shoulder flexion,scaption, horizontal abduction/adduction and ER with gradual progression to full for elevation. Sidelying Horizontal adduction and abduction. Skilled Intervention: Manual skills to improve joint mobility, ROM, and decrease pain. Utilized anatomy knowledge of the therapist, and assessment of patient's response to intervention. Cold pack applied to left shoulder with patient in seated for 10 minutes at the end of the session. Cold pack time not included in billed treatment time. Billing Therapeutic Exercise Treatment Minutes: 32 Manual TherapyTreatment Minutes: 8 Skilled Treatment Time Minutes (timed and untimed codes): 40 Total Session Time (minutes): 50 Session Start Time : 1505 (Late and needed to use restroom) Session Stop Time : 1555 Ericka Murray PT, DPT [facility] 10-21-2023 Note HNO ID: [id number] Author: KATIANA WINSLOW PTA Service: ? Author Type: Correctional Classification Counselor Type: Progress Notes Filed: 10/21/2023 16:21 Note Text: Episode Visit Count: 18 Therapist That Will Accept/Oversee The Plan Of Care: Ericka Murray PT, DPT Start of Care Date: 08/19/23 Onset Date: 07/17/23 Plan of Care Certification Date: 09/16/23 Next Certification Due Date: 12/09/23 Patient Identified by Name and Date of : Yes REHABILITATION AND SPORTS THERAPY PHYSICAL THERAPY TREATMENT NOTE ASSESSMENT: Gloria Falcon tolerated the session with decreased symptoms. He demonstrated improvements in his rom throughout. He tolerated progression of reps for supine flexion and mid/low rowing and IR with orange band. The patient will continue to benefit from ongoing skilled physical therapy to progress toward set goals. PLAN FOR NEXT VISIT: Phase II of protocol. He returns to doctor 10/08/2023. Patient will be 12 weeks postop on 10/16/2023. SUBJECTIVE: Pt is without complaint. He notes that he had to screw two lightbulbs in yesterday/ overhead. He notes that it was difficult but he did it. Pain: Pain Pain Level: 0 Pain Location: Shoulder - Right Post Treatment Pain Post Treatment Pain Level: 0 Post Treatment Pain Location: Shoulder - Right OBJECTIVE MEASURES WITH LEVEL OF FUNCTION: TREATMENT: Therapeutic Exercise: 1: Pendulum x 30 for/back,side/side,cw/ccw 2: Supine wand chest press and overhead flexion 2 x 15 each 1# 3: Sidelying posterior capsule stretch with hand on table 5 x 10 seconds 4: Sidelying ER w/towel roll 2 x 10 5: Supine flexion 0# 2 x 10 (Increased reps) 6: Sidelying abduction 2 x 10 0# 7: Rope and juliana scaption x 3 minutes with 5 second hold 8: Rope and juliana flexion x 2 minutes with 5 second hold 9: Mid row, orange band 2 x 15 (Increased rows) 10: High row, orange band, 2 x 10 11: Shoulder extension, orange band 2 x 10 12: Shoulder IR with orange band 2 x 10 13: Supine SA punch, orange band 2 x 10 14: Wheel on wall flexion 2 x 10 with 5 seconds Skilled Intervention: Skilled judgment was used in selection of appropriate interventions. Correct performance of therapeutic exercises was facilitated with verbal, visual, and tactile cuing. Manual Therapy: 1: PROM to right shoulder flexion,scaption, horizontal abduction/adduction and ER with gradual progression to full for elevation. 3: STM to right subscapularis Skilled Intervention: Manual skills to improve joint mobility, ROM, and decrease pain. Utilized anatomy knowledge of the therapist, and assessment of patient's response to intervention. Billing Therapeutic Exercise Treatment Minutes: 35 Manual TherapyTreatment Minutes: 20 Skilled Treatment Time Minutes (timed and untimed codes): 55 Total Session Time (minutes): 65 Session Start Time : 1500 Session Stop Time : 1605 Cold pack applied to R shoulder with patient in sitting for 10 minutes at the end of the session. Cold pack time not included in billed treatment time. Katiana Winslow [facility] 10-21-2023 History of Presen t illness Narrative Episode Visit Count: 18 Therapist That Will Accept/Oversee The Plan Of Care: Ericka Murray, PT, DPT Start of Care Date: 08/19/23 Onset Date: 07/17/23 Plan of Care Certification Date: 09/16/23 Next Certification Due Date: 12/09/23 Patient Identified by Name and Date of : Yes REHABILITATION AND SPORTS THERAPY PHYSICAL THERAPY TREATMENT NOTE ASSESSMENT: Gloria Falcon tolerated the session with decreased symptoms. He demonstrated improvements in his rom throughout. He tolerated progression of reps for supine flexion and mid/low rowing and IR with orange band. The patient will continue to benefit from ongoing skilled physical therapy to progress toward set goals. PLAN FOR NEXT VISIT: Phase II of protocol. He returns to doctor 10/08/2023. Patient will be 12 weeks postop on 10/16/2023. SUBJECTIVE: Pt is without complaint. He notes that he had to screw two lightbulbs in yesterday/ overhead. He notes that it was difficult but he did it. Pain: Pain Pain Level: 0 Pain Location: Shoulder - Right Post Treatment Pain Post Treatment Pain Level: 0 Post Treatment Pain Location: Shoulder - Right OBJECTIVE MEASURES WITH LEVEL OF FUNCTION: TREATMENT: Therapeutic Exercise: 1: Pendulum x 30 for/back,side/side,cw/ccw 2: Supine wand chest press and overhead flexion 2 x 15 each 1# 3: Sidelying posterior capsule stretch with hand on table 5 x 10 seconds 4: Sidelying ER w/towel roll 2 x 10 5: Supine flexion 0# 2 x 10 (Increased reps) 6: Sidelying abduction 2 x 10 0# 7: Rope and juliana scaption x 3 minutes with 5 second hold 8: Rope and juliana flexion x 2 minutes with 5 second hold 9: Mid row, orange band 2 x 15 (Increased rows) 10: High row, orange band, 2 x 10 11: Shoulder extension, orange band 2 x 10 12: Shoulder IR with orange band 2 x 10 13: Supine SA punch, orange band 2 x 10 14: Wheel on wall flexion 2 x 10 with 5 seconds Skilled Intervention: Skilled judgment was used in selection of appropriate interventions. Correct performance of therapeutic exercises was facilitated with verbal, visual, and tactile cuing. Manual Therapy: 1: PROM to right shoulder flexion,scaption, horizontal abduction/adduction and ER with gradual progression to full for elevation. 3: STM to right subscapularis Skilled Intervention: Manual skills to improve joint mobility, ROM, and decrease pain. Utilized anatomy knowledge of the therapist, and assessment of patient's response to intervention. Billing Therapeutic Exercise Treatment Minutes: 35 Manual TherapyTreatment Minutes: 20 Skilled Treatment Time Minutes (timed and untimed codes): 55 Total Session Time (minutes): 65 Session Start Time : 1500 Session Stop Time : 1605 Cold pack applied to R shoulder with patient in sitting for 10 minutes at the end of the session. Cold pack time not included in billed treatment time. Katiana Winslow PTA documented in this encounter [facility] 10-19-2023 Note HNO ID: [id number] Author: ERICKA MURRAY PT, ADDY Service: ? Author Type: Physical Therapist Type: Progress Notes Filed: 11/16/2023 15:11 Note Text: Episode Visit Count: 17 Therapist That Will Accept/Oversee The Plan Of Care: Ericka Murray PT, DPT Start of Care Date: 08/19/23 Onset Date: 07/17/23 Plan of Care Certification Date: 09/16/23 Next Certification Due Date: 12/09/23 Patient Identified by Name and Date of : Yes REHABILITATION AND SPORTS THERAPY PHYSICAL THERAPY PROGRESS REPORT PLAN OF CARE UPDATE: Assessment: Gloria Falcon demonstrates significant improvement in cleaning and cooking , moderate improvement in reaching behind back, reaching overhead, use hand with arm at shoulder level, pulling, pushing, and carrying, minimal improvement in driving, and no improvement in throwing. He has met 2/5 goals and progressed toward goals. Patient continues to present with impairments in ADL's, joint mobility, posture, range of motion, strength, and symptom management that interfere with reaching behind back, reaching overhead, use hand with arm at shoulder level, driving, throwing, pulling, pushing, carrying . Current prognosis is Good due to: good overall health status, acuteness of condition, positive past response to therapy, Prognosis may be limited due to clinical presentation . The patient is demonstrates overcompensation of upper trapezius with overhead stretching. He demonstrates tightness in his subscapularis and pectoral musculature which may be causing this as well. We have added soft tissue message and stretches to decrease the tightness/tenderness. He will benefit from continued skilled therapy services to meet the updated goals for this plan of care as noted below. Addressed 11/16/2023 Goals for Episode of Care: created on 08/19/23 through 11/11/23 [place] in home exercise program. - Met Patient will decrease pain to 0/10 with functional activities to allow patient to improve ADLs. - Met Patient will increase active ROM of right shoulder flexion and abduction to 150 degrees, external rotation to 50 degrees, and internal rotation to L1 to allow pt to to improve performance of ADLs. - Progressing Patient will demonstrate increase in right shoulder strength to 4/5 during manual muscle testing in order to improve function for prior functional Tasks. - Progressing Planned Interventions, Frequency, and Duration: 2x/week, 8 weeks Total Number of Visits Planned: 16 Patient to be seen for Therapeutic exercise (12858), Manual therapy (41480), Neuromuscular re-education (15940), Therapeutic activities (40503), Self-halfway management (73156) PLAN FOR NEXT VISIT: Phase II of protocol. He returns to doctor 10/08/2023. Patient will be 12 weeks postop on 10/16/2023. SUBJECTIVE: The patient reports he is doing well. He has seen some improvement. He returns to the doctor 12/03/2023. Functional Limitations: reaching behind back, reaching overhead, use hand with arm at shoulder level, driving, throwing, pulling, pushing, carrying Pain: Pain Pain Level: 0 Pain Location: Shoulder - Right PROMIS Scales T-scores: mean of general population = 50. 5 points is clinically meaningfully difference Percentiles provide an indication of how the patient's score ranks in relation to the general population. Higher percentile rankings indicate better function/quality of life. 50th percentile is the average of the general population and indicates half of respondents had a worse score. OBJECTIVE MEASURES WITH LEVEL OF FUNCTION: UE AROM R Shoulder Extension: 68 Degrees R Shoulder Flex: 110 Degrees (with minimal shoulder shrug) R Shoulder ABduction: 80 Degrees R Shoulder Internal Rotation (Functional): L PSIS R Shoulder External Rotation: 36 Degrees R Shoulder External Rotation (Functional): C5 UE and Cervical Strength R Shoulder Flexion: 4/5 R Shoulder Abduction (C5): 3-/5 R Shoulder Internal Rotation: 2+/5 R Shoulder External Rotation: 3/5 R Shoulder Horizontal ABduction: 3/5 TREATMENT: Therapeutic Exercise: 1: Pendulum x 30 for/back,side/side,cw/ccw 2: Supine wand chest press and overhead flexion 2 x 15 each 1# 3: Sidelying posterior capsule stretch with hand on table 5 x 10 seconds 4: Sidelying ER w/towel roll 2 x 10 5: Supine flexion 0# x 10 6: Sidelying abduction 2 x 10 0# 7: Rope and juliana scaption x 3 minutes with 5 second hold 8: Rope and juliana flexion x 2 minutes with 5 second hold 9: Mid row, orange band 2 x 10 10: High row, orange band, 2 x 10 11: Shoulder extension, orange band 2 x 10 12: Shoulder IR with orange band 2 x 10 13: Supine SA punch, orange band 2 x 10 14: Wheel on wall flexion 2 x 10 with 5 seconds Skilled Intervention: Skilled judgment was used in selection of appropriate interventions. Correct performance of therapeutic exercises was facilitated with verbal and visual cuing. Manual T (more content not included)... [facility] 10-19-2023 History of Presen t illness Narrative Episode Visit Count: 17 Therapist That Will Accept/Oversee The Plan Of Care: Ericka Murray, PT, DPT Start of Care Date: 08/19/23 Onset Date: 07/17/23 Plan of Care Certification Date: 09/16/23 Next Certification Due Date: 12/09/23 Patient Identified by Name and Date of : Yes REHABILITATION AND SPORTS THERAPY PHYSICAL THERAPY PROGRESS REPORT PLAN OF CARE UPDATE: Assessment: Gloria Falcon demonstrates significant improvement in cleaning and cooking , moderate improvement in reaching behind back, reaching overhead, use hand with arm at shoulder level, pulling, pushing, and carrying, minimal improvement in driving, and no improvement in throwing. He has met 2/5 goals and progressed toward goals. Patient continues to present with impairments in ADL's, joint mobility, posture, range of motion, strength, and symptom management that interfere with reaching behind back, reaching overhead, use hand with arm at shoulder level, driving, throwing, pulling, pushing, carrying . Current prognosis is Good due to: good overall health status, acuteness of condition, positive past response to therapy, Prognosis may be limited due to clinical presentation . The patient is demonstrates overcompensation of upper trapezius with overhead stretching. He demonstrates tightness in his subscapularis and pectoral musculature which may be causing this as well. We have added soft tissue message and stretches to decrease the tightness/tenderness. He will benefit from continued skilled therapy services to meet the updated goals for this plan of care as noted below. Addressed 10/19/2023 Goals for Episode of Care: created on 08/19/23 through 11/11/23 [place] in home exercise program. - Met Patient will decrease pain to 0/10 with functional activities to allow patient to improve ADLs. - Met Patient will increase active ROM of right shoulder flexion and abduction to 150 degrees, external rotation to 50 degrees, and internal rotation to L1 to allow pt to to improve performance of ADLs. - Progressing Patient will demonstrate increase in right shoulder strength to 4/5 during manual muscle testing in order to improve function for prior functional Tasks. - Progressing Planned Interventions, Frequency, and Duration: 2x/week, 8 weeks Total Number of Visits Planned: 16 Patient to be seen for Therapeutic exercise (97179), Manual therapy (94050), Neuromuscular re-education (22548), Therapeutic activities (53267), Self-halfway management (46747) PLAN FOR NEXT VISIT: Phase II of protocol. He returns to doctor 10/08/2023. Patient will be 12 weeks postop on 10/16/2023. SUBJECTIVE: The patient reports he is doing well. He has seen some improvement. He returns to the doctor 12/03/2023. Functional Limitations: reaching behind back, reaching overhead, use hand with arm at shoulder level, driving, throwing, pulling, pushing, carrying Pain: Pain Pain Level: 0 Pain Location: Shoulder - Right PROMIS Scales T-scores: mean of general population = 50. 5 points is clinically meaningfully difference Percentiles provide an indication of how the patient's score ranks in relation to the general population. Higher percentile rankings indicate better function/quality of life. 50th percentile is the average of the general population and indicates half of respondents had a worse score. OBJECTIVE MEASURES WITH LEVEL OF FUNCTION: UE AROM L Shoulder Extension: 68 Degrees L Shoulder Flex: 110 Degrees (with minimal shoulder shrug) L Shoulder ABduction: 80 Degrees L Shoulder Internal Rotation (Functional): L PSIS L Shoulder External Rotation: 36 Degrees L Shoulder External Rotation (Functional): C5 UE and Cervical Strength L Shoulder Extension: 4/5 L Shoulder Flexion: 3-/5 L Shoulder Abduction (C5): 2+/5 L Shoulder Internal Rotation: 3/5 L Shoulder External Rotation: 3/5 TREATMENT: Therapeutic Exercise: 1: Pendulum x 30 for/back,side/side,cw/ccw 2: Supine wand chest press and overhead flexion 2 x 15 each 1# 3: Sidelying posterior capsule stretch with hand on table 5 x 10 seconds 4: Sidelying ER w/towel roll 2 x 10 5: Supine flexion 0# x 10 6: Sidelying abduction 2 x 10 0# 7: Rope and juliana scaption x 3 minutes with 5 second hold 8: Rope and juliana flexion x 2 minutes with 5 second hold 9: Mid row, orange band 2 x 10 10: High row, orange band, 2 x 10 11: Shoulder extension, orange band 2 x 10 12: Shoulder IR with orange band 2 x 10 13: Supine SA punch, orange band 2 x 10 14: Wheel on wall flexion 2 x 10 with 5 seconds Skilled Intervention: Skilled judgment was used in selection of appropriate interventions. Correct performance of therapeutic exercises was facilitated with verbal and visual cuing. Manual Therapy: 1: PROM to right shoulder flexion,scaption, horizontal abduction/adduction and ER with gradual progression to full for elevation. 3: STM to right subscapularis Skilled Intervention: Manual skills to improve joint mobility, ROM, and decrease pain. Utilized anatomy knowledge of the therapist, and assessment of patient's response to intervention. Billing Therapeutic Exercise Treatment Minutes: 36 Manual TherapyTreatment Minutes: 24 Skilled Treatment Time Minutes (timed and untimed codes): 60 Total Session Time (minutes): 73 Session Start Time : 1501 Session Stop Time : 1614 Ericka Murray PT DPLizzie documented in this encounter [facility] 10-14-2023 History of Presen t illness Narrative Program_ID:[id number] Access Code: [email or web address] URL: [email or web address] Date: 10-14-2023 Prepared By: Ericka Murray Program Notes Exercises - Sidelying Shoulder External Rotation - 1 x daily - 7 x weekly - 3 sets - 10 reps - Shoulder External Rotation and Scapular Retraction - 1 x daily - 7 x weekly - 3 sets - 10 reps Episode Visit Count: 16 Therapist That Will Accept/Oversee The Plan Of Care: Ericka Murray PT DPT Start of Care Date: 08/19/23 Onset Date: 07/17/23 Plan of Care Certification Date: 09/16/23 Next Certification Due Date: 12/09/23 Patient Identified by Name and Date of : Yes REHABILITATION AND SPORTS THERAPY PHYSICAL THERAPY TREATMENT NOTE ASSESSMENT: Gloria Falcon tolerated the session with expected muscle soreness. He demonstrated difficulty with attempt at forward punch as he demonstrated substitution/shrugging of shoulder so we did not continue with that activity. He demonstrated improvements in tolerance with progression of range for both flexion and ER but required cues to avoid being too aggressive. He also tolerated addition of sidelying ER and standing bilateral shoulder ER. The patient will continue to benefit from ongoing skilled physical therapy to progress toward set goals. PLAN FOR NEXT VISIT: Phase II of protocol. He returns to doctor 10/08/2023. Patient will be 12 weeks postop on 10/16/2023. SUBJECTIVE: Pt notes that he is doing well and denies pain lately. He saw Dr. Burrell and he approved pt to do whatever you can tolerate in therapy. Pain: Pain Pain Level: 0 Pain Location: Shoulder - Right Post Treatment Pain Post Treatment Pain Level: 1 Post Treatment Pain Location: Shoulder - Right OBJECTIVE MEASURES WITH LEVEL OF FUNCTION: TREATMENT: Therapeutic Exercise: 1: Pendulum x 30 for/back,side/side,cw/ccw 2: Supine wand chest press and overhead flexion 2 x 15 each 1# (added resistance) 3: Supine AROM R shoulder flexion 2 x 15 4: *Sidelying ER w/towel roll 2 x 10 5: *Standing bilateral shoulder ER 2 x 10 6: Isometric shoulder flexion,abduction and extension at wall 2 x 10 each with 5 second hold 7: Rope and juliana scaption x 2 minutes with 5 second hold 8: Rope and juliana flexion x 2 minutes with 5 second hold 9: Standing posterior shoulder stretch x 5 w/10 sec hold 10: Standing IR and extension w/wand 2 x 15 with each 1# (added resistance) 11: Standing Scaption w/wand 2 x 15 1# (added resistance) Skilled Intervention: Patient was educated in proper exercise technique and purpose for exercises. Reviewed and educated patient on additions/changes for home exercise program as above (*). Skilled judgment was used in selection of appropriate interventions. Provided written instruction for home exercise program to facilitate proper performance and compliance. Correct performance of therapeutic exercises was facilitated with verbal, visual, and tactile cuing. Manual Therapy: 1: PROM to right shoulder flexion,scaption, and ER with gradual progression to full for elevation. Gentle stretch in standing for functional IR x 10 Skilled Intervention: Manual skills to improve joint mobility, ROM, and decrease pain. Utilized anatomy knowledge of the therapist, and assessment of patient's response to intervention. Home Exercise Program Assigned: 1: *Sidelying ER w/towel roll 2 x 10 2: *Standing bilateral shoulder ER 2 x 10 3: Access Code: [email or web address] URL: [email or web address] Date: 10/14/2023 Prepared by: KATIANA WINSLOW Exercises - Sidelying Shoulder External Rotation (Mirrored) - 1 x daily - 7 x weekly - 3 sets - 10 reps - 3 second hold - Shoulder External Rotation and Scapular Retraction - 1 x daily - 7 x weekly - 3 sets - 10 reps - 3 second hold Billing Therapeutic Exercise Treatment Minutes: 35 Manual TherapyTreatment Minutes: 10 Skilled Treatment Time Minutes (timed and untimed codes): 45 Total Session Time (minutes): 55 Session Start Time : 1716 Session Stop Time : 1811 Cold pack applied to R shoulder with patient in sitting for 10 minutes at the end of the session. Cold pack time not included in billed treatment time. Katiana Winslow PTA documented in this encounter [facility] 10-14-2023 Note HNO ID: [id number] Author: KATIANA WINSLOW PTA Service: ? Author Type: Correctional Classification Counselor Type: Progress Notes Filed: 10/14/2023 18:14 Note Text: Episode Visit Count: 16 Therapist That Will Accept/Oversee The Plan Of Care: Ericka Murray PT, DPT Start of Care Date: 08/19/23 Onset Date: 07/17/23 Plan of Care Certification Date: 09/16/23 Next Certification Due Date: 12/09/23 Patient Identified by Name and Date of : Yes REHABILITATION AND SPORTS THERAPY PHYSICAL THERAPY TREATMENT NOTE ASSESSMENT: Gloria Falcon tolerated the session with expected muscle soreness. He demonstrated difficulty with attempt at forward punch as he demonstrated substitution/shrugging of shoulder so we did not continue with that activity. He demonstrated improvements in tolerance with progression of range for both flexion and ER but required cues to avoid being too aggressive. He also tolerated addition of sidelying ER and standing bilateral shoulder ER. The patient will continue to benefit from ongoing skilled physical therapy to progress toward set goals. PLAN FOR NEXT VISIT: Phase II of protocol. He returns to doctor 10/08/2023. Patient will be 12 weeks postop on 10/16/2023. SUBJECTIVE: Pt notes that he is doing well and denies pain lately. He saw Dr. Burrell and he approved pt to do whatever you can tolerate in therapy. Pain: Pain Pain Level: 0 Pain Location: Shoulder - Right Post Treatment Pain Post Treatment Pain Level: 1 Post Treatment Pain Location: Shoulder - Right OBJECTIVE MEASURES WITH LEVEL OF FUNCTION: TREATMENT: Therapeutic Exercise: 1: Pendulum x 30 for/back,side/side,cw/ccw 2: Supine wand chest press and overhead flexion 2 x 15 each 1# (added resistance) 3: Supine AROM R shoulder flexion 2 x 15 4: *Sidelying ER w/towel roll 2 x 10 5: *Standing bilateral shoulder ER 2 x 10 6: Isometric shoulder flexion,abduction and extension at wall 2 x 10 each with 5 second hold 7: Rope and juliana scaption x 2 minutes with 5 second hold 8: Rope and juliana flexion x 2 minutes with 5 second hold 9: Standing posterior shoulder stretch x 5 w/10 sec hold 10: Standing IR and extension w/wand 2 x 15 with each 1# (added resistance) 11: Standing Scaption w/wand 2 x 15 1# (added resistance) Skilled Intervention: Patient was educated in proper exercise technique and purpose for exercises. Reviewed and educated patient on additions/changes for home exercise program as above (*). Skilled judgment was used in selection of appropriate interventions. Provided written instruction for home exercise program to facilitate proper performance and compliance. Correct performance of therapeutic exercises was facilitated with verbal, visual, and tactile cuing. Manual Therapy: 1: PROM to right shoulder flexion,scaption, and ER with gradual progression to full for elevation. Gentle stretch in standing for functional IR x 10 Skilled Intervention: Manual skills to improve joint mobility, ROM, and decrease pain. Utilized anatomy knowledge of the therapist, and assessment of patient's response to intervention. Home Exercise Program Assigned: 1: *Sidelying ER w/towel roll 2 x 10 2: *Standing bilateral shoulder ER 2 x 10 3: Access Code: [email or web address] URL: [email or web address] Date: 10/14/2023 Prepared by: KATIANA WINSLOW Exercises - Sidelying Shoulder External Rotation (Mirrored) - 1 x daily - 7 x weekly - 3 sets - 10 reps - 3 second hold - Shoulder External Rotation and Scapular Retraction - 1 x daily - 7 x weekly - 3 sets - 10 reps - 3 second hold Billing Therapeutic Exercise Treatment Minutes: 35 Manual TherapyTreatment Minutes: 10 Skilled Treatment Time Minutes (timed and untimed codes): 45 Total Session Time (minutes): 55 Session Start Time : 1716 Session Stop Time : 1811 Cold pack applied to R shoulder with patient in sitting for 10 minutes at the end of the session. Cold pack time not included in billed treatment time. Katiana Winslow PTA [facility] 10-07-2023 History of Presen t illness Narrative Program_ID:[id number] Access Code: [email or web address] URL: [email or web address] Date: 10-07-2023 Prepared By: Ericka Murray Program Notes Exercises - Supine Shoulder Flexion Extension Full Range AROM - 2 x daily - 7 x weekly - 3 sets - 10 reps - Standing Shoulder Posterior Capsule Stretch - 2 x daily - 7 x weekly - 1 sets - 5 reps Episode Visit Count: 15 Therapist That Will Accept/Oversee The Plan Of Care: Ericka Murray PT, DPT Start of Care Date: 08/19/23 Onset Date: 07/17/23 Plan of Care Certification Date: 09/16/23 Next Certification Due Date: 12/09/23 Patient Identified by Name and Date of : Yes REHABILITATION AND SPORTS THERAPY PHYSICAL THERAPY TREATMENT NOTE ASSESSMENT: Gloria Moreno Falcon tolerated the session with expected muscle soreness. He demonstrated improvements in progression of supine flexion to AROM and is demonstrating range to 120 degrees. He also tolerated the addition of posterior shoulder stretch and tolerated well. He is reporting minimal discomfort and is painfree at rest much of the time. The patient will continue to benefit from ongoing skilled physical therapy to progress toward set goals. PLAN FOR NEXT VISIT: Phase II of protocol. He returns to doctor 10/08/2023. Patient will be 12 weeks postop on 10/16/2023. SUBJECTIVE: Pt continues to do well and reports pain at 1/10 further noting that he is painfree if I don't think about it Pain: Pain Pain Level: 1 Pain Location: Shoulder - Right Description: Sore Frequency: Intermittent Post Treatment Pain Post Treatment Pain Level: No Change Post Treatment Pain Location: Shoulder - Right OBJECTIVE MEASURES WITH LEVEL OF FUNCTION: TREATMENT: Therapeutic Exercise: 1: Pendulum x 30 for/back,side/side,cw/ccw 2: Supine wand chest press and overhead flexion 2 x 15 each 3: *Supine AROM R shoulder flexion to 100 degrees 2 x 15 (Increased reps and no longer requiring assist) 4: Standing IR and extension w/wand 2 x 15 with each 5: Standing Scaption w/wand 2 x 15 8: Isometric shoulder flexion,abduction and extension at wall 2 x 10 each with 5 second hold 9: Rope and juliana scaption x 2 minutes with 5 second hold 10: Rope and juliana flexion x 2 minutes with 5 second hold 11: *Standing posterior shoulder stretch x 5 w/10 sec hold Skilled Intervention: Patient was educated in proper exercise technique and purpose for exercises. Reviewed and educated patient on additions/changes for home exercise program as above (*). Skilled judgment was used in selection of appropriate interventions. Provided written instruction for home exercise program to facilitate proper performance and compliance. Correct performance of therapeutic exercises was facilitated with verbal, visual, and tactile cuing. Manual Therapy: 1: PROM to right shoulder flexion,scaption, and ER with limitations to 30 degrees for ER and gradual progression to full for elevation. Gentle stretch in standing for functional IR x 10 Skilled Intervention: Manual skills to improve joint mobility, ROM, and decrease pain. Utilized anatomy knowledge of the therapist, and assessment of patient's response to intervention. Home Exercise Program Assigned: 1: *Supine AROM R shoulder flexion to 100 degrees 2 x 15 2: *Standing posterior shoulder stretch x 5 w/10 sec hold 3: Access Code: [email or web address] URL: [email or web address] Date: 10/07/2023 Prepared by: KATIANA WINSLOW Exercises - Supine Shoulder Flexion Extension Full Range AROM - 2 x daily - 7 x weekly - 3 sets - 10 reps - 2 second hold - Standing Shoulder Posterior Capsule Stretch (Mirrored) - 2 x daily - 7 x weekly - 1 sets - 5 reps - 10 second hold Billing Therapeutic Exercise Treatment Minutes: 40 Manual TherapyTreatment Minutes: 10 Skilled Treatment Time Minutes (timed and untimed codes): 50 Total Session Time (minutes): 60 Session Start Time : 1500 Session Stop Time : 1600 Katiana Winslow PTA documented in this encounter [facility] 10-07-2023 Note HNO ID: [id number] Author: KATIANA WINSLOW PTA Service: ? Author Type: Correctional Classification Counselor Type: Progress Notes Filed: 10/07/2023 16:16 Note Text: Episode Visit Count: 15 Therapist That Will Accept/Oversee The Plan Of Care: Ericka Murray PT, DPT Start of Care Date: 08/19/23 Onset Date: 07/17/23 Plan of Care Certification Date: 09/16/23 Next Certification Due Date: 12/09/23 Patient Identified by Name and Date of : Yes REHABILITATION AND SPORTS THERAPY PHYSICAL THERAPY TREATMENT NOTE ASSESSMENT: Gloria Falcon tolerated the session with expected muscle soreness. He demonstrated improvements in progression of supine flexion to AROM and is demonstrating range to 120 degrees. He also tolerated the addition of posterior shoulder stretch and tolerated well. He is reporting minimal discomfort and is painfree at rest much of the time. The patient will continue to benefit from ongoing skilled physical therapy to progress toward set goals. PLAN FOR NEXT VISIT: Phase II of protocol. He returns to doctor 10/08/2023. Patient will be 12 weeks postop on 10/16/2023. SUBJECTIVE: Pt continues to do well and reports pain at 1/10 further noting that he is painfree if I don't think about it Pain: Pain Pain Level: 1 Pain Location: Shoulder - Right Description: Sore Frequency: Intermittent Post Treatment Pain Post Treatment Pain Level: No Change Post Treatment Pain Location: Shoulder - Right OBJECTIVE MEASURES WITH LEVEL OF FUNCTION: TREATMENT: Therapeutic Exercise: 1: Pendulum x 30 for/back,side/side,cw/ccw 2: Supine wand chest press and overhead flexion 2 x 15 each 3: *Supine AROM R shoulder flexion to 100 degrees 2 x 15 (Increased reps and no longer requiring assist) 4: Standing IR and extension w/wand 2 x 15 with each 5: Standing Scaption w/wand 2 x 15 8: Isometric shoulder flexion,abduction and extension at wall 2 x 10 each with 5 second hold 9: Rope and juliana scaption x 2 minutes with 5 second hold 10: Rope and juliana flexion x 2 minutes with 5 second hold 11: *Standing posterior shoulder stretch x 5 w/10 sec hold Skilled Intervention: Patient was educated in proper exercise technique and purpose for exercises. Reviewed and educated patient on additions/changes for home exercise program as above (*). Skilled judgment was used in selection of appropriate interventions. Provided written instruction for home exercise program to facilitate proper performance and compliance. Correct performance of therapeutic exercises was facilitated with verbal, visual, and tactile cuing. Manual Therapy: 1: PROM to right shoulder flexion,scaption, and ER with limitations to 30 degrees for ER and gradual progression to full for elevation. Gentle stretch in standing for functional IR x 10 Skilled Intervention: Manual skills to improve joint mobility, ROM, and decrease pain. Utilized anatomy knowledge of the therapist, and assessment of patient's response to intervention. Home Exercise Program Assigned: 1: *Supine AROM R shoulder flexion to 100 degrees 2 x 15 2: *Standing posterior shoulder stretch x 5 w/10 sec hold 3: Access Code: [email or web address] URL: [email or web address] Date: 10/07/2023 Prepared by: KATIANA WINSLOW Exercises - Supine Shoulder Flexion Extension Full Range AROM - 2 x daily - 7 x weekly - 3 sets - 10 reps - 2 second hold - Standing Shoulder Posterior Capsule Stretch (Mirrored) - 2 x daily - 7 x weekly - 1 sets - 5 reps - 10 second hold Billing Therapeutic Exercise Treatment Minutes: 40 Manual TherapyTreatment Minutes: 10 Skilled Treatment Time Minutes (timed and untimed codes): 50 Total Session Time (minutes): 60 Session Start Time : 1500 Session Stop Time : 1600 Katiana Winslow [facility] 10-05-2023 Note HNO ID: [id number] Author: KATIANA WINSLOW PTA Service: ? Author Type: Correctional Classification Counselor Type: Progress Notes Filed: 10/05/2023 16:18 Note Text: Episode Visit Count: 14 Therapist That Will Accept/Oversee The Plan Of Care: Ericka Murray, PT, DPT Start of Care Date: 08/19/23 Onset Date: 07/17/23 Plan of Care Certification Date: 09/16/23 Next Certification Due Date: 12/09/23 Patient Identified by Name and Date of : Yes REHABILITATION AND SPORTS THERAPY PHYSICAL THERAPY TREATMENT NOTE ASSESSMENT: Gloria Falcon tolerated the session with expected muscle soreness. He demonstrated ability to tolerate increased reps for isometric shoulder flexion and extension as well as supine shoulder flexion AAROM but did demonstrate fatigue with the second set. He noted increased pain with reaching for his coat earlier today but reported it resolved and denied increased pain at this time. The patient will continue to benefit from ongoing skilled physical therapy to progress toward set goals. PLAN FOR NEXT VISIT: Phase II of protocol. He returns to doctor 10/08/2023. Patient will be 12 weeks postop on 10/16/2023. SUBJECTIVE: Pt notes that he reached up to take his coat off of a hook and he had a sharp pain in his R shoulder. He notes that the pain was shortlived and he is okay at this time. Pain: Pain Pain Level: 1 Pain Location: Shoulder - Right Description: Sore Frequency: Intermittent Post Treatment Pain Post Treatment Pain Level: No Change Post Treatment Pain Location: Shoulder - Right OBJECTIVE MEASURES WITH LEVEL OF FUNCTION: TREATMENT: Therapeutic Exercise: 1: Pendulum x 30 for/back,side/side,cw/ccw 2: Supine wand chest press and overhead flexion 2 x 15 each 3: Supine AAROM R shoulder flexion to 100 degrees 2 x 10 (increased reps and providing less assist) 4: Standing IR and extension w/wand 2 x 15 with each 5: Standing Scaption w/wand 2 x 15 6: Seated wrist flex/ext 2 x 10 3# 7: Seated supination/pronation,and radial/ulnar deviation 2 x 15 2# 8: Isometric shoulder flexion and extension at wall 2 x 10 each with 5 second hold (Increased reps) 9: Rope and juliana scaption x 2 minutes with 5 second hold 10: Rope and juliana flexion x 2 minutes with 5 second hold Skilled Intervention: Skilled judgment was used in selection of appropriate interventions. Correct performance of therapeutic exercises was facilitated with verbal, visual, and tactile cuing. Manual Therapy: 1: PROM to right shoulder flexion,scaption, and ER with limitations to 30 degrees for ER and gradual progression to full for elevation. Gentle stretch in standing for functional IR x 10 Skilled Intervention: Manual skills to improve joint mobility, ROM, and decrease pain. Utilized anatomy knowledge of the therapist, and assessment of patient's response to intervention. Billing Therapeutic Exercise Treatment Minutes: 35 Manual TherapyTreatment Minutes: 10 Skilled Treatment Time Minutes (timed and untimed codes): 45 Total Session Time (minutes): 55 Session Start Time : 1500 Session Stop Time : 1555 Cold pack applied to R shoulder with patient in sitting for 10 minutes at the end of the session. Cold pack time not included in billed treatment time. Katiana Winslow [facility] 10-05-2023 History of Presen t illness Narrative Episode Visit Count: 14 Therapist That Will Accept/Oversee The Plan Of Care: Ericka Murray, PT, DPT Start of Care Date: 08/19/23 Onset Date: 07/17/23 Plan of Care Certification Date: 09/16/23 Next Certification Due Date: 12/09/23 Patient Identified by Name and Date of : Yes REHABILITATION AND SPORTS THERAPY PHYSICAL THERAPY TREATMENT NOTE ASSESSMENT: Gloria Falcon tolerated the session with expected muscle soreness. He demonstrated ability to tolerate increased reps for isometric shoulder flexion and extension as well as supine shoulder flexion AAROM but did demonstrate fatigue with the second set. He noted increased pain with reaching for his coat earlier today but reported it resolved and denied increased pain at this time. The patient will continue to benefit from ongoing skilled physical therapy to progress toward set goals. PLAN FOR NEXT VISIT: Phase II of protocol. He returns to doctor 10/08/2023. Patient will be 12 weeks postop on 10/16/2023. SUBJECTIVE: Pt notes that he reached up to take his coat off of a hook and he had a sharp pain in his R shoulder. He notes that the pain was shortlived and he is okay at this time. Pain: Pain Pain Level: 1 Pain Location: Shoulder - Right Description: Sore Frequency: Intermittent Post Treatment Pain Post Treatment Pain Level: No Change Post Treatment Pain Location: Shoulder - Right OBJECTIVE MEASURES WITH LEVEL OF FUNCTION: TREATMENT: Therapeutic Exercise: 1: Pendulum x 30 for/back,side/side,cw/ccw 2: Supine wand chest press and overhead flexion 2 x 15 each 3: Supine AAROM R shoulder flexion to 100 degrees 2 x 10 (increased reps and providing less assist) 4: Standing IR and extension w/wand 2 x 15 with each 5: Standing Scaption w/wand 2 x 15 6: Seated wrist flex/ext 2 x 10 3# 7: Seated supination/pronation,and radial/ulnar deviation 2 x 15 2# 8: Isometric shoulder flexion and extension at wall 2 x 10 each with 5 second hold (Increased reps) 9: Rope and juliana scaption x 2 minutes with 5 second hold 10: Rope and juliana flexion x 2 minutes with 5 second hold Skilled Intervention: Skilled judgment was used in selection of appropriate interventions. Correct performance of therapeutic exercises was facilitated with verbal, visual, and tactile cuing. Manual Therapy: 1: PROM to right shoulder flexion,scaption, and ER with limitations to 30 degrees for ER and gradual progression to full for elevation. Gentle stretch in standing for functional IR x 10 Skilled Intervention: Manual skills to improve joint mobility, ROM, and decrease pain. Utilized anatomy knowledge of the therapist, and assessment of patient's response to intervention. Billing Therapeutic Exercise Treatment Minutes: 35 Manual TherapyTreatment Minutes: 10 Skilled Treatment Time Minutes (timed and untimed codes): 45 Total Session Time (minutes): 55 Session Start Time : 1500 Session Stop Time : 1555 Cold pack applied to R shoulder with patient in sitting for 10 minutes at the end of the session. Cold pack time not included in billed treatment time. Katiana Winslow PTA documented in this encounter [facility] 09-30-2023 Note HNO ID: [id number] Author: ERICKA MURRAY PT, DPT Service: ? Author Type: Physical Therapist Type: Progress Notes Filed: 09/30/2023 16:09 Note Text: Episode Visit Count: 13 Therapist That Will Accept/Oversee The Plan Of Care: Ericka Murray PT, DPT Start of Care Date: 08/19/23 Onset Date: 07/17/23 Plan of Care Certification Date: 09/16/23 Next Certification Due Date: 12/09/23 Patient Identified by Name and Date of : Yes REHABILITATION AND SPORTS THERAPY PHYSICAL THERAPY TREATMENT NOTE ASSESSMENT: Gloria Falcon tolerated the session with expected muscle soreness. He demonstrated difficulty with end range shoulder flexion with passive range of motion. The patient will continue to benefit from ongoing skilled physical therapy to continue with post-operative protocol. PLAN FOR NEXT VISIT: Phase II of protocol. He returns to doctor 10/08/2023. Patient will be 12 weeks postop on 10/16/2023. SUBJECTIVE: The patient had difficulty time putting his sock on today. Pain: Pain Pain Level: 1 Pain Location: Shoulder - Right Description: Sore Frequency: Intermittent Post Treatment Pain Post Treatment Pain Level: 2 Post Treatment Pain Location: Shoulder - Right OBJECTIVE MEASURES WITH LEVEL OF FUNCTION: No objective measurements taken this session. TREATMENT: Therapeutic Exercise: 1: Pendulum x 30 for/back,side/side,cw/ccw 2: Supine wand chest press and overhead flexion 2 x 15 each 3: Supine AAROM R shoulder flexion to 100 degrees x 10 4: Standing IR and extension w/wand 2 x 15 with each 5: Standing Scaption w/wand 2 x 15 6: Seated wrist flex/ext 2 x 10 3# 7: Seated supination/pronation,and radial/ulnar deviation 2 x 15 2# 9: Rope and juliana scaption x 2 minutes with 5 second hold 10: Rope and juliana flexion x 2 minutes with 5 second hold Skilled Intervention: Skilled judgment was used in selection of appropriate interventions. Correct performance of therapeutic exercises was facilitated with verbal and visual cuing. Manual Therapy: 1: PROM to right shoulder flexion,scaption, and ER with limitations to 30 degrees for ER and gradual progression to full for elevation. Gentle stretch in standing for functional IR x 10 Skilled Intervention: Manual skills to improve joint mobility, ROM, and decrease pain. Utilized anatomy knowledge of the therapist, and assessment of patient's response to intervention. Cold pack applied to right shoulder with patient in seated for 10 minutes at the end of the session. Cold pack time not included in billed treatment time. Billing Therapeutic Exercise Treatment Minutes: 29 Manual TherapyTreatment Minutes: 10 Skilled Treatment Time Minutes (timed and untimed codes): 41 Total Session Time (minutes): 52 Session Start Time : 1503 Session Stop Time : 1555 Ericka Murray PT, DPT [facility] 09-30-2023 History of Presen t illness Narrative Episode Visit Count: 13 Therapist That Will Accept/Oversee The Plan Of Care: Ericka Murray PT, DPT Start of Care Date: 08/19/23 Onset Date: 07/17/23 Plan of Care Certification Date: 09/16/23 Next Certification Due Date: 12/09/23 Patient Identified by Name and Date of : Yes REHABILITATION AND SPORTS THERAPY PHYSICAL THERAPY TREATMENT NOTE ASSESSMENT: Gloria Falcon tolerated the session with expected muscle soreness. He demonstrated difficulty with end range shoulder flexion with passive range of motion. The patient will continue to benefit from ongoing skilled physical therapy to continue with post-operative protocol. PLAN FOR NEXT VISIT: Phase II of protocol. He returns to doctor 10/08/2023. Patient will be 12 weeks postop on 10/16/2023. SUBJECTIVE: The patient had difficulty time putting his sock on today. Pain: Pain Pain Level: 1 Pain Location: Shoulder - Right Description: Sore Frequency: Intermittent Post Treatment Pain Post Treatment Pain Level: 2 Post Treatment Pain Location: Shoulder - Right OBJECTIVE MEASURES WITH LEVEL OF FUNCTION: No objective measurements taken this session. TREATMENT: Therapeutic Exercise: 1: Pendulum x 30 for/back,side/side,cw/ccw 2: Supine wand chest press and overhead flexion 2 x 15 each 3: Supine AAROM R shoulder flexion to 100 degrees x 10 4: Standing IR and extension w/wand 2 x 15 with each 5: Standing Scaption w/wand 2 x 15 6: Seated wrist flex/ext 2 x 10 3# 7: Seated supination/pronation,and radial/ulnar deviation 2 x 15 2# 9: Rope and juliana scaption x 2 minutes with 5 second hold 10: Rope and juliana flexion x 2 minutes with 5 second hold Skilled Intervention: Skilled judgment was used in selection of appropriate interventions. Correct performance of therapeutic exercises was facilitated with verbal and visual cuing. Manual Therapy: 1: PROM to right shoulder flexion,scaption, and ER with limitations to 30 degrees for ER and gradual progression to full for elevation. Gentle stretch in standing for functional IR x 10 Skilled Intervention: Manual skills to improve joint mobility, ROM, and decrease pain. Utilized anatomy knowledge of the therapist, and assessment of patient's response to intervention. Cold pack applied to right shoulder with patient in seated for 10 minutes at the end of the session. Cold pack time not included in billed treatment time. Billing Therapeutic Exercise Treatment Minutes: 29 Manual TherapyTreatment Minutes: 10 Skilled Treatment Time Minutes (timed and untimed codes): 41 Total Session Time (minutes): 52 Session Start Time : 1503 Session Stop Time : 1555 Ericka Murray PT, DPT documented in this encounter [facility] 09-28-2023 Note HNO ID: [id number] Author: ERICKA MURRAY PT, DPT Service: ? Author Type: Physical Therapist Type: Progress Notes Filed: 09/28/2023 16:26 Note Text: Episode Visit Count: 12 Therapist That Will Accept/Oversee The Plan Of Care: Ericka Murray PT, DPT Start of Care Date: 08/19/23 Onset Date: 07/17/23 Plan of Care Certification Date: 09/16/23 Next Certification Due Date: 12/09/23 Patient Identified by Name and Date of : Yes REHABILITATION AND SPORTS THERAPY PHYSICAL THERAPY TREATMENT NOTE ASSESSMENT: Gloria Falcon tolerated the session with no issues. He improvements in right shoulder passive range of motion. The patient is progressing well with physical therapy. He returns to the doctor next week. The patient will continue to benefit from ongoing skilled physical therapy to continue with post-operative protocol. PLAN FOR NEXT VISIT: Phase II of protocol. He returns to doctor 10/08/2023. Patient will be 12 weeks postop on 10/16/2023. SUBJECTIVE: The patient reports he can put his socks on and wash his hair. However he still has difficulty with reaching his arm overhead. My shoulder is feeling better now than before surgery. Pain: Pain Pain Level: 1 Pain Location: Shoulder - Right Description: Sore Frequency: Intermittent OBJECTIVE MEASURES WITH LEVEL OF FUNCTION: No objective measurements taken this session. UE PROM R Shoulder Flex: 142 Degrees R Shoulder External Rotation: 30 Degrees TREATMENT: Therapeutic Exercise: 1: Pendulum x 30 for/back,side/side,cw/ccw 2: Supine wand chest press and overhead flexion 2 x 15 each 3: Supine AAROM R shoulder flexion to 90 degrees x 10 4: Standing IR and extension w/wand 2 x 15 with each 5: Standing Scaption w/wand 2 x 15 6: Seated wrist flex/ext,supination/pronation,an d radial/ulnar deviation 2 x 15 2# 8: Isometric shoulder flexion and extension at wall 1 x 15 each with 5 second hold 9: Rope and juliana scaption x 2 minutes with 5 second hold 10: Rope and juliana flexion x 2 minutes with 5 second hold Skilled Intervention: Skilled judgment was used in selection of appropriate interventions. Correct performance of therapeutic exercises was facilitated with verbal and visual cuing. Manual Therapy: 1: PROM to right shoulder flexion,scaption, and ER with limitations to 30 degrees for ER and gradual progression to full for elevation. Gentle stretch in standing for functional IR x 10 Skilled Intervention: Manual skills to improve joint mobility, ROM, and decrease pain. Utilized anatomy knowledge of the therapist, and assessment of patient's response to intervention. Cold pack applied to right shoulder with patient in seated for 10 minutes at the end of the session. Cold pack time not included in billed treatment time. Billing Therapeutic Exercise Treatment Minutes: 30 Manual TherapyTreatment Minutes: 15 Skilled Treatment Time Minutes (timed and untimed codes): 45 Total Session Time (minutes): 60 Session Start Time : 1456 Session Stop Time : 1556 Ericka Murray PT, DPT [facility] 09-28-2023 History of Presen t illness Narrative Episode Visit Count: 12 Therapist That Will Accept/Oversee The Plan Of Care: Ericka Murray PT, DPT Start of Care Date: 08/19/23 Onset Date: 07/17/23 Plan of Care Certification Date: 09/16/23 Next Certification Due Date: 12/09/23 Patient Identified by Name and Date of : Yes REHABILITATION AND SPORTS THERAPY PHYSICAL THERAPY TREATMENT NOTE ASSESSMENT: Gloria Falcon tolerated the session with no issues. He improvements in right shoulder passive range of motion. The patient is progressing well with physical therapy. He returns to the doctor next week. The patient will continue to benefit from ongoing skilled physical therapy to continue with post-operative protocol. PLAN FOR NEXT VISIT: Phase II of protocol. He returns to doctor 10/08/2023. Patient will be 12 weeks postop on 10/16/2023. SUBJECTIVE: The patient reports he can put his socks on and wash his hair. However he still has difficulty with reaching his arm overhead. My shoulder is feeling better now than before surgery. Pain: Pain Pain Level: 1 Pain Location: Shoulder - Right Description: Sore Frequency: Intermittent OBJECTIVE MEASURES WITH LEVEL OF FUNCTION: No objective measurements taken this session. UE PROM R Shoulder Flex: 142 Degrees R Shoulder External Rotation: 30 Degrees TREATMENT: Therapeutic Exercise: 1: Pendulum x 30 for/back,side/side,cw/ccw 2: Supine wand chest press and overhead flexion 2 x 15 each 3: Supine AAROM R shoulder flexion to 90 degrees x 10 4: Standing IR and extension w/wand 2 x 15 with each 5: Standing Scaption w/wand 2 x 15 6: Seated wrist flex/ext,supination/pronation,an d radial/ulnar deviation 2 x 15 2# 8: Isometric shoulder flexion and extension at wall 1 x 15 each with 5 second hold 9: Rope and juliana scaption x 2 minutes with 5 second hold 10: Rope and juliana flexion x 2 minutes with 5 second hold Skilled Intervention: Skilled judgment was used in selection of appropriate interventions. Correct performance of therapeutic exercises was facilitated with verbal and visual cuing. Manual Therapy: 1: PROM to right shoulder flexion,scaption, and ER with limitations to 30 degrees for ER and gradual progression to full for elevation. Gentle stretch in standing for functional IR x 10 Skilled Intervention: Manual skills to improve joint mobility, ROM, and decrease pain. Utilized anatomy knowledge of the therapist, and assessment of patient's response to intervention. Cold pack applied to right shoulder with patient in seated for 10 minutes at the end of the session. Cold pack time not included in billed treatment time. Billing Therapeutic Exercise Treatment Minutes: 30 Manual TherapyTreatment Minutes: 15 Skilled Treatment Time Minutes (timed and untimed codes): 45 Total Session Time (minutes): 60 Session Start Time : 1456 Session Stop Time : 1556 Ericka Murray PT, DPT documented in this encounter [facility] 09-23-2023 Note HNO ID: [id number] Author: KATIANA WINSLOW PTA Service: ? Author Type: Correctional Classification Counselor Type: Progress Notes Filed: 09/23/2023 16:31 Note Text: Episode Visit Count: 11 Therapist That Will Accept/Oversee The Plan Of Care: Ericka Murray, PT, DPT Start of Care Date: 08/19/23 Onset Date: 07/17/23 Plan of Care Certification Date: 09/16/23 Next Certification Due Date: 12/09/23 Patient Identified by Name and Date of : Yes REHABILITATION AND SPORTS THERAPY PHYSICAL THERAPY TREATMENT NOTE ASSESSMENT: Gloria Falcon tolerated the session with pain following ex's but pain calmed after cold packs. He demonstrated difficulty with AAROM flexion upon lowering so we will see how he felt later today to determine if we continue with that activity. He tolerated the remainder of the ex's without complaint but required occ cues for execution. The patient will continue to benefit from ongoing skilled physical therapy to progress toward set goals. PLAN FOR NEXT VISIT: Phase II of protocol. He returns to doctor 10/08/2023. Patient will be 12 weeks postop on 10/16/2023. SUBJECTIVE: Pt notes that he is doing well and is able to use his R arm for some adl's and hygiene with greater ease. Pain: Pain Pain Level: 2 Pain Location: Shoulder - Right Description: Sore Frequency: Intermittent Post Treatment Pain Post Treatment Pain Level: 2 Post Treatment Pain Location: Shoulder - Right OBJECTIVE MEASURES WITH LEVEL OF FUNCTION: TREATMENT: Therapeutic Exercise: 1: Pendulum x 30 for/back,side/side,cw/ccw 2: Supine wand chest press 2 x 15 each; supine wand flexion with elbows straight 2 x 15 3: Supine AAROM R shoulder flexion to 90 degrees x 10 4: Standing IR and extension w/wand 2 x 15 with each 5: Standing Scaption w/wand 2 x 15 8: Isometric shoulder flexion and abduction at wall 2 x 15 each 9: Rope and juliana scaption x 2 minutes with 5 second hold 10: Rope and juliana flexion x 2 minutes with 5 second hold Skilled Intervention: Skilled judgment was used in selection of appropriate interventions. Correct performance of therapeutic exercises was facilitated with verbal, visual, and tactile cuing. Manual Therapy: 1: PROM to right shoulder flexion,scaption, and ER with limitations to 30 degrees for ER and gradual progression to full for elevation. Gentle stretch in standing for functional IR x 10 Skilled Intervention: Manual skills to improve joint mobility, ROM, and decrease pain. Utilized anatomy knowledge of the therapist, and assessment of patient's response to intervention. Billing Therapeutic Exercise Treatment Minutes: 30 Manual TherapyTreatment Minutes: 15 Skilled Treatment Time Minutes (timed and untimed codes): 45 Total Session Time (minutes): 55 Session Start Time : 1507 Session Stop Time : 1602 Cold pack applied to R shoulder with patient in sitting for 10 minutes at the end of the session. Cold pack time not included in billed treatment time. Katiana Winslow [facility] 09-23-2023 History of Presen t illness Narrative Episode Visit Count: 11 Therapist That Will Accept/Oversee The Plan Of Care: Ericka Murray, PT, DPT Start of Care Date: 08/19/23 Onset Date: 07/17/23 Plan of Care Certification Date: 09/16/23 Next Certification Due Date: 12/09/23 Patient Identified by Name and Date of : Yes REHABILITATION AND SPORTS THERAPY PHYSICAL THERAPY TREATMENT NOTE ASSESSMENT: Gloria Falcon tolerated the session with pain following ex's but pain calmed after cold packs. He demonstrated difficulty with AAROM flexion upon lowering so we will see how he felt later today to determine if we continue with that activity. He tolerated the remainder of the ex's without complaint but required occ cues for execution. The patient will continue to benefit from ongoing skilled physical therapy to progress toward set goals. PLAN FOR NEXT VISIT: Phase II of protocol. He returns to doctor 10/08/2023. Patient will be 12 weeks postop on 10/16/2023. SUBJECTIVE: Pt notes that he is doing well and is able to use his R arm for some adl's and hygiene with greater ease. Pain: Pain Pain Level: 2 Pain Location: Shoulder - Right Description: Sore Frequency: Intermittent Post Treatment Pain Post Treatment Pain Level: 2 Post Treatment Pain Location: Shoulder - Right OBJECTIVE MEASURES WITH LEVEL OF FUNCTION: TREATMENT: Therapeutic Exercise: 1: Pendulum x 30 for/back,side/side,cw/ccw 2: Supine wand chest press 2 x 15 each; supine wand flexion with elbows straight 2 x 15 3: Supine AAROM R shoulder flexion to 90 degrees x 10 4: Standing IR and extension w/wand 2 x 15 with each 5: Standing Scaption w/wand 2 x 15 8: Isometric shoulder flexion and abduction at wall 2 x 15 each 9: Rope and juliana scaption x 2 minutes with 5 second hold 10: Rope and juliana flexion x 2 minutes with 5 second hold Skilled Intervention: Skilled judgment was used in selection of appropriate interventions. Correct performance of therapeutic exercises was facilitated with verbal, visual, and tactile cuing. Manual Therapy: 1: PROM to right shoulder flexion,scaption, and ER with limitations to 30 degrees for ER and gradual progression to full for elevation. Gentle stretch in standing for functional IR x 10 Skilled Intervention: Manual skills to improve joint mobility, ROM, and decrease pain. Utilized anatomy knowledge of the therapist, and assessment of patient's response to intervention. Billing Therapeutic Exercise Treatment Minutes: 30 Manual TherapyTreatment Minutes: 15 Skilled Treatment Time Minutes (timed and untimed codes): 45 Total Session Time (minutes): 55 Session Start Time : 1507 Session Stop Time : 1602 Cold pack applied to R shoulder with patient in sitting for 10 minutes at the end of the session. Cold pack time not included in billed treatment time. Katiana Winslow PTA documented in this encounter [facility] 09-21-2023 Note HNO ID: [id number] Author: ERICKA MURRAY PT, DPT Service: ? Author Type: Physical Therapist Type: Progress Notes Filed: 09/21/2023 16:10 Note Text: Episode Visit Count: 10 Therapist That Will Accept/Oversee The Plan Of Care: Ericka Murray PT, DPT Start of Care Date: 08/19/23 Onset Date: 07/17/23 Plan of Care Certification Date: 09/16/23 Next Certification Due Date: 12/09/23 Patient Identified by Name and Date of : Yes REHABILITATION AND SPORTS THERAPY PHYSICAL THERAPY TREATMENT NOTE ASSESSMENT: Gloria Falcon tolerated the session with no issues. He demonstrates improvements in active assist range of motion with tolerating rope and juliana. The patient will continue to benefit from ongoing skilled physical therapy to progress toward set goals. PLAN FOR NEXT VISIT: Phase II of protocol. He returns to doctor 10/08/2023. Patient will be 12 weeks postop on 10/16/2023. SUBJECTIVE: The patient states his shoulder is doing well; only minimal soreness. Pain: Pain Pain Level: 2 Pain Location: Shoulder - Right Description: Sore Frequency: Intermittent OBJECTIVE MEASURES WITH LEVEL OF FUNCTION: No objective measurements taken this session. TREATMENT: Therapeutic Exercise: 1: Pendulum x 30 for/back,side/side,cw/ccw 2: Supine wand chest press 2 x 15 each; supine wand flexion with elbows straight 2 x 15 3: Standing IR and extension w/wand 2 x 15 with each 4: Standing Scaption w/wand 2 x 15 6: Seated wrist flex/ext,supination/pronation,an d radial/ulnar deviation 2 x 15 2# 9: Rope and juliana scaption x 2 minutes with 5 second hold 10: Rope and juliana flexion x 2 minutes with 5 second hold Skilled Intervention: Skilled judgment was used in selection of appropriate interventions. Correct performance of therapeutic exercises was facilitated with verbal and visual cuing. Manual Therapy: 1: PROM to right shoulder flexion,scaption, and ER with limitations to 30 degrees for ER and gradual progression to full for elevation. Gentle stretch in standing for functional IR x 10 Skilled Intervention: Manual skills to improve joint mobility, ROM, and decrease pain. Utilized anatomy knowledge of the therapist, and assessment of patient's response to intervention. Cold pack applied to right shoulder with patient in seated for 10 minutes at the end of the session. Cold pack time not included in billed treatment time. Billing Therapeutic Exercise Treatment Minutes: 30 Manual TherapyTreatment Minutes: 13 Skilled Treatment Time Minutes (timed and untimed codes): 43 Total Session Time (minutes): 54 Session Start Time : 1501 Session Stop Time : 1555 Ericka Murray PT, DPT [facility] 09-21-2023 History of Presen t illness Narrative Episode Visit Count: 10 Therapist That Will Accept/Oversee The Plan Of Care: Ericka Murray PT, DPT Start of Care Date: 08/19/23 Onset Date: 07/17/23 Plan of Care Certification Date: 09/16/23 Next Certification Due Date: 12/09/23 Patient Identified by Name and Date of : Yes REHABILITATION AND SPORTS THERAPY PHYSICAL THERAPY TREATMENT NOTE ASSESSMENT: Gloria Falcon tolerated the session with no issues. He demonstrates improvements in active assist range of motion with tolerating rope and juliana. The patient will continue to benefit from ongoing skilled physical therapy to progress toward set goals. PLAN FOR NEXT VISIT: Phase II of protocol. He returns to doctor 10/08/2023. Patient will be 12 weeks postop on 10/16/2023. SUBJECTIVE: The patient states his shoulder is doing well; only minimal soreness. Pain: Pain Pain Level: 2 Pain Location: Shoulder - Right Description: Sore Frequency: Intermittent OBJECTIVE MEASURES WITH LEVEL OF FUNCTION: No objective measurements taken this session. TREATMENT: Therapeutic Exercise: 1: Pendulum x 30 for/back,side/side,cw/ccw 2: Supine wand chest press 2 x 15 each; supine wand flexion with elbows straight 2 x 15 3: Standing IR and extension w/wand 2 x 15 with each 4: Standing Scaption w/wand 2 x 15 6: Seated wrist flex/ext,supination/pronation,an d radial/ulnar deviation 2 x 15 2# 9: Rope and juliana scaption x 2 minutes with 5 second hold 10: Rope and juliana flexion x 2 minutes with 5 second hold Skilled Intervention: Skilled judgment was used in selection of appropriate interventions. Correct performance of therapeutic exercises was facilitated with verbal and visual cuing. Manual Therapy: 1: PROM to right shoulder flexion,scaption, and ER with limitations to 30 degrees for ER and gradual progression to full for elevation. Gentle stretch in standing for functional IR x 10 Skilled Intervention: Manual skills to improve joint mobility, ROM, and decrease pain. Utilized anatomy knowledge of the therapist, and assessment of patient's response to intervention. Cold pack applied to right shoulder with patient in seated for 10 minutes at the end of the session. Cold pack time not included in billed treatment time. Billing Therapeutic Exercise Treatment Minutes: 30 Manual TherapyTreatment Minutes: 13 Skilled Treatment Time Minutes (timed and untimed codes): 43 Total Session Time (minutes): 54 Session Start Time : 1501 Session Stop Time : 1555 Ericka Murray PT, DPT documented in this encounter [facility] 09-16-2023 Note HNO ID: [id number] Author: ERICKA MURRAY, RIDGE, DPT Service: ? Author Type: Physical Therapist Type: Progress Notes Filed: 09/16/2023 16:09 Note Text: Episode Visit Count: 9 Therapist That Will Accept/Oversee The Plan Of Care: Ericka Murray PT, DPT Start of Care Date: 08/19/23 Onset Date: 07/17/23 Plan of Care Certification Date: 09/16/23 Next Certification Due Date: 12/09/23 Patient Identified by Name and Date of : Yes REHABILITATION AND SPORTS THERAPY PHYSICAL THERAPY PROGRESS REPORT PLAN OF CARE UPDATE: Assessment: Gloria Falcon demonstrates minimal improvement in reaching behind back, reaching overhead, use hand with arm at shoulder level, driving, cleaning, cooking, pulling, pushing, and carrying. He has progressed toward goals. Patient continues to present with impairments in overall function, range of motion, strength, and symptom management that interfere with reaching behind back, reaching overhead, use hand with arm at shoulder level, driving, throwing, cleaning, cooking, pulling, pushing, carrying . Current prognosis is Good due to: good overall health status, acuteness of condition, positive past response to therapy, Prognosis may be limited due to clinical presentation . The patient is progressing as expected. Due to his surgery, his progress has been slow, however he has made improvements. He will benefit from continued skilled therapy services to meet the updated goals for this plan of care as noted below. Addressed 09/16/2023 Goals for Episode of Care: created on 08/19/23 through 11/11/23 [place] in home exercise program. - Met Patient will decrease pain to 0/10 with functional activities to allow patient to improve ADLs. - Ongoing Patient will increase active ROM of right shoulder flexion and abduction to 150 degrees, external rotation to 50 degrees, and internal rotation to L1 to allow pt to to improve performance of ADLs. - Ongoing Patient will demonstrate increase in right shoulder strength to 4/5 during manual muscle testing in order to improve function for prior functional Tasks. - Ongoing Planned Interventions, Frequency, and Duration: 2x/week, 12 weeks Total Number of Visits Planned: 24 Patient to be seen for Therapeutic exercise (55474), Manual therapy (60272), Neuromuscular re-education (58266), Therapeutic activities (84107), Self-halfway management (72567) PLAN FOR NEXT VISIT: Phase II of protocol. Patient will be 12 weeks postop on 10/16/2023. SUBJECTIVE: The patient reports he is doing well overall, however he still is having difficulty with reaching. The patient states the doctor still wants to limit to 30 degrees. Functional Limitations: reaching behind back, reaching overhead, use hand with arm at shoulder level, driving, throwing, cleaning, cooking, pulling, pushing, carrying Pain: Pain Pain Level: 3 Pain Location: Shoulder - Right Description: Sore Frequency: Intermittent PROMIS Scales T-scores: mean of general population = 50. 5 points is clinically meaningfully difference Percentiles provide an indication of how the patient's score ranks in relation to the general population. Higher percentile rankings indicate better function/quality of life. 50th percentile is the average of the general population and indicates half of respondents had a worse score. OBJECTIVE MEASURES WITH LEVEL OF FUNCTION: UE PROM R Shoulder Flex: 138 Degrees R Shoulder External Rotation: 30 Degrees TREATMENT: Therapeutic Exercise: 1: Pendulum x 30 for/back,side/side,cw/ccw 2: Supine wand chest press,and ER at neutral and limited to 30 degrees 2 x 15 each;supine wand flexion with elbows straight 2 x 15 3: Standing IR and extension w/wand 2 x 15 with each 4: Standing Scaption w/wand 2 x 15 5: Standing elbow flexion 2 x 15 6: Seated wrist flex/ext,supination/pronation,an d radial/ulnar deviation 2 x 15 2# 9: Seated flexion to 45 degrees 2 x 15 10: Rope and juliana flexion x 2 minutes with 5 second hold Skilled Intervention: Skilled judgment was used in selection of appropriate interventions. Correct performance of therapeutic exercises was facilitated with verbal and visual cuing. Manual Therapy: 1: PROM to right shoulder flexion,scaption, and ER with limitations to 30 degrees for ER and gradual progression to full for elevation. Gentle stretch in standing for functional IR x 10 2: Assessed goals Skilled Intervention: Manual skills to improve joint mobility, ROM, and decrease pain. Utilized anatomy knowledge of the therapist, and assessment of patient's response to intervention. Billing Therapeutic Exercise Treatment Minutes: 30 Manual TherapyTreatment Minutes: 13 Skilled Treatment Time Minutes (timed and untimed codes): 43 Session Start Time : 1503 Cold pack applied to right shoulder with patient in sitting for 10 minutes at the end of the session. Cold pack time not included in (more content not included)... [facility] 09-14-2023 Note HNO ID: [id number] Author: KATIANA WINSLOW PTA Service: ? Author Type: Correctional Classification Counselor Type: Progress Notes Filed: 09/14/2023 16:03 Note Text: Episode Visit Count: 8 Therapist That Will Accept/Oversee The Plan Of Care: Ericka Murray PT, DPT Start of Care Date: 08/19/23 Onset Date: 07/17/23 Plan of Care Certification Date: 08/19/23 Next Certification Due Date: 11/11/23 Patient Identified by Name and Date of : Yes REHABILITATION AND SPORTS THERAPY PHYSICAL THERAPY TREATMENT NOTE ASSESSMENT: Gloria Falcon tolerated the session with decreased symptoms. He demonstrated improved range for flexion and he tolerated increased reps for wand flexion and for wall isometrics. He also tolerated increased resistance for wrist/forearm ex's. He has achieved 30 degrees ER but is still limited to 30 at this time per protocol. He is noting less discomfort and painfree at times. The patient will continue to benefit from ongoing skilled physical therapy to progress toward set goals. PLAN FOR NEXT VISIT: Phase ll of protocol SUBJECTIVE: Pt without complaint and reports slightly less discomfort today and notes that he is painfree at times. Pain: Pain Pain Level: 3 (painfree at times) Pain Location: Shoulder - Right Description: Sore Frequency: Intermittent Post Treatment Pain Post Treatment Pain Level: 2 Post Treatment Pain Location: Shoulder - Right OBJECTIVE MEASURES WITH LEVEL OF FUNCTION: TREATMENT: Therapeutic Exercise: 1: Pendulum x 20 for/back,side/side,cw/ccw 2: Supine wand chest press,and ER at neutral and limited to 30 degrees 2 x 15 each;supine wand flexion with elbows straight 2 x 15 3: Standing IR and extension w/wand 2 x 15 with each 4: Standing Scaption w/wand 2 x 15 5: Standing elbow flexion 2 x 15 6: Seated wrist flex/ext,supination/pronation,an d radial/ulnar deviation 2 x 15 2# (Increased resistance) 7: Gripping blue ball x 3 minutes 8: Isometric shoulder flexion and abduction at wall 2 x 15 each (increased reps) Skilled Intervention: Skilled judgment was used in selection of appropriate interventions. Correct performance of therapeutic exercises was facilitated with verbal and visual cuing. Manual Therapy: 1: PROM to right shoulder flexion,scaption, and ER with limitations to 30 degrees for ER and gradual progression to full for elevation. Gentle stretch in standing for functional IR x 10 Skilled Intervention: Manual skills to improve joint mobility, ROM, and decrease pain. Utilized anatomy knowledge of the therapist, and assessment of patient's response to intervention. Billing Therapeutic Exercise Treatment Minutes: 30 Manual TherapyTreatment Minutes: 15 Skilled Treatment Time Minutes (timed and untimed codes): 45 Total Session Time (minutes): 55 Session Start Time : 1505 Session Stop Time : 1600 Cold pack applied to R shoulder with patient in sitting for 10 minutes at the end of the session. Cold pack time not included in billed treatment time. Katiana Winslow [facility] 09-09-2023 Note HNO ID: [id number] Author: GINA ARGUELLO PT Service: ? Author Type: Physical Therapist Type: Progress Notes Filed: 09/09/2023 17:22 Note Text: Episode Visit Count: 7 Therapist That Will Accept/Oversee The Plan Of Care: Ericka Murray, PT, DPT Start of Care Date: 08/19/23 Onset Date: 07/17/23 Plan of Care Certification Date: 08/19/23 Next Certification Due Date: 11/11/23 Patient Identified by Name and Date of : Yes REHABILITATION AND SPORTS THERAPY PHYSICAL THERAPY TREATMENT NOTE ASSESSMENT: Gloria Falcon tolerated the session with decreased symptoms and expected muscle soreness. He demonstrated difficulty with R shoulder IR AAROM using wand and improvements in activity tolerance with additional repetitions for multiple exercises. The patient will continue to benefit from ongoing skilled physical therapy to progress toward set goals. PLAN FOR NEXT VISIT: Phase ll of protocol SUBJECTIVE: Pt reports pain 11/24 this date without increased symptoms after last session. He performs HEP and ice for pain management. Pain: Pain Pain Level: 4 Pain Location: Shoulder - Right Description: Aching Frequency: Continuous Post Treatment Pain Post Treatment Pain Level: 3 Post Treatment Pain Location: Shoulder - Right Post Treatment Symptoms: Decreased tension OBJECTIVE MEASURES WITH LEVEL OF FUNCTION: No objective measurements documented this session. TREATMENT: Therapeutic Exercise: 1: Pendulum x 20 for/back,side/side,cw/ccw 2: Supine wand chest press,and ER at neutral and limited to 30 degrees 2 x 15 each;supine wand flexion with elbows straight 2 x 10 3: Standing IR and extension w/wand 2 x 15 with each 4: Standing Scaption w/wand 2 x 15 5: Standing elbow flexion 2 x 15 6: Seated wrist flex/ext,supination/pronation,an d radial/ulnar deviation 2 x 10 1# 7: Gripping blue ball x 3 minutes 8: Isometric shoulder flexion and abduction at wall 2 x 10 each (Attempted 1x15 reps but pt fatigued at 10 reps; maintained 2x10 today) Skilled Intervention: Patient was educated in proper exercise technique and purpose for exercises. Skilled judgment was used in selection of appropriate interventions. Correct performance of therapeutic exercises was facilitated with verbal and visual cuing. Manual Therapy: 1: PROM to right shoulder flexion,scaption, and ER with limitations to 30 degrees for ER and gradual progression to full for elevation. Gentle stretch in standing for functional IR x 10 Skilled Intervention: Manual skills to improve joint mobility, ROM, and decrease pain. Utilized anatomy knowledge of the therapist, and assessment of patient's response to intervention. Billing Therapeutic Exercise Treatment Minutes: 30 Manual TherapyTreatment Minutes: 12 Skilled Treatment Time Minutes (timed and untimed codes): 10 Total Session Time (minutes): 52 Session Start Time : 1500 Session Stop Time : 1552 Cold pack applied to R shoulder with patient in sitting for 10 minutes at the end of the session. Cold pack time not included in billed treatment time. Gina Arguello PT, DPT [facility] 2023 Note HNO ID: [id number] Author: KATIANA WINSLOW PTA Service: ? Author Type: Correctional Classification Counselor Type: Progress Notes Filed: 2023 17:07 Note Text: Episode Visit Count: 6 Therapist That Will Accept/Oversee The Plan Of Care: Ericka Murray PT, DPT Start of Care Date: 08/19/23 Onset Date: 07/17/23 Plan of Care Certification Date: 08/19/23 Next Certification Due Date: 11/11/23 Patient Identified by Name and Date of : Yes REHABILITATION AND SPORTS THERAPY PHYSICAL THERAPY TREATMENT NOTE ASSESSMENT: Gloria Falcon tolerated the session with decreased symptoms. He demonstrated improved rom for shoulder flexion. ER remains at 30 degrees and pt is given reminders to avoid beyond 30 degrees at this time. He tolerated increased reps for most of the ex's today and tolerated without complaint. The patient will continue to benefit from ongoing skilled physical therapy to progress toward set goals. PLAN FOR NEXT VISIT: Phase ll of protocol SUBJECTIVE: Pt reports that his pain level was 3/10 most of the weekend but it is at 4/10 today. He has been doing his hep regularly. Pain: Pain Pain Level: 4 Pain Location: Shoulder - Right, Scapula - Right Description: Aching Frequency: Continuous Post Treatment Pain Post Treatment Pain Level: 3 Post Treatment Pain Location: Shoulder - Right OBJECTIVE MEASURES WITH LEVEL OF FUNCTION: UE PROM R Shoulder Flex: 128 Degrees R Shoulder External Rotation: 30 Degrees TREATMENT: Therapeutic Exercise: 1: Pendulum x 20 for/back,side/side,cw/ccw 2: Supine wand chest press,and ER at neutral and limited to 30 degrees 2 x 15 each;supine wand flexion with elbows straight 2 x 10 (Increased reps) 3: Standing IR and extension w/wand 2 x 15 with each (Increased reps) 4: Standing Scaption w/wand 2 x 15 (Increased reps) 5: Standing elbow flexion 2 x 15 (Increased reps) 6: Seated wrist flex/ext,supination/pronation,an d radial/ulnar deviation 2 x 10 1# 7: Gripping blue ball x 3 minutes 8: Isometric shoulder flexion and abduction at wall 2 x 10 each (Increased reps) Skilled Intervention: Patient was educated in proper exercise technique and purpose for exercises. Skilled judgment was used in selection of appropriate interventions. Correct performance of therapeutic exercises was facilitated with verbal and visual cuing. Manual Therapy: 1: PROM to right shoulder flexion,scaption, and ER with limitations to 30 degrees for ER and gradual progression to full for elevation. Gentle stretch in standing for functional IR x 10 Skilled Intervention: Manual skills to improve joint mobility, ROM, and decrease pain. Utilized anatomy knowledge of the therapist, and assessment of patient's response to intervention. Billing Therapeutic Exercise Treatment Minutes: 30 Manual TherapyTreatment Minutes: 15 Skilled Treatment Time Minutes (timed and untimed codes): 45 Total Session Time (minutes): 55 Session Start Time : 1502 Session Stop Time : 1557 Cold pack applied to R shoulder with patient in sitting for 10 minutes at the end of the session. Cold pack time not included in billed treatment time. Katiana Winslow PTA [facility] 09-02-2023 Note HNO ID: [id number] Author: KATIANA WINSLOW PTA Service: ? Author Type: Correctional Classification Counselor Type: Progress Notes Filed: 09/02/2023 16:14 Note Text: Episode Visit Count: 5 Therapist That Will Accept/Oversee The Plan Of Care: Ericka Murray PT, DPT Start of Care Date: 08/19/23 Onset Date: 07/17/23 Plan of Care Certification Date: 08/19/23 Next Certification Due Date: 11/11/23 Patient Identified by Name and Date of : Yes REHABILITATION AND SPORTS THERAPY PHYSICAL THERAPY TREATMENT NOTE ASSESSMENT: Gloria Falcon tolerated the session with increased symptoms and expected muscle soreness. He demonstrated difficulty with PROM for flexion and scaption and tolerated better with elbow bent with both at ~ 90 degrees. He demonstrated improvements in tolerance with increased reps for some of the ex's and addition of flexion and abduction wall isometrics and shoulder extension with wand. The patient will continue to benefit from ongoing skilled physical therapy to progress toward set goals. PLAN FOR NEXT VISIT: Phase ll of protocol SUBJECTIVE: Pt reports that he did well following his last therapy session and did not have exacerbation of discomfort with progression of ex's. He is reporting less discomfort today as compared to previous sessions. Pain: Pain Pain Level: 3 Pain Location: Shoulder - Right, Scapula - Right Description: Aching Frequency: Continuous Post Treatment Pain Post Treatment Pain Level: 4 Post Treatment Pain Location: Shoulder - Right OBJECTIVE MEASURES WITH LEVEL OF FUNCTION: TREATMENT: Therapeutic Exercise: 1: Pendulum x 20 for/back,side/side,cw/ccw 2: Supine wand chest press,press/flex,and ER at neutral and limited to 30 degrees 2 x 10 each (Increased reps) 3: Standing IR w/wand 2 x 10;*Standing extension w/wand x 10 (Increased reps) 4: Standing Scaption w/wand 2 x 10 (Increased reps) 5: Standing elbow flexion 2 x 10 (Increased resistance) 6: Seated wrist flex/ext,supination/pronation,an d radial/ulnar deviation 2 x 10 1# 7: Gripping bluel x 3 minutes 8: *Isometric shoulder flexion and abduction at wall x 10 Skilled Intervention: Patient was educated in proper exercise technique and purpose for exercises. Reviewed and educated patient on additions/changes for home exercise program as above (*). Skilled judgment was used in selection of appropriate interventions. Provided written instruction for home exercise program to facilitate proper performance and compliance. Correct performance of therapeutic exercises was facilitated with verbal, visual, and tactile cuing. Manual Therapy: 1: PROM to right shoulder flexion,scaption, and ER with limitations to 30 degrees for ER and gradual progression to full for elevation. Gentle stretch in standing for functional IR x 10 Skilled Intervention: Manual skills to improve joint mobility, ROM, and decrease pain. Utilized anatomy knowledge of the therapist, and assessment of patient's response to intervention. Home Exercise Program Assigned: 1: *Standing extension w/wand x 10 2: *Isometric shoulder flexion and abduction at wall x 10 3: Access Code: [email or web address] URL: [email or web address] Date: 09/02/2023 Prepared by: KATIANA WINSLOW Exercises - Standing Shoulder Extension with Dowel - 1 x daily - 7 x weekly - 3 sets - 10 reps - 3 seconds hold - Isometric Shoulder Flexion at Wall (Mirrored) - 1 x daily - 7 x weekly - 3 sets - 10 reps - 3 second hold - Isometric Shoulder Abduction at Wall (Mirrored) - 1 x daily - 7 x weekly - 3 sets - 10 reps - 3 sec hold Billing Therapeutic Exercise Treatment Minutes: 30 Manual TherapyTreatment Minutes: 20 Skilled Treatment Time Minutes (timed and untimed codes): 53 Total Session Time (minutes): 63 Session Start Time : 1505 Session Stop Time : 1608 Cold pack applied to R shoulder with patient in sitting for 10 minutes at the end of the session. Cold pack time not included in billed treatment time. Katiana Winslow PTA [facility] 08-31-2023 Note HNO ID: [id number] Author: KATIANA WINSLOW PTA Service: ? Author Type: Correctional Classification Counselor Type: Progress Notes Filed: 08/31/2023 16:32 Note Text: Episode Visit Count: 4 Therapist That Will Accept/Oversee The Plan Of Care: Ericka Murray PT, DPT Start of Care Date: 08/19/23 Onset Date: 07/17/23 Plan of Care Certification Date: 08/19/23 Next Certification Due Date: 11/11/23 Patient Identified by Name and Date of : Yes REHABILITATION AND SPORTS THERAPY PHYSICAL THERAPY TREATMENT NOTE ASSESSMENT: Gloria Falcon tolerated the session with decreased symptoms and expected muscle soreness. He demonstrated improved tolerance with progression to phase ll with AAROM/wand. He noted some increased discomfort in the R upper trap with supine wand ER so he was instructed in R upper trap stretch, should this occur again. He also tolerated addition of 1# for wrist/forearm ex's and increased resistance with gripping ball. The patient will continue to benefit from ongoing skilled physical therapy to progress toward set goals. PLAN FOR NEXT VISIT: Phase ll of protocol SUBJECTIVE: Pt notes that he saw Dr. Burrell and he is now able to progress to Phase ll of the protocol and no longer needs to wear his sling. He still has discomfort in the R shoulder but is sleeping better. Pain: Pain Pain Level: 4 Pain Location: Shoulder - Right, Scapula - Right Description: Aching Frequency: Continuous Post Treatment Pain Post Treatment Pain Level: Better Post Treatment Pain Location: Shoulder - Right OBJECTIVE MEASURES WITH LEVEL OF FUNCTION: TREATMENT: Therapeutic Exercise: 1: Pendulum x 20 for/back,side/side,cw/ccw 2: *Supine wand chest press,press/flex,and ER at neutral and limited to 30 degrees x 10 each 3: *Standing IR w/wand x 10 4: *Standing Scaption w/wand x 10 5: *Standing elbow flexion x 10 6: Seated wrist flex/ext,supination/pronation,an d radial/ulnar deviation 2 x 10 1# (Increased resistance) 7: Gripping bluel x 3 minutes (Increased resistance) 8: *R upper trap stretch x 5 w/10 sec hold Skilled Intervention: Patient was educated in proper exercise technique and purpose for exercises. Reviewed and educated patient on additions/changes for home exercise program as above (*). Skilled judgment was used in selection of appropriate interventions. Provided written instruction for home exercise program to facilitate proper performance and compliance. Correct performance of therapeutic exercises was facilitated with verbal, visual, and tactile cuing. Manual Therapy: 1: PROM to right shoulder with limitations to 30 degrees for ER and gradual progression to full for elevation. Gentle stretch in standing for functional IR x 10 Skilled Intervention: Manual skills to improve joint mobility, ROM, and decrease pain. Utilized anatomy knowledge of the therapist, and assessment of patient's response to intervention. Home Exercise Program Assigned: 1: *Supine wand chest press,press/flex,and ER at neutral and limited to 30 degrees x 10 each 2: *Standing IR w/wand x 10 3: *Standing Scaption w/wand x 10 4: *Standing elbow flexion x 10 5: *R upper trap stretch x 5 w/10 sec hold 6: Access Code: [email or web address] URL: [email or web address] Date: 08/31/2023 Prepared by: KATIANA WINSLOW Exercises - Supine Shoulder Press AAROM in Abduction with Dowel - 1 x daily - 7 x weekly - 3 sets - 10 reps - 2 second hold - Supine Shoulder Flexion AAROM with Dowel - 2 x daily - 7 x weekly - 3 sets - 10 reps - 2 second hold - Standing Bilateral Shoulder Internal Rotation AAROM with Dowel - 2 x daily - 7 x weekly - 3 sets - 10 reps - 3 second hold - Supine shoulder external rotation in 30 degrees of abduction with dowel (Mirrored) - 2 x daily - 7 x weekly - 3 sets - 10 reps - 2 second hold - Shoulder Scaption AAROM with Dowel - 2 x daily - 7 x weekly - 3 sets - 10 reps - 3 second hold - Seated Upper Trapezius Stretch - 2 x daily - 7 x weekly - 1 sets - 5 reps - 10 second hold - Standing Elbow Flexion Extension AROM (Mirrored) - 2 x daily - 7 x weekly - 3 sets - 10 reps - 3 second hold Billing Therapeutic Exercise Treatment Minutes: 30 Manual TherapyTreatment Minutes: 20 Skilled Treatment Time Minutes (timed and untimed codes): 50 Total Session Time (minutes): 62 Session Start Time : 1505 Session Stop Time : 1607 Cold pack applied to R shoulder with patient in sitting for 10 minutes at the end of the session. Cold pack time not included in billed treatment time. Katiana Winslow PTA [facility] 08-26-2023 Note HNO ID: [id number] Author: KATIANA WINSLOW PTA Service: ? Author Type: Correctional Classification Counselor Type: Progress Notes Filed: 08/26/2023 16:09 Note Text: Episode Visit Count: 3 Therapist That Will Accept/Oversee The Plan Of Care: Ericka Murray, PT, DPT Start of Care Date: 08/19/23 Onset Date: 07/17/23 Plan of Care Certification Date: 08/19/23 Next Certification Due Date: 11/11/23 Patient Identified by Name and Date of : Yes REHABILITATION AND SPORTS THERAPY PHYSICAL THERAPY TREATMENT NOTE ASSESSMENT: Glroia Falcon tolerated the session with expected muscle soreness and no change in pain. He demonstrated improved range with both flexion and ER. He obtained 30 degrees of ER, which is the limit, and he demonstrated increase to 90 degrees for forward elevation. He still required cues not to assist with prom and he required cues for execution of wrist/forearm ex's. The patient will continue to benefit from ongoing skilled physical therapy to progress toward set goals. PLAN FOR NEXT VISIT: Phase l protocol weeks 1-3.Initiate active elbow flexion in standing next session SUBJECTIVE: Pt notes that he did well following his last therapy session with no increase in discomfort following. His pain levels remain at 4/10 most of the time. He has an appointment with Dr. Burrell tomorrow. Pain: Pain Pain Level: 4 Pain Location: Shoulder - Right, Scapula - Right Description: Aching Frequency: Continuous Post Treatment Pain Post Treatment Pain Level: No Change OBJECTIVE MEASURES WITH LEVEL OF FUNCTION: TREATMENT: Therapeutic Exercise: 1: Passive elbow flexion x 20 2: Pendulum x 20 for/back,side/side,cw/ccw 3: *Seated wrist flex/ext,supination/pronation,an d radial/ulnar deviation 2 x 10 4: Gripping yellow ball x 3 minutes Skilled Intervention: Skilled judgment was used in selection of appropriate interventions. Correct performance of therapeutic exercises was facilitated with verbal, visual, and tactile cuing. Manual Therapy: 1: PROM to right shoulder with limitations to 30 degrees for ER and 130 degrees for forward elevation. No internal rotation. x 10 for each movement. Skilled Intervention: Manual skills to improve joint mobility, ROM, and decrease pain. Utilized anatomy knowledge of the therapist, and assessment of patient's response to intervention. Billing Therapeutic Exercise Treatment Minutes: 20 Manual TherapyTreatment Minutes: 20 Skilled Treatment Time Minutes (timed and untimed codes): 40 Total Session Time (minutes): 51 Session Start Time : 1505 Session Stop Time : 1556 Cold pack applied to R shoulder with patient in sitting for 10 minutes at the end of the session. Cold pack time not included in billed treatment time. Katiana Winslow PTA [facility] 08-24-2023 Note HNO ID: [id number] Author: KATIANA WINSLOW PTA Service: ? Author Type: Correctional Classification Counselor Type: Progress Notes Filed: 08/24/2023 16:33 Note Text: Episode Visit Count: 2 Therapist That Will Accept/Oversee The Plan Of Care: Ericka Murray PT, DPT Start of Care Date: 08/19/23 Onset Date: 07/17/23 Plan of Care Certification Date: 08/19/23 Next Certification Due Date: 11/11/23 Patient Identified by Name and Date of : Yes REHABILITATION AND SPORTS THERAPY PHYSICAL THERAPY TREATMENT NOTE ASSESSMENT: Gloria Falcon tolerated the session with expected muscle soreness. He demonstrated mild difficulty initially with relaxing and not assisting with PROM but he demonstrated gradual gains in both flexion and ER as the session progressed at ~20 for ER and 80 for flexion. He tolerated the progression of reps for established ex's and progression with wrist/forearm/hand ex's. The patient will continue to benefit from ongoing skilled physical therapy to progress toward set goals. PLAN FOR NEXT VISIT: Phase l protocol weeks 1-3. SUBJECTIVE: Pt reports continued discomfort. He also notes difficulty sleeping at night. Pain: Pain Pain Level: 4 Pain Location: Shoulder - Right, Scapula - Right Description: Aching Frequency: Continuous Post Treatment Pain Post Treatment Pain Level: 4 Post Treatment Pain Location: Shoulder - Right OBJECTIVE MEASURES WITH LEVEL OF FUNCTION: TREATMENT: Therapeutic Exercise: 1: Passive elbow flexion x 20 (increased reps) 2: Pendulum x 20 for/back,side/side,cw/ccw (increased reps) 3: *Seated wrist flex/ext,supination/pronation,an d radial/ulnar deviation 2 x 10 4: Gripping yellow ball x 3 minutes Skilled Intervention: Patient was educated in proper exercise technique and purpose for exercises. Reviewed and educated patient on additions/changes for home exercise program as above (*). Skilled judgment was used in selection of appropriate interventions. Provided written instruction for home exercise program to facilitate proper performance and compliance. Correct performance of therapeutic exercises was facilitated with verbal, visual, and tactile cuing. Manual Therapy: 1: PROM to right shoulder with limitations to 30 degrees for ER and 130 degrees for forward elevation. No internal rotation. 2 x 10 for each movement. Skilled Intervention: Manual skills to improve joint mobility, ROM, and decrease pain. Utilized anatomy knowledge of the therapist, and assessment of patient's response to intervention. Home Exercise Program Assigned: 1: *Seated wrist flex/ext,supination/pronation,an d radial/ulnar deviation 2 x 10 2: Access Code: [email or web address] URL: [email or web address] Date: 08/24/2023 Prepared by: KATIANA WINSLOW Exercises - Elbow Flexion PROM - 2 x daily - 7 x weekly - 2 sets - 10 reps - Wrist Flexion AROM (Mirrored) - 2 x daily - 7 x weekly - 3 sets - 10 reps - 3 second hold - Wrist Extension AROM (Mirrored) - 2 x daily - 7 x weekly - 3 sets - 10 reps - 3 sec hold hold - Seated Forearm Pronation and Supination AROM (Mirrored) - 2 x daily - 7 x weekly - 3 sets - 10 reps - 3 second hold - Wrist AROM Radial Ulnar Deviation - 2 x daily - 7 x weekly - 3 sets - 10 reps - 3 sec hold Billing Therapeutic Exercise Treatment Minutes: 20 Manual TherapyTreatment Minutes: 20 Skilled Treatment Time Minutes (timed and untimed codes): 40 Total Session Time (minutes): 53 Session Start Time : 1507 Session Stop Time : 1600 Cold pack applied to R shoulder with patient in sitting for 10 minutes at the end of the session. Cold pack time not included in billed treatment time. Katiana Winslow, [facility] 08-19-2023 Note HNO ID: [id number] Author: Ericka Murray PT, DPT Service: ? Author Type: Physical Therapist Type: Progress Notes Filed: 08/19/2023 4:58 PM Note Text: Episode Visit Count: 1 Therapist That Will Accept/Oversee The Plan Of Care: Ericka Murray PT, DPT Start of Care Date: 08/19/23 Onset Date: 07/17/23 Plan of Care Certification Date: 08/19/23 Next Certification Due Date: 11/11/23 Patient Identified by Name and Date of : Yes REHABILITATION AND SPORTS THERAPY PHYSICAL THERAPY EVALUATION PLAN OF CARE: Assessment: Gloria Falcon presents with diagnosis of right shoulder CTA hemiarthroplasty and open biceps tenodesis that interferes with reaching behind back, reaching overhead, use hand with arm at shoulder level, driving, throwing, cleaning, cooking, pulling, pushing, carrying . He presents with impairments in ADL's, posture, range of motion, strength, and symptom management. PROMIS? (Patient-Reported Outcomes Measurement Information System) was not completed. Prognosis for therapy is Good due to: good overall health status, acuteness of condition, positive past response to therapy, Prognosis may be limited due to clinical presentation . He will benefit from skilled therapy services to meet the goals established for this plan of care as noted below. Goals for Episode of Care: created on 08/19/23 through 11/11/23 [place] in home exercise program. Patient will decrease pain to 0/10 with functional activities to allow patient to improve ADLs. Patient will increase active ROM of right shoulder flexion and abduction to 150 degrees, external rotation to 50 degrees, and internal rotation to L1 to allow pt to to improve performance of ADLs. Patient will demonstrate increase in right shoulder strength to 4/5 during manual muscle testing in order to improve function for prior functional tasks. Planned Interventions, Frequency, and Duration: Current Frequency: 2x/week Duration: 12 weeks Total Number of Visits Planned: 24 Planned Treatment Interventions: Therapeutic exercise (30631), Manual therapy (16430), Neuromuscular re-education (20689), Therapeutic activities (86811), Self-halfway management (96721) PLAN FOR NEXT VISIT: Phase I protocol. Called and left a voicemail for physical therapy protocol. ER to 0 degrees and flexion to 90 degrees until I hear back from surgeon. Patient demonstrates good understanding of plan of care and treatment. The above goals and plan of care were discussed and agreed upon by patient/family. SUBJECTIVE: The patient was suppose to have a reverse TSA, however he didn't have enough bone. Therefore, he ended up with a CTA hemiarthoplasty and open bicep tenodesis on 07/17/2023. He reports he takes his sling off because his forearm aches. He places a pillow under his arm and clasps his hands. Functional Limitations: reaching behind back, reaching overhead, use hand with arm at shoulder level, driving, throwing, cleaning, cooking, pulling, pushing, carrying Prior Level of Function: Independent with restrictions Independent with the following restrictions: due to pain Relevant History Past Relevant Medical Conditions: Hypertension, Diabetes, Arthritis Past Relevant Surgical Conditions: Total Knee Replacement-Right, Total Knee Replacement-Left (Right ankle surgery) Right or Left Handed: Right Employment: Retired Recreation / Current Exercise: None due to surgery Hobbies / Interests: Motorcycle, camping Home Environment Patient Lives With: Significant Other Previous Treatment: None Falls Interview: No positive findings with falls interview Pain: Pain Pain Level: 4 Pain Location: Shoulder - Right, Scapula - Right Description: Aching Frequency: Continuous Detailed Pain Score: Yes Worst Pain Level: 9 Average Pain Level: 4 Best Pain Level: 0 PROMIS Scales T-scores: mean of general population = 50. 5 points is clinically meaningfully difference Percentiles provide an indication of how the patient's score ranks in relation to the general population. Higher percentile rankings indicate better function/quality of life. 50th percentile is the average of the general population and indicates half of respondents had a worse score. OBJECTIVE MEASURES WITH LEVEL OF FUNCTION: Posture / Alignment Posture: Rounded shoulders, Forward head Shoulder Observations R Shoulder Presents with: Incision Incision: Intact UE AROM L Shoulder Extension: 46 Degrees L Shoulder Flex: 83 Degrees L Shoulder ABduction: 79 Degrees L Shoulder Internal Rotation (Functional): Lateral left hip L Shoulder External Rotation: 22 Degrees UE PROM R Shoulder Flex: 80 Degrees R Shoulder External Rotation: 0 Degrees UE and Cervical Strength Strength Tested: Shoulder All L Shoulder Extension: 4/5 L Shoulder Flexion: 2/5 L Shoulder Abduction (C5): 2/5 L Shoulder Internal Rotation: 3-/5 (with pain) L Shoulde (more content not included)... [facility] 08-19-2023 History of Past i llness Narrative Problem Noted Date Diagnosed Date Resolved Date Impaired strength of shoulder muscles 08/19/2023 12/07/2023 S/P shoulder hemiarthroplasty, right 08/19/2023 12/07/2023 Decreased range of motion of right shoulder 08/19/2023 12/07/2023 documented as of this encounter (statuses as of 12/07/2023) [facility]09-08-2023 History of Present illness Narrative* Skinny Dc MD - 04/24/2023 10:20 AM EDT Images from the original note were not included. Skinny Dc MD 04/24/2023 at 10:46 AM Office follow up PATIENT NAME: Gloria Falcon DATE OF : 1955 TODAY'S DATE: 04/24/2023 CHIEF COMPLAINT: Chief Complaint Patient presents with Procedure cysto Subjective: Mr. Falcon is a 67 y.o. male who had cysto today. BPH, Urgency. Last visit Increased Oxybutynin XL to 15 mg daily ( from 10mg) Is on Tamsulosin Review of Systems No Distress Respiratory WNL Past Medical History: Past Medical History: Diagnosis Date Arthritis BPH with urinary obstruction 06/03/2021 Diabetes mellitus (HCC) Fibromyalgia Hyperlipidemia Hypertension Past Surgical History: Past Surgical History: Procedure Laterality Date ANKLE SURGERY COLON SURGERY Partial CYSTOSCOPY 06/03/2021 Cysto. UroLift. Rodri HAND SURGERY right KNEE SURGERY Left KNEE SURGERY right Allergies: Patient has no known allergies. Social History: Social History Socioeconomic History Marital status: Spouse name: Not on file Number of children: Not on file Years of education: Not on file Highest education level: Not on file Occupational History Not on file Tobacco Use Smoking status: Never Smokeless tobacco: Never Substance and Sexual Activity Alcohol use: Yes Drug use: Never Sexual activity: Not on file Other Topics Concern Not on file Social History Narrative Not on file Social Determinants of Health Financial Resource Strain: Not on file Food Insecurity: Not on file Transportation Needs: Not on file Physical Activity: Not on file Stress: Not on file Social Connections: Not on file Intimate Partner Violence: Not on file Housing Stability: Not on file Family History: Family History Problem Relation Name Age of Onset Lung cancer Father Heart disease Father Alzheimer's disease Mother Medications Prior to Admission medications Medication Sig Start Date End Date Taking? Authorizing Provider amLODIPine (Norvasc) 5 MG tablet 09/16/22 Historical Provider, aspirin 81 MG chewable tablet Chew 81 mg daily. Historical Provider, DULoxetine (Cymbalta) [address] capsule 09/16/22 Historical Provider, lisinopril 2.5 MG tablet 11/04/22 Historical Provider, metFORMIN (Glucophage) 500 MG tablet Take 500 mg by mouth. 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 12/02/22 12/03/23 Skinny Dc MD tamsulosin (Flomax) 0.4 MG 24 hr capsule TAKE 1 CAPSULE BY MOUTH DAILY WITH FOOD 03/30/23 Adelina CrespoKAILA - OBI Vitals: BP 135/59 Pulse 83 Ht 5' 8 (1.727 m) Wt 270 lb (122 kg) BMI 41.05 kg/m Physical Exam General: No distress Abdomen: Back: : Labs: WBC No results found for: WBC BMP No results found for: NA, K, CL, CO2, BUN, CREATININE, GLUCOSE, CALCIUM PSA Lab Results Component Value Date PSA 3.060 02/22/2022 UA Lab Results Component Value Date UROBILINOGEN 0.2 03/21/2021 BILIRUBINUR neg 03/21/2021 Review: had cysto today. BPH, Urgency. Is doing better Last visit Increased Oxybutynin XL to 15 mg daily ( from 10mg) Impression/Plan Gloria was seen today for procedure. Diagnoses and all orders for this visit: BPH with urinary obstruction (Primary) Elevated PSA Follow up in about 1 year (around 04/24/2024) for bladder scan then. Plan: Try stopping the Oxybutynin for two days. If does OK off it, Discontinue taking it. Is on Tamsulosin, was refilled in Mar 2023 Follow up in one year. Bladder scan then. PSA prior Skinny Dc MD 04/24/23 10:46 AM * Jazzy Joe LPN - 04/24/2023 10:20 AM EDT Lidocaine 2 % Jelly 6mL administered prior to procedure [facility] [id number] LOT [id number] S2 EXP 05/2025 Patient tolerated well * Skinny Dc MD - 04/24/2023 10:20 AM EDT Cystoscopy Procedure Note Pre-operative Diagnosis: BPH Post-operative Diagnosis: Same Procedure Details The risks, benefits, complications, treatment options, and expected outcomes were discussed with the patient. The patient concurred with the proposed plan, giving informed consent. Cystoscopy was performed without incident. The patient was placed in the lithotomy position, prepped with Betadine, and draped in the usual sterile fashion. Lidocaine jelly was instilled into the urethra to effect local anesthesia. The sheathed digital flexible cystoscope was passed into the bladder without incident Findings: Urethra: normal without stenosis or evidence for urethral diverticulum Prostate- indentations from Urolift noted mainly on left. Does have Lateral lobes approximating each other. Bladder: No tumors, diverticulae, stones, or mucosal abnormalities were seen Ureteral orifices: Normal position and effluxing clear urine. Specimens: None Complications: None. Patient tolerated the procedure well Plan: See E&M Skinny Dc M.D. documented in this [facility]10-18-2021 History of Present illness Narrative* Marylou Andino RN - 06/03/2021 2:55 PM EDT 200 cc sterile NS instilled into bladder through lopez. Lopez pulled per protocol. documented in this [facility] Work Phone: 1(543) 115-419810-18-2021 Hospital Discharge instructions* Discharge Instr - Activity* Skinny Dc MD - 06/03/2021 2:12 PM EDT No lifting over 25 pounds for two days. * Discharge Instr - Diet* Skinny Dc MD - 06/03/2021 2:13 PM EDT Good nutrition is important when healing from an illness, injury, or surgery. Follow any nutrition recommendations given to you during your hospital stay. If you were given an oral nutrition supplement while in the hospital, continue to take this supplement at home. You can take it with meals, in-between meals, and/or before bedtime. These supplements can be purchased at most local grocery stores, pharmacies, and chain super-stores. If you have any questions about your diet or nutrition, call the hospital and ask for the dietitian. * Additional Instructions* Skinny Dc MD - 06/03/2021 Voiding trial prior to discharge. [facility]: Chief complaint+Reason for visit Narrative* Chief Complaint PRE-PROCEDURE PREOP [facility] Work Phone: Evaluation note* Diagnosis BPH with urinary obstruction- Primary Hypertrophy of prostate with urinary obstruction and other lower urinary tract symptoms (LUTS) Benign prostatic hyperplasia with urinary hesitancy documented in this encounter [facility] Work Phone: Evaluation noteNo assessment information available [facility] Work Phone: Evaluation note* Diagnosis BPH with urinary obstruction- Primary Hypertrophy of prostate with urinary obstruction and other lower urinary tract symptoms (LUTS) Elevated PSA Elevated prostate specific antigen (PSA) [facility] Decreased range of motion of right shoulder- Primary Other symptoms referable to shoulder joint Impaired strength of shoulder muscles S/P shoulder hemiarthroplasty, right [facility] Decreased range of motion of right shoulder- Primary Other symptoms referable to shoulder joint Impaired strength of shoulder muscles S/P shoulder hemiarthroplasty, right [facility] Decreased range of motion of right shoulder- Primary Other symptoms referable to shoulder joint Impaired strength of shoulder muscles S/P shoulder hemiarthroplasty, right [facility] Diagnosis Decreased range of motion of right shoulder- Primary Other symptoms referable to shoulder joint Impaired strength of shoulder muscles S/P shoulder hemiarthroplasty, right [facility] Diagnosis Decreased range of motion of right shoulder- Primary Other symptoms referable to shoulder joint Impaired strength of shoulder muscles S/P shoulder hemiarthroplasty, right [facility] Diagnosis Decreased range of motion of right shoulder- Primary Other symptoms referable to shoulder joint Impaired strength of shoulder muscles S/P shoulder hemiarthroplasty, right [facility] Decreased range of motion of right shoulder- Primary Other symptoms referable to shoulder joint Impaired strength of shoulder muscles S/P shoulder hemiarthroplasty, right [facility] Diagnosis Decreased range of motion of right shoulder- Primary Other symptoms referable to shoulder joint Impaired strength of shoulder muscles S/P shoulder hemiarthroplasty, right [facility] Diagnosis Decreased range of motion of right shoulder- Primary Other symptoms referable to shoulder joint Impaired strength of shoulder muscles S/P shoulder hemiarthroplasty, right [facility] Diagnosis Decreased range of motion of right shoulder- Primary Other symptoms referable to shoulder joint Impaired strength of shoulder muscles S/P shoulder hemiarthroplasty, right [facility] Diagnosis Decreased range of motion of right shoulder- Primary Other symptoms referable to shoulder joint Impaired strength of shoulder muscles S/P shoulder hemiarthroplasty, right [facility] Elevated PSA- Primary Elevated prostate specific antigen (PSA) BPH with urinary obstruction Hypertrophy of prostate with urinary obstruction and other lower urinary tract symptoms (LUTS) Benign prostatic hyperplasia with urinary hesitancy [facility] Diagnosis Elevated PSA- Primary Elevated prostate specific antigen (PSA) Benign prostatic hyperplasia with urinary hesitancy BPH with urinary obstruction Hypertrophy of prostate with urinary obstruction and other lower urinary tract symptoms (LUTS) documented in this encounter [facility] for referral (narrative)No reason for referral information availableWDayton [facility] Work Phone: Summary Purpose Family History No Family History Records Found Relationship Condition Age at Onset Recorded Date/T aiden Unknown Family History?- Unknown March 16, 2015 8:21am Family History?Cancer Unknown February 162014 8:21am Family History?Dementia Unknown March 16, 2015 8:21am Relationship Condition Age at Onset Recorded Date/T aiden Unknown Family History?- Unknown March 16, 2015 7:21am Family History?Cancer Unknown February 162014 7:21am Family History?Dementia Unknown March 16, 2015 7:21am Advance Directives No Advanced Directives Records FoundDocuments on File Type Date Recorded Patient [employer] Expl anation ACP-Advance Directive 06/03/2021 12:00 AM Latest Code Status on File Code Status Date Activated Date Inactivated Comments Full Code 06/03/2021 11:06 AM Advance Directive Response Recorded Date/ Time Advance Directives Yes March 21 9:21am Living Will Yes March 21, 2015 9:21am Power of Dye Worker Yes March 21 9:21am Latest Code Status on File Code Status Date Activated Date Inactivated Comments Full Code 06/03/2021 11:06 AM 06/03/2021 6:07 PM Advance Directive Response Recorded Date/ Time Advance Directives Yes March 21 8:21am Living Will Yes March 21, 2015 8:21am Power of Dye Worker Yes March 21 8:21am Documents on File Type Date Recorded Patient [employer] Expl anation Advance Directive(s) 01/30/2015 6:20 AM Advance Directive(s) 01/30/2015 6:14 AM Advance Directive Response Recorded Date/ Time Advance Directives Yes March 21 9:21am Assessments Diagnosis Elevated PSA Elevated prostate specific antigen (PSA) Chief Complaint and Reason for Visit Chief Complaint CHILLS WITHOUT FEVER Chief Complaint CHILLS WITHOUT FEVER Type 2 diabetes mellitus with hyperglycemia Chief Complaint PARESTHESIA OF SKIN Chief Complaint Admit Date Pain in left hip March 22, 2025 10: 37am Additional Source Comments (unrecognized sect ion and content) No Status Records FoundNo Status Records FoundNo Status Records FoundNo Status Records FoundNo Status Records FoundNo Status Records FoundNo Status Records Found INFORMATION SOURCE (unrecogn ized section and content) DATE CREATED AUTHOR 02/05/2018 [facility] ([place]) DATE CREATED AUTHOR AUTHOR'S ORGANIZ ATION 10/04/2019 [facility] DATE CREATED AUTHOR AUTHOR'S ORGANIZ ATION 06/08/2021 [facility] DATE CREATED AUTHOR AUTHOR'S ORGANIZ ATION 03/08/2022 [facility] DATE CREATED AUTHOR AUTHOR'S ORGANIZ ATION 04/14/2024 [facility] DATE CREATED AUTHOR AUTHOR'S ORGANIZ ATION 03/29/2025 [facility] DATE CREATED AUTHOR AUTHOR'S ORGANIZ ATION 05/12/2025 [facility] Ordered Prescriptions (unrec ognized section and content) Prescription Sig Dispensed Refills Start Date End Da te ibuprofen (ADVIL;MOTRIN) 800 MG tablet Take 1 tablet by mouth 3 times daily as needed for Pain 30 tablet 0 06/03/2021 06/13/2021 phenazopyridine (PYRIDIUM) 200 MG tablet Take 1 tablet by mouth 3 times daily as needed for Pain 30 tablet 0 06/03/2021 06/13/2021 Scheduled Active and Recently Administ ered Medications (unrecognized section and content) Medication Order 06/01/2021 06/02/2021 06/03/2021 acetaminophen (TYLENOL) tablet 1,000 mg (COMPLETED) 1,000 mg, Oral, ONCE, On Thu06/03/21 at 1130, For 1 dose, Maximum dose of acetaminophen is 4000 mg from all sources in 24 hours. Do not administer if patient has taken tylenol <4 hours earlier. Do not give if contraindicated ie. patient has active liver disease or cirrhosis., Pre-op (day of surgery) 1157 (Given - Provid er: Ledy Rose RN) ceFAZolin (ANCEF) 2000 mg in dextrose 5 % 100 mL IVPB 2,000 mg, IntraVENous, CHILD PSYCHOLOGY TEACHER TO O.R., 1 dose, On Thu06/03/21 at 1130, Administer within 1 hour prior to incision. Repeat in 2 hours after initial dose if still intra-op., Pre-op (day of surgery) 1130 (Due) famotidine (PEPCID) tablet 20 mg (COMPLETED) 20 mg, Oral, ONCE, On Thu06/03/21 at 1130, For 1 dose, Pre-op (day of surgery) 1157 (Given - Provid er: Ledy Rose RN) gabapentin (NEURONTIN) capsule 300 mg (COMPLETED) 300 mg, Oral, ONCE, On Thu06/03/21 at 1130, For 1 dose, Not for Age >69 or severe renal impairment, Pre-op (day of surgery) 1157 (Given - Provid er: Ledy Rose RN) sodium chloride flush 0.9 % injection 5-40 mL 5-40 mL, IntraVENous, EVERY 12 HOURS SCHEDULED (2 times per day), First dose on Thu06/03/21 at 1130, For Line Patency: Peripheral IV = 5 mL; Midline or Central Line = 10 mL/lumen. If following IV push medication, administer flush at same rate as the IV push. Flush volume is determined by type of infusion therapy being given. For non-viscous solutions use: Peripheral IV = 5 mL Midline or Central Line = 10 mL/lumen For viscous solutions (i.e. blood components, parenteral nutrition, contrast media, or after obtaining blood sample) use: Peripheral IV = 10 mL Midline or Central Line = 20 mL/lumen, Pre-op (day of surgery) 1130 (Due)2100 (Due) Continuous Medication Order 06/01/2021 06/02/2021 06/03/2021 lactated ringers infusion IntraVENous, at 50 mL/hr, CONTINUOUS, Starting on Thu06/03/21 at 1130, Upon admission to sameday - please start iv if patient does not have iv access. Use 500ml NS for patients on dialysis., Pre-op (day of surgery) 1157 (New Bag - Prov ider: Ledy Rose RN) PRN Medication Order 06/01/2021 06/02/2021 06/03/2021 0.9 % sodium chloride bolus 500 mL (4.24 mL/kg), IntraVENous, at 250 mL/hr, Administer over 2 Hours, ONCE PRN, Nausea, Starting on Thu06/03/21 at 1400, For 1 dose, PACU only 0.9 % sodium chloride infusion 25 mL, IntraVENous, at 100 mL/hr, PRN, If patient receiving piggyback infusions without ordered maintenance IV fluids or with frequent/long duration piggyback infusions, Starting on Thu06/03/21 at 1106, Administer at the same rate as the piggyback being infused., Pre-op (day of surgery) ALPRAZolam (NIRAVAM) dissolvable tablet 0.5 mg 0.5 mg, Oral, PRN, Anxiety, Starting on Thu06/03/21 at 1106, Pre-op (day of surgery) diphenhydrAMINE (BENADRYL) injection 12.5 mg 12.5 mg, IntraVENous, ONCE PRN, Itching, Starting on Thu06/03/21 at 1400, For 1 dose, PACU only hydrALAZINE (APRESOLINE) injection 5 mg 5 mg, IntraVENous, EVERY 10 MIN PRN, High Blood Pressure, Starting on Thu06/03/21 at 1400, PRN for SBP > 160 for 2 consecutive measurements, and if one of the following conditions is met: 1) If IV labetolol is ineffective. 2) If HR is under 60. 3) If patient has heart block, COPD or asthma. If both labetalol and hydralazine ineffective, notify anesthesiologist., PACU only HYDROmorphone (DILAUDID) injection 0.25 mg 0.25 mg, IntraVENous, EVERY 5 MIN PRN, Pain Moderate (4-6), Starting on Thu06/03/21 at 1400, For 4 doses, Phase I and Phase II- Initial therapy for moderate pain (4-6). Restricted to a 50 minute time frame starting when the patient can verbally state their pain score. If secondary medications are utilized, do not return to initial therapy medications. SDS and, PACU only HYDROmorphone (DILAUDID) injection 0.25 mg 0.25 mg, IntraVENous, EVERY 5 MIN PRN, Pain Moderate (4-6), Starting on Thu06/03/21 at 1400, For 4 doses, Phase I - Secondary therapy to be used after initial therapy medication doses are ineffective . If secondary medications are utilized, do not return to initial therapy medications., PACU only HYDROmorphone (DILAUDID) injection 0.5 mg 0.5 mg, IntraVENous, EVERY 5 MIN PRN, Pain Severe (7-10), Starting on Thu06/03/21 at 1400, For 4 doses, Phase I or Phase II- Initial therapy for severe pain (7-10). Restricted to a 50 minute time frame starting when the patient can verbally state their pain score. If secondary medications are utilized, do not return to initial therapy medications. Sameday and, PACU only HYDROmorphone (DILAUDID) injection 1 mg 1 mg, IntraVENous, EVERY 5 MIN PRN, Pain Severe (7-10), Starting on Thu06/03/21 at 1400, For 4 doses, Phase I - Secondary therapy to be used after initial therapy medication doses are ineffective. If secondary medications are utilized, do not return to initial therapy medications., PACU only labetalol (NORMODYNE;TRANDATE) injection 5 mg 5 mg, IntraVENous, EVERY 10 MIN PRN, High Blood Pressure, Starting on Thu06/03/21 at 1400, PRN for SBP >160 for 2 consecutive measurements, if HR is 60 or greater. If beta bernadette is contraindicated (HR less than 60, heart block, COPD or asthma) use hydralazine IV order., PACU only lidocaine PF 1 % injection 1 mL 1 mL, IntraDERmal, ONCE PRN, IV start, Starting on Thu06/03/21 at 1106, For 1 dose, Pre-op (day of surgery) meperidine (DEMEROL) injection 12.5 mg 12.5 mg, IntraVENous, EVERY 5 MIN PRN, Shivering, , Starting on Thu06/03/21 at 1400, May give every 5 minutes to max of 50mg., PACU only ondansetron (ZOFRAN) injection 4 mg 4 mg, IntraVENous, ONCE PRN, Nausea, Starting on Thu06/03/21 at 1400, For 1 dose, Initial antiemetic therapy., PACU only oxyCODONE (ROXICODONE) immediate release tablet 10 mg(Linked Group 1) 10 mg, Oral, PRN, Pain Severe (7-10), Starting on Thu06/03/21 at 1400, For 1 dose, PHASE II, PACU only oxyCODONE (ROXICODONE) immediate release tablet 5 mg(Linked Group 1) 5 mg, Oral, PRN, Pain Moderate (4-6), Starting on Thu06/03/21 at 1400, For 1 dose, PHASE II, PACU only promethazine (PHENERGAN) injection 6.25 mg 6.25 mg, IntraVENous, ONCE PRN, Nausea, Starting on Thu06/03/21 at 1400, For 1 dose, Caution if used IV:Check IV site for infiltrate prior to and during administration. Secondary antiemetic therapy. For IV administration, dilute to 10ml with normal saline. Must be administered over at least 10 minutes., PACU only sodium chloride flush 0.9 % injection 5-40 mL 5-40 mL, IntraVENous, PRN, Line Care, Starting on Thu06/03/21 at 1106, For Line Patency: Peripheral IV = 5 mL; Midline or Central Line = 10 mL/lumen. If following IV push medication, administer flush at same rate as the IV push. Flush volume is determined by type of infusion therapy being given. For non-viscous solutions use: Peripheral IV = 5 mL Midline or Central Line = 10 mL/lumen For viscous solutions (i.e. blood components, parenteral nutrition, contrast media, or after obtaining blood sample) use: Peripheral IV = 10 mL Midline or Central Line = 20 mL/lumen, Pre-op (day of surgery) Linked Groups Order Group 1: oxyCODONE (ROXICODONE) immediate release tablet 5 mgJump to med 5 mg, Oral, PRN, Pain Moderate (4-6), Starting on Thu06/03/21 at 1400, For 1 dose
PHASE II
PACU only Or oxyCODONE (ROXICODONE) immediate release tablet 10 mgJump to med 10 mg, Oral, PRN, Pain Severe (7-10), Starting on Thu06/03/21 at 1400, For 1 dose
PHASE II
PACU only Care Teams (unrecognized sec tion and content) Sand Sifter Relationship Specialty Start Date End Date Chino Dhaliwal MD PCP - General Geriatric Medicine 04/30/20 Team Status: Active Member Role Status Dates Dr. Alexx Dhaliwal MD Family Provider Active Dr. Alexx Dhaliwal MD Primary Care Provider Active Team Status: Inactive Member Role Status Dates Dr. Alexx Dhaliwal MD Primary Care Provi jeanette, Attending Provider, Referring Provider Active Sand Sifter Relationship Specialty Start Date End Date Chino Dhaliwal MD [address] [place] [address] PCP - General 04/30/20 Skinny Dc MD [address] [facility] [address] [place] [address] Surgeon Urology 11/26/22 Team Status: Active Member Role Status Dates Dr. Alexx Dhaliwal MD Primary Care Provider, Referring Provider Active Dr. Zia Coe MD Attending Provider Active Team Status: Inactive Member Role Status Dates Dr. Alexx Dhaliwal MD Primary Care Provider, Attending Provider Active Sand Sifter Relationship Specialty Start Date End Date Yifan Alexx Mak PCP - General Gerontology 01/01/15 Sand Sifter Relationship Specialty Start Date End Date Alexx Dhaliwal Obdulio PCP - General Gerontology 01/01/15 Sand Sifter Relationship Specialty Start Date End Date Yifan Alexx Mak PCP - General Gerontology 01/01/15 Sand Sifter Relationship Specialty Start Date End Date Yifan Alexx Mak PCP - General Gerontology 01/01/15 Sand Sifter Relationship Specialty Start Date End Date Yifan Alexx Mak PCP - General Gerontology 01/01/15 Sand Sifter Relationship Specialty Start Date End Date Yifan Alexx Mak PCP - General Gerontology 01/01/15 Sand Sifter Relationship Specialty Start Date End Date Yifan Alexx Mak PCP - General Gerontology 01/01/15 Sand Sifter Relationship Specialty Start Date End Date Yifan Alexx Mak PCP - General Gerontology 01/01/15 Sand Sifter Relationship Specialty Start Date End Date Yifan Alexx Mak PCP - General Gerontology 01/01/15 Sand Sifter Relationship Specialty Start Date End Date Yifan Alexx Mak PCP - General Gerontology 01/01/15 Sand Sifter Relationship Specialty Start Date End Date Alexx Dhaliwal Chi PCP - General Gerontology 01/01/15 Sand Sifter Relationship Specialty Start Date End Date Alexx Dhaliwal Chi PCP - General Gerontology 01/01/15 Sand Sifter Relationship Specialty Start Date End Date Chino Dhaliwal MD [address] [place] [address] PCP - General 04/30/20 Skinny Dc MD [address] [facility] [address] [place] [address] Surgeon Urology 11/26/22 Team Status: Inactive Member Role Status Dates Dr. Alexx Dhaliwal MD Primary Care Provider Active Start: February 01, 2025 End: February 01, 2025 Dr. Alexx Dhaliwal MD Attending Provider Active Start: February 01, 2025 End: February 01, 2025 Dr. Alexx Dhaliwal MD Referring Provider Active Start: February 01, 2025 End: February 01, 2025 Team Status: Active Member Role/Relationship Status Dates Dr. Alexx Dhaliwal MD Family Provider Active Dr. Alexx Dhaliwal MD Primary Care Provider Active Team Status: Inactive Member Role/Relationship Status Dates Dr. Alexx Dhaliwal MD Primary Care Provider Active Start: February 01, 2025 End: February 01, 2025 Dr. Alexx Dhaliwal MD Attending Provider Active Start: February 01, 2025 End: February 01, 2025 Dr. Alexx Dhaliwal MD Referring Provider Active Start: February 01, 2025 End: February 01, 2025 Team Status: Inactive Member Role/Relationship Status Dates Dr. Alexx Dhaliwal MD Primary Care Provider Active Start: March 22, 2025 End: March 22, 2025 Dr. Alexx Dhaliwal MD Attending Provider Active Start: March 22, 2025 End: March 22, 2025 Dr. Alexx Dhaliwal MD Referring Provider Active Start: March 22, 2025 End: March 22, 2025 Sand Sifter Relationship Specialty Start Date End Date Chino Dhaliwal MD [address] [place] [address] PCP - General 04/30/20 Skinny Dc MD [address] [place] [id number] Surgeon Urology 11/26/22 Reason for Visit (unrecogniz ed section and content) Reason Comments Physical Therapy Specialty Diagnoses / Procedures Referred By Contac t Referred To Contact Physical Therapy / PHYSICAL THERAPY Diagnoses Post op R Shoulder Procedures NEW RS PT ORTH Jacobo Jiang [address] [place] [address] Ericka Murray, PT, DPT [address] [place] [address] Referral ID Status Reason Start Date Expiration Date V isits Requested Visits Authorized [id number] Authorized 08/17/2023 08/16/2024 99 99 Reason Comments PT Progress Note Reason Comments Procedure cysto Reason Comments Patient Update Pt states that he is feeling much better and his surgeon told him he no longer needs therapy. Pt cancelled all future appointments. Reason Comments Benign Prostatic Hypertrophy 1 year foll ow up. Reports minimal improvement in symptoms but does feel he may be emptying better. Elevated PSA 1 year follow up Reason Comments Other PSA follow up Source Comments (unrecognize d section and content) In the event this informatio n is protected by the Federal Confidentiality of Alcohol and Drug Abuse Patient Records regulations: The Federal rules restrict any use of the information to criminally investigate or prosecute any alcohol or drug abuse patient.[facility] Center[facility] the event this information is protected by the Federal Confidentiality of Alcohol and Drug Abuse Patient Records regulations: The Federal rules restrict any use of the information to criminally investigate or prosecute any alcohol or drug abuse patient.[facility] CenterIn the event this information is protected by the Federal Confidentiality of Alcohol and Drug Abuse Patient Records regulations: The Federal rules restrict any use of the information to criminally investigate or prosecute any alcohol or drug abuse patient.[facility] Center[facility] the event this information is protected by the Federal Confidentiality of Alcohol and Drug Abuse Patient Records regulations: The Federal rules restrict any use of the information to criminally investigate or prosecute any alcohol or drug abuse patient.[facility] CenterIn the event this information is protected by the Federal Confidentiality of Alcohol and Drug Abuse Patient Records regulations: The Federal rules restrict any use of the information to criminally investigate or prosecute any alcohol or drug abuse patient.[facility] CenterIn the event this information is protected by the Federal Confidentiality of Alcohol and Drug Abuse Patient Records regulations: The Federal rules restrict any use of the information to criminally investigate or prosecute any alcohol or drug abuse patient.[facility] Center[facility] the event this information is protected by the Federal Confidentiality of Alcohol and Drug Abuse Patient Records regulations: The Federal rules restrict any use of the information to criminally investigate or prosecute any alcohol or drug abuse patient.[facility] Center[facility] the event this information is protected by the Federal Confidentiality of Alcohol and Drug Abuse Patient Records regulations: The Federal rules restrict any use of the information to criminally investigate or prosecute any alcohol or drug abuse patient.[facility] CenterIn the event this information is protected by the Federal Confidentiality of Alcohol and Drug Abuse Patient Records regulations: The Federal rules restrict any use of the information to criminally investigate or prosecute any alcohol or drug abuse patient.[facility] CenterIn the event this information is protected by the Federal Confidentiality of Alcohol and Drug Abuse Patient Records regulations: The Federal rules restrict any use of the information to criminally investigate or prosecute any alcohol or drug abuse patient.[facility] CenterIn the event this information is protected by the Federal Confidentiality of Alcohol and Drug Abuse Patient Records regulations: The Federal rules restrict any use of the information to criminally investigate or prosecute any alcohol or drug abuse patient.[facility] CenterIn the event this information is protected by the Federal Confidentiality of Alcohol and Drug Abuse Patient Records regulations: The Federal rules restrict any use of the information to criminally investigate or prosecute any alcohol or drug abuse patient.[facility] CenterIn the event this information is protected by the Federal Confidentiality of Alcohol and Drug Abuse Patient Records regulations: The Federal rules restrict any use of the information to criminally investigate or prosecute any alcohol or drug abuse patient.[facility] CenterIn the event this information is protected by the Federal Confidentiality of Alcohol and Drug Abuse Patient Records regulations: The Federal rules restrict any use of the information to criminally investigate or prosecute any alcohol or drug abuse patient.[facility] CenterIn the event this information is protected by the Federal Confidentiality of Alcohol and Drug Abuse Patient Records regulations: The Federal rules restrict any use of the information to criminally investigate or prosecute any alcohol or drug abuse patient.[facility] CenterIn the event this information is protected by the Federal Confidentiality of Alcohol and Drug Abuse Patient Records regulations: The Federal rules restrict any use of the information to criminally investigate or prosecute any alcohol or drug abuse patient.[facility] CenterIn the event this information is protected by the Federal Confidentiality of Alcohol and Drug Abuse Patient Records regulations: The Federal rules restrict any use of the information to criminally investigate or prosecute any alcohol or drug abuse patient.[facility] CenterIn the event this information is protected by the Federal Confidentiality of Alcohol and Drug Abuse Patient Records regulations: The Federal rules restrict any use of the information to criminally investigate or prosecute any alcohol or drug abuse patient.[facility] CenterIn the event this information is protected by the Federal Confidentiality of Alcohol and Drug Abuse Patient Records regulations: The Federal rules restrict any use of the information to criminally investigate or prosecute any alcohol or drug abuse patient.[facility] CenterIn the event this information is protected by the Federal Confidentiality of Alcohol and Drug Abuse Patient Records regulations: The Federal rules restrict any use of the information to criminally investigate or prosecute any alcohol or drug abuse patient.[facility] FOR RECORDS PERTAINING TO PATIENTS WHO ARE OR HAVE BEEN ENROLLED IN A CHEMICAL DEPENDENCY/SUBSTANCEABUSE PROGRAM, SOME INFORMATION MAY BE OMITTED. This clinical summary was aggregated from multiple sources. Caution should be exercised in using it in the provision of clinical care. This summary normalizes information from multiple sources, and as a consequence, information in this document may materially change the coding, format and clinical context of patient data. In addition, data may be omitted in some cases. CLINICAL DECISIONS SHOULD BE BASED ON THE PRIMARY CLINICAL RECORDS. [facility] HospitalSea[facility]. provides no warranty or guarantee of the accuracy or completeness of information in this document.
[2025-08-03 21:56] LABS: Xtra Tube Kwok EXTRA TUBE
== END | disposition home or self-care (01) ==
LOC: POLAB3 13:55
PROVIDERS: PCP Family Medicine Geriatric Medicine; Visit Provider Family Medicine Geriatric Medicine
DX: E55.9 Vitamin D deficiency, unspecified (principal); I10 Essential (primary) hypertension; M10.9 Gout, unspecified
CPT/HCPCS: 36415; 80053; 82306; 84443; 84550; 85025